=== PATIENT | female | born 1940 | race Caucasian/White ===

== ENCOUNTER → 2017-06-03 | Day surgery (SDC) | payer MEDICARE, SELFPAY | END | disposition home or self-care (01) | PROVIDERS: Family Provider Family Medicine; PCP Family Medicine; Visit Provider Ophthalmology | DX: H25.11 Age-related nuclear cataract, right eye (principal); I10 Essential (primary) hypertension; E11.9 Type 2 diabetes mellitus without complications; I48.91 Unspecified atrial fibrillation; Z86.73 Personal history of transient ischemic attack (TIA), and cerebral infarction without residual deficits; Z79.84 Long term (current) use of oral hypoglycemic drugs | CPT/HCPCS: J2704; V2787 ==

== ENCOUNTER → 2017-06-10 08:10 | Outpatient (CLI) | payer MEDICARE, SELFPAY ==
--- NOTE | 2017-06-10 | DI.CT.S_ITS ---
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 TECHNIQUE: 4 phase scanning was performed. Non-contrast 5 mm axial sections acquired from the diaphragm to the iliac crests. Following the administration of intravenous contrast, 5 mm thick arterial-phase, portal venous-phase, and 5-minute delayed phase images were acquired through the liver. 5 mm thick coronal and sagittal reformats were performed. For radiation dose reduction, the following was used: automated exposure control, adjustment of mA and/or kV according to patient size. COMPARISON: [facility], US, PELVIC COMPLETE, 05/27/2017, 15:35. [facility], , US BREAST LT, 06/28/2001, 11:18. FINDINGS: Image quality: Excellent. Lung bases: Lung bases are clear. Heart size is normal. Liver: The liver is large measuring up to 23.2 cm craniocaudad. The spleen also is enlarged with a maximal craniocaudad dimension of 18.0 cm. There is a 3.5 x 3.3 cm hypodense mass within the central portion of the spleen, rounded, which has a internal radiodensity before contrast of 37 Hounsfield units and elevation of contrast on the arterial phase of enhancement is not present with the internal radiodensity measuring 39 Hounsfield units. Similarly there is slight if any increased enhancement on the venous phase of imaging with the Hounsfield units measuring 41. Delayed imaging and 5 minutes after injection yields a internal radiodensity of 45-46 Hounsfield units. Other solid organs: Gallbladder has been previously resected. Biliary system is non dilated. Pancreas is normal in morphology. Spleen is normal in size and enhancement. No adrenal nodules. Both kidneys demonstrate normal size and enhancement, without hydronephrosis or nephrolithiasis. Nodes and vessels: No retroperitoneal or mesenteric adenopathy by size criteria. Aorta and inferior vena cava are normal in size. Bowel and peritoneum: Unenhanced bowel loops are normal in caliber. No free fluid or air. Bones: No suspicious bony lesions. No vertebral body compression fractures. Miscellaneous: No ventral hernias. IMPRESSION: Hepatosplenomegaly with a single identified splenic lesion which is rounded, measures up to 3.5 cm in diameter, and shows no CT contrast characteristics of splenic hemangioma as the underlying cause. The finding is nonspecific, likely benign, and followup by ultrasound is recommended to establish stability of appearance over time. Followup is recommended in 2 months, 6 months thereafter, and assuming stability in size at that time 12 months thereafter. Dictated by: Erik Jimenez M.D. on 06/10/2017 at 14:04 Approved by: Erik Jimenez M.D. on 06/10/2017 at 14:14
== END ==
PROVIDERS: Family Provider Family Medicine; PCP Family Medicine; Visit Provider Nurse Practitioner Gerontology
DX: R16.2 Hepatomegaly with splenomegaly, not elsewhere classified (principal)
CPT/HCPCS: 74160; 74170; Q9967

== ENCOUNTER → 2017-06-22 13:37 | Outpatient (CLI) | payer MEDICARE, SELFPAY ==
[2017-06-22 14:12] LABS: Add Manual Diff / Slide Review NO; Basophils Percent Auto 1.3 % (0-2); Eosinophils Percent Auto 1.6 % (2-4); Hematocrit 29.7 % (36-46); Hemoglobin 10.1 g/dL (12.0-16.0); Mean Corpuscular Hemoglobin 35.2 PG (26-34); Mean Corpuscular Volume 103.7 fL (80-100); Neutrophils Absolute Auto 2200 /uL (3000-5900); Neutrophils Percent Auto 61.1 % (50-75); Platelet Count 75 X10^3/uL (150-400); Red Blood Cell Count 2.87 X10^6/uL (4.0-5.2); Red Cell Distribution Width 18.6 % (11.6-14.8); White Blood Cell Count 3.6 X10^3/uL (4.5-11.0)
[2017-06-22 14:19] VITALS: BP 104/50; PULSE 62; RESP 18; TEMP 36.7; O2SAT 97
[2017-06-22] MEDS: EPOETIN ALFA 20,000 UNIT/ML VIAL 60000 UNIT SUBCUT (14:57)
== END ==
PROVIDERS: Family Provider Family Medicine; PCP Family Medicine; Visit Provider Nurse Practitioner Gerontology
DX: D46.Z Other myelodysplastic syndromes (principal); D63.8 Anemia in other chronic diseases classified elsewhere
CPT/HCPCS: 36592; 85025; 96372; J0885

== ENCOUNTER → 2017-07-03 13:28 | Outpatient (CLI) | payer MEDICARE, SELFPAY ==
[2017-07-03 13:59] LABS: Add Manual Diff / Slide Review NO; Basophils Percent Auto 1.1 % (0-2); Eosinophils Percent Auto 1.9 % (2-4); Hematocrit 30.6 % (36-46); Hemoglobin 10.1 g/dL (12.0-16.0); Lymphocytes Percent Auto 18.4 % (25-40); Mean Corpuscular HGB Conc 33.1 % (30-36); Mean Corpuscular Hemoglobin 34.2 PG (26-34); Mean Corpuscular Volume 103.4 fL (80-100); Monocytes Percent Auto 12.8 % (3-14); Neutrophils Absolute Auto 1900 /uL (3000-5900); Neutrophils Percent Auto 65.8 % (50-75); Platelet Count 75 X10^3/uL (150-400); Red Blood Cell Count 2.96 X10^6/uL (4.0-5.2); Red Cell Distribution Width 18.4 % (11.6-14.8)
[2017-07-03 14:29] VITALS: BP 120/60; RESP 18; TEMP 36.7; O2SAT 99
[2017-07-03] MEDS: EPOETIN ALFA 20,000 UNIT/ML VIAL 60000 UNIT SUBCUT (14:48)
== END ==
PROVIDERS: Family Provider Family Medicine; PCP Family Medicine; Visit Provider Nurse Practitioner Gerontology
DX: D46.Z Other myelodysplastic syndromes (principal); D63.8 Anemia in other chronic diseases classified elsewhere
CPT/HCPCS: 36592; 85025; 96372; J0885

== ENCOUNTER → 2017-08-10 13:12 | Outpatient (CLI) | payer MEDICARE, SELFPAY ==
--- NOTE | 2017-08-10 | DI.US.S_ITS ---
PROCEDURE: US ABDOMEN COMPLETE INDICATIONS: Hepatosplenomegaly TECHNIQUE: Real-time scanning was performed of the abdominal and retroperitoneal organs, with image documentation. COMPARISON: [facility], CT, CT ABDOMEN WO/W CON, 06/10/2017, 9:01. FINDINGS: Liver: Liver is moderately enlarged in size at 18.3 cm craniocaudad and homogeneous in echotexture. Except for a hepatic cyst adjacent to the fissure for the falciform ligament, measuring up to 3.2 x 1.2 cm, also seen during prior CT scanning Gallbladder: Surgically absent. Biliary ducts: Intrahepatic bile ducts are non-dilated. Extrahepatic bile duct caliber measures 1.4 cm. Normal is 6-7 mm or less in diameter, or 10 mm or less post-cholecystectomy. Pancreas: Visualized portions of the pancreas are sonographically normal. Spleen: Spleen is moderately enlarged in size measuring up to 19.9 cm craniocaudad and homogeneous in echotexture. Centrally positioned within the spleen is a 2.9 x 2.9 x 3.0 cm mass seen also previously by CT scanning 06/10/17. Kidneys: Kidneys are normal in size and echotexture. Right kidney measures 11.6 cm long; left kidney measures 12.2 cm long. No hydronephrosis or nephrolithiasis. No solid masses. Aorta: Visualized aorta is normal in caliber at less than 3 cm. Iliacs: Proximal common iliac arteries are normal in caliber at less than 2.5 cm. IVC: Intrahepatic inferior vena cava is patent. Miscellaneous: No free abdominal fluid. IMPRESSION: Hepatosplenomegaly with a stable appearing rounded soft tissue mass within the central portion of the spleen, measuring up to 2.9 x 2.9 x 3.0 cm. 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 Again noted is a small ovoid hepatic cyst at the capsular margin of the fissure for the falciform ligament just anterior to the bifurcation of the left portal vein. Dictated by: Erik Jimenez M.D. on 08/10/2017 at 15:14 Approved by: Erik Jimenez M.D. on 08/10/2017 at 15:23
== END ==
PROVIDERS: Family Provider Family Medicine; PCP Family Medicine; Visit Provider Nurse Practitioner Gerontology
DX: R16.2 Hepatomegaly with splenomegaly, not elsewhere classified (principal); K76.89 Other specified diseases of liver
CPT/HCPCS: 76700

== ENCOUNTER → 2017-08-11 16:03 | Outpatient (CLI) | payer MEDICARE, SELFPAY ==
[2017-08-11 15:20] VITALS: BP 116/55; PULSE 61; RESP 16; TEMP 36; O2SAT 99
--- NOTE | 2017-08-11 15:40 | ONC.GEN.PN ---
Diagnosis (1) Myelodysplasia (myelodysplastic syndrome) Diagnosis: 08/11/17 15:40 History of low-grade myelodysplastic syndrome, initially diagnosed in April,. Initial presentation with anemia only. More recent transformation into pancytopenia. Known hepatosplenomegaly. Previously treated with weekly Procrit, switched over to treatment every 2 weeks, the 2nd week of May,. Last abdominal ultrasound on 08/10/2017 (persistent hepatosplenomegaly). History of Present Illness History Of Present Illness: 08/11/17 15:42 Mrs. Flores returns today for routine surveillance. She is again accompanied by her very supportive . Since being switched over to twice monthly Procrit, the week of May, she has really struggled with progressive asthenia. She unequivocally feels worse the 2nd week of her Procrit regimen. She notes early satiety. She also notes intermittent/very tolerable left flank discomfort. She denies any right-sided flank or abdominal discomfort. She denies any recent febrile episodes. She denies any bleeding difficulties. Her last Procrit injection was on July 23. Home Medications and Allergies Home Medications Medication Instructions Recorded Confirmed Type CALCIUM CARBONATE (#CALCIUM) 1,200 mg PO Q DAY #0 07/19/11 06/16/17 History Multivitamin, Minerals, and 1 tab PO QDAY #0 07/19/11 History (#CENTRUM SILVER) VITAMIN E (#E-400) 400 iu PO QDAY #0 07/19/11 History ascorbic acid (vitamin C) 500 mg PO BID #0 07/19/11 06/16/17 History clopidogrel [Plavix] 75 mg PO QDAY #0 07/19/11 06/16/17 History fluticasone [Flovent HFA] 1 puff INH BID #0 07/19/11 06/16/17 History folic acid 0.8 mg PO QDAY #0 07/19/11 06/16/17 History gemfibrozil 300 mg PO BEDTIME #0 07/19/11 07/23/17 History losartan 100 mg PO QDAY #0 07/19/11 History metoprolol tartrate 50 mg PO QDAY #0 07/19/11 History prednisone 5 mg PO 0800 #0 07/19/11 History trazodone 100 mg PO HS #0 07/19/11 History cholecalciferol (vitamin D3) 2,000 iu PO QDAY #0 05/14/12 06/16/17 History [Vitamin D3] topiramate [Topamax] 100 mg PO HS #0 05/14/12 History Ketotifen Fumarate (ZADITOR 0.025%) 1 drp OPHTH #5 ml 06/29/12 History LEVOCETIRIZINE DIHYDROCHLORIDE 5 mg PO HS #0 06/29/12 History (XYZAL) [OMEGA FISH OIL] 500 mg PO #0 06/29/12 History gabapentin [Neurontin] 800 mg PO BID #0 06/29/12 06/16/17 History sertraline [Zoloft] 150 mg PO HS #0 06/29/12 History hydrocodone-acetaminophen [[place]] 1 tab PO PRN #0 04/11/16 History estradiol [Vagifem] 10 mcg VG SEE INSTRUCTIONS #0 12/22/16 06/16/17 History Allergies Allergy/AdvReac Type Severity Reaction Status Date / Time morphine Allergy Severe ANAPHYLAXIS Unverified 05/20/17 11:50 coconut [COCONUT] Allergy Intermediate HIVES Unverified 05/20/17 11:50 adhesive Allergy Mild SKIN Unverified 05/20/17 11:50 BREAKDOWN, RASH (TAPE) PAPER TAPE OK meperidine Allergy Mild red rash Unverified 05/20/17 11:50 lactose [LACTOSE] Allergy Unknown INTOLERANT Unverified 05/20/17 11:50 latex [LATEX] Allergy Unknown REACTION Unverified 05/20/17 11:50 NOT LISTED BY PT metronidazole AdvReac Severe GI UPSET Unverified 05/20/17 11:50 vancomycin [VANCOMYCIN] AdvReac Severe DIARRHEA Unverified 05/20/17 11:50 aspirin AdvReac Mild GI UPSET Unverified 05/20/17 11:50 Cephalosporins AdvReac Mild GI UPSET Unverified 05/20/17 11:50 ibuprofen AdvReac Mild GI UPSET Unverified 05/20/17 11:50 CANTALOUPE Allergy Severe HIVES Uncoded 05/20/17 11:50 honeydew melon Allergy Severe hives Uncoded 05/20/17 11:50 ANTIHISTAMINES Allergy Mild red rash Uncoded 05/20/17 11:50 Exam Vital Signs: Vital Signs - 24 hr 08/11/17 15:20 Temperature 96.8 F L Pulse Rate 61 Respiratory Rate 16 Blood Pressure 116/55 L Pulse Oximetry 99 Exam: Blood pressure 116/55. Temperature 96.8?. Pulse rate 61. O2 saturation on room air was 99%. Weight 190 lb. The patient was somewhat pale in appearance. The oropharynx was clear. She displayed percussible tenderness in her lumbar spine area. There was no palpable rib cage tenderness. Both lungs were clear to auscultation and percussion. No pathologic lymphadenopathy was noted in the neck, chin, supraclavicular or axillary areas. I could just barely palpate her liver at the right costal margin, during inspiration. She was palpably tender when I touched her inferior spleen tip. There was no lower extremity edema. Skin examination was unremarkable. I did not note any bruising or petechiae. Impression Mrs. Flores's hemoglobin level has dropped about 1.5 points, since her Procrit support was cut in half the 2nd week of May. I would therefore recommend that she go back on weekly Procrit support. Yesterday's abdominal ultrasound confirmed slight progression in her splenomegaly and slight regression in her hepatomegaly. I have not really noted any recent downward trend in either her white count or platelet count. I would be comfortable holding off on a follow-up bone marrow at this point in time. Due to my upcoming [facility], I will ask her to see our nurse practitioner in 4 weeks. I wished her well.
--- NOTE | 2017-08-11 15:46 | P.PNONC_ITS ---
Diagnosis (1) Myelodysplasia (myelodysplastic syndrome) Diagnosis: 08/11/17 15:40 History of low-grade myelodysplastic syndrome, initially diagnosed in April,. Initial presentation with anemia only. More recent transformation into pancytopenia. Known hepatosplenomegaly. Previously treated with weekly Procrit , switched over to treatment every 2 weeks, the 2nd week of May,. Last abdominal ultrasound on 08/10/2017 (persistent hepatosplenomegaly). History of Present Illness History Of Present Illness: 08/11/17 15:42 Mrs. Flores returns today for routine surveillance. She is again accompanied by her very supportive . Since being switched over to twice monthly Procrit , the week of May, she has really struggled with progressive asthenia. She unequivocally feels worse the 2nd week of her Procrit regimen. She notes early satiety. She also notes intermittent/very tolerable left flank discomfort. She denies any right-sided flank or abdominal discomfort. She denies any recent febrile episodes. She denies any bleeding difficulties. Her last Procrit injection was on July 23. Home Medications and Allergies Home Medications Medication Instructions Recorded Confirmed Type CALCIUM CARBONATE (#CALCIUM) 1,200 mg PO Q DAY #0 07/19/11 06/16/17 History Multivitamin, Minerals, and 1 tab PO QDAY #0 07/19/11 History (#CENTRUM SILVER) VITAMIN E (#E-400) 400 iu PO QDAY #0 07/19/11 History ascorbic acid (vitamin C) 500 mg PO BID #0 07/19/11 06/16/17 History clopidogrel [Plavix] 75 mg PO QDAY #0 07/19/11 06/16/17 History fluticasone [Flovent HFA] 1 puff INH BID #0 07/19/11 06/16/17 History folic acid 0.8 mg PO QDAY #0 07/19/11 06/16/17 History gemfibrozil 300 mg PO BEDTIME #0 07/19/11 07/23/17 History losartan 100 mg PO QDAY #0 07/19/11 History metoprolol tartrate 50 mg PO QDAY #0 07/19/11 History prednisone 5 mg PO 0800 #0 07/19/11 History trazodone 100 mg PO HS #0 07/19/11 History cholecalciferol (vitamin D3) 2,000 iu PO QDAY #0 05/14/12 06/16/17 History [Vitamin D3] topiramate [Topamax] 100 mg PO HS #0 05/14/12 History Ketotifen Fumarate (ZADITOR 0.025%) 1 drp OPHTH #5 ml 06/29/12 History LEVOCETIRIZINE DIHYDROCHLORIDE 5 mg PO HS #0 06/29/12 History (XYZAL) [OMEGA FISH OIL] 500 mg PO #0 06/29/12 History gabapentin [Neurontin] 800 mg PO BID #0 06/29/12 06/16/17 History sertraline [Zoloft] 150 mg PO HS #0 06/29/12 History hydrocodone-acetaminophen [[place]] 1 tab PO PRN #0 04/11/16 History estradiol [Vagifem] 10 mcg VG SEE INSTRUCTIONS #0 12/22/16 06/16/17 History Allergies Allergy/AdvReac Type Severity Reaction Status Date / Time morphine Allergy Severe ANAPHYLAXIS Unverified 05/20/17 11:50 coconut [COCONUT] Allergy Intermediate HIVES Unverified 05/20/17 11:50 adhesive Allergy Mild SKIN Unverified 05/20/17 11:50 BREAKDOWN, RASH (TAPE) PAPER TAPE OK meperidine Allergy Mild red rash Unverified 05/20/17 11:50 lactose [LACTOSE] Allergy Unknown INTOLERANT Unverified 05/20/17 11:50 latex [LATEX] Allergy Unknown REACTION Unverified 05/20/17 11:50 NOT LISTED BY PT metronidazole AdvReac Severe GI UPSET Unverified 05/20/17 11:50 vancomycin [VANCOMYCIN] AdvReac Severe DIARRHEA Unverified 05/20/17 11:50 aspirin AdvReac Mild GI UPSET Unverified 05/20/17 11:50 Cephalosporins AdvReac Mild GI UPSET Unverified 05/20/17 11:50 ibuprofen AdvReac Mild GI UPSET Unverified 05/20/17 11:50 CANTALOUPE Allergy Severe HIVES Uncoded 05/20/17 11:50 honeydew melon Allergy Severe hives Uncoded 05/20/17 11:50 ANTIHISTAMINES Allergy Mild red rash Uncoded 05/20/17 11:50 Exam Vital Signs: Vital Signs - 24 hr 08/11/17 15:20 Temperature 96.8 F L Pulse Rate 61 Respiratory Rate 16 Blood Pressure 116/55 L Pulse Oximetry 99 Exam: Blood pressure 116/55. Temperature 96.8?. Pulse rate 61. O2 saturation on room air was 99%. Weight 190 lb. The patient was somewhat pale in appearance. The oropharynx was clear. She displayed percussible tenderness in her lumbar spine area. There was no palpable rib cage tenderness. Both lungs were clear to auscultation and percussion. No pathologic lymphadenopathy was noted in the neck, chin, supraclavicular or axillary areas. I could just barely palpate her liver at the right costal margin, during inspiration. She was palpably tender when I touched her inferior spleen tip. There was no lower extremity edema. Skin examination was unremarkable. I did not note any bruising or petechiae. Impression Mrs. Flores's hemoglobin level has dropped about 1.5 points, since her Procrit support was cut in half the 2nd week of May. I would therefore recommend that she go back on weekly Procrit support. Yesterday's abdominal ultrasound confirmed slight progression in her splenomegaly and slight regression in her hepatomegaly. I have not really noted any recent downward trend in either her white count or platelet count. I would be comfortable holding off on a follow- up bone marrow at this point in time. Due to my upcoming halfway, I will ask her to see our nurse practitioner in 4 weeks. I wished her well.
[2017-08-11] MEDS: EPOETIN ALFA 20,000 UNIT/ML VIAL 60000 UNIT SUBCUT (16:04)
== END ==
PROVIDERS: Family Provider Family Medicine; PCP Family Medicine; Visit Provider Internal Medicine Hematology & Oncology
DX: D46.Z Other myelodysplastic syndromes (principal); D63.8 Anemia in other chronic diseases classified elsewhere
CPT/HCPCS: 96372; 99215; J0885

== ENCOUNTER 2017-08-14 10:44 | Emergency (ER) | payer MEDICARE, SELFPAY ==
[2017-08-14 10:57] VITALS: BP 119/70; PULSE 85; RESP 17; TEMP 37; O2SAT 99; BMI 27.8
[2017-08-14 11:56] LABS: Add Manual Diff / Slide Review NO; Basophils Percent Auto 0.6 % (0-2); Eosinophils Percent Auto 0.1 % (2-4); Hematocrit 29.8 % (36-46); Hemoglobin 9.9 g/dL (12.0-16.0); Lymphocytes Percent Auto 8.1 % (25-40); Mean Corpuscular HGB Conc 33.3 % (30-36); Mean Corpuscular Hemoglobin 34.7 PG (26-34); Mean Corpuscular Volume 104.4 fL (80-100); Monocytes Percent Auto 9.6 % (3-14); Neutrophils Absolute Auto 2700 /uL (3000-5900); Neutrophils Percent Auto 81.6 % (50-75); Platelet Count 83 X10^3/uL (150-400); Red Blood Cell Count 2.86 X10^6/uL (4.0-5.2); Red Cell Distribution Width 19.3 % (11.6-14.8); White Blood Cell Count 3.3 X10^3/uL (4.5-11.0)
[2017-08-14] MEDS: SODIUM CHLORIDE 0.9% 1,000 ML 1000 ML IV (12:00)
[2017-08-14] MEDS: ONDANSETRON 4 MG/2 ML INJ IV ×2 (12:00→15:05)
[2017-08-14 12:07] LABS: Alanine Aminotransferase 26 IU/L (9-52); Albumin 3.7 g/dL (3.5-5.0); Albumin Globulin Ratio 1.5 (1.0-2.8); Alkaline Phosphatase 68 U/L (38-126); Aspartate Aminotransferase 16 IU/L (14-36); BUN Creatinine Ratio 21.4 (6-22); Bilirubin Total 0.9 mg/dL (0.2-1.3); Blood Urea Nitrogen 15 mg/dL (7-17); Carbon Dioxide 19 mmol/L (22-32); Chloride 111 mmol/L (98-107); Estimated Glomerular Filt Rate > 60.0 mL/min (>60); Globulin 2.4 g/dL (1.7-4.1); Glucose 166 mg/dL (80-110); HEMOLYSIS < 15 (0-50); Potassium 3.5 mmol/L (3.4-5.1); Sodium 141 mmol/L (137-145); Total Protein 6.1 g/dL (6.3-8.2)
--- NOTE | 2017-08-14 12:11 | ED.NAVMDI ---
HPI - Nausea/Vomiting/Diarrhea <Maci Zabala PA-C - Last Filed: 08/14/17 21:44> General Chief complaint: Nausea/Vomiting/Diarrhea Stated complaint: DAIRRHEA,VOMITING Time Seen by Provider: 08/14/17 11:52 Source: patient and family Mode of arrival: ambulatory Limitations: no limitations History of Present Illness HPI Narrative: This 76-year-old female comes in due to 4 day history of diarrhea with watery to very loose stools, no blood or mucus. Her states that she is having diarrhea up to a dozen times daily. More than 3 times today so far. She had vomiting x2 yesterday, none today. She has had persistent nausea. She denies any abdominal pain aside from cramps with the diarrheal episodes. She denies any new urinary symptoms, chest pain, or dyspnea. She does feel generalized weakness. She has been keeping down some fluids at home but her states she basically has not eaten in 4 days. She was visited by her 7-year-old grandson who had a gastroenteritis type illness 2 days prior to her symptoms starting. Her is not ill. History reviewed in previous oncology and visit reports. Related Data Home Medications Medication Instructions Recorded Confirmed CALCIUM CARBONATE (#CALCIUM) 1,200 mg PO Q DAY #0 07/19/11 08/14/17 clopidogrel [Plavix] 75 mg PO QDAY #0 07/19/11 08/14/17 gemfibrozil 300 mg PO BEDTIME #0 07/19/11 08/14/17 ajnqnmif-irb-EG-lycopen-lutein 1 tab PO QDAY #0 07/19/11 08/14/17 [Centrum Silver] prednisone 5 mg PO 0800 #0 07/19/11 08/14/17 vitamin E 400 unit PO DAILY #0 07/19/11 08/14/17 cholecalciferol (vitamin D3) 2,000 iu PO QDAY #0 05/14/12 08/14/17 [Vitamin D3] topiramate [Topamax] 100 mg PO QAM #0 05/14/12 08/14/17 gabapentin [Neurontin] 800 mg PO BID #0 06/29/12 08/14/17 ketotifen fumarate [Zaditor] 1 drp OPHTH DAILY #5 ml 06/29/12 08/14/17 krill oil 1,000 mg PO DAILY #0 06/29/12 08/14/17 sertraline [Zoloft] 150 mg PO HS #0 06/29/12 08/14/17 estradiol [Vagifem] 10 mcg VG 3XW #0 12/22/16 08/14/17 ascorbic acid (vitamin C) 1 tab PO DAILY 08/14/17 08/14/17 diclofenac sodium [Voltaren] 1 applic TOPICAL PRN PRN 08/14/17 08/14/17 fluticasone 1 spray INTRANASAL DAILY 08/14/17 08/14/17 folic acid 0.4 mg PO DAILY 08/14/17 08/14/17 hydrocodone-acetaminophen 1 tab PO Q6H PRN 08/14/17 08/14/17 levocetirizine 1 tab PO QPM 08/14/17 08/14/17 losartan 50 mg PO DAILY 08/14/17 08/14/17 metformin 500 mg PO QPM 08/14/17 08/14/17 metoprolol succinate 1 tab PO QPM 08/14/17 08/14/17 topiramate 1 tab PO BEDTIME 08/14/17 08/14/17 trazodone 1 - 2 tab PO BEDTIME PRN 08/14/17 08/14/17 vit C,L-Nv-gizjz-lutein-zeaxan 2 cap PO DAILY 08/14/17 08/14/17 [PreserVision AREDS 2] Previous Rx's Medication Instructions Recorded diphenoxylate-atropine [Lomotil] 1 tab PO Q6H PRN #16 tab 08/14/17 ondansetron [Zofran ODT] 4 mg PO Q6-8H PRN #10 tab 08/14/17 Allergies Allergy/AdvReac Type Severity Reaction Status Date / Time morphine Allergy Severe ANAPHYLAXIS Verified 08/14/17 18:21 coconut [COCONUT] Allergy Intermediate HIVES Verified 08/14/17 18:21 adhesive Allergy Mild SKIN Verified 08/14/17 18:21 BREAKDOWN, RASH (TAPE) PAPER TAPE OK meperidine Allergy Mild red rash Verified 08/14/17 18:21 lactose [LACTOSE] Allergy Unknown INTOLERANT Verified 08/14/17 18:21 latex [LATEX] Allergy Unknown REACTION Verified 08/14/17 18:21 NOT LISTED BY PT metronidazole AdvReac Severe GI UPSET Verified 08/14/17 18:21 vancomycin [VANCOMYCIN] AdvReac Severe DIARRHEA Verified 08/14/17 18:21 aspirin AdvReac Mild GI UPSET Verified 08/14/17 18:21 Cephalosporins AdvReac Mild GI UPSET Verified 08/14/17 18:21 ibuprofen AdvReac Mild GI UPSET Verified 08/14/17 18:21 CANTALOUPE Allergy Severe HIVES Uncoded 08/14/17 18:21 honeydew melon Allergy Severe hives Uncoded 08/14/17 18:21 ANTIHISTAMINES Allergy Mild red rash Uncoded 08/14/17 18:21 Review of Systems <ELENA Tovar Last Filed: 08/14/17 21:44> Review of Systems All systems reviewed & are unremarkable except as noted in HPI and below Exam <ELENA Tovar Last Filed: 08/14/17 21:44> Narrative Exam Narrative: GENERAL APPEARANCE: Patient sitting comfortably, in no distress. HEENT: PERRL, EOMI, conjunctiva pale pink, no scleral icterus NECK: Supple LUNGS: Clear to auscultation bilaterally. HEART: Rate and rhythm regular, with frequent skips, no murmur ABDOMEN: Soft, nontender, nondistended, bowel sounds present x 4 quadrants, no masses palpable, no hepatosplenomegaly. EXTREMITIES: No edema, no cyanosis DERMATOLOGIC: No jaundice or exanthem NEUROLOGIC: Alert and oriented with normal speech and coordination Initial Vital Signs Initial Vital Signs: Vital Signs Temperature 98.6 F 08/14/17 10:57 Pulse Rate 85 08/14/17 10:57 Respiratory Rate 17 08/14/17 10:57 Blood Pressure 119/70 08/14/17 10:57 Pulse Oximetry 99 08/14/17 10:57 <DO Rosina Watson Last Filed: 08/15/17 07:37> Initial Vital Signs Initial Vital Signs: Vital Signs Temperature 98.6 F 08/14/17 10:57 Pulse Rate 85 08/14/17 10:57 Respiratory Rate 17 08/14/17 10:57 Blood Pressure 119/70 08/14/17 10:57 Pulse Oximetry 99 08/14/17 10:57 Course <Maci Zabala PA-C - Last Filed: 08/14/17 21:44> Additional Information: Patient had improvement in her nausea while here. She was able to tolerate oral fluids, some crackers and apple sauce prior to discharge and was feeling better after IV hydration. It took her several hours to produce a stool sample so it appeared that her diarrhea was improving significantly. We discussed that this appears to be a viral source, likely contracted by her grandson who was ill with similar symptoms. Discussed typically this is self-limited however she needs to return if she has acutely worsening symptoms again. She is agreeable with this plan and has follow-up scheduled with her PCP next week. Orders Ordered: Discontinued Medications Hydrocodone Bitart/Acetaminophen ([place] 5/325) 1 tab PO NOW ONE Stop: 08/14/17 17:47 Last Admin: 08/14/17 17:55 Dose: 1 tab Cholestyramine Resin (Prevalite Packet) 4 gm PO NOW ONE Stop: 08/14/17 17:47 Sodium Chloride (Normal Saline 0.9%) 1,000 mls @ 1,000 mls/hr IV BOLUS ONE Stop: 08/14/17 12:48 Last Infusion: 08/14/17 13:20 Dose: 0 mls/hr Admin: 08/14/17 12:00 Dose: 1,000 mls/hr Loperamide HCl (Immodium Liquid) 4 mg PO NOW ONE Stop: 08/14/17 17:58 Last Admin: 08/14/17 18:01 Dose: Not Given Loperamide HCl (Imodium) 4 mg PO NOW ONE Stop: 08/14/17 18:00 Last Admin: 08/14/17 18:01 Dose: 4 mg Metoclopramide HCl (Reglan) 5 mg IV NOW ONE Stop: 08/14/17 14:53 Last Admin: 08/14/17 18:15 Dose: Not Given Metoclopramide HCl (Reglan) 5 mg IV NOW ONE Stop: 08/14/17 17:47 Last Admin: 08/14/17 17:55 Dose: 5 mg Ondansetron HCl (Zofran) 4 mg IV NOW ONE Stop: 08/14/17 11:50 Last Admin: 08/14/17 12:00 Dose: 4 mg Ondansetron HCl (Zofran) 4 mg IV NOW ONE Stop: 08/14/17 14:59 Last Admin: 08/14/17 15:05 Dose: 4 mg Vital Signs - 8 hr 08/14/17 14:08 08/14/17 16:57 08/14/17 19:02 Pulse Rate 58 L 91 H 80 Respiratory Rate 15 16 15 Blood Pressure 118/62 Blood Pressure [Left Arm] 110/41 L 133/63 H Pulse Oximetry 100 100 100 <Myriam Dobbs, - Last Filed: 08/15/17 07:37> Orders Ordered: Discontinued Medications Hydrocodone Bitart/Acetaminophen ([place] 5/325) 1 tab PO NOW ONE Stop: 08/14/17 17:47 Last Admin: 08/14/17 17:55 Dose: 1 tab Cholestyramine Resin (Prevalite Packet) 4 gm PO NOW ONE Stop: 08/14/17 17:47 Sodium Chloride (Normal Saline 0.9%) 1,000 mls @ 1,000 mls/hr IV BOLUS ONE Stop: 08/14/17 12:48 Last Infusion: 08/14/17 13:20 Dose: 0 mls/hr Admin: 08/14/17 12:00 Dose: 1,000 mls/hr Loperamide HCl (Immodium Liquid) 4 mg PO NOW ONE Stop: 08/14/17 17:58 Last Admin: 08/14/17 18:01 Dose: Not Given Loperamide HCl (Imodium) 4 mg PO NOW ONE Stop: 08/14/17 18:00 Last Admin: 08/14/17 18:01 Dose: 4 mg Metoclopramide HCl (Reglan) 5 mg IV NOW ONE Stop: 08/14/17 14:53 Last Admin: 08/14/17 18:15 Dose: Not Given Metoclopramide HCl (Reglan) 5 mg IV NOW ONE Stop: 08/14/17 17:47 Last Admin: 08/14/17 17:55 Dose: 5 mg Ondansetron HCl (Zofran) 4 mg IV NOW ONE Stop: 08/14/17 11:50 Last Admin: 08/14/17 12:00 Dose: 4 mg Ondansetron HCl (Zofran) 4 mg IV NOW ONE Stop: 08/14/17 14:59 Last Admin: 08/14/17 15:05 Dose: 4 mg Vital Signs - 8 hr 08/14/17 14:08 08/14/17 16:57 08/14/17 19:02 Pulse Rate 58 L 91 H 80 Respiratory Rate 15 16 15 Blood Pressure 118/62 Blood Pressure [Left Arm] 110/41 L 133/63 H Pulse Oximetry 100 100 100 MDM - Nausea/Vomiting/Diarrhea <Maci Zabala PA-C - Last Filed: 08/14/17 21:44> Lab Data Result diagrams: 08/14/17 11:43 08/14/17 11:43 Lab Results 08/14/17 08/14/17 08/14/17 Range/Units 11:43 11:43 11:43 WBC 3.3 L (4.5-11.0) X10^3/uL RBC 2.86 L (4.0-5.2) X10^6/uL Hgb 9.9 L (12.0-16.0) g/dL Hct 29.8 L (36-46) % MCV 104.4 H (80-100) fL MCH 34.7 H (26-34) PG MCHC 33.3 (30-36) % RDW 19.3 H (11.6-14.8) % Plt Count 83 L (150-400) X10^3/uL Neut % (Auto) 81.6 H (50-75) % Lymph % (Auto) 8.1 L (25-40) % [place] % (Auto) 9.6 (3-14) % Eos % (Auto) 0.1 L (2-4) % Baso % (Auto) 0.6 (0-2) % Neut # (Auto) 2700 L (1234-6919) /uL Sodium 141 (137-145) mmol/L Potassium 3.5 (3.4-5.1) mmol/L Chloride 111 H (98-107) mmol/L Carbon Dioxide 19 L (22-32) mmol/L BUN 15 (7-17) mg/dL Creatinine 0.70 (0.52-1.04) mg/dL Estimated GFR > 60.0 (>60) mL/min BUN/Creatinine Ratio 21.4 (6-22) Glucose 166 H (80-110) mg/dL Calcium 9.0 (8.4-10.2) mg/dL Total Bilirubin 0.9 (0.2-1.3) mg/dL AST 16 (14-36) IU/L ALT 26 (9-52) IU/L Alkaline Phosphatase 68 (38-126) U/L Total Protein 6.1 L (6.3-8.2) g/dL Albumin 3.7 (3.5-5.0) g/dL Globulin 2.4 (1.7-4.1) g/dL Albumin/Globulin Ratio 1.5 (1.0-2.8) Lipase 35 (23-300) U/L Stool Aeromonas Cult (Not Detect) Stl C. cayetanensis PCR (Not Detect) Stool Rotavirus (PCR) (Not Detect) Stool Adenovirus (PCR) (Not Detect) Stool Astrovirus (PCR) (Not Detect) Stool Cryptosporidium PCR (Not Detect) Stl E.coli Shiga Tox PCR (Not Detect) St Sh/Enteroin Ecoli PCR (Not Detect) Stool E coli O157 PCR Stl Enterotoxigenic E PCR (Not Detect) Stool EPEC (PCR) (Not Detect) Stl E. histolytica PCR (Not Detect) Stool Giardia Lamblia PCR (Not Detect) Stool Sapovirus (PCR) Stl P. shigelloides PCR (Not Detect) St Y.enterocolitica PCR (Not Detect) Stool Vibrio (PCR) (Not Detect) Stl Vibrio cholerae PCR (Not Detect) Stl Enteroaggr Ecoli PCR (Not Detect) Stl Norovirus GI/GII PCR (Not Detect) Campylobacter (PCR) (Not Detect) C. difficile Tox (PCR) (Not Detect) Salmonella (PCR) (Not Detect) 08/14/17 Range/Units 15:40 WBC (4.5-11.0) X10^3/uL RBC (4.0-5.2) X10^6/uL Hgb (12.0-16.0) g/dL Hct (36-46) % MCV (80-100) fL MCH (26-34) PG MCHC (30-36) % RDW (11.6-14.8) % Plt Count (150-400) X10^3/uL Neut % (Auto) (50-75) % Lymph % (Auto) (25-40) % [place] % (Auto) (3-14) % Eos % (Auto) (2-4) % Baso % (Auto) (0-2) % Neut # (Auto) (0957-0010) /uL Sodium (137-145) mmol/L Potassium (3.4-5.1) mmol/L Chloride (98-107) mmol/L Carbon Dioxide (22-32) mmol/L BUN (7-17) mg/dL Creatinine (0.52-1.04) mg/dL Estimated GFR (>60) mL/min BUN/Creatinine Ratio (6-22) Glucose (80-110) mg/dL Calcium (8.4-10.2) mg/dL Total Bilirubin (0.2-1.3) mg/dL AST (14-36) IU/L ALT (9-52) IU/L Alkaline Phosphatase (38-126) U/L Total Protein (6.3-8.2) g/dL Albumin (3.5-5.0) g/dL Globulin (1.7-4.1) g/dL Albumin/Globulin Ratio (1.0-2.8) Lipase (23-300) U/L Stool Aeromonas Cult Awaiting culture res (Not Detect) Stl C. cayetanensis PCR Not detected (Not Detect) Stool Rotavirus (PCR) Not detected (Not Detect) Stool Adenovirus (PCR) Not detected (Not Detect) Stool Astrovirus (PCR) Detected H (Not Detect) Stool Cryptosporidium PCR Not detected (Not Detect) Stl E.coli Shiga Tox PCR Not detected (Not Detect) St Sh/Enteroin Ecoli PCR Not detected (Not Detect) Stool E coli O157 PCR Not Reportable Stl Enterotoxigenic E PCR Not detected (Not Detect) Stool EPEC (PCR) Not detected (Not Detect) Stl E. histolytica PCR Not detected (Not Detect) Stool Giardia Lamblia PCR Not detected (Not Detect) Stool Sapovirus (PCR) N Stl P. shigelloides PCR Not detected (Not Detect) St Y.enterocolitica PCR Not detected (Not Detect) Stool Vibrio (PCR) Not detected (Not Detect) Stl Vibrio cholerae PCR Not detected (Not Detect) Stl Enteroaggr Ecoli PCR Not detected (Not Detect) Stl Norovirus GI/GII PCR Not detected (Not Detect) Campylobacter (PCR) Not detected (Not Detect) C. difficile Tox (PCR) Not detected (Not Detect) Salmonella (PCR) Not detected (Not Detect) Imaging Data Venous US: Radiologist's impression: <Myriam Rinku, DO - Last Filed: 08/15/17 07:37> Lab Data Lab Results 08/14/17 08/14/17 08/14/17 Range/Units 11:43 11:43 11:43 WBC 3.3 L (4.5-11.0) X10^3/uL RBC 2.86 L (4.0-5.2) X10^6/uL Hgb 9.9 L (12.0-16.0) g/dL Hct 29.8 L (36-46) % MCV 104.4 H (80-100) fL MCH 34.7 H (26-34) PG MCHC 33.3 (30-36) % RDW 19.3 H (11.6-14.8) % Plt Count 83 L (150-400) X10^3/uL Neut % (Auto) 81.6 H (50-75) % Lymph % (Auto) 8.1 L (25-40) % [place] % (Auto) 9.6 (3-14) % Eos % (Auto) 0.1 L (2-4) % Baso % (Auto) 0.6 (0-2) % Neut # (Auto) 2700 L (9310-2824) /uL Sodium 141 (137-145) mmol/L Potassium 3.5 (3.4-5.1) mmol/L Chloride 111 H (98-107) mmol/L Carbon Dioxide 19 L (22-32) mmol/L BUN 15 (7-17) mg/dL Creatinine 0.70 (0.52-1.04) mg/dL Estimated GFR > 60.0 (>60) mL/min BUN/Creatinine Ratio 21.4 (6-22) Glucose 166 H (80-110) mg/dL Calcium 9.0 (8.4-10.2) mg/dL Total Bilirubin 0.9 (0.2-1.3) mg/dL AST 16 (14-36) IU/L ALT 26 (9-52) IU/L Alkaline Phosphatase 68 (38-126) U/L Total Protein 6.1 L (6.3-8.2) g/dL Albumin 3.7 (3.5-5.0) g/dL Globulin 2.4 (1.7-4.1) g/dL Albumin/Globulin Ratio 1.5 (1.0-2.8) Lipase 35 (23-300) U/L Stool Aeromonas Cult (Not Detect) Stl C. cayetanensis PCR (Not Detect) Stool Rotavirus (PCR) (Not Detect) Stool Adenovirus (PCR) (Not Detect) Stool Astrovirus (PCR) (Not Detect) Stool Cryptosporidium PCR (Not Detect) Stl E.coli Shiga Tox PCR (Not Detect) St Sh/Enteroin Ecoli PCR (Not Detect) Stool E coli O157 PCR Stl Enterotoxigenic E PCR (Not Detect) Stool EPEC (PCR) (Not Detect) Stl E. histolytica PCR (Not Detect) Stool Giardia Lamblia PCR (Not Detect) Stool Sapovirus (PCR) Stl P. shigelloides PCR (Not Detect) St Y.enterocolitica PCR (Not Detect) Stool Vibrio (PCR) (Not Detect) Stl Vibrio cholerae PCR (Not Detect) Stl Enteroaggr Ecoli PCR (Not Detect) Stl Norovirus GI/GII PCR (Not Detect) Campylobacter (PCR) (Not Detect) C. difficile Tox (PCR) (Not Detect) Salmonella (PCR) (Not Detect) 08/14/17 Range/Units 15:40 WBC (4.5-11.0) X10^3/uL RBC (4.0-5.2) X10^6/uL Hgb (12.0-16.0) g/dL Hct (36-46) % MCV (80-100) fL MCH (26-34) PG MCHC (30-36) % RDW (11.6-14.8) % Plt Count (150-400) X10^3/uL Neut % (Auto) (50-75) % Lymph % (Auto) (25-40) % [place] % (Auto) (3-14) % Eos % (Auto) (2-4) % Baso % (Auto) (0-2) % Neut # (Auto) (8528-3054) /uL Sodium (137-145) mmol/L Potassium (3.4-5.1) mmol/L Chloride (98-107) mmol/L Carbon Dioxide (22-32) mmol/L BUN (7-17) mg/dL Creatinine (0.52-1.04) mg/dL Estimated GFR (>60) mL/min BUN/Creatinine Ratio (6-22) Glucose (80-110) mg/dL Calcium (8.4-10.2) mg/dL Total Bilirubin (0.2-1.3) mg/dL AST (14-36) IU/L ALT (9-52) IU/L Alkaline Phosphatase (38-126) U/L Total Protein (6.3-8.2) g/dL Albumin (3.5-5.0) g/dL Globulin (1.7-4.1) g/dL Albumin/Globulin Ratio (1.0-2.8) Lipase (23-300) U/L Stool Aeromonas Cult Awaiting culture res (Not Detect) Stl C. cayetanensis PCR Not detected (Not Detect) Stool Rotavirus (PCR) Not detected (Not Detect) Stool Adenovirus (PCR) Not detected (Not Detect) Stool Astrovirus (PCR) Detected H (Not Detect) Stool Cryptosporidium PCR Not detected (Not Detect) Stl E.coli Shiga Tox PCR Not detected (Not Detect) St Sh/Enteroin Ecoli PCR Not detected (Not Detect) Stool E coli O157 PCR Not Reportable Stl Enterotoxigenic E PCR Not detected (Not Detect) Stool EPEC (PCR) Not detected (Not Detect) Stl E. histolytica PCR Not detected (Not Detect) Stool Giardia Lamblia PCR Not detected (Not Detect) Stool Sapovirus (PCR) N Stl P. shigelloides PCR Not detected (Not Detect) St Y.enterocolitica PCR Not detected (Not Detect) Stool Vibrio (PCR) Not detected (Not Detect) Stl Vibrio cholerae PCR Not detected (Not Detect) Stl Enteroaggr Ecoli PCR Not detected (Not Detect) Stl Norovirus GI/GII PCR Not detected (Not Detect) Campylobacter (PCR) Not detected (Not Detect) C. difficile Tox (PCR) Not detected (Not Detect) Salmonella (PCR) Not detected (Not Detect) Discharge Plan Departure Patient Disposition: Home, Self-Care Clinical Impression: Viral gastroenteritis Discharge Date/Time: 08/14/17 19:04 Interventions: ED Discharge Assessment Last Done: 08/14/17 19:02 Instructions: DI for Viral Gastroenteritis -- Adult Activity Restrictions/Additional Instructions: Your stool tests were positive for a virus called Astrovirus. From the history you described to me I suspect this came from your grandson. Typically this virus will resolve on its own, but as we talked about if you are feeling acutely worse again and not able to keep down fluids, you need to return to the emergency room. Otherwise, we have scheduled a follow-up visit for you with Dr. Jeffries's office, please check in Thursday at 10:45 a.m. I have sent nausea medication to the pharmacy for you, and have also given you a prescription for a stronger medicine for diarrhea and cramps then you have been taking at home. Please drink plenty of clear fluids and have a bland diet as you are familiar with. Prescriptions: New ondansetron [Zofran ODT] 4 mg tablet,disintegrating 4 mg PO Q6-8H PRN (Reason: nausea and vomiting) Qty: 10 RF: 0 diphenoxylate-atropine [Lomotil] 2.5-0.025 mg tablet 1 tab PO Q6H PRN (Reason: diarrhea) Qty: 16 RF: 0 No Action gemfibrozil 600 MG tablet 300 mg PO BEDTIME Qty: 0 RF: 0 prednisone 5 MG tablet 5 mg PO 0800 Qty: 0 RF: 0 clopidogrel [Plavix] 75 MG tablet 75 mg PO QDAY Qty: 0 RF: 0 qebwuaap-hnw-SN-lycopen-lutein [Centrum Silver] 0.4-300-250 mg-mcg-mcg Tablet 1 tab PO QDAY Qty: 0 RF: 0 CALCIUM CARBONATE (#CALCIUM) 1,200 mg PO Q DAY Qty: 0 RF: 0 vitamin E 400 unit Capsule 400 unit PO DAILY Qty: 0 RF: 0 cholecalciferol (vitamin D3) [Vitamin D3] 2,000 UNIT capsule 2,000 iu PO QDAY Qty: 0 RF: 0 topiramate [Topamax] 100 MG tablet 100 mg PO QAM Qty: 0 RF: 0 gabapentin [Neurontin] 400 MG capsule 800 mg PO BID Qty: 0 RF: 0 sertraline [Zoloft] 100 MG tablet 150 mg PO HS Qty: 0 RF: 0 ketotifen fumarate [Zaditor] 0.025 % (0.035 %) Drops 1 drp OPHTH DAILY Qty: 5 RF: 0 krill oil 1,000 mg PO DAILY Qty: 0 RF: 0 estradiol [Vagifem] 10 MCG tablet 10 mcg VG 3XW Qty: 0 RF: 0 losartan 50 mg tablet 50 mg PO DAILY RF: 0 metformin 500 mg tablet 500 mg PO QPM RF: 0 metoprolol succinate 50 mg tablet extended release 24 hr 1 tab PO QPM RF: 0 hydrocodone-acetaminophen 10-325 mg tablet 1 tab PO Q6H PRN (Reason: pain) RF: 0 trazodone 100 mg tablet 1 - 2 tab PO BEDTIME PRN (Reason: antidepressant) RF: 0 topiramate 200 mg tablet 1 tab PO BEDTIME RF: 0 fluticasone 50 mcg/actuation spray,suspension 1 spray Intranasal DAILY RF: 0 levocetirizine 5 mg tablet 1 tab PO QPM RF: 0 ascorbic acid (vitamin C) 1,000 mg Tablet 1 tab PO DAILY RF: 0 folic acid 400 mcg Tablet 0.4 mg PO DAILY RF: 0 diclofenac sodium [Voltaren] 1 % gel 1 applic Topical PRN PRN (Reason: arthritis pain) RF: 0 vit C,J-Ak-kxtkd-lutein-zeaxan [PreserVision AREDS 2] [phone] oe-wabt-pu-mg Capsule 2 cap PO DAILY RF: 0 Referrals: Elena Jeffries MD [Primary Care Provider] - <Myriam Dobbs DO - Last Filed: 08/15/17 07:37> [facility] I was immediately available in the department for consultation. Documentation has been reviewed. I agree with assessment and plan.
[2017-08-14 12:53] LABS: Lipase 35 U/L (23-300)
[2017-08-14 14:08] VITALS: BP 110/41; PULSE 58; RESP 15; O2SAT 100
[2017-08-14 16:57] VITALS: BP 133/63; PULSE 91; RESP 16; O2SAT 100
[2017-08-14 17:22] LABS: Campylobacter Not Detected (Not Detect); Clostridium difficile toxin AB Not Detected (Not Detect); Enteroaggregative E.coli Not Detected (Not Detect); Plesiomonsa shigelloides Not Detected (Not Detect); Salmonella Not Detected (Not Detect); Vibrio Not Detected (Not Detect); Vibrio cholerae Not Detected (Not Detect); Yersinia enterocolitica Not Detected (Not Detect)
[2017-08-14 17:23] LABS: Adenovirus F 40/41 Not Detected (Not Detect); Astrovirus Detected (Not Detect); Cryptosporidium Not Detected (Not Detect); Cyclospora cayetanensis Not Detected (Not Detect); Entamoeba histolytica Not Detected (Not Detect); Enteropathogenic E.coli Not Detected (Not Detect); Enterotoxigenic E.coli It/st Not Detected (Not Detect); Giardia lamblia Not Detected (Not Detect); Norovirus GI/GII Not Detected (Not Detect); Rotavirus A Not Detected (Not Detect); Shiga-like toxin-prod E.coli Not Detected (Not Detect); Shigella/Enteroinvasive E.coli Not Detected (Not Detect)
[2017-08-14] MEDS: HYDROCODONE/ACET 5/325 TABLET 1 TAB PO (17:55)
[2017-08-14] MEDS: METOCLOPRAMIDE 10 MG/2 ML INJ 5 MG IV (17:55)
[2017-08-14] MEDS: LOPERAMIDE 2 MG CAPSULE 4 MG PO (18:01)
[2017-08-14 19:02] VITALS: BP 118/62; PULSE 80; RESP 15; O2SAT 100
[2017-08-15 11:46] LABS: Sapovirus Not Detected
== END 2017-08-14 19:04 | disposition home or self-care (01) ==
PROVIDERS: Emergency Medicine; Emergency Provider Internal Medicine; Family Provider Family Medicine; PCP Family Medicine
DX: A08.4 Viral intestinal infection, unspecified (principal)
CPT/HCPCS: 36591; 80053; 83690; 85025; 87507; 96361; 96374; 96375; 96376; 99283; J2405; J2765

== ENCOUNTER → 2017-08-19 12:05 | Outpatient (CLI) | payer MEDICARE, SELFPAY ==
[2017-08-19 12:27] LABS: Add Manual Diff / Slide Review NO; Basophils Percent Auto 1.3 % (0-2); Eosinophils Percent Auto 2.4 % (2-4); Hematocrit 26.5 % (36-46); Hemoglobin 8.9 g/dL (12.0-16.0); Lymphocytes Percent Auto 23.2 % (25-40); Mean Corpuscular HGB Conc 33.4 % (30-36); Mean Corpuscular Hemoglobin 34.7 PG (26-34); Mean Corpuscular Volume 103.8 fL (80-100); Monocytes Percent Auto 10.8 % (3-14); Neutrophils Absolute Auto 1500 /uL (3000-5900); Neutrophils Percent Auto 62.3 % (50-75); Platelet Count 109 X10^3/uL (150-400); Red Blood Cell Count 2.55 X10^6/uL (4.0-5.2); Red Cell Distribution Width 18.9 % (11.6-14.8); White Blood Cell Count 2.3 X10^3/uL (4.5-11.0)
[2017-08-19 12:57] VITALS: BP 119/61; PULSE 63; RESP 18; TEMP 36.7; O2SAT 99
[2017-08-19] MEDS: EPOETIN ALFA 20,000 UNIT/ML VIAL 60000 UNIT SUBCUT (13:19)
== END ==
PROVIDERS: Family Provider Family Medicine; PCP Family Medicine; Visit Provider Internal Medicine Hematology & Oncology
DX: D46.Z Other myelodysplastic syndromes (principal); D61.818 Other pancytopenia; D63.8 Anemia in other chronic diseases classified elsewhere; R16.2 Hepatomegaly with splenomegaly, not elsewhere classified
CPT/HCPCS: 36592; 85025; 96372; J0885

== ENCOUNTER → 2017-08-25 13:59 | Outpatient (CLI) | payer MEDICARE, SELFPAY ==
[2017-08-25 14:44] LABS: Add Manual Diff / Slide Review NO; Basophils Percent Auto 1.3 % (0-2); Eosinophils Percent Auto 0.5 % (2-4); Hematocrit 26.8 % (36-46); Lymphocytes Percent Auto 15.4 % (25-40); Mean Corpuscular HGB Conc 33.7 % (30-36); Mean Corpuscular Hemoglobin 35.3 PG (26-34); Mean Corpuscular Volume 104.6 fL (80-100); Monocytes Percent Auto 7.1 % (3-14); Neutrophils Absolute Auto 3000 /uL (3000-5900); Neutrophils Percent Auto 75.7 % (50-75); Platelet Count 115 X10^3/uL (150-400); Red Blood Cell Count 2.56 X10^6/uL (4.0-5.2); Red Cell Distribution Width 19.3 % (11.6-14.8); White Blood Cell Count 3.9 X10^3/uL (4.5-11.0)
[2017-08-25 15:11] VITALS: BP 103/56; PULSE 67; RESP 17; TEMP 36.9; O2SAT 98
[2017-08-25] MEDS: EPOETIN ALFA 20,000 UNIT/ML VIAL 60000 UNIT SUBCUT (15:23)
== END ==
PROVIDERS: Family Provider Family Medicine; PCP Family Medicine; Visit Provider Internal Medicine Hematology & Oncology
DX: D46.Z Other myelodysplastic syndromes (principal); D63.8 Anemia in other chronic diseases classified elsewhere
CPT/HCPCS: 36592; 85025; 96372; J0885

== ENCOUNTER → 2017-09-01 14:07 | Outpatient (CLI) | payer MEDICARE, SELFPAY ==
[2017-09-01 14:37] LABS: Add Manual Diff / Slide Review NO; Basophils Percent Auto 1.8 % (0-2); Eosinophils Percent Auto 1.3 % (2-4); Hemoglobin 9.5 g/dL (12.0-16.0); Lymphocytes Percent Auto 24.6 % (25-40); Mean Corpuscular Hemoglobin 35.8 PG (26-34); Mean Corpuscular Volume 105.4 fL (80-100); Monocytes Percent Auto 11.2 % (3-14); Neutrophils Absolute Auto 1700 /uL (3000-5900); Neutrophils Percent Auto 61.1 % (50-75); Platelet Count 92 X10^3/uL (150-400); Red Blood Cell Count 2.66 X10^6/uL (4.0-5.2); Red Cell Distribution Width 19.5 % (11.6-14.8); White Blood Cell Count 2.8 X10^3/uL (4.5-11.0)
[2017-09-01 14:46] VITALS: BP 108/50; PULSE 63; RESP 16; TEMP 36.9; O2SAT 100
[2017-09-01] MEDS: EPOETIN ALFA 20,000 UNIT/ML VIAL 60000 UNIT SUBCUT (15:06)
== END ==
PROVIDERS: Family Provider Family Medicine; PCP Family Medicine; Visit Provider Internal Medicine Hematology & Oncology
DX: D46.Z Other myelodysplastic syndromes (principal); D63.8 Anemia in other chronic diseases classified elsewhere
CPT/HCPCS: 36592; 85025; 96372; J0885

== ENCOUNTER → 2017-09-08 13:14 | Outpatient (CLI) | payer MEDICARE, SELFPAY ==
[2017-09-08 13:36] LABS: Basophils Percent Auto 1.4 % (0-2); Eosinophils Percent Auto 1.5 % (2-4); Hematocrit 28.1 % (36-46); Hemoglobin 9.5 g/dL (12.0-16.0); Lymphocytes Percent Auto 23.1 % (25-40); Mean Corpuscular HGB Conc 33.7 % (30-36); Mean Corpuscular Hemoglobin 35.6 PG (26-34); Mean Corpuscular Volume 105.6 fL (80-100); Monocytes Percent Auto 10.6 % (3-14); Neutrophils Absolute Auto 1700 /uL (3000-5900); Neutrophils Percent Auto 63.4 % (50-75); Platelet Count 104 X10^3/uL (150-400); Red Blood Cell Count 2.66 X10^6/uL (4.0-5.2); Red Cell Distribution Width 20.6 % (11.6-14.8); White Blood Cell Count 2.7 X10^3/uL (4.5-11.0)
[2017-09-08 13:37] LABS: Add Manual Diff / Slide Review SLIDE REVIEW
[2017-09-08 13:40] VITALS: BP 121/85; PULSE 71; RESP 18; TEMP 36.8; O2SAT 98
[2017-09-08 14:08] LABS: Anisocytosis 2+; Tear Drop Cells 1+
[2017-09-08 14:09] LABS: Ovalocytes 2+
[2017-09-08] MEDS: EPOETIN ALFA 20,000 UNIT/ML VIAL 60000 UNIT SUBCUT (14:48)
--- NOTE | 2017-09-08 15:43 | ONC.APRN.PN ---
Assessment and Plan (1) Myelodysplasia (myelodysplastic syndrome) Current visit: No Status: Acute 09/08/17 15:49 The patient is a 76 year old Female who is being seen in the clinic 09/08/2017 for low grade myelodysplastic syndrome.with anemia, which has developed into pancytopenia. She is now on EPO 60,000 U weekly, which has imoproved her stamina and outlook tremendously. She required 2 units of packed cells on 12/01/2016 for symptomatic anemia and was receiving EPO 10,000 units weekly. She has been treated with EPO since June 2016 and increased to 60,000 units weekly on 12/01. Since then she has felt more energy and states she lockett been able to return to many of her normal activities. Abdominal ultrasound August 10, 2017 demonstrated stable hepatosplenomegaly also with stable soft tissue mass within the central portion of the spleen. Likely a hemangioma, recommendation is to follow-up in 6 and 12 months. She has recovered from recent gastroenteritis with positive stool culture for astrovirus. We will go ahead and administer Procrit 82917 units subcutaneous. Continue weekly. Continue weekly CBC. I have asked the patient return to the clinic in 4 weeks time to be evaluated by 1 of our new oncologist. In review of her blood work she has steady decline in her white count also platelets. I would like for her to discuss with the oncologist/channeler insole if it makes sense to repeat a bone marrow biopsy or if continued watchful waiting with Procrit support remains the best approach. It is important to know patient is overall feeling quite well. She enjoys excellent quality of life. Very active socially also with her family. She does have an extensive medical history. - Time Spent with Patient 30 mis PN -Subjective Interval history: The patient is a 76 year old Female who is being seen in the clinic 09/08/2017 for low grade myelodysplastic syndrome.with anemia, which has developed into pancytopenia. She is now on EPO 60,000 U weekly, which has imoproved her stamina and outlook tremendously. She required 2 units of packed cells on 12/01/2016 for symptomatic anemia and was receiving EPO 10,000 units weekly. She has been treated with EPO since June 2016 and increased to 60,000 units weekly on 12/01. Since then she has felt more energy and states she lockett been able to return to many of her normal activities. Abdominal ultrasound August 10, 2017 demonstrated stable hepatosplenomegaly also with stable soft tissue mass within the central portion of the spleen. Likely a hemangioma, recommendation is to follow-up in 6 and 12 months. Marli presents today for routine visit, EPO injection. She recently had a rather severe gastroenteritis and was treated in the emergency department. Stool culture was positive for astrovirus. Treatment was only supportive, she received fluids, anti emetics also anti diarrheal 600s. It took almost 14 days however the patient feels she has now fully recovered. Bowel movements are back to normal, appetite is back to normal. No abdominal pain. No nausea. No fever or chills overall feeling quite well. Activity tolerance is excellent. No chest pain, shortness of breath. Past Medical History The patient's past medical history is significant for: Ab0 first delivey 04/07/63, second 10/05/65, third 08/11/71 bilat inguinal hernias 1965, repaired 09/1965 pre ulcer 1966, 1970 left knee surgery 1968 stroke unable to read, could barely navigate at 6 months , 05/11/71; sounds like TIA or severe migraine; however, CT head without contrasst 12/01/2011 showed possible old lacunar infarct back problems with brace 1974 partial hysterectomy esoph spasm, (-) angio 1987 lwft total hip 1989 kidney stones 1992 or 1993 choilecystectomy 1994 irritable bowel syndrome 1997 - 2007 Sarcoidosis - pt states she had a mdiastinoscopy; well by 2003 right vitreous floater 1998 right total hip 1999; dislocation 1999 Diabetes type II August 2000 minor occlusion right eye 2002 bigeminy 2002, started plavix diverticulitis 2002 Htn PAC's 2004 started Norpace Osteoarthritis ongoing Polymyalgia Rheumatica 07/2005, pt states it is ongoing benign essential tremor dx'd 01/14 right knee arthroscopy, totalknee, arthroscopy 2006 and 2007 left knee replacementn08/2008; removal of bone and scar tissue July 2009 macular degeneration 2010 C. Difficil 2009, 2010; both occurred after ; treated with vanco; got better after stopping vanco negative colonoscopy 2012 fx elbow 2014 Past Surgical History The patient's past surgical history includes: bilat inguinal hernias 1965, repaired 09/1965 left knee surgery 1968 partial hysterectomy esoph spasm, (-) angio 1987 left total hip 1989 kidney stones 1992 or 1993 cholecystectomy 1994 Sarcoidosis - pt states she had a mdiastinoscopy; well by 2003 right total hip 1999; dislocation 1999 right knee arthroscopy, totalknee, arthroscopy 2006 and 2007 left knee replacement 08/2008; removal of bone and scar tissue July 2009 negative colonoscopy 2012 fx elbow 2014 Results - Labs 09/08/17 13:20 Laboratory Last Values WBC 2.7 X10^3/uL (4.5-11.0) L 09/08/17 13:20 RBC 2.66 X10^6/uL (4.0-5.2) L 09/08/17 13:20 Hgb 9.5 g/dL (12.0-16.0) L 09/08/17 13:20 Hct 28.1 % (36-46) L 09/08/17 13:20 MCV 105.6 fL (80-100) H 09/08/17 13:20 MCH 35.6 PG (26-34) H 09/08/17 13:20 MCHC 33.7 % (30-36) 09/08/17 13:20 RDW 20.6 % (11.6-14.8) H 09/08/17 13:20 Plt Count 104 X10^3/uL (150-400) L 09/08/17 13:20 Neut % (Auto) 63.4 % (50-75) 09/08/17 13:20 Lymph % (Auto) 23.1 % (25-40) L 09/08/17 13:20 [place]ern % (Auto) 10.6 % (3-14) 09/08/17 13:20 Eos % (Auto) 1.5 % (2-4) L 09/08/17 13:20 Baso % (Auto) 1.4 % (0-2) 09/08/17 13:20 Neut # (Auto) 1700 /uL (3964-2969) L 09/08/17 13:20 RBC Morphology Not Reportable 09/08/17 13:20 Anisocytosis 2+ H 09/08/17 13:20 Tear Drop Cells 1+ H 09/08/17 13:20 Ovalocytes 2+ H 09/08/17 13:20 - Imaging Additional studies: Procedures Colonoscopy (09/10/12) Home Medications and Allergies Home Medications Medication Instructions Recorded Confirmed Type CALCIUM CARBONATE (#CALCIUM) 1,200 mg PO Q DAY #0 07/19/11 08/14/17 History clopidogrel [Plavix] 75 mg PO QDAY #0 07/19/11 08/14/17 History gemfibrozil 300 mg PO BEDTIME #0 07/19/11 08/14/17 History vbhqcmbq-csv-AU-lycopen-lutein 1 tab PO QDAY #0 07/19/11 08/14/17 History [Centrum Silver] prednisone 5 mg PO 0800 #0 07/19/11 08/14/17 History vitamin E 400 unit PO DAILY #0 07/19/11 08/14/17 History cholecalciferol (vitamin D3) 2,000 iu PO QDAY #0 05/14/12 08/14/17 History [Vitamin D3] topiramate [Topamax] 100 mg PO QAM #0 05/14/12 08/14/17 History gabapentin [Neurontin] 800 mg PO BID #0 06/29/12 08/14/17 History ketotifen fumarate [Zaditor] 1 drp OPHTH DAILY #5 ml 06/29/12 08/14/17 History krill oil 1,000 mg PO DAILY #0 06/29/12 08/14/17 History sertraline [Zoloft] 150 mg PO HS #0 06/29/12 08/14/17 History estradiol [Vagifem] 10 mcg VG 3XW #0 12/22/16 08/14/17 History ascorbic acid (vitamin C) 1 tab PO DAILY 08/14/17 08/14/17 History diclofenac sodium [Voltaren] 1 applic TOPICAL PRN PRN 08/14/17 08/14/17 History diphenoxylate-atropine [Lomotil] 1 tab PO Q6H PRN #16 tab 08/14/17 Rx fluticasone 1 spray INTRANASAL DAILY 08/14/17 08/14/17 History folic acid 0.4 mg PO DAILY 08/14/17 08/14/17 History hydrocodone-acetaminophen 1 tab PO Q6H PRN 08/14/17 08/14/17 History levocetirizine 1 tab PO QPM 08/14/17 08/14/17 History losartan 50 mg PO DAILY 08/14/17 08/14/17 History metformin 500 mg PO QPM 08/14/17 08/14/17 History metoprolol succinate 1 tab PO QPM 08/14/17 08/14/17 History ondansetron [Zofran ODT] 4 mg PO Q6-8H PRN #10 tab 08/14/17 Rx topiramate 1 tab PO BEDTIME 08/14/17 08/14/17 History trazodone 1 - 2 tab PO BEDTIME PRN 08/14/17 08/14/17 History vit C,S-Hk-iyatw-lutein-zeaxan 2 cap PO DAILY 08/14/17 08/14/17 History [PreserVision AREDS 2] Allergies Allergy/AdvReac Type Severity Reaction Status Date / Time morphine Allergy Severe ANAPHYLAXIS Verified 08/14/17 18:21 coconut [COCONUT] Allergy Intermediate HIVES Verified 08/14/17 18:21 adhesive Allergy Mild SKIN Verified 08/14/17 18:21 BREAKDOWN, RASH (TAPE) PAPER TAPE OK meperidine Allergy Mild red rash Verified 08/14/17 18:21 lactose [LACTOSE] Allergy Unknown INTOLERANT Verified 08/14/17 18:21 latex [LATEX] Allergy Unknown REACTION Verified 08/14/17 18:21 NOT LISTED BY PT metronidazole AdvReac Severe GI UPSET Verified 08/14/17 18:21 vancomycin [VANCOMYCIN] AdvReac Severe DIARRHEA Verified 08/14/17 18:21 aspirin AdvReac Mild GI UPSET Verified 08/14/17 18:21 Cephalosporins AdvReac Mild GI UPSET Verified 08/14/17 18:21 ibuprofen AdvReac Mild GI UPSET Verified 08/14/17 18:21 CANTALOUPE Allergy Severe HIVES Uncoded 08/14/17 18:21 honeydew melon Allergy Severe hives Uncoded 08/14/17 18:21 ANTIHISTAMINES Allergy Mild red rash Uncoded 08/14/17 18:21 Exam Vital signs: Last Vital Signs Temp 98.2 F 09/08/17 13:40 Pulse 71 09/08/17 13:40 Resp 18 09/08/17 13:40 BP 121/85 H 09/08/17 13:40 Pulse Ox 98 09/08/17 13:40 Narrative: non toxic appearing - Constitutional positive no acute distress - Routine HEENT Exam Head: Present: normocephalic, atraumatic Eye: Absent: conjunctival icterus, scleral injection ENT: Present: mucous membranes moist, oropharynx clear - Routine Neck Exam Present: supple. Absent: lymphadenopathy - Routine Respiratory Exam Present: Clear to auscultation bilaterally. Absent: rales, rhonchi, wheezes - Routine Cardiovascular Exam Present: RRR, S1, S2. Absent: murmur, gallop, rubs, JVD - Routine Abdominal Exam Present: soft, normoactive bowel sounds, tenderness, distended. Absent: mass Palpation/Percussion: Present: splenomegaly. Absent: fluid waves Comments: chronic - Routine Extremities Exam Absent: edema, calf tenderness - Routine Skin Exam Present: intact, normal turgor. Absent: petechiae - Routine Neurological Exam Present: alert, oriented X3 - Routine Psychiatric Exam Present: normal affect
== END ==
PROVIDERS: Internal Medicine Hematology & Oncology; Family Provider Family Medicine; PCP Family Medicine; Visit Provider Internal Medicine Hematology & Oncology
DX: D46.Z Other myelodysplastic syndromes (principal); D61.818 Other pancytopenia; R16.2 Hepatomegaly with splenomegaly, not elsewhere classified
CPT/HCPCS: 36592; 85025; 96372; 99214; J0885

== ENCOUNTER → 2017-09-14 13:24 | Outpatient (CLI) | payer MEDICARE, SELFPAY ==
[2017-09-14 12:09] LABS: Add Manual Diff / Slide Review NO; Basophils Percent Auto 1.3 % (0-2); Eosinophils Percent Auto 2.1 % (2-4); Hematocrit 28.8 % (36-46); Hemoglobin 9.6 g/dL (12.0-16.0); Lymphocytes Percent Auto 24.1 % (25-40); Mean Corpuscular HGB Conc 33.3 % (30-36); Mean Corpuscular Hemoglobin 35.6 PG (26-34); Mean Corpuscular Volume 107.1 fL (80-100); Monocytes Percent Auto 12.9 % (3-14); Neutrophils Absolute Auto 1800 /uL (3000-5900); Neutrophils Percent Auto 59.6 % (50-75); Platelet Count 89 X10^3/uL (150-400); Red Blood Cell Count 2.69 X10^6/uL (4.0-5.2)
[2017-09-14 12:35] VITALS: BP 116/50; PULSE 65; RESP 16; TEMP 36.9; O2SAT 97
[2017-09-14] MEDS: EPOETIN ALFA 20,000 UNIT/ML VIAL 60000 UNIT SUBCUT (13:40)
== END ==
PROVIDERS: Family Provider Family Medicine; PCP Family Medicine; Visit Provider Nurse Practitioner Gerontology
DX: D46.Z Other myelodysplastic syndromes (principal)
CPT/HCPCS: 36592; 85025; 96372; J0885

== ENCOUNTER → 2017-09-21 11:32 | Outpatient (CLI) | payer MEDICARE, SELFPAY ==
[2017-09-21 11:57] VITALS: BP 118/56; PULSE 63; RESP 16; TEMP 36.8; O2SAT 99
[2017-09-21 11:58] LABS: Add Manual Diff / Slide Review NO; Basophils Percent Auto 1.5 % (0-2); Eosinophils Percent Auto 2.2 % (2-4); Hematocrit 29.1 % (36-46); Hemoglobin 9.8 g/dL (12.0-16.0); Mean Corpuscular HGB Conc 33.6 % (30-36); Mean Corpuscular Hemoglobin 35.8 PG (26-34); Mean Corpuscular Volume 106.6 fL (80-100); Monocytes Percent Auto 11.2 % (3-14); Neutrophils Absolute Auto 2000 /uL (3000-5900); Neutrophils Percent Auto 64.1 % (50-75); Platelet Count 102 X10^3/uL (150-400); Red Blood Cell Count 2.73 X10^6/uL (4.0-5.2); Red Cell Distribution Width 20.4 % (11.6-14.8); White Blood Cell Count 3.1 X10^3/uL (4.5-11.0)
[2017-09-21 12:13] LABS: Anisocytosis 1+; Ovalocytes 1+; Poikilocytosis 1+
[2017-09-21] MEDS: EPOETIN ALFA 20,000 UNIT/ML VIAL 60000 UNIT SUBCUT (12:19)
== END ==
PROVIDERS: Family Provider Family Medicine; PCP Family Medicine; Visit Provider Nurse Practitioner Gerontology
DX: D46.Z Other myelodysplastic syndromes (principal); D61.818 Other pancytopenia; D63.8 Anemia in other chronic diseases classified elsewhere; R16.2 Hepatomegaly with splenomegaly, not elsewhere classified
CPT/HCPCS: 36592; 85025; 96372; J0885

== ENCOUNTER → 2017-10-07 11:38 | Outpatient (CLI) | payer MEDICARE, SELFPAY ==
[2017-10-07 12:13] LABS: Add Manual Diff / Slide Review NO; Basophils Percent Auto 1.5 % (0-2); Eosinophils Percent Auto 2.2 % (2-4); Hemoglobin 9.7 g/dL (12.0-16.0); Mean Corpuscular HGB Conc 33.4 % (30-36); Mean Corpuscular Hemoglobin 35.4 PG (26-34); Mean Corpuscular Volume 105.9 fL (80-100); Monocytes Percent Auto 12.3 % (3-14); Neutrophils Absolute Auto 1800 /uL (3000-5900); Platelet Count 104 X10^3/uL (150-400); Red Blood Cell Count 2.74 X10^6/uL (4.0-5.2); Red Cell Distribution Width 19.7 % (11.6-14.8); White Blood Cell Count 2.9 X10^3/uL (4.5-11.0)
[2017-10-07] MEDS: EPOETIN ALFA 20,000 UNIT/ML VIAL 60000 UNIT SUBCUT (12:27)
[2017-10-07 12:38] VITALS: BP 139/58; PULSE 67; RESP 16; TEMP 36.8; O2SAT 95
== END ==
PROVIDERS: Family Provider Family Medicine; PCP Family Medicine; Visit Provider Nurse Practitioner Gerontology
DX: D46.Z Other myelodysplastic syndromes (principal)
CPT/HCPCS: 36592; 85025; 96372; J0885

== ENCOUNTER → 2017-10-13 16:02 | Outpatient (CLI) | payer MEDICARE, SELFPAY ==
[2017-10-13 11:59] VITALS: BP 133/57; PULSE 75; RESP 15; TEMP 37.2; O2SAT 97
--- NOTE | 2017-10-13 12:24 | ONC.PN ---
Assessment and Plan (1) Myelodysplasia (myelodysplastic syndrome) Problem details: 76-year-old woman with a history of low-grade myelodysplasia. Her counts have been stable over the last year so and she has not required transfusions. Her white count has been stable in the 2-3 range and her platelets have actually improved a little bit over the last few months. She will continue with her Procrit weekly. She will return to clinic in about 6-8 weeks for follow-up. I would anticipate a bone marrow biopsy if her other counts significantly change or if she has some increase in her transfusion requirement. Status: Acute (2) Hepatosplenomegaly Problem details: She has had hepatosplenomegaly noted on prior imaging with CT and ultrasound. It sounds like she might be having a little bit of symptoms related to the splenomegaly with early satiety. She will be due for follow-up ultrasound in about 6 months. Status: Acute PN -Subjective Interval history: Diagnosis: Myelodysplasia Previous treatment: Procrit. She is currently getting 32995 units weekly. Interval history: The patient is a 76-year-old woman who returns today for follow-up of her myelodysplastic syndrome. She presented initially with anemia and was found to have low-grade myelodysplasia. She later of all to pancytopenia. She has been receiving treatment with Procrit. Since November of last year, she [place] 34345 units weekly. She has not required any transfusions now for more than 6 months. She reports that she feels much better with the shots. She feels stronger and more energetic. She denies any unusual bleeding but has had some easy bruising. She has not had any fevers chills or night sweats. She denies any infectious complications. She is tolerating the injections without any side effects. She did have a recent fall with fracture of her elbow. She is wearing a brace. She did not have any other injuries. Her Past medical history is otherwise notable for a diet controlled diabetes. She has irregular heartbeat. She has had bilateral knee replacements with several revisions surgeries. She has had bilateral hip replacements. She had surgery on her back last fall which did not help with her stenosis. She did have a distant history of a stroke while . She has some trouble with word finding when she has fatigue but otherwise has no residuals. Social history: She is . She does not smoke or drink alcohol. She and her just returned from a 12 day driving trip through [facility]. - Additional ROS Additional ROS: She does have some she when going from lying to standing. Her gait has been unsteady. Her appetite has been mildly diminished. She has noted some early satiety. She has had hepatosplenomegaly noted on ultrasound. No shortness of breath cough chest pain or palpitations. She has been losing some weight but has been dieting to try control her diabetes. She thinks that she has lost about 75 lb over the last 2 years. She does have some chronic constipation which has been stable. She has not noted any blood in the stool. Results - Imaging Additional studies: Procedures Colonoscopy (09/10/12) Home Medications and Allergies Home Medications Medication Instructions Recorded Confirmed Type CALCIUM CARBONATE (#CALCIUM) 1,200 mg PO Q DAY #0 07/19/11 10/13/17 History clopidogrel [Plavix] 75 mg PO QDAY #0 07/19/11 10/13/17 History gemfibrozil 300 mg PO BEDTIME #0 07/19/11 10/13/17 History rrquboxt-hrz-RA-lycopen-lutein 1 tab PO QDAY #0 07/19/11 10/13/17 History [Centrum Silver] prednisone 5 mg PO 0800 #0 07/19/11 10/13/17 History vitamin E 400 unit PO DAILY #0 07/19/11 08/14/17 History cholecalciferol (vitamin D3) 2,000 iu PO QDAY #0 05/14/12 10/13/17 History [Vitamin D3] topiramate [Topamax] 100 mg PO QAM #0 05/14/12 10/13/17 History gabapentin [Neurontin] 800 mg PO BID #0 06/29/12 10/13/17 History ketotifen fumarate [Zaditor] 1 drp OPHTH DAILY #5 ml 06/29/12 10/13/17 History krill oil 1,000 mg PO DAILY #0 06/29/12 10/13/17 History sertraline [Zoloft] 150 mg PO HS #0 06/29/12 10/13/17 History estradiol [Vagifem] 10 mcg VG 3XW #0 12/22/16 10/13/17 History ascorbic acid (vitamin C) 1 tab PO DAILY 08/14/17 10/13/17 History diclofenac sodium [Voltaren] 1 applic TOPICAL PRN PRN 08/14/17 10/13/17 History diphenoxylate-atropine [Lomotil] 1 tab PO Q6H PRN #16 tab 08/14/17 10/13/17 Rx fluticasone 1 spray INTRANASAL DAILY 08/14/17 10/13/17 History folic acid 0.4 mg PO DAILY 08/14/17 10/13/17 History hydrocodone-acetaminophen 1 tab PO Q6H PRN 08/14/17 10/13/17 History levocetirizine 1 tab PO QPM 08/14/17 10/13/17 History losartan 50 mg PO DAILY 08/14/17 10/13/17 History metformin 500 mg PO QPM 08/14/17 10/13/17 History metoprolol succinate 1 tab PO QPM 08/14/17 10/13/17 History ondansetron [Zofran ODT] 4 mg PO Q6-8H PRN #10 tab 08/14/17 10/13/17 Rx topiramate 1 tab PO BEDTIME 08/14/17 10/13/17 History trazodone 1 - 2 tab PO BEDTIME PRN 08/14/17 10/13/17 History vit C,D-Lb-zprmh-lutein-zeaxan 2 cap PO DAILY 08/14/17 10/13/17 History [PreserVision AREDS 2] Allergies Allergy/AdvReac Type Severity Reaction Status Date / Time morphine Allergy Severe ANAPHYLAXIS Verified 08/14/17 18:21 coconut [COCONUT] Allergy Intermediate HIVES Verified 08/14/17 18:21 adhesive Allergy Mild SKIN Verified 08/14/17 18:21 BREAKDOWN, RASH (TAPE) PAPER TAPE OK meperidine Allergy Mild red rash Verified 08/14/17 18:21 lactose [LACTOSE] Allergy Unknown INTOLERANT Verified 08/14/17 18:21 latex [LATEX] Allergy Unknown REACTION Verified 08/14/17 18:21 NOT LISTED BY PT metronidazole AdvReac Severe GI UPSET Verified 08/14/17 18:21 vancomycin [VANCOMYCIN] AdvReac Severe DIARRHEA Verified 08/14/17 18:21 aspirin AdvReac Mild GI UPSET Verified 08/14/17 18:21 Cephalosporins AdvReac Mild GI UPSET Verified 08/14/17 18:21 ibuprofen AdvReac Mild GI UPSET Verified 08/14/17 18:21 CANTALOUPE Allergy Severe HIVES Uncoded 08/14/17 18:21 honeydew melon Allergy Severe hives Uncoded 08/14/17 18:21 ANTIHISTAMINES Allergy Mild red rash Uncoded 08/14/17 18:21 Exam Vital signs: Last Vital Signs Temp 99.0 F 10/13/17 11:59 Pulse 75 10/13/17 11:59 Resp 15 10/13/17 11:59 BP 133/57 L 10/13/17 11:59 Pulse Ox 97 10/13/17 11:59 - Constitutional positive no acute distress, positive average body habitus - Routine HEENT Exam Head: Present: normocephalic, atraumatic Eye: Present: EOMI, PERRL. Absent: conjunctival icterus, scleral injection ENT: Present: mucous membranes moist, oropharynx clear - Routine Neck Exam Present: supple. Absent: lymphadenopathy, thyromegaly - Routine Respiratory Exam Present: Clear to auscultation bilaterally. Absent: rales, wheezes - Routine Cardiovascular Exam Present: RRR, S1, S2. Absent: murmur - Routine Abdominal Exam Present: soft, normoactive bowel sounds, organomegaly. Absent: tenderness Comments: The spleen tip is palpable in the left upper quadrant with deep inspiration. - Routine Extremities Exam Present: edema. Absent: cyanosis, clubbing Comments: She has a brace on her left elbow. - Routine Skin Exam Present: intact. Absent: petechiae, rash - Routine Neurological Exam Present: alert, oriented X3 - Routine Psychiatric Exam Present: normal affect, normal thought process
[2017-10-13 12:36] LABS: Add Manual Diff / Slide Review NO; Basophils Percent Auto 1.2 % (0-2); Eosinophils Percent Auto 2.3 % (2-4); Hematocrit 28.1 % (36-46); Hemoglobin 9.5 g/dL (12.0-16.0); Lymphocytes Percent Auto 17.1 % (25-40); Mean Corpuscular HGB Conc 33.7 % (30-36); Mean Corpuscular Hemoglobin 35.8 PG (26-34); Mean Corpuscular Volume 106.3 fL (80-100); Monocytes Percent Auto 11.1 % (3-14); Neutrophils Absolute Auto 2200 /uL (3000-5900); Neutrophils Percent Auto 68.3 % (50-75); Platelet Count 107 X10^3/uL (150-400); Red Blood Cell Count 2.64 X10^6/uL (4.0-5.2); Red Cell Distribution Width 19.4 % (11.6-14.8); White Blood Cell Count 3.2 X10^3/uL (4.5-11.0)
[2017-10-13 12:45] LABS: Alanine Aminotransferase 23 IU/L (9-52); Albumin 3.6 g/dL (3.5-5.0); Albumin Globulin Ratio 1.6 (1.0-2.8); Alkaline Phosphatase 63 U/L (38-126); Aspartate Aminotransferase 17 IU/L (14-36); BUN Creatinine Ratio 31.1 (6-22); Bilirubin Total 0.4 mg/dL (0.2-1.3); Blood Urea Nitrogen 28 mg/dL (7-17); Calcium 9.5 mg/dL (8.4-10.2); Carbon Dioxide 26 mmol/L (22-32); Chloride 111 mmol/L (98-107); Estimated Glomerular Filt Rate > 60.0 mL/min (>60); Globulin 2.2 g/dL (1.7-4.1); Glucose 137 mg/dL (80-110); HEMOLYSIS < 15 (0-50); Potassium 4.1 mmol/L (3.4-5.1); Sodium 146 mmol/L (137-145); Total Protein 5.8 g/dL (6.3-8.2)
[2017-10-13] MEDS: EPOETIN ALFA 20,000 UNIT/ML VIAL 60000 UNIT SUBCUT (13:28)
== END ==
PROVIDERS: Nurse Practitioner Gerontology; Family Provider Family Medicine; PCP Family Medicine
DX: D46.Z Other myelodysplastic syndromes (principal); R16.2 Hepatomegaly with splenomegaly, not elsewhere classified
CPT/HCPCS: 36592; 80053; 85025; 96372; 99215; J0885

== ENCOUNTER → 2017-10-20 14:26 | Outpatient (CLI) | payer MEDICARE, SELFPAY ==
[2017-10-20 14:33] LABS: Add Manual Diff / Slide Review NO; Basophils Percent Auto 1.8 % (0-2); Eosinophils Percent Auto 3.5 % (2-4); Hematocrit 28.9 % (36-46); Lymphocytes Percent Auto 23.5 % (25-40); Mean Corpuscular HGB Conc 34.7 % (30-36); Mean Corpuscular Hemoglobin 36.2 PG (26-34); Mean Corpuscular Volume 104.4 fL (80-100); Monocytes Percent Auto 11.6 % (3-14); Neutrophils Absolute Auto 2000 /uL (3000-5900); Neutrophils Percent Auto 59.6 % (50-75); Platelet Count 90 X10^3/uL (150-400); Red Blood Cell Count 2.77 X10^6/uL (4.0-5.2); Red Cell Distribution Width 18.9 % (11.6-14.8); White Blood Cell Count 3.3 X10^3/uL (4.5-11.0)
[2017-10-20] MEDS: EPOETIN ALFA 20,000 UNIT/ML VIAL 60000 UNIT SUBCUT (15:23)
[2017-10-20 15:33] VITALS: BP 110/51; PULSE 67; RESP 18; TEMP 36.7; O2SAT 98
== END ==
PROVIDERS: Family Provider Family Medicine; PCP Family Medicine
DX: D46.Z Other myelodysplastic syndromes (principal)
CPT/HCPCS: 36592; 85025; 96372; J0885

== ENCOUNTER → 2017-10-27 14:04 | Outpatient (CLI) | payer MEDICARE, SELFPAY ==
[2017-10-27 14:43] LABS: Add Manual Diff / Slide Review NO; Basophils Percent Auto 1.1 % (0-2); Eosinophils Percent Auto 0.6 % (2-4); Hematocrit 29.4 % (36-46); Hemoglobin 9.8 g/dL (12.0-16.0); Lymphocytes Percent Auto 15.2 % (25-40); Mean Corpuscular HGB Conc 33.3 % (30-36); Mean Corpuscular Hemoglobin 35.4 PG (26-34); Mean Corpuscular Volume 106.3 fL (80-100); Monocytes Percent Auto 9.3 % (3-14); Neutrophils Absolute Auto 2000 /uL (3000-5900); Neutrophils Percent Auto 73.8 % (50-75); Platelet Count 88 X10^3/uL (150-400); Red Blood Cell Count 2.77 X10^6/uL (4.0-5.2); Red Cell Distribution Width 19.3 % (11.6-14.8); White Blood Cell Count 2.7 X10^3/uL (4.5-11.0)
[2017-10-27 15:01] VITALS: BP 111/51; PULSE 59; RESP 18; TEMP 36.9; O2SAT 97
[2017-10-27] MEDS: EPOETIN ALFA 20,000 UNIT/ML VIAL 60000 UNIT SUBCUT (15:30)
== END ==
PROVIDERS: Family Provider Family Medicine; PCP Family Medicine; Visit Provider Family Medicine
DX: D46.Z Other myelodysplastic syndromes (principal)
CPT/HCPCS: 36592; 85025; 96372; J0885

== ENCOUNTER → 2017-11-03 14:07 | Outpatient (CLI) | payer MEDICARE, SELFPAY ==
[2017-11-03 14:20] LABS: Add Manual Diff / Slide Review NO; Basophils Percent Auto 1.4 % (0-2); Eosinophils Percent Auto 2.5 % (2-4); Hematocrit 30.3 % (36-46); Hemoglobin 10.2 g/dL (12.0-16.0); Lymphocytes Percent Auto 21.3 % (25-40); Mean Corpuscular HGB Conc 33.7 % (30-36); Mean Corpuscular Hemoglobin 35.3 PG (26-34); Monocytes Percent Auto 10.4 % (3-14); Neutrophils Absolute Auto 2200 /uL (3000-5900); Neutrophils Percent Auto 64.4 % (50-75); Platelet Count 102 X10^3/uL (150-400); Red Blood Cell Count 2.88 X10^6/uL (4.0-5.2); Red Cell Distribution Width 18.9 % (11.6-14.8); White Blood Cell Count 3.4 X10^3/uL (4.5-11.0)
[2017-11-03] MEDS: EPOETIN ALFA 20,000 UNIT/ML VIAL 60000 UNIT SUBCUT (14:42)
[2017-11-03 14:43] VITALS: BP 133/58; PULSE 60; RESP 16; TEMP 36.8
== END ==
PROVIDERS: Family Provider Family Medicine; PCP Family Medicine
DX: D46.Z Other myelodysplastic syndromes (principal)
CPT/HCPCS: 36592; 85025; 96372; J0885

== ENCOUNTER → 2017-11-10 14:01 | Outpatient (CLI) | payer MEDICARE, SELFPAY ==
[2017-11-10 14:39] LABS: Add Manual Diff / Slide Review NO; Basophils Percent Auto 1.5 % (0-2); Eosinophils Percent Auto 3.6 % (2-4); Hematocrit 31.2 % (36-46); Hemoglobin 10.5 g/dL (12.0-16.0); Lymphocytes Percent Auto 24.9 % (25-40); Mean Corpuscular HGB Conc 33.6 % (30-36); Mean Corpuscular Hemoglobin 35.1 PG (26-34); Mean Corpuscular Volume 104.4 fL (80-100); Monocytes Percent Auto 11.2 % (3-14); Neutrophils Absolute Auto 2000 /uL (3000-5900); Neutrophils Percent Auto 58.8 % (50-75); Platelet Count 110 X10^3/uL (150-400); Red Blood Cell Count 2.99 X10^6/uL (4.0-5.2); Red Cell Distribution Width 18.7 % (11.6-14.8); White Blood Cell Count 3.5 X10^3/uL (4.5-11.0)
[2017-11-10 15:20] VITALS: BP 122/87; PULSE 70; RESP 18; TEMP 36.3; O2SAT 97
[2017-11-10] MEDS: EPOETIN ALFA 20,000 UNIT/ML VIAL 60000 UNIT SUBCUT (15:30)
[2017-11-10 15:33] VITALS: BP 122/54; PULSE 55; RESP 16; TEMP 36.7
== END ==
PROVIDERS: Family Provider Family Medicine; PCP Family Medicine
DX: D46.Z Other myelodysplastic syndromes (principal)
CPT/HCPCS: 36592; 85025; 96372; J0885

== ENCOUNTER → 2017-11-17 13:27 | Outpatient (CLI) | payer MEDICARE, SELFPAY ==
[2017-11-17 13:58] LABS: Add Manual Diff / Slide Review NO; Basophils Percent Auto 1.3 % (0-2); Eosinophils Percent Auto 1.3 % (2-4); Hematocrit 30.2 % (36-46); Hemoglobin 9.9 g/dL (12.0-16.0); Lymphocytes Percent Auto 11.4 % (25-40); Mean Corpuscular HGB Conc 32.8 % (30-36); Mean Corpuscular Hemoglobin 34.6 PG (26-34); Mean Corpuscular Volume 105.5 fL (80-100); Monocytes Percent Auto 6.3 % (3-14); Neutrophils Absolute Auto 3500 /uL (3000-5900); Neutrophils Percent Auto 79.7 % (50-75); Platelet Count 124 X10^3/uL (150-400); Red Blood Cell Count 2.86 X10^6/uL (4.0-5.2); Red Cell Distribution Width 18.8 % (11.6-14.8); White Blood Cell Count 4.4 X10^3/uL (4.5-11.0)
[2017-11-17] MEDS: EPOETIN ALFA 20,000 UNIT/ML VIAL 60000 UNIT SUBCUT (14:33)
[2017-11-17 14:34] VITALS: BP 122/55; PULSE 65; RESP 16; TEMP 36.9
== END ==
PROVIDERS: Family Provider Family Medicine; PCP Family Medicine
DX: D64.9 Anemia, unspecified (principal)
CPT/HCPCS: 36592; 85025; 96372; J0885

== ENCOUNTER → 2017-11-24 14:20 | Outpatient (CLI) | payer MEDICARE, SELFPAY ==
[2017-11-24 13:45] LABS: Add Manual Diff / Slide Review NO; Basophils Percent Auto 1.1 % (0-2); Eosinophils Percent Auto 1.2 % (2-4); Hematocrit 29.7 % (36-46); Hemoglobin 9.7 g/dL (12.0-16.0); Lymphocytes Percent Auto 13.5 % (25-40); Mean Corpuscular HGB Conc 32.6 % (30-36); Mean Corpuscular Hemoglobin 34.7 PG (26-34); Mean Corpuscular Volume 106.3 fL (80-100); Neutrophils Absolute Auto 2600 /uL (3000-5900); Neutrophils Percent Auto 76.2 % (50-75); Platelet Count 98 X10^3/uL (150-400); Red Blood Cell Count 2.79 X10^6/uL (4.0-5.2); Red Cell Distribution Width 19.3 % (11.6-14.8); White Blood Cell Count 3.4 X10^3/uL (4.5-11.0)
--- NOTE | 2017-11-24 14:08 | ONC.PN ---
PN -Subjective Interval history: Diagnosis: Myelodysplasia Previous treatment: [place]rit. [place] 66653 units weekly. Interval history: The patient is a 76-year-old woman who returns today for follow-up of myelodysplasia. She has been getting Procrit 60,000 units weekly. She has been tolerating the injections without any significant difficulty. She feels that overall her strength and energy level have been improving and she feels better on the shot then off. Last week, she was doing some new exercise of physical therapy and developed worsening back pain. It has been persistent over the last 4 5 days. She does have an appointment with the physician in billing him later this week. She has been using hydrocodone which has been providing some relief. She denies any other new aches or pains. No fevers chills or sweats. No recent infections. She denies any unusual bleeding or bruising. Her appetite has been stable. She denies any other changes in her health. - Additional ROS Additional ROS: Back pain as mentioned above. Home Medications and Allergies Home Medications Medication Instructions Recorded Confirmed Type CALCIUM CARBONATE (#CALCIUM) 1,200 mg PO Q DAY #0 07/19/11 10/13/17 History clopidogrel [Plavix] 75 mg PO QDAY #0 07/19/11 10/13/17 History gemfibrozil 300 mg PO BEDTIME #0 07/19/11 10/13/17 History hhtltuve-dxt-KW-lycopen-lutein 1 tab PO QDAY #0 07/19/11 10/13/17 History [Centrum Silver] prednisone 5 mg PO 0800 #0 07/19/11 10/13/17 History vitamin E 400 unit PO DAILY #0 07/19/11 08/14/17 History cholecalciferol (vitamin D3) 2,000 iu PO QDAY #0 05/14/12 10/13/17 History [Vitamin D3] topiramate [Topamax] 100 mg PO QAM #0 05/14/12 10/13/17 History gabapentin [Neurontin] 800 mg PO BID #0 06/29/12 10/13/17 History ketotifen fumarate [Zaditor] 1 drp OPHTH DAILY #5 ml 06/29/12 10/13/17 History krill oil 1,000 mg PO DAILY #0 06/29/12 10/13/17 History sertraline [Zoloft] 150 mg PO HS #0 06/29/12 10/13/17 History estradiol [Vagifem] 10 mcg VG 3XW #0 12/22/16 10/13/17 History ascorbic acid (vitamin C) 1 tab PO DAILY 08/14/17 10/13/17 History diclofenac sodium [Voltaren] 1 applic TOPICAL PRN PRN 08/14/17 10/13/17 History diphenoxylate-atropine [Lomotil] 1 tab PO Q6H PRN #16 tab 08/14/17 10/13/17 Rx fluticasone 1 spray INTRANASAL DAILY 08/14/17 10/13/17 History folic acid 0.4 mg PO DAILY 08/14/17 10/13/17 History hydrocodone-acetaminophen 1 tab PO Q6H PRN 08/14/17 10/13/17 History levocetirizine 1 tab PO QPM 08/14/17 10/13/17 History losartan 50 mg PO DAILY 08/14/17 10/13/17 History metformin 500 mg PO QPM 08/14/17 10/13/17 History metoprolol succinate 1 tab PO QPM 08/14/17 10/13/17 History ondansetron [Zofran ODT] 4 mg PO Q6-8H PRN #10 tab 08/14/17 10/13/17 Rx topiramate 1 tab PO BEDTIME 08/14/17 10/13/17 History trazodone 1 - 2 tab PO BEDTIME PRN 08/14/17 10/13/17 History vit C,S-Zq-ibmul-lutein-zeaxan 2 cap PO DAILY 08/14/17 10/13/17 History [PreserVision AREDS 2] Allergies Allergy/AdvReac Type Severity Reaction Status Date / Time morphine Allergy Severe ANAPHYLAXIS Verified 08/14/17 18:21 coconut [COCONUT] Allergy Intermediate HIVES Verified 08/14/17 18:21 adhesive Allergy Mild SKIN Verified 08/14/17 18:21 BREAKDOWN, RASH (TAPE) PAPER TAPE OK meperidine Allergy Mild red rash Verified 08/14/17 18:21 lactose [LACTOSE] Allergy Unknown INTOLERANT Verified 08/14/17 18:21 latex [LATEX] Allergy Unknown REACTION Verified 08/14/17 18:21 NOT LISTED BY PT metronidazole AdvReac Severe GI UPSET Verified 08/14/17 18:21 vancomycin [VANCOMYCIN] AdvReac Severe DIARRHEA Verified 08/14/17 18:21 aspirin AdvReac Mild GI UPSET Verified 08/14/17 18:21 Cephalosporins AdvReac Mild GI UPSET Verified 08/14/17 18:21 ibuprofen AdvReac Mild GI UPSET Verified 08/14/17 18:21 CANTALOUPE Allergy Severe HIVES Uncoded 08/14/17 18:21 honeydew melon Allergy Severe hives Uncoded 08/14/17 18:21 ANTIHISTAMINES Allergy Mild red rash Uncoded 08/14/17 18:21 Exam - Constitutional positive no acute distress, positive average body habitus Results - Labs Laboratory Last Values WBC 3.4 X10^3/uL (4.5-11.0) L 11/24/17 13:33 RBC 2.79 X10^6/uL (4.0-5.2) L 11/24/17 13:33 Hgb 9.7 g/dL (12.0-16.0) L 11/24/17 13:33 Hct 29.7 % (36-46) L 11/24/17 13:33 MCV 106.3 fL (80-100) H 11/24/17 13:33 MCH 34.7 PG (26-34) H 11/24/17 13:33 MCHC 32.6 % (30-36) 11/24/17 13:33 RDW 19.3 % (11.6-14.8) H 11/24/17 13:33 Plt Count 98 X10^3/uL (150-400) L 11/24/17 13:33 Neut % (Auto) 76.2 % (50-75) H 11/24/17 13:33 Lymph % (Auto) 13.5 % (25-40) L 11/24/17 13:33 Collier % (Auto) 8.0 % (3-14) 11/24/17 13:33 Eos % (Auto) 1.2 % (2-4) L 11/24/17 13:33 Baso % (Auto) 1.1 % (0-2) 11/24/17 13:33 Neut # (Auto) 2600 /uL (0689-0753) L 11/24/17 13:33 - Imaging Additional studies: Procedures Colonoscopy (09/10/12) Assessment and Plan (1) Myelodysplasia (myelodysplastic syndrome) Problem details: 76-year-old woman with a history of low-grade myelodysplasia. Her counts have been stable over the last year so and she has not required transfusions. Her red cell count has been stable and she has been tolerating Procrit with no difficulty. She will continue with her current regimen and return to clinic in about 6-8 weeks for follow-up but sooner should the need arise. She did have multiple questions today regarding expected prognosis and a course of illness with myelodysplasia. I explained that she has low risk disease with an expected survival of the 6-7 years on average. The expected courses that her counts may gradually worsen over time. Eventually, the Procrit may be come ineffective and she may need to have chemotherapy such as vidaza. We also reviewed the risk for transformation to acute leukemia which is unpredictable in its timing but is usually a lethal event if it does happen. She will continue with her current regimen for now and return to clinic in about 6-8 weeks for follow-up. A 25 min was spent with the patient and her the majority in counseling. Status: Acute
[2017-11-24] MEDS: EPOETIN ALFA 20,000 UNIT/ML VIAL 60000 UNIT SUBCUT (14:19)
[2017-11-24 14:34] VITALS: BP 135/65; PULSE 66; RESP 18; TEMP 37.2; O2SAT 98
== END ==
PROVIDERS: Family Provider Family Medicine; PCP Family Medicine
DX: D46.Z Other myelodysplastic syndromes (principal)
CPT/HCPCS: 36592; 85025; 96372; 99214; J0885

== ENCOUNTER → 2017-12-01 13:57 | Outpatient (CLI) | payer MEDICARE, SELFPAY ==
[2017-12-01 14:49] LABS: Basophils Percent Auto 1.1 % (0-2); Eosinophils Percent Auto 0.8 % (2-4); Hematocrit 30.2 % (36-46); Lymphocytes Percent Auto 18.8 % (25-40); Mean Corpuscular HGB Conc 33.2 % (30-36); Mean Corpuscular Hemoglobin 35.3 PG (26-34); Mean Corpuscular Volume 106.3 fL (80-100); Monocytes Percent Auto 11.3 % (3-14); Neutrophils Absolute Auto 2400 /uL (3000-5900); Platelet Count 121 X10^3/uL (150-400); Red Blood Cell Count 2.84 X10^6/uL (4.0-5.2); Red Cell Distribution Width 19.3 % (11.6-14.8); White Blood Cell Count 3.5 X10^3/uL (4.5-11.0)
[2017-12-01 14:52] LABS: Add Manual Diff / Slide Review SLIDE REVIEW
[2017-12-01] MEDS: EPOETIN ALFA 20,000 UNIT/ML VIAL 60000 UNIT SUBCUT (15:14)
[2017-12-01 15:34] LABS: Poikilocytosis 2+
[2017-12-01 15:35] LABS: Macrocytosis 1+; Ovalocytes 1+; Tear Drop Cells 1+
--- NOTE | 2017-12-01 17:09 | PC.NURSE ---
Marli comes in for Epo injection. H/H =12/08.2. Tolerated injection. D/C with spouse ambulatory.
== END ==
PROVIDERS: Family Provider Family Medicine; PCP Family Medicine; Visit Provider Nurse Practitioner Gerontology
DX: D46.Z Other myelodysplastic syndromes (principal)
CPT/HCPCS: 36592; 85025; 96372; J0885

== ENCOUNTER → 2017-12-08 14:04 | Outpatient (CLI) | payer MEDICARE, SELFPAY ==
[2017-12-08 14:30] LABS: Add Manual Diff / Slide Review NO; Basophils Percent Auto 1.2 % (0-2); Eosinophils Percent Auto 3.3 % (2-4); Hematocrit 30.6 % (36-46); Hemoglobin 10.3 g/dL (12.0-16.0); Lymphocytes Percent Auto 22.5 % (25-40); Mean Corpuscular HGB Conc 33.5 % (30-36); Mean Corpuscular Hemoglobin 35.3 PG (26-34); Mean Corpuscular Volume 105.2 fL (80-100); Monocytes Percent Auto 11.9 % (3-14); Neutrophils Absolute Auto 2300 /uL (3000-5900); Neutrophils Percent Auto 61.1 % (50-75); Platelet Count 115 X10^3/uL (150-400); Red Blood Cell Count 2.91 X10^6/uL (4.0-5.2); White Blood Cell Count 3.7 X10^3/uL (4.5-11.0)
[2017-12-08] MEDS: EPOETIN ALFA 20,000 UNIT/ML VIAL 60000 UNIT SUBCUT (14:46)
== END ==
PROVIDERS: Family Provider Family Medicine; PCP Family Medicine
DX: D46.Z Other myelodysplastic syndromes (principal)
CPT/HCPCS: 36592; 85025; 96372; J0885

== ENCOUNTER → 2017-12-10 16:18 | Outpatient (CLI) | payer MEDICARE, SELFPAY ==
--- NOTE | 2017-12-10 | DI.MRI.S_ITS ---
PROCEDURE: MR LUMBAR SPINE WO CON INDICATIONS: Right lower back and buttock pain. Right leg radicular pain TECHNIQUE: Noncontrast sagittal T1 spin echo and T2 fast echo, sagittal STIR, axial T1 and T2 fast spin echo through the lumbar spine. Additional oblique coronal T1 and STIR images were acquired to the sacrum. COMPARISON: [facility], MR, L-SPINE WITHOUT CONTRAST, 02/21/2015, 18:40. FINDINGS: Image quality: Excellent. Alignment and Curvature: There is trace L2-L3 and L3-L4 retrolisthesis. There is mild L4-L5 anterolisthesis. Bones: Schmorl's nodes noted in the superior and inferior endplates of the L3 vertebral body. Minimal anterior wedging of the L4 vertebral body is stable compared to prior MRI. Minimal reactive endplate change is noted adjacent to the L3-L4 and L5-S1 discs. No acute vertebral body compression fractures. Spinal Cord: Conus medullaris terminates at the L1-2 level. Visualized cord demonstrates normal signal and size. Paraspinous Soft Tissues: No paravertebral masses. L1-L2: Normal appearance. L2-L3: Loss of disc signal. Mild, diffuse disc bulge. Mild bilateral facet hypertrophy. No central stenosis. No neural foraminal narrowing. No neural impingement. L3-L4: Loss of disc signal. Mild, diffuse disc bulge. Mild facet and mild ligamentum flavum hypertrophy. Mild narrowing of the central canal. Mild bilateral neural foraminal narrowing. No neural impingement. L4-L5: Loss of disc signal. Mild, diffuse disc bulge. Moderate right and severe left facet hypertrophy. Mild to moderate narrowing of the central canal. Moderate right and severe left neural foraminal narrowing a flattened deformity exiting left L4 nerve root. L5-S1: Loss of disc signal and height. Minimal, diffuse disc bulge. Mild right and moderate left facet hypertrophy. No central stenosis. Mild bilateral neural foraminal narrowing. No neural impingement. Sacrum is intact. No abnormal signal identified within the sacrum. Postsurgical changes compatible with left sacroiliac joint arthrodesis noted. Visualized lumbosacral plexuses are normal. IMPRESSION: 1. Multilevel degenerative disc disease. 2. Multilevel facet arthropathy. 3. Mild to moderate L4-L5 central canal narrowing. Mild L3-L4 central canal narrowing. 4. Moderate right and severe left L4-L5 neural foraminal narrowing. Mild bilateral L3-L4 neural foraminal narrowing. 5. Flattened deformity of the exiting left L4 nerve root secondary to neural foraminal narrowing. Please correlate with clinical data. Dictated by: Violeta Mancini MD, PhD on 12/10/2017 at 16:18 Approved by: Violeta Mancini MD, PhD on 12/10/2017 at 16:26
== END ==
PROVIDERS: Family Provider Family Medicine; PCP Family Medicine; Visit Provider Dentist Orthodontics and Dentofacial Orthopedics
DX: M51.16 Intervertebral disc disorders with radiculopathy, lumbar region (principal); M51.17 Intervertebral disc disorders with radiculopathy, lumbosacral region; M47.26 Other spondylosis with radiculopathy, lumbar region; M47.27 Other spondylosis with radiculopathy, lumbosacral region; M48.061 Spinal stenosis, lumbar region without neurogenic claudication; M48.07 Spinal stenosis, lumbosacral region; M54.5 Low back pain; M46.1 Sacroiliitis, not elsewhere classified; Z98.1 Arthrodesis status
CPT/HCPCS: 72148

== ENCOUNTER → 2017-12-15 14:02 | Outpatient (CLI) | payer MEDICARE, SELFPAY ==
[2017-12-15 14:29] LABS: Add Manual Diff / Slide Review NO; Basophils Percent Auto 1.8 % (0-2); Eosinophils Percent Auto 2.7 % (2-4); Hemoglobin 9.9 g/dL (12.0-16.0); Lymphocytes Percent Auto 21.6 % (25-40); Mean Corpuscular HGB Conc 32.9 % (30-36); Mean Corpuscular Hemoglobin 35.1 PG (26-34); Mean Corpuscular Volume 106.5 fL (80-100); Monocytes Percent Auto 10.1 % (3-14); Neutrophils Absolute Auto 2500 /uL (3000-5900); Neutrophils Percent Auto 63.8 % (50-75); Platelet Count 117 X10^3/uL (150-400); Red Blood Cell Count 2.82 X10^6/uL (4.0-5.2); Red Cell Distribution Width 19.9 % (11.6-14.8)
[2017-12-15] MEDS: EPOETIN ALFA 20,000 UNIT/ML VIAL 60000 UNIT SUBCUT (15:10)
[2017-12-15 15:22] VITALS: BP 118/60; PULSE 62; RESP 18; TEMP 37.1; O2SAT 97
--- NOTE | 2017-12-15 15:40 | ONC.APRN.PN ---
PN -Subjective Interval history: Marli is a 77-year-old female being seen in the clinic December 15, 2017. She carries a diagnosis of myelodysplasia. Today she presents for 2 separate issues: 1. Night sweats. Per patient report ongoing for the last 6 months they do seem to be getting progressively worse. She states she will awake at least once every night ?soaking wet?. She will often need to change her bed clothes also her sheets. She denies any other associated symptoms such as new headache. No New pain she has chronic joint and back pain. No Change in activity tolerance. No Change in appetite. The patient has lost a couple of lb however per patient report this is ?intentional?. Appetite is quite good specifically no early satiety aside from the last 2 days. No issues with bladder or bowels the pt has chronic urinary incontinence. No skin changes. No recent medication changes. 2. ?Left lower quadrant pain?. First noticed 2 days ago. Does not seem to be getting any worse however the patient reports it is ?aggravating?. No nausea. No change in bowel movements, no dysuria or hematuria. No frequency or urgency. Does not think she has had a pain similar in the past. Appetite not so good the last couple of days. No fever, chills. Most recent imaging was June 10, 2017 CT of abdomen noting hepatomegaly. Liver was enlarged measuring 23.2 cm. Spleen also enlarged at 18.0 cm. Follow-up ultrasound August 10, 2017 demonstrated once again enlarged liver at 18.3 cm. The patient continues with weekly CBC also Procrit injections, 26110 units. She does report chronic fatigue sometimes might be a bit better after getting injections. Past Medical History The patient's past medical history is significant for: Ab0 first delivey 04/07/63, second 10/05/65, third 08/11/71 bilat inguinal hernias 1965, repaired 09/1965 pre ulcer 1966, 1970 left knee surgery 1968 stroke unable to read, could barely navigate at 6 months , 05/11/71; sounds like TIA or severe migraine; however, CT head without contrasst 12/01/2011 showed possible old lacunar infarct back problems with brace 1974 partial hysterectomy esoph spasm, (-) angio 1987 lwft total hip 1989 kidney stones 1992 or 1993 choilecystectomy 1994 irritable bowel syndrome 1997 - 2007 Sarcoidosis - pt states she had a mdiastinoscopy; well by 2003 right vitreous floater 1998 right total hip 2000; dislocation 1999 Diabetes type II August 2000 minor occlusion right eye 2002 bigeminy 2002, started plavix diverticulitis 2002 Htn PAC's 2004 started Norpace Osteoarthritis ongoing Polymyalgia Rheumatica 07/2005, pt states it is ongoing benign essential tremor dx'd 01/14 right knee arthroscopy, totalknee, arthroscopy 2006 and 2007 left knee replacementn08/2008; removal of bone and scar tissue July 2009 macular degeneration 2010 C. Difficil 2009, 2010; both occurred after ; treated with vanco; got better after stopping vanco negative colonoscopy 2012 fx elbow 2014 Past Surgical History The patient's past surgical history includes: bilat inguinal hernias 1965, repaired 09/1965 left knee surgery 1968 partial hysterectomy esoph spasm, (-) angio 1987 left total hip 1989 kidney stones 1992 or 1993 cholecystectomy 1994 Sarcoidosis - pt states she had a mdiastinoscopy; well by 2003 right total hip 2000; dislocation 1999 right knee arthroscopy, totalknee, arthroscopy 2006 and 2007 left knee replacement 08/2008; removal of bone and scar tissue July 2009 negative colonoscopy 2012 fx elbow 2014 Home Medications and Allergies Home Medications Medication Instructions Recorded Confirmed Type CALCIUM CARBONATE (#CALCIUM) 1,200 mg PO Q DAY #0 07/19/11 11/24/17 History gemfibrozil 300 mg PO BEDTIME #0 07/19/11 11/24/17 History lqefknpf-bii-AC-lycopen-lutein 1 tab PO QDAY #0 07/19/11 11/24/17 History [Centrum Silver] prednisone 5 mg PO 0800 #0 07/19/11 11/24/17 History vitamin E 400 unit PO DAILY #0 07/19/11 11/24/17 History cholecalciferol (vitamin D3) 2,000 iu PO QDAY #0 05/14/12 11/24/17 History [Vitamin D3] gabapentin [Neurontin] 400 mg PO BID #0 06/29/12 11/24/17 History ketotifen fumarate [Zaditor] 1 drp OPHTH DAILY #5 ml 06/29/12 11/24/17 History krill oil 1,000 mg PO DAILY #0 06/29/12 11/24/17 History sertraline [Zoloft] 150 mg PO HS #0 06/29/12 11/24/17 History ascorbic acid (vitamin C) 1 tab PO DAILY 08/14/17 11/24/17 History diclofenac sodium [Voltaren] 1 applic TOPICAL PRN PRN 08/14/17 11/24/17 History fluticasone 1 spray INTRANASAL DAILY 08/14/17 11/24/17 History folic acid 0.4 mg PO DAILY 08/14/17 11/24/17 History hydrocodone-acetaminophen 1 tab PO Q6H PRN 08/14/17 11/24/17 History levocetirizine 1 tab PO QPM 08/14/17 11/24/17 History losartan 50 mg PO DAILY 08/14/17 11/24/17 History metformin 500 mg PO BID 08/14/17 11/24/17 History metoprolol succinate 1 tab PO QPM 08/14/17 11/24/17 History topiramate 1 tab PO BEDTIME 08/14/17 11/24/17 History trazodone 1 - 2 tab PO BEDTIME PRN 08/14/17 11/24/17 History vit C,H-Ml-odyxd-lutein-zeaxan 2 cap PO DAILY 08/14/17 11/24/17 History [PreserVision AREDS 2] clopidogrel [Plavix] 1 mg/kg PO DAILY 12/15/17 12/15/17 History levofloxacin [Levaquin] 750 mg PO DAILY #7 tab 12/15/17 Rx metronidazole [Flagyl] 500 mg PO TID #21 tab 12/15/17 Rx Allergies Allergy/AdvReac Type Severity Reaction Status Date / Time morphine Allergy Severe ANAPHYLAXIS Verified 08/14/17 18:21 coconut [COCONUT] Allergy Intermediate HIVES Verified 08/14/17 18:21 adhesive Allergy Mild SKIN Verified 08/14/17 18:21 BREAKDOWN, RASH (TAPE) PAPER TAPE OK meperidine Allergy Mild red rash Verified 08/14/17 18:21 lactose [LACTOSE] Allergy Unknown INTOLERANT Verified 08/14/17 18:21 latex [LATEX] Allergy Unknown REACTION Verified 08/14/17 18:21 NOT LISTED BY PT metronidazole AdvReac Severe GI UPSET Verified 08/14/17 18:21 vancomycin [VANCOMYCIN] AdvReac Severe DIARRHEA Verified 07/06/18 18:21 aspirin AdvReac Mild GI UPSET Verified 08/14/17 18:21 Cephalosporins AdvReac Mild GI UPSET Verified 08/14/17 18:21 ibuprofen AdvReac Mild GI UPSET Verified 08/14/17 18:21 CANTALOUPE Allergy Severe HIVES Uncoded 08/14/17 18:21 honeydew melon Allergy Severe hives Uncoded 08/14/17 18:21 ANTIHISTAMINES Allergy Mild red rash Uncoded 08/14/17 18:21 Exam - Constitutional positive no acute distress - Routine HEENT Exam Eye: Absent: conjunctival icterus, scleral injection ENT: Present: mucous membranes moist, oropharynx clear - Routine Neck Exam Present: supple. Absent: lymphadenopathy - Routine Chest/Breast/Axilla Exam Axillae: Absent: lymphadenopathy, mass, tenderness - Routine Respiratory Exam Present: Clear to auscultation bilaterally. Absent: rales, rhonchi, wheezes - Routine Cardiovascular Exam Present: RRR, S1, S2. Absent: JVD - Routine Abdominal Exam Present: soft, normoactive bowel sounds, tenderness, guarding, organomegaly. Absent: distended, rebound Palpation/Percussion: Present: hepatomegaly, splenomegaly. Absent: fluid waves Comments: LLQ tender to palpation - Routine Extremities Exam Absent: edema, calf tenderness - Routine Skin Exam Present: intact, normal turgor. Absent: petechiae, rash - Routine Neurological Exam Present: alert, oriented X3 - Routine Psychiatric Exam Present: normal affect Results - Labs Laboratory Last Values WBC 4.0 X10^3/uL (4.5-11.0) L 12/15/17 14:12 RBC 2.82 X10^6/uL (4.0-5.2) L 12/15/17 14:12 Hgb 9.9 g/dL (12.0-16.0) L 12/15/17 14:12 Hct 30.0 % (36-46) L 12/15/17 14:12 MCV 106.5 fL (80-100) H 12/15/17 14:12 MCH 35.1 PG (26-34) H 12/15/17 14:12 MCHC 32.9 % (30-36) 12/15/17 14:12 RDW 19.9 % (11.6-14.8) H 12/15/17 14:12 Plt Count 117 X10^3/uL (150-400) L 12/15/17 14:12 Neut % (Auto) 63.8 % (50-75) 12/15/17 14:12 Lymph % (Auto) 21.6 % (25-40) L 12/15/17 14:12 [place] % (Auto) 10.1 % (3-14) 12/15/17 14:12 Eos % (Auto) 2.7 % (2-4) 12/15/17 14:12 Baso % (Auto) 1.8 % (0-2) 12/15/17 14:12 Neut # (Auto) 2500 /uL (9620-9924) L 12/15/17 14:12 - Imaging Additional studies: Procedures Colonoscopy (09/10/12) Assessment and Plan (1) Myelodysplasia (myelodysplastic syndrome) Problem details: 76-year-old woman with a history of low-grade myelodysplasia. Her counts have been stable over the last year so and she has not required transfusions. Her red cell count has been stable and she has been tolerating Procrit with no difficulty. She will continue with her current regimen and return to clinic in about 6-8 weeks for follow-up but sooner should the need arise. She did have multiple questions today regarding expected prognosis and a course of illness with myelodysplasia. I explained that she has low risk disease with an expected survival of the 6-7 years on average. The expected courses that her counts may gradually worsen over time. Eventually, the Procrit may be come ineffective and she may need to have chemotherapy such as vidaza. We also reviewed the risk for transformation to acute leukemia which is unpredictable in its timing but is usually a lethal event if it does happen. She will continue with her current regimen for now and return to clinic in about 6-8 weeks for follow-up. A 25 min was spent with the patient and her the majority in counseling. Current visit: No Status: Acute Continue weekly blood counts. Continue Procrit 60,000 units. CBC stable today with a hemoglobin of 9.9 hematocrit 30.0 platelets also stable at 117,000 hundred seventeen thousand. (2) Night sweats Current visit: Yes Status: Acute Per pt ongoing for the past 6 months however have gotten progressively worse. Certainly this is a concerning symptom. I reviewed the patient's medication list no clear offenders. She does take low-dose prednisone 5 mg once daily she continues to take has not missed any doses. She also takes hydrocodone for chronic pain she continues to take daily has not decreased any dosages. She does take sertraline 150 mg daily she has been on this for ?years?. No recent dose changes she has not missed any dose has not taking more than prescribed. Fasting blood sugars in the morning generally run about low 100s she does not use insulin she is only using metformin. Unremarkable exam aside from chronic hepatosplenomegaly. Noting this patient's long and complicated history no clear offenders at present I am going to order a CT scan of chest abdomen pelvis noting history of hepatosplenomegaly with new onset night sweats. On exam today I did not appreciate any palpable adenopathy. CBC is stable. Prior to next visit we will check CBC, CMP, TSH, LDH. Patient will check her blood sugar these next few night when she wakes with night sweats to be sure she is not hypoglycemic. We will schedule CT a will have the patient follow up with her oncologist Dr. Palomino. I expect he may discuss bone marrow biopsy if bloodwork is unremarkable. Pt is aware. (3) Diverticulitis Current visit: Yes Status: Acute Patient presented today with a chief complaint of ?left lower quadrant pain?. On exam she was quite tender over left lower quadrant. She denies any fever or chills however does report some malaise the last 2 days also loss of appetite. I will go ahead and treat her for a diverticulitis however patient understands if she does develop fever, chills, worsening abdominal pain, nausea, vomiting she is to go directly to the hospital. Patient does have metronidazole listed as 1 of her allergies however I did inquire about this she states ?I think it is okay?. I have provided the patient with prescriptions for levofloxacin 750 mg once daily x7 days. Metronidazole 500 mg t.i.d. also x7 days. She is to follow up with her primary care provider. - Time Spent with Patient 35 mins with pt 5 mins review of records 5 mins dictation 5 mis coordination of care with senior scheduler
--- NOTE | 2017-12-15 16:05 | ONC.NAV ---
Description: Coping Support, resources Activity: [employer] met with pt to discuss her request for counseling. She expressed wanting to schedule with me for a few visits to discuss depression and difficulty coping. Made a plan to meet this coming Thursday, 12/18, at 11:00am.
== END ==
PROVIDERS: Family Provider Family Medicine; PCP Family Medicine; Visit Provider Nurse Practitioner Gerontology
DX: D46.Z Other myelodysplastic syndromes (principal); R61 Generalized hyperhidrosis; K57.92 Diverticulitis of intestine, part unspecified, without perforation or abscess without bleeding; R10.32 Left lower quadrant pain; M54.9 Dorsalgia, unspecified; G89.29 Other chronic pain; R32 Unspecified urinary incontinence; R16.0 Hepatomegaly, not elsewhere classified; R53.82 Chronic fatigue, unspecified
CPT/HCPCS: 36592; 85025; 96372; 99215; J0885

== ENCOUNTER → 2017-12-17 10:01 | Outpatient (CLI) | payer MEDICARE, SELFPAY ==
--- NOTE | 2017-12-17 11:40 | DI.CT.S_ITS ---
PROCEDURE: CT CHEST ABD PEL W CON INDICATIONS: Left lower quadrant pain. History of leukemia. TECHNIQUE: After the administration of oral and intravenous contrast, 5 mm thick sections acquired from the lung apices to the symphysis. 5 mm coronal and sagittal reformats were performed, with additional 7 mm coronal MIP reformats through the lungs. For radiation dose reduction, the following was used: automated exposure control, adjustment of mA and/or kV according to patient size. COMPARISON: [facility], CT, CT ABDOMEN WO/W CON, 06/10/2017, 9:01. FINDINGS: Image quality: Excellent. CHEST: Lungs and pleura: No acute airspace opacities. No pleural effusions or pneumothorax. Central and peripheral airways appear patent and normal in caliber. Mediastinum: Heart size is normal. No pericardial effusion. No mediastinal or hilar adenopathy by size criteria. Thoracic aorta and central pulmonary arteries are normal in size. Esophagus is normal in caliber. No hiatal hernia. Chest wall: No axillary or supraclavicular adenopathy by size criteria. Thyroid gland is within normal limits. Left chest wall rené catheter. ABDOMEN: Solid organs: Liver is normal in size and enhancement. Gallbladder is within normal limits. Biliary system is non dilated. Pancreas enhances normally. Spleen is enlarged, measuring 18 cm craniocaudal. There are several low-density hepatic masses, which are slightly increased in number compared to prior examination, with 2 new small lesions in the superior spleen measuring 4 mm diameter. The dominant lesion within the central spleen has increased slightly in size measuring 36 mm diameter. No adrenal nodules. Kidneys demonstrate normal size and enhancement, without hydronephrosis. Peritoneum and bowel: Bowel loops demonstrate normal wall thickness and caliber. No free fluid or air. Nodes and vessels: No retroperitoneal or mesenteric adenopathy by size criteria. Aorta and inferior vena cava are normal in size. Miscellaneous: No change in right paramedian fat containing anterior abdominal wall hernia measuring 57 mm. No change in 20 mm diameter fat-containing umbilical hernia. PELVIS: Genitourinary: Bladder wall thickness is normal. Bilateral ovarian cysts are present, measuring 26 mm on the left, and 50 mm on the right. Miscellaneous: No inguinal hernias or adenopathy. Bones: No suspicious bony lesions. Left sacroiliac ORIF. Bilateral hip arthroplasty. No vertebral body compression fractures. IMPRESSION: 1. Progressive multifocal splenic low-density foci. Given the history of leukemia, findings could represent leukemic infiltration. If the patient is immunocompromised, fungal or mycobacterial infection could also produce this appearance. Splenomegaly is present. 2. Anterior abdominal wall fat containing hernias. 3. Bilateral ovarian cysts, which are abnormal in a postmenopausal female. Further assessment with pelvic ultrasound is recommended. Gynecological consultation recommended. Dictated by: Poli Leo M.D. on 12/17/2017 at 15:51 Approved by: Poli Leo M.D. on 12/17/2017 at 15:59
== END ==
PROVIDERS: PCP Family Medicine; Visit Provider Nurse Practitioner Gerontology
DX: R10.32 Left lower quadrant pain (principal); D46.Z Other myelodysplastic syndromes; R16.2 Hepatomegaly with splenomegaly, not elsewhere classified; N83.202 Unspecified ovarian cyst, left side; N83.201 Unspecified ovarian cyst, right side; K43.9 Ventral hernia without obstruction or gangrene; Z96.643 Presence of artificial hip joint, bilateral
CPT/HCPCS: 71260; 74177; Q9967

== ENCOUNTER 2017-12-17 10:09 | Oncology outpatient (ONC) | payer MEDICARE, SELFPAY ==
[2017-12-17 11:24] LABS: BUN Creatinine Ratio 22.2 (6-22); Blood Urea Nitrogen 20 mg/dL (7-17); Estimated Glomerular Filt Rate > 60.0 mL/min (>60)
--- NOTE | 2017-12-18 14:46 | PC.NURSE ---
Pt called to report experiencing terrible diarrhea since being prescribed levaquin and flagyl on 12/15 for a divertic flair up. She has stopped this medication. I offered her IVF if she was feeling weak or dehydrated but she feels like she has been drinking enough and has been on a clear liquid diet during all of this. Pt was here yesterday 12/[address] for [address] draw [address] CT and was in good spirits and look well at that time. We discussed the alternative since we will be closed for the week end and she is willing to go to ED if necessary. Ayana has been made aware of this development
== END 2018-03-17 10:19 ==
PROVIDERS: PCP Family Medicine; Visit Provider Nurse Practitioner Gerontology
DX: D46.9 Myelodysplastic syndrome, unspecified (principal); R53.82 Chronic fatigue, unspecified
CPT/HCPCS: 71260; 74177; 82565; 84520; 96523; Q9967

== ENCOUNTER → 2017-12-22 10:02 | Outpatient (CLI) | payer MEDICARE, SELFPAY ==
[2017-12-22 10:16] VITALS: BP 152/55; PULSE 77; RESP 18; TEMP 37.3; O2SAT 97
--- NOTE | 2017-12-22 10:30 | ONC.PN ---
PN -Subjective Interval history: Diagnosis: Myelodysplasia Previous treatment: Procrit, 11925 units weekly. Interval history: The patient is a 77-year-old woman who returns today for follow-up. She has longstanding history of myelodysplasia and has been receiving Procrit injections weekly. She has been tolerating them well. Her red cell count has been stable. She has had a little bit of epistaxis but it has not been severe. She denies any other bleeding. She has not required any recent transfusions. Last week, she was seen with a complaint of increasing frequency and severity of night sweats. She also had some left lower quadrant abdominal pain. She was started on antibiotics. After about 3 or 4 days, she stopped due to worsening diarrhea and nausea. She notes that her night sweats had diminished in severity and frequency however. Her left lower quadrant abdominal pain had improved although not completely resolved. Her diarrhea has returned to baseline at this point. She is eating and drinking reasonably well. She denies any dizziness or lightheadedness. No shortness of breath cough for chest pain. - Patient Self-Reported Symptoms SR Constitution: Night Sweats SR Cardiovascular issues: Dizzy/lightheaded SR Gastrointestinal issues: Diarrhea SR Genitourinary issues: Incontinence SR Musculoskeletal issues: Joint pain or swelling, Muscle pain or cramps SR Neuro issues: Headache, Tremors or shaking SR Endocrine issues: Hot flashes Home Medications and Allergies Home Medications Medication Instructions Recorded Confirmed Type CALCIUM CARBONATE (#CALCIUM) 1,200 mg PO Q DAY #0 07/19/11 12/22/17 History gemfibrozil 300 mg PO BEDTIME #0 07/19/11 12/22/17 History gpgmyrni-lef-MS-lycopen-lutein 1 tab PO QDAY #0 07/19/11 12/22/17 History [Centrum Silver] prednisone 5 mg PO 0800 #0 07/19/11 12/22/17 History vitamin E 400 unit PO DAILY #0 07/19/11 12/22/17 History cholecalciferol (vitamin D3) 2,000 iu PO QDAY #0 05/14/12 12/22/17 History [Vitamin D3] gabapentin [Neurontin] 400 mg PO BID #0 06/29/12 12/22/17 History ketotifen fumarate [Zaditor] 1 drp OPHTH DAILY #5 ml 06/29/12 12/22/17 History krill oil 1,000 mg PO DAILY #0 06/29/12 12/22/17 History sertraline [Zoloft] 150 mg PO HS #0 06/29/12 12/22/17 History ascorbic acid (vitamin C) 1 tab PO DAILY 08/14/17 12/22/17 History diclofenac sodium [Voltaren] 1 applic TOPICAL PRN PRN 08/14/17 12/22/17 History fluticasone 1 spray INTRANASAL DAILY 08/14/17 12/22/17 History folic acid 0.4 mg PO DAILY 08/14/17 12/22/17 History hydrocodone-acetaminophen 1 tab PO Q6H PRN 08/14/17 12/22/17 History levocetirizine 1 tab PO QPM 08/14/17 12/22/17 History losartan 50 mg PO DAILY 08/14/17 12/22/17 History metformin 500 mg PO BID 08/14/17 12/22/17 History metoprolol succinate 1 tab PO QPM 08/14/17 12/22/17 History topiramate 1 tab PO BEDTIME 08/14/17 12/22/17 History trazodone 1 - 2 tab PO BEDTIME PRN 08/14/17 12/22/17 History vit C,E-Vy-vpkym-lutein-zeaxan 2 cap PO DAILY 08/14/17 12/22/17 History [PreserVision AREDS 2] clopidogrel [Plavix] 1 mg/kg PO DAILY 12/15/17 12/22/17 History levofloxacin [Levaquin] 750 mg PO DAILY #7 tab 12/15/17 12/22/17 Rx metronidazole [Flagyl] 500 mg PO TID #21 tab 12/15/17 12/22/17 Rx Allergies Allergy/AdvReac Type Severity Reaction Status Date / Time Cephalosporins Allergy Severe GI UPSET Verified 12/22/17 10:21 morphine Allergy Severe ANAPHYLAXIS Verified 08/14/17 18:21 coconut [COCONUT] Allergy Intermediate HIVES Verified 08/14/17 18:21 adhesive Allergy Mild SKIN Verified 08/14/17 18:21 BREAKDOWN, RASH (TAPE) PAPER TAPE OK meperidine Allergy Mild red rash Verified 08/14/17 18:21 lactose [LACTOSE] Allergy Unknown INTOLERANT Verified 08/14/17 18:21 latex [LATEX] Allergy Unknown REACTION Verified 08/14/17 18:21 NOT LISTED BY PT metronidazole AdvReac Severe GI UPSET Verified 08/14/17 18:21 vancomycin [VANCOMYCIN] AdvReac Severe DIARRHEA Verified 08/14/17 18:21 aspirin AdvReac Mild GI UPSET Verified 08/14/17 18:21 ibuprofen AdvReac Mild GI UPSET Verified 08/14/17 18:21 CANTALOUPE Allergy Severe HIVES Uncoded 08/14/17 18:21 honeydew melon Allergy Severe hives Uncoded 08/14/17 18:21 ANTIHISTAMINES Allergy Mild red rash Uncoded 08/14/17 18:21 Exam - Constitutional positive no acute distress, positive average body habitus - Routine HEENT Exam Head: Present: normocephalic, atraumatic Eye: Present: EOMI, PERRL. Absent: conjunctival icterus, scleral injection ENT: Present: mucous membranes moist, oropharynx clear - Routine Neck Exam Present: supple. Absent: lymphadenopathy, thyromegaly - Routine Respiratory Exam Present: Clear to auscultation bilaterally. Absent: rales, wheezes - Routine Cardiovascular Exam Present: RRR, S1, S2. Absent: murmur - Routine Abdominal Exam Present: soft, normoactive bowel sounds, tenderness, organomegaly Comments: The spleen tip is palpable about 1 fingerbreadth below the costal margin. The liver edge is also just palpable underneath the costal margin. I do not feel any other masses. She does have some mild tenderness in the left mid abdomen. There is no rebound or guarding. - Routine Extremities Exam Absent: cyanosis, clubbing, edema - Routine Back/Spine Exam Back/Spine: Absent: vertebral tenderness - Routine Skin Exam Present: intact. Absent: petechiae, rash - Routine Neurological Exam Present: alert, oriented X3 - Routine Psychiatric Exam Present: normal affect, normal thought process Results - Imaging CT scan - abdomen: image reviewed (She does have stable splenomegaly with a lesion in the central part of the spleen. It measured 36 mm today and 35 mm in June. I do not think that that is a significant change. The radiologist also commented on a couple of new small lesions that were small. I do not think that represents a significant change either.) CT scan - chest: image reviewed CT scan - pelvis: image reviewed Additional studies: Procedures Colonoscopy (09/10/12) Assessment and Plan (1) Myelodysplasia (myelodysplastic syndrome) Problem details: 76-year-old woman with a history of low-grade myelodysplasia. Her counts have been stable over the last year so and she has not required transfusions. Her red cell count has been stable and she has been tolerating Procrit with no difficulty. She will continue with her current regimen and return to clinic in about 4 weeks for follow-up. Her CT scan by my review was stable. Her hot flashes and abdominal pain seem to have improved with antibiotics suggesting that there may have been some infection present. As long as her symptoms are improving, I do not think any further evaluation is necessary at this point. Current visit: No Status: Acute
[2017-12-22 10:33] LABS: Add Manual Diff / Slide Review NO; Basophils Percent Auto 1.5 % (0-2); Eosinophils Percent Auto 3.6 % (2-4); Hematocrit 29.8 % (36-46); Hemoglobin 9.7 g/dL (12.0-16.0); Lymphocytes Percent Auto 23.3 % (25-40); Mean Corpuscular HGB Conc 32.7 % (30-36); Mean Corpuscular Hemoglobin 34.6 PG (26-34); Mean Corpuscular Volume 105.5 fL (80-100); Monocytes Percent Auto 12.5 % (3-14); Neutrophils Absolute Auto 1800 /uL (3000-5900); Neutrophils Percent Auto 59.1 % (50-75); Platelet Count 103 X10^3/uL (150-400); Red Blood Cell Count 2.82 X10^6/uL (4.0-5.2); Red Cell Distribution Width 19.6 % (11.6-14.8)
[2017-12-22 10:40] LABS: Albumin 3.7 g/dL (3.5-5.0); HEMOLYSIS < 15 (0-50)
[2017-12-22 10:42] LABS: Alanine Aminotransferase 30 IU/L (9-52); Albumin Globulin Ratio 1.9 (1.0-2.8); Alkaline Phosphatase 57 U/L (38-126); Aspartate Aminotransferase 18 IU/L (14-36); BUN Creatinine Ratio 24.4 (6-22); Bilirubin Total 0.4 mg/dL (0.2-1.3); Blood Urea Nitrogen 22 mg/dL (7-17); Calcium 8.8 mg/dL (8.4-10.2); Carbon Dioxide 22 mmol/L (22-32); Chloride 109 mmol/L (98-107); Estimated Glomerular Filt Rate > 60.0 mL/min (>60); Glucose 179 mg/dL (80-110); Lactate Dehydrogenase 463 U/L (313-618); Sodium 143 mmol/L (137-145); Total Protein 5.7 g/dL (6.3-8.2)
[2017-12-22 11:13] LABS: Thyroid Stimulating Hormone 3.83 uIU/mL (0.47-4.68)
[2017-12-22] MEDS: EPOETIN ALFA 20,000 UNIT/ML VIAL 60000 UNIT SUBCUT (11:13)
== END ==
PROVIDERS: Nurse Practitioner Gerontology; PCP Family Medicine
DX: D46.Z Other myelodysplastic syndromes (principal)
CPT/HCPCS: 36592; 80053; 83615; 84443; 85025; 96372; 99214; J0885

== ENCOUNTER → 2017-12-29 09:29 | Outpatient (CLI) | payer MEDICARE, SELFPAY ==
[2017-12-29 10:07] LABS: Basophils Percent Auto 1.7 % (0-2); Eosinophils Percent Auto 5.1 % (2-4); Hemoglobin 9.8 g/dL (12.0-16.0); Lymphocytes Percent Auto 24.6 % (25-40); Mean Corpuscular HGB Conc 32.6 % (30-36); Mean Corpuscular Hemoglobin 34.4 PG (26-34); Mean Corpuscular Volume 105.8 fL (80-100); Neutrophils Absolute Auto 1600 /uL (3000-5900); Neutrophils Percent Auto 56.6 % (50-75); Platelet Count 108 X10^3/uL (150-400); Red Blood Cell Count 2.83 X10^6/uL (4.0-5.2); White Blood Cell Count 2.8 X10^3/uL (4.5-11.0)
[2017-12-29 10:09] LABS: Add Manual Diff / Slide Review SLIDE REVIEW
[2017-12-29 10:45] VITALS: BP 122/44; PULSE 67; RESP 16; TEMP 36.9; O2SAT 97
[2017-12-29 10:45] LABS: Anisocytosis 1+
[2017-12-29] MEDS: EPOETIN ALFA 20,000 UNIT/ML VIAL 60000 UNIT SUBCUT (11:26)
== END ==
PROVIDERS: PCP Family Medicine
DX: D46.Z Other myelodysplastic syndromes (principal)
CPT/HCPCS: 36592; 85025; 96372; J0885

== ENCOUNTER → 2018-01-05 14:10 | Outpatient (CLI) | payer MEDICARE, SELFPAY ==
[2018-01-05 14:52] LABS: Add Manual Diff / Slide Review NO; Basophils Percent Auto 1.3 % (0-2); Eosinophils Percent Auto 2.8 % (2-4); Hematocrit 30.8 % (36-46); Hemoglobin 10.1 g/dL (12.0-16.0); Mean Corpuscular HGB Conc 32.9 % (30-36); Mean Corpuscular Hemoglobin 34.8 PG (26-34); Mean Corpuscular Volume 105.9 fL (80-100); Monocytes Percent Auto 10.1 % (3-14); Neutrophils Absolute Auto 2500 /uL (3000-5900); Neutrophils Percent Auto 64.8 % (50-75); Platelet Count 108 X10^3/uL (150-400); Red Blood Cell Count 2.91 X10^6/uL (4.0-5.2); Red Cell Distribution Width 20.3 % (11.6-14.8); White Blood Cell Count 3.9 X10^3/uL (4.5-11.0)
[2018-01-05] MEDS: EPOETIN ALFA 20,000 UNIT/ML VIAL 60000 UNIT SUBCUT (15:08)
[2018-01-05 15:24] VITALS: BP 105/60; PULSE 60; RESP 16; TEMP 36.8
[2018-01-05 15:27] LABS: Anisocytosis 1+
== END ==
PROVIDERS: Family Provider Family Medicine; PCP Family Medicine
DX: D46.Z Other myelodysplastic syndromes (principal)
CPT/HCPCS: 85025; 96372; J0885

== ENCOUNTER → 2018-01-12 14:04 | Outpatient (CLI) | payer MEDICARE, SELFPAY ==
[2018-01-12 14:43] LABS: Add Manual Diff / Slide Review NO; Basophils Percent Auto 1.6 % (0-2); Hematocrit 30.9 % (36-46); Hemoglobin 10.1 g/dL (12.0-16.0); Lymphocytes Percent Auto 20.7 % (25-40); Mean Corpuscular HGB Conc 32.6 % (30-36); Mean Corpuscular Hemoglobin 34.9 PG (26-34); Mean Corpuscular Volume 106.8 fL (80-100); Monocytes Percent Auto 10.9 % (3-14); Neutrophils Absolute Auto 2200 /uL (3000-5900); Neutrophils Percent Auto 63.8 % (50-75); Platelet Count 100 X10^3/uL (150-400); Red Blood Cell Count 2.89 X10^6/uL (4.0-5.2); Red Cell Distribution Width 20.6 % (11.6-14.8); White Blood Cell Count 3.5 X10^3/uL (4.5-11.0)
[2018-01-12 15:09] LABS: Polychromasia 1+
[2018-01-12 15:10] LABS: Anisocytosis 2+; Macrocytosis 1+; Ovalocytes 2+; Poikilocytosis 3+
[2018-01-12 15:11] LABS: Tear Drop Cells 2+
[2018-01-12] MEDS: EPOETIN ALFA 20,000 UNIT/ML VIAL 60000 UNIT SUBCUT (15:14)
[2018-01-12 15:16] VITALS: BP 110/53; PULSE 69; RESP 16; TEMP 36.9
== END ==
PROVIDERS: Family Provider Family Medicine; PCP Family Medicine
DX: D46.Z Other myelodysplastic syndromes (principal)
CPT/HCPCS: 36592; 85025; 96372; J0885

== ENCOUNTER → 2018-01-15 14:42 | Outpatient (CLI) | payer MEDICARE, SELFPAY ==
--- NOTE | 2018-01-15 | DI.MG.S_ITS ---
BILATERAL DIGITAL SCREENING MAMMOGRAM 3D/2D WITH CAD: 01/15/2018 CLINICAL: Routine screening. Family history of breast cancer. Comparison is made to exams dated: 05/22/2017 mammogram, 10/15/2016 mammogram, and 09/18/2015 mammogram - [facility]. The tissue of both breasts is heterogeneously dense. This may lower the sensitivity of mammography. Current study was also evaluated with a Computer Aided Detection (CAD) system. No significant masses, calcifications, or other findings are seen in either breast. There has been no significant interval change. IMPRESSION: NEGATIVE There is no mammographic evidence of malignancy. A 1 year screening mammogram is recommended. This exam was interpreted at Station ID: [id number]. NOTE: For mammograms, a report in lay terms will be sent to the patient. Approximately 15% of breast malignancies will not be visualized mammographically. In the management of a palpable breast mass, a negative mammogram must not discourage biopsy of a clinically suspicious lesion. Electronically Signed By: Chana johnson/rosy:01/15/2018 15:43:12 copy to: RUBIA ROUSE letter sent: Normal Exam ACR BI-RADS Category 1: Negative [id number]
== END ==
PROVIDERS: Family Provider Family Medicine; PCP Family Medicine; Visit Provider Family Medicine
DX: Z12.31 Encounter for screening mammogram for malignant neoplasm of breast (principal); Z80.3 Family history of malignant neoplasm of breast
CPT/HCPCS: 77063; 77067

== ENCOUNTER → 2018-01-19 13:35 | Outpatient (CLI) | payer MEDICARE, SELFPAY ==
[2018-01-19 14:06] VITALS: BP 121/76; PULSE 73; RESP 18; TEMP 36.8; O2SAT 97
[2018-01-19 14:16] LABS: Add Manual Diff / Slide Review NO; Basophils Percent Auto 0.8 % (0-2); Eosinophils Percent Auto 1.5 % (2-4); Hematocrit 27.5 % (36-46); Hemoglobin 9.2 g/dL (12.0-16.0); Lymphocytes Percent Auto 9.2 % (25-40); Mean Corpuscular HGB Conc 33.5 % (30-36); Mean Corpuscular Hemoglobin 35.9 PG (26-34); Mean Corpuscular Volume 107.1 fL (80-100); Monocytes Percent Auto 7.1 % (3-14); Neutrophils Absolute Auto 3700 /uL (3000-5900); Neutrophils Percent Auto 81.4 % (50-75); Platelet Count 89 X10^3/uL (150-400); Red Blood Cell Count 2.57 X10^6/uL (4.0-5.2); White Blood Cell Count 4.5 X10^3/uL (4.5-11.0)
--- NOTE | 2018-01-19 14:32 | ONC.PN ---
PN -Subjective Interval history: Diagnosis: Myelodysplasia Previous treatment: Procrit, 66852 units weekly. Interval history: The patient is a 77-year-old woman who returns today for follow-up myelodysplasia. She has been getting EPO 60,000 units weekly. She has been tolerating the injections without any problems. She notes that her energy level feels better for several days after each injection. She has not been aware of any unusual bleeding or bruising. She has had occasional gingival bleeding but denies any epistaxis. No blood in the urine or stool. She has not required any transfusions. No fevers. She does have occasional chills and hot flashes that have been stable. She has had some ongoing of arthritis pain. She tells me that she needs to have an SI joint fused but does not have any immediate plans for this. She denies any worsening shortness of breath or cough. No chest pain. She has had some insomnia. She denies any other changes in her health. Home Medications and Allergies Home Medications Medication Instructions Recorded Confirmed Type CALCIUM CARBONATE (#CALCIUM) 1,200 mg PO Q DAY #0 07/19/11 12/22/17 History gemfibrozil 300 mg PO BEDTIME #0 07/19/11 12/22/17 History ulndwkxz-any-DH-lycopen-lutein 1 tab PO QDAY #0 07/19/11 12/22/17 History [Centrum Silver] prednisone 5 mg PO 0800 #0 07/19/11 12/22/17 History vitamin E 400 unit PO DAILY #0 07/19/11 12/22/17 History cholecalciferol (vitamin D3) 2,000 iu PO QDAY #0 05/14/12 12/22/17 History [Vitamin D3] gabapentin [Neurontin] 400 mg PO BID #0 06/29/12 12/22/17 History ketotifen fumarate [Zaditor] 1 drp OPHTH DAILY #5 ml 06/29/12 12/22/17 History krill oil 1,000 mg PO DAILY #0 06/29/12 12/22/17 History sertraline [Zoloft] 150 mg PO HS #0 06/29/12 12/22/17 History ascorbic acid (vitamin C) 1 tab PO DAILY 08/14/17 12/22/17 History diclofenac sodium [Voltaren] 1 applic TOPICAL PRN PRN 08/14/17 12/22/17 History fluticasone 1 spray INTRANASAL DAILY 08/14/17 12/22/17 History folic acid 0.4 mg PO DAILY 08/14/17 12/22/17 History hydrocodone-acetaminophen 1 tab PO Q6H PRN 08/14/17 12/22/17 History levocetirizine 1 tab PO QPM 08/14/17 12/22/17 History losartan 50 mg PO DAILY 08/14/17 12/22/17 History metformin 500 mg PO BID 08/14/17 12/22/17 History metoprolol succinate 1 tab PO QPM 08/14/17 12/22/17 History topiramate 1 tab PO BEDTIME 08/14/17 12/22/17 History trazodone 1 - 2 tab PO BEDTIME PRN 08/14/17 12/22/17 History vit C,O-Hp-qmckd-lutein-zeaxan 2 cap PO DAILY 08/14/17 12/22/17 History [PreserVision AREDS 2] clopidogrel [Plavix] 1 mg/kg PO DAILY 12/15/17 12/22/17 History Allergies Allergy/AdvReac Type Severity Reaction Status Date / Time Cephalosporins Allergy Severe GI UPSET Verified 12/22/17 10:21 morphine Allergy Severe ANAPHYLAXIS Verified 08/14/17 18:21 coconut [COCONUT] Allergy Intermediate HIVES Verified 08/14/17 18:21 adhesive Allergy Mild SKIN Verified 08/14/17 18:21 BREAKDOWN, RASH (TAPE) PAPER TAPE OK meperidine Allergy Mild red rash Verified 08/14/17 18:21 lactose [LACTOSE] Allergy Unknown INTOLERANT Verified 08/14/17 18:21 latex [LATEX] Allergy Unknown REACTION Verified 08/14/17 18:21 NOT LISTED BY PT metronidazole AdvReac Severe GI UPSET Verified 08/14/17 18:21 vancomycin [VANCOMYCIN] AdvReac Severe DIARRHEA Verified 08/14/17 18:21 aspirin AdvReac Mild GI UPSET Verified 08/14/17 18:21 ibuprofen AdvReac Mild GI UPSET Verified 08/14/17 18:21 CANTALOUPE Allergy Severe HIVES Uncoded 08/14/17 18:21 honeydew melon Allergy Severe hives Uncoded 08/14/17 18:21 ANTIHISTAMINES Allergy Mild red rash Uncoded 08/14/17 18:21 Exam - Constitutional positive no acute distress, positive average body habitus - Routine HEENT Exam Head: Present: normocephalic, atraumatic Eye: Present: EOMI, PERRL. Absent: conjunctival icterus, scleral injection ENT: Present: mucous membranes moist, oropharynx clear - Routine Neck Exam Present: supple. Absent: lymphadenopathy, thyromegaly - Routine Respiratory Exam Present: Clear to auscultation bilaterally. Absent: rales, wheezes - Routine Cardiovascular Exam Present: RRR, S1, S2. Absent: murmur - Routine Abdominal Exam Present: soft, normoactive bowel sounds. Absent: tenderness, organomegaly, mass - Routine Extremities Exam Absent: cyanosis, clubbing, edema - Routine Skin Exam Present: intact. Absent: petechiae, rash - Routine Neurological Exam Present: alert, oriented X3 - Routine Psychiatric Exam Present: normal affect, normal thought process Results - Labs Laboratory Last Values WBC 4.5 X10^3/uL (4.5-11.0) 01/19/18 13:52 RBC 2.57 X10^6/uL (4.0-5.2) L 01/19/18 13:52 Hgb 9.2 g/dL (12.0-16.0) L 01/19/18 13:52 Hct 27.5 % (36-46) L 01/19/18 13:52 MCV 107.1 fL (80-100) H 01/19/18 13:52 MCH 35.9 PG (26-34) H 01/19/18 13:52 MCHC 33.5 % (30-36) 01/19/18 13:52 RDW 20.0 % (11.6-14.8) H 01/19/18 13:52 Plt Count 89 X10^3/uL (150-400) L 01/19/18 13:52 Neut % (Auto) 81.4 % (50-75) H 01/19/18 13:52 Lymph % (Auto) 9.2 % (25-40) L 01/19/18 13:52 [place] % (Auto) 7.1 % (3-14) 01/19/18 13:52 Eos % (Auto) 1.5 % (2-4) L 01/19/18 13:52 Baso % (Auto) 0.8 % (0-2) 01/19/18 13:52 Neut # (Auto) 3700 /uL (3008-2274) 01/19/18 13:52 - Imaging Additional studies: Procedures Colonoscopy (09/10/12) Assessment and Plan (1) Myelodysplasia (myelodysplastic syndrome) Problem details: 76-year-old woman with a history of low-grade myelodysplasia. Her counts have been stable over the last year so and she has not required transfusions. Her red cell count has been stable and she has been tolerating Procrit with no difficulty. She will continue with her current regimen and return to clinic in about 2 months for follow-up. Current visit: No Status: Acute
[2018-01-19] MEDS: EPOETIN ALFA 20,000 UNIT/ML VIAL 60000 UNIT SUBCUT (15:09)
== END ==
PROVIDERS: Family Provider Family Medicine; PCP Family Medicine
DX: D46.Z Other myelodysplastic syndromes (principal)
CPT/HCPCS: 36592; 85025; 96372; 99214; J0885

== ENCOUNTER → 2018-01-26 13:37 | Outpatient (CLI) | payer MEDICARE, SELFPAY ==
[2018-01-26 14:05] LABS: Add Manual Diff / Slide Review NO; Basophils Percent Auto 1.2 % (0-2); Eosinophils Percent Auto 1.7 % (2-4); Hematocrit 27.9 % (36-46); Lymphocytes Percent Auto 12.3 % (25-40); Mean Corpuscular HGB Conc 32.4 % (30-36); Mean Corpuscular Hemoglobin 34.5 PG (26-34); Mean Corpuscular Volume 106.6 fL (80-100); Monocytes Percent Auto 7.9 % (3-14); Neutrophils Absolute Auto 2300 /uL (1500-7000); Neutrophils Percent Auto 76.9 % (50-75); Platelet Count 96 X10^3/uL (150-400); Red Blood Cell Count 2.62 X10^6/uL (4.0-5.2)
[2018-01-26 14:18] VITALS: BP 107/53; PULSE 68; RESP 16; TEMP 37.1
[2018-01-26] MEDS: EPOETIN ALFA 20,000 UNIT/ML VIAL 60000 UNIT SUBCUT (14:21)
== END ==
PROVIDERS: Family Provider Family Medicine; PCP Family Medicine
DX: D46.Z Other myelodysplastic syndromes (principal)
CPT/HCPCS: 36592; 85025; 96372; J0885

== ENCOUNTER → 2018-02-03 14:27 | Outpatient (CLI) | payer MEDICARE, SELFPAY ==
[2018-02-03 15:16] LABS: Add Manual Diff / Slide Review NO; Basophils Percent Auto 1.4 % (0-2); Eosinophils Percent Auto 1.8 % (2-4); Hematocrit 27.1 % (36-46); Hemoglobin 9.2 g/dL (12.0-16.0); Lymphocytes Percent Auto 12.4 % (25-40); Mean Corpuscular HGB Conc 33.9 % (30-36); Mean Corpuscular Hemoglobin 35.8 PG (26-34); Mean Corpuscular Volume 105.6 fL (80-100); Monocytes Percent Auto 8.7 % (3-14); Neutrophils Absolute Auto 2500 /uL (1500-7000); Neutrophils Percent Auto 75.7 % (50-75); Platelet Count 117 X10^3/uL (150-400); Red Blood Cell Count 2.56 X10^6/uL (4.0-5.2); Red Cell Distribution Width 20.2 % (11.6-14.8); White Blood Cell Count 3.3 X10^3/uL (4.5-11.0)
[2018-02-03 15:30] VITALS: BP 117/45; PULSE 68; RESP 16; TEMP 36.9; O2SAT 97
[2018-02-03 15:36] LABS: Anisocytosis 2+; Poikilocytosis 3+
[2018-02-03 15:37] LABS: Macrocytosis 1+; Ovalocytes 2+; Schistocytes 1+; Tear Drop Cells 1+
[2018-02-03] MEDS: EPOETIN ALFA 20,000 UNIT/ML VIAL 60000 UNIT SUBCUT (15:45)
--- NOTE | 2018-02-03 15:57 | PC.NURSE ---
1530- pt denied need for any items. Pt given shots subcut, tolerated well. pt reports that she feels so much better the day after the shots. Pt very appreciative. pt left with .
== END ==
PROVIDERS: Family Provider Family Medicine; PCP Family Medicine; Visit Provider Family Medicine
DX: D46.Z Other myelodysplastic syndromes (principal)
CPT/HCPCS: 36592; 85025; 96372; J0885

== ENCOUNTER → 2018-02-10 14:31 | Outpatient (CLI) | payer MEDICARE, SELFPAY ==
[2018-02-10 14:57] LABS: Add Manual Diff / Slide Review NO; Basophils Percent Auto 1.4 % (0-2); Eosinophils Percent Auto 1.6 % (2-4); Hematocrit 27.2 % (36-46); Lymphocytes Percent Auto 13.7 % (25-40); Mean Corpuscular Hemoglobin 35.4 PG (26-34); Monocytes Percent Auto 8.4 % (3-14); Neutrophils Absolute Auto 2600 /uL (1500-7000); Neutrophils Percent Auto 74.9 % (50-75); Platelet Count 101 X10^3/uL (150-400); Red Blood Cell Count 2.54 X10^6/uL (4.0-5.2); White Blood Cell Count 3.5 X10^3/uL (4.5-11.0)
[2018-02-10] MEDS: EPOETIN ALFA 20,000 UNIT/ML VIAL 60000 UNIT SUBCUT (15:42)
[2018-02-10 15:43] VITALS: BP 129/65; PULSE 74; RESP 18; TEMP 36.8; O2SAT 96
== END ==
PROVIDERS: Family Provider Family Medicine; PCP Family Medicine
DX: D46.Z Other myelodysplastic syndromes (principal)
CPT/HCPCS: 36592; 85025; 96372; J0885

== ENCOUNTER → 2018-02-16 14:24 | Outpatient (CLI) | payer MEDICARE, SELFPAY ==
[2018-02-16 14:46] LABS: Add Manual Diff / Slide Review NO; Basophils Percent Auto 1.5 % (0-2); Eosinophils Percent Auto 2.4 % (2-4); Hemoglobin 9.4 g/dL (12.0-16.0); Lymphocytes Percent Auto 18.2 % (25-40); Mean Corpuscular HGB Conc 32.3 % (30-36); Mean Corpuscular Hemoglobin 34.8 PG (26-34); Mean Corpuscular Volume 107.6 fL (80-100); Monocytes Percent Auto 10.7 % (3-14); Neutrophils Absolute Auto 2100 /uL (1500-7000); Neutrophils Percent Auto 67.2 % (50-75); Platelet Count 97 X10^3/uL (150-400); Red Blood Cell Count 2.69 X10^6/uL (4.0-5.2); Red Cell Distribution Width 20.5 % (11.6-14.8); White Blood Cell Count 3.1 X10^3/uL (4.5-11.0)
[2018-02-16 15:06] LABS: Anisocytosis 2+; Ovalocytes 2+
[2018-02-16] MEDS: EPOETIN ALFA 20,000 UNIT/ML VIAL 60000 UNIT SUBCUT (15:17)
[2018-02-16 16:55] VITALS: BP 128/65; PULSE 67; RESP 16; TEMP 36.9; O2SAT 98
== END ==
PROVIDERS: Family Provider Family Medicine; PCP Family Medicine
DX: D46.Z Other myelodysplastic syndromes (principal)
CPT/HCPCS: 36592; 85025; 96372; J0885

== ENCOUNTER 2018-03-02 14:13 | Oncology outpatient (ONC) | payer MEDICARE, SELFPAY ==
[2018-03-02 14:36] LABS: Add Manual Diff / Slide Review NO; Basophils Absolute Auto 0 /uL (0-100); Basophils Percent Auto 0.6 % (0-2); Eosinophils Absolute Auto 100 /uL (0-450); Eosinophils Percent Auto 1.4 % (2-4); Hematocrit 25.8 % (36-46); Hemoglobin 8.6 g/dL (12.0-16.0); Lymphocytes Absolute Auto 700 /uL (1100-4500); Lymphocytes Percent Auto 15.3 % (25-40); Mean Corpuscular HGB Conc 33.3 % (30-36); Mean Corpuscular Hemoglobin 34.6 PG (26-34); Mean Corpuscular Volume 103.8 fL (80-100); Monocytes Absolute Auto 300 /uL (0-900); Neutrophils Absolute Auto 3300 /uL (1500-7000); Neutrophils Percent Auto 75.7 % (50-75); Platelet Count 90 X10^3/uL (150-400); Red Blood Cell Count 2.48 X10^6/uL (4.0-5.2); Red Cell Distribution Width 19.4 % (11.6-14.8); White Blood Cell Count 4.3 X10^3/uL (4.5-11.0)
[2018-03-02 14:39] VITALS: BP 144/86; PULSE 81; RESP 18; TEMP 36.7; O2SAT 95
== END 2018-03-17 11:00 ==
LOC: ONC 14:14
PROVIDERS: Family Provider Family Medicine; PCP Family Medicine
DX: D46.Z Other myelodysplastic syndromes (principal)
CPT/HCPCS: 85025

== ENCOUNTER → 2018-03-02 15:17 | Outpatient (CLI) | payer MEDICARE, SELFPAY ==
[2018-03-02] MEDS: EPOETIN ALFA-EPBX 40,000 UNIT/ML VIAL 40000 UNIT SUBCUT (15:21)
[2018-03-02] MEDS: EPOETIN ALFA-EPBX 10,000 UNIT/ML VIAL 20000 UNIT SUBCUT (15:21)
== END ==
PROVIDERS: Family Provider Family Medicine; PCP Family Medicine
DX: D46.Z Other myelodysplastic syndromes (principal)
CPT/HCPCS: 36592; 85025; 96372; Q5106

== ENCOUNTER → 2018-03-08 12:47 | Outpatient (CLI) | payer MEDICARE, SELFPAY ==
--- NOTE | 2018-03-08 | DI.RAD.S_ITS ---
PROCEDURE: XR CHEST 2V INDICATIONS: COUGH TECHNIQUE: 2 views of the chest were acquired. COMPARISON: [facility], CHEST 1 VIEW, 11/03/2016, 16:36. [facility], CHEST 2 VIEW, 07/13/2012, 10:57. FINDINGS: Surgical changes and devices: Port-A-Cath in normal position from left sided approach. Lungs and pleura: Lungs are clear. No pleural effusions or pneumothorax. Mediastinum: Mediastinal contours are normal. Heart size is normal. Bones and chest wall: No suspicious bony abnormalities. Soft tissues appear unremarkable. IMPRESSION: Normal for age, source of current cough symptoms is not seen. Dictated by: Erik Jimenez M.D. on 03/08/2018 at 13:42 Approved by: Erik Jimenez M.D. on 03/08/2018 at 13:42
== END ==
PROVIDERS: Family Provider Family Medicine; PCP Family Medicine; Visit Provider Family Medicine
DX: R05 Cough (principal)
CPT/HCPCS: 71046

== ENCOUNTER → 2018-03-10 14:01 | Outpatient (CLI) | payer MEDICARE, SELFPAY ==
[2018-03-10 14:20] LABS: Add Manual Diff / Slide Review NO; Basophils Absolute Auto 0 /uL (0-100); Basophils Percent Auto 1.3 % (0-2); Eosinophils Absolute Auto 100 /uL (0-450); Eosinophils Percent Auto 2.2 % (2-4); Hematocrit 25.3 % (36-46); Hemoglobin 8.2 g/dL (12.0-16.0); Lymphocytes Absolute Auto 700 /uL (1100-4500); Lymphocytes Percent Auto 24.2 % (25-40); Mean Corpuscular HGB Conc 32.5 % (30-36); Mean Corpuscular Hemoglobin 34.6 PG (26-34); Mean Corpuscular Volume 106.3 fL (80-100); Monocytes Absolute Auto 300 /uL (0-900); Monocytes Percent Auto 8.7 % (3-14); Neutrophils Absolute Auto 1900 /uL (1500-7000); Neutrophils Percent Auto 63.6 % (50-75); Platelet Count 158 X10^3/uL (150-400); Red Blood Cell Count 2.38 X10^6/uL (4.0-5.2); Red Cell Distribution Width 18.6 % (11.6-14.8); White Blood Cell Count 2.9 X10^3/uL (4.5-11.0)
[2018-03-10 14:28] VITALS: BP 112/62; PULSE 75; RESP 16; TEMP 36.8; O2SAT 98
[2018-03-10] MEDS: EPOETIN ALFA-EPBX 10,000 UNIT/ML VIAL 20000 UNIT SUBCUT (15:03)
[2018-03-10] MEDS: EPOETIN ALFA-EPBX 40,000 UNIT/ML VIAL 40000 UNIT SUBCUT (15:04)
== END ==
PROVIDERS: Family Provider Family Medicine; PCP Family Medicine
DX: D46.Z Other myelodysplastic syndromes (principal)
CPT/HCPCS: 36592; 85025; 96372; Q5106

== ENCOUNTER → 2018-03-16 14:08 | Outpatient (CLI) | payer MEDICARE, SELFPAY ==
[2018-03-16 14:27] LABS: Add Manual Diff / Slide Review NO; Basophils Absolute Auto 0 /uL (0-100); Basophils Percent Auto 1.2 % (0-2); Eosinophils Absolute Auto 0 /uL (0-450); Eosinophils Percent Auto 0.8 % (2-4); Hematocrit 24.5 % (36-46); Lymphocytes Absolute Auto 400 /uL (1100-4500); Mean Corpuscular HGB Conc 32.8 % (30-36); Mean Corpuscular Hemoglobin 34.7 PG (26-34); Mean Corpuscular Volume 105.8 fL (80-100); Monocytes Absolute Auto 300 /uL (0-900); Monocytes Percent Auto 6.5 % (3-14); Neutrophils Absolute Auto 3200 /uL (1500-7000); Neutrophils Percent Auto 81.5 % (50-75); Platelet Count 111 X10^3/uL (150-400); Red Blood Cell Count 2.32 X10^6/uL (4.0-5.2); Red Cell Distribution Width 20.2 % (11.6-14.8); White Blood Cell Count 3.9 X10^3/uL (4.5-11.0)
[2018-03-16 14:33] VITALS: BP 112/64; PULSE 80; RESP 18; TEMP 36.5; O2SAT 99
--- NOTE | 2018-03-16 14:58 | ONC.PN ---
PN -Subjective Interval history: Diagnosis: Myelodysplasia Previous treatment: Erythropoietin 78064 units weekly. Interval history: The patient is a 77-year-old woman who returns today for follow-up. She has a history of myelodysplasia. She has been receiving erythropoietin for little bit more than a year. Since her last visit here, she has been bothered by an upper respiratory infection and has been on a course of antibiotics. She has about 3 more days of Levaquin remaining. She was having some fevers as well as a productive cough and pain in the chest. She still has a little bit of a cough with yellowish sputum but the pain in her chest as the resolved as have the fevers. Her appetite has been somewhat low and she has lost a few lb. She has had a little bit of diarrhea. She has had some blood from her nasal mucus but no sourav bleeding. She has not had any gingival bleeding or blood in the stool. She denies any new aches or pains. She has not noted any adenopathy. She denies any other changes in her health. She and her her traveling to [place] next week. Home Medications and Allergies Home Medications Medication Instructions Recorded Confirmed Type CALCIUM CARBONATE (#CALCIUM) 1,200 mg PO Q DAY #0 07/19/11 12/22/17 History gemfibrozil 300 mg PO BEDTIME #0 07/19/11 12/22/17 History oipsjxzp-eht-YH-lycopen-lutein 1 tab PO QDAY #0 07/19/11 12/22/17 History [Centrum Silver] prednisone 5 mg PO 0800 #0 07/19/11 12/22/17 History vitamin E 400 unit PO DAILY #0 07/19/11 12/22/17 History cholecalciferol (vitamin D3) 2,000 iu PO QDAY #0 05/14/12 12/22/17 History [Vitamin D3] gabapentin [Neurontin] 400 mg PO BID #0 06/29/12 12/22/17 History ketotifen fumarate [Zaditor] 1 drp OPHTH DAILY #5 ml 06/29/12 12/22/17 History krill oil 1,000 mg PO DAILY #0 06/29/12 12/22/17 History sertraline [Zoloft] 150 mg PO HS #0 06/29/12 12/22/17 History ascorbic acid (vitamin C) 1 tab PO DAILY 08/14/17 12/22/17 History diclofenac sodium [Voltaren] 1 applic TOPICAL PRN PRN 08/14/17 12/22/17 History fluticasone 1 spray INTRANASAL DAILY 08/14/17 12/22/17 History folic acid 0.4 mg PO DAILY 08/14/17 12/22/17 History hydrocodone-acetaminophen 1 tab PO Q6H PRN 08/14/17 12/22/17 History levocetirizine 1 tab PO QPM 08/14/17 12/22/17 History losartan 50 mg PO DAILY 08/14/17 12/22/17 History metformin 500 mg PO BID 08/14/17 12/22/17 History metoprolol succinate 1 tab PO QPM 08/14/17 12/22/17 History topiramate 1 tab PO BEDTIME 08/14/17 12/22/17 History trazodone 1 - 2 tab PO BEDTIME PRN 08/14/17 12/22/17 History vit C,T-Jx-dwszc-lutein-zeaxan 2 cap PO DAILY 08/14/17 12/22/17 History [PreserVision AREDS 2] clopidogrel [Plavix] 1 mg/kg PO DAILY 12/15/17 12/22/17 History sulfamethoxazole-trimethoprim 03/16/18 History [Bactrim DS] Allergies Allergy/AdvReac Type Severity Reaction Status Date / Time Cephalosporins Allergy Severe GI UPSET Verified 12/22/17 10:21 morphine Allergy Severe ANAPHYLAXIS Verified 08/14/17 18:21 coconut [COCONUT] Allergy Intermediate HIVES Verified 08/14/17 18:21 adhesive Allergy Mild SKIN Verified 08/14/17 18:21 BREAKDOWN, RASH (TAPE) PAPER TAPE OK meperidine Allergy Mild red rash Verified 08/14/17 18:21 lactose [LACTOSE] Allergy Unknown INTOLERANT Verified 08/14/17 18:21 latex [LATEX] Allergy Unknown REACTION Verified 08/14/17 18:21 NOT LISTED BY PT metronidazole AdvReac Severe GI UPSET Verified 08/14/17 18:21 vancomycin [VANCOMYCIN] AdvReac Severe DIARRHEA Verified 08/14/17 18:21 aspirin AdvReac Mild GI UPSET Verified 08/14/17 18:21 ibuprofen AdvReac Mild GI UPSET Verified 08/14/17 18:21 CANTALOUPE Allergy Severe HIVES Uncoded 08/14/17 18:21 honeydew melon Allergy Severe hives Uncoded 08/14/17 18:21 ANTIHISTAMINES Allergy Mild red rash Uncoded 08/14/17 18:21 Exam - Constitutional positive no acute distress, positive average body habitus - Routine HEENT Exam Head: Present: normocephalic, atraumatic Eye: Present: EOMI, PERRL. Absent: conjunctival icterus, scleral injection ENT: Present: mucous membranes moist, oropharynx clear - Routine Neck Exam Present: supple. Absent: lymphadenopathy, thyromegaly - Routine Respiratory Exam Present: Clear to auscultation bilaterally. Absent: wheezes Comments: She is a few crackles and occasional wheeze at the right base. - Routine Cardiovascular Exam Present: RRR, S1, S2. Absent: murmur - Routine Abdominal Exam Present: soft, normoactive bowel sounds. Absent: tenderness, mass - Routine Extremities Exam Present: cyanosis, clubbing Comments: She has trace bilateral lower extremity edema. - Routine Skin Exam Present: intact. Absent: petechiae, rash - Routine Neurological Exam Present: alert, oriented X3 - Routine Psychiatric Exam Present: normal affect, normal thought process Results - Labs Laboratory Last Values WBC 3.9 X10^3/uL (4.5-11.0) L 03/16/18 14:10 RBC 2.32 X10^6/uL (4.0-5.2) L 03/16/18 14:10 Hgb 8.0 g/dL (12.0-16.0) L 03/16/18 14:10 Hct 24.5 % (36-46) L 03/16/18 14:10 MCV 105.8 fL (80-100) H 03/16/18 14:10 MCH 34.7 PG (26-34) H 03/16/18 14:10 MCHC 32.8 % (30-36) 03/16/18 14:10 RDW 20.2 % (11.6-14.8) H 03/16/18 14:10 Plt Count 111 X10^3/uL (150-400) L 03/16/18 14:10 Neut % (Auto) 81.5 % (50-75) H 03/16/18 14:10 Lymph % (Auto) 10.0 % (25-40) L 03/16/18 14:10 [place] % (Auto) 6.5 % (3-14) 03/16/18 14:10 Eos % (Auto) 0.8 % (2-4) L 03/16/18 14:10 Baso % (Auto) 1.2 % (0-2) 03/16/18 14:10 Neut # (Auto) 3200 /uL (5805-6526) 03/16/18 14:10 Lymph # (Auto) 400 /uL (3316-3588) L 03/16/18 14:10 [place] # (Auto) 300 /uL (0-900) 03/16/18 14:10 Eos # (Auto) 0 /uL (0-450) 03/16/18 14:10 Baso # (Auto) 0 /uL (0-100) 03/16/18 14:10 - Imaging Additional studies: Procedures Colonoscopy (09/10/12) Assessment and Plan (1) Myelodysplasia (myelodysplastic syndrome) Problem details: 76-year-old woman with a history of low-grade myelodysplasia. Over the last few weeks, her red cell count has diminished somewhat. This is probably related to her recent upper respiratory infection. She is feeling somewhat fatigued and does have some dyspnea. We will plan on red cell transfusion prior to her trip to [place]. She will continue with the erythropoietin 45293 units weekly. She return to clinic here in about 2 months for follow-up but sooner should the need arise. Current visit: No Status: Acute
[2018-03-16 15:01] LABS: Anisocytosis 2+; Ovalocytes 1+; Platelet Estimate Decreased on smear; Poikilocytosis 2+; Tear Drop Cells 1+
--- NOTE | 2018-03-16 15:02 | P.PNONC_ITS ---
PN -Subjective Interval history: Diagnosis: Myelodysplasia Previous treatment: Erythropoietin 26810 units weekly. Interval history: The patient is a 77-year-old woman who returns today for follow-up. She has a history of myelodysplasia. She has been receiving erythropoietin for little bit more than a year. Since her last visit here, she has been bothered by an upper respiratory infection and has been on a course of antibiotics. She has about 3 more days of Levaquin remaining. She was having some fevers as well as a productive cough and pain in the chest. She still has a little bit of a cough with yellowish sputum but the pain in her chest as the resolved as have the fevers. Her appetite has been somewhat low and she has lost a few lb. She has had a little bit of diarrhea. She has had some blood from her nasal mucus but no sourav bleeding. She has not had any gingival bleeding or blood in the stool. She denies any new aches or pains. She has not noted any adenopathy. She denies any other changes in her health. She and her her traveling to [place] next week. Home Medications and Allergies Home Medications Medication Instructions Recorded Confirmed Type CALCIUM CARBONATE (#CALCIUM) 1,200 mg PO Q DAY #0 07/19/11 12/22/17 History gemfibrozil 300 mg PO BEDTIME #0 07/19/11 12/22/17 History cccppigj-bqs-ZH-lycopen-lutein 1 tab PO QDAY #0 07/19/11 12/22/17 History [Centrum Silver] prednisone 5 mg PO 0800 #0 07/19/11 12/22/17 History vitamin E 400 unit PO DAILY #0 07/19/11 12/22/17 History cholecalciferol (vitamin D3) 2,000 iu PO QDAY #0 05/14/12 12/22/17 History [Vitamin D3] gabapentin [Neurontin] 400 mg PO BID #0 06/29/12 12/22/17 History ketotifen fumarate [Zaditor] 1 drp OPHTH DAILY #5 ml 06/29/12 12/22/17 History krill oil 1,000 mg PO DAILY #0 06/29/12 12/22/17 History sertraline [Zoloft] 150 mg PO HS #0 06/29/12 12/22/17 History ascorbic acid (vitamin C) 1 tab PO DAILY 08/14/17 12/22/17 History diclofenac sodium [Voltaren] 1 applic TOPICAL PRN PRN 08/14/17 12/22/17 History fluticasone 1 spray INTRANASAL DAILY 08/14/17 12/22/17 History folic acid 0.4 mg PO DAILY 08/14/17 12/22/17 History hydrocodone-acetaminophen 1 tab PO Q6H PRN 08/14/17 12/22/17 History levocetirizine 1 tab PO QPM 08/14/17 12/22/17 History losartan 50 mg PO DAILY 08/14/17 12/22/17 History metformin 500 mg PO BID 08/14/17 12/22/17 History metoprolol succinate 1 tab PO QPM 08/14/17 12/22/17 History topiramate 1 tab PO BEDTIME 08/14/17 12/22/17 History trazodone 1 - 2 tab PO BEDTIME PRN 08/14/17 12/22/17 History vit C,I-Ua-mhmze-lutein-zeaxan 2 cap PO DAILY 08/14/17 12/22/17 History [PreserVision AREDS 2] clopidogrel [Plavix] 1 mg/kg PO DAILY 12/15/17 12/22/17 History sulfamethoxazole-trimethoprim 03/16/18 History [Bactrim DS] Allergies Allergy/AdvReac Type Severity Reaction Status Date / Time Cephalosporins Allergy Severe GI UPSET Verified 12/22/17 10:21 morphine Allergy Severe ANAPHYLAXIS Verified 08/14/17 18:21 coconut [COCONUT] Allergy Intermediate HIVES Verified 08/14/17 18:21 adhesive Allergy Mild SKIN Verified 08/14/17 18:21 BREAKDOWN, RASH (TAPE) PAPER TAPE OK meperidine Allergy Mild red rash Verified 08/14/17 18:21 lactose [LACTOSE] Allergy Unknown INTOLERANT Verified 08/14/17 18:21 latex [LATEX] Allergy Unknown REACTION Verified 08/14/17 18:21 NOT LISTED BY PT metronidazole AdvReac Severe GI UPSET Verified 08/14/17 18:21 vancomycin [VANCOMYCIN] AdvReac Severe DIARRHEA Verified 08/14/17 18:21 aspirin AdvReac Mild GI UPSET Verified 08/14/17 18:21 ibuprofen AdvReac Mild GI UPSET Verified 08/14/17 18:21 CANTALOUPE Allergy Severe HIVES Uncoded 08/14/17 18:21 honeydew melon Allergy Severe hives Uncoded 08/14/17 18:21 ANTIHISTAMINES Allergy Mild red rash Uncoded 08/14/17 18:21 Exam - Constitutional positive no acute distress, positive average body habitus - Routine HEENT Exam Head: Present: normocephalic, atraumatic Eye: Present: EOMI, PERRL. Absent: conjunctival icterus, scleral injection ENT: Present: mucous membranes moist, oropharynx clear - Routine Neck Exam Present: supple. Absent: lymphadenopathy, thyromegaly - Routine Respiratory Exam Present: Clear to auscultation bilaterally. Absent: wheezes Comments: She is a few crackles and occasional wheeze at the right base. - Routine Cardiovascular Exam Present: RRR, S1, S2. Absent: murmur - Routine Abdominal Exam Present: soft, normoactive bowel sounds. Absent: tenderness, mass - Routine Extremities Exam Present: cyanosis, clubbing Comments: She has trace bilateral lower extremity edema. - Routine Skin Exam Present: intact. Absent: petechiae, rash - Routine Neurological Exam Present: alert, oriented X3 - Routine Psychiatric Exam Present: normal affect, normal thought process Results - Labs Laboratory Last Values WBC 3.9 X10^3/uL (4.5-11.0) L 03/16/18 14:10 RBC 2.32 X10^6/uL (4.0-5.2) L 03/16/18 14:10 Hgb 8.0 g/dL (12.0-16.0) L 03/16/18 14:10 Hct 24.5 % (36-46) L 03/16/18 14:10 MCV 105.8 fL (80-100) H 03/16/18 14:10 MCH 34.7 PG (26-34) H 03/16/18 14:10 MCHC 32.8 % (30-36) 03/16/18 14:10 RDW 20.2 % (11.6-14.8) H 03/16/18 14:10 Plt Count 111 X10^3/uL (150-400) L 03/16/18 14:10 Neut % (Auto) 81.5 % (50-75) H 03/16/18 14:10 Lymph % (Auto) 10.0 % (25-40) L 03/16/18 14:10 [place] % (Auto) 6.5 % (3-14) 03/16/18 14:10 Eos % (Auto) 0.8 % (2-4) L 03/16/18 14:10 Baso % (Auto) 1.2 % (0-2) 03/16/18 14:10 Neut # (Auto) 3200 /uL (9140-4168) 03/16/18 14:10 Lymph # (Auto) 400 /uL (1235-8946) L 03/16/18 14:10 [place] # (Auto) 300 /uL (0-900) 03/16/18 14:10 Eos # (Auto) 0 /uL (0-450) 03/16/18 14:10 Baso # (Auto) 0 /uL (0-100) 03/16/18 14:10 - Imaging Additional studies: Procedures Colonoscopy (09/10/12) Assessment and Plan (1) Myelodysplasia (myelodysplastic syndrome) Problem details: 76-year-old woman with a history of low-grade myelodysplasia. Over the last few weeks, her red cell count has diminished somewhat. This is probably related to her recent upper respiratory infection. She is feeling somewhat fatigued and does have some dyspnea. We will plan on red cell transfusion prior to her trip to [place]. She will continue with the erythropoietin 00951 units weekly. She return to clinic here in about 2 months for follow-up but sooner should the need arise. Current visit: No Status: Acute
[2018-03-16] MEDS: EPOETIN ALFA-EPBX 40,000 UNIT/ML VIAL 40000 UNIT SUBCUT (15:19)
[2018-03-16] MEDS: EPOETIN ALFA-EPBX 10,000 UNIT/ML VIAL 20000 UNIT SUBCUT (15:20)
== END ==
PROVIDERS: Family Provider Family Medicine; PCP Family Medicine
DX: D46.Z Other myelodysplastic syndromes (principal)
CPT/HCPCS: 36592; 85025; 96372; 99214; Q5106

== ENCOUNTER → 2018-04-07 10:56 | Outpatient (CLI) | payer MEDICARE, SELFPAY ==
[2018-04-07 11:40] LABS: Add Manual Diff / Slide Review NO; Basophils Absolute Auto 0 /uL (0-100); Basophils Percent Auto 1.5 % (0-2); Eosinophils Absolute Auto 0 /uL (0-450); Eosinophils Percent Auto 1.5 % (2-4); Hematocrit 26.4 % (36-46); Hemoglobin 8.4 g/dL (12.0-16.0); Lymphocytes Absolute Auto 400 /uL (1100-4500); Lymphocytes Percent Auto 15.1 % (25-40); Mean Corpuscular HGB Conc 31.8 % (30-36); Mean Corpuscular Volume 110.1 fL (80-100); Monocytes Absolute Auto 300 /uL (0-900); Monocytes Percent Auto 10.4 % (3-14); Neutrophils Absolute Auto 1800 /uL (1500-7000); Neutrophils Percent Auto 71.5 % (50-75); Platelet Count 91 X10^3/uL (150-400); Red Cell Distribution Width 24.6 % (11.6-14.8); White Blood Cell Count 2.5 X10^3/uL (4.5-11.0)
[2018-04-07] MEDS: EPOETIN ALFA-EPBX 20,000 UNIT, EPOETIN ALFA-EPBX 40,000 UNIT 60000 UNIT SUBCUT (11:52)
[2018-04-07 12:04] VITALS: BP 113/57; PULSE 63; RESP 18; TEMP 36.9; O2SAT 99
[2018-04-07 12:17] LABS: Macrocytosis 2+; Ovalocytes 2+; Poikilocytosis 1+
[2018-04-13 15:27] LABS: Add Manual Diff / Slide Review NO; Basophils Absolute Auto 0 /uL (0-100); Basophils Percent Auto 1.2 % (0-2); Eosinophils Absolute Auto 0 /uL (0-450); Eosinophils Percent Auto 1.7 % (2-4); Hematocrit 25.1 % (36-46); Hemoglobin 8.1 g/dL (12.0-16.0); Lymphocytes Absolute Auto 400 /uL (1100-4500); Lymphocytes Percent Auto 17.1 % (25-40); Mean Corpuscular HGB Conc 32.2 % (30-36); Mean Corpuscular Hemoglobin 35.1 PG (26-34); Mean Corpuscular Volume 109.2 fL (80-100); Monocytes Absolute Auto 300 /uL (0-900); Monocytes Percent Auto 10.3 % (3-14); Neutrophils Absolute Auto 1800 /uL (1500-7000); Neutrophils Percent Auto 69.7 % (50-75); Platelet Count 112 X10^3/uL (150-400); Red Cell Distribution Width 24.7 % (11.6-14.8); White Blood Cell Count 2.5 X10^3/uL (4.5-11.0)
[2018-04-13 16:21] LABS: Anisocytosis 3+; Macrocytosis 1+; Microcytosis 2+
[2018-04-13 16:22] LABS: Platelet Estimate Decreased on smear
[2018-04-13 16:25] LABS: Hypochromasia 1+; Ovalocytes 3+; Poikilocytosis 2+; Schistocytes 1+; Tear Drop Cells 1+
[2018-04-13 16:27] LABS: Spherocytes 1+
== END ==
PROVIDERS: Family Provider Family Medicine; PCP Family Medicine
DX: D46.Z Other myelodysplastic syndromes (principal)
CPT/HCPCS: 36415; 36592; 85025; 96372; Q5106

== ENCOUNTER → 2018-04-13 14:34 | Outpatient (CLI) | payer MEDICARE, SELFPAY ==
[2018-04-13] MEDS: EPOETIN ALFA-EPBX 10,000 UNIT/ML VIAL 60000 UNIT SUBCUT (15:42)
[2018-04-13 15:43] VITALS: BP 102/52; PULSE 69; RESP 18; TEMP 37; O2SAT 98
[2018-04-13 16:36] LABS: Add Manual Diff / Slide Review NO; Basophils Absolute Auto 0 /uL (0-100); Basophils Percent Auto 1.2 % (0-2); Eosinophils Absolute Auto 0 /uL (0-450); Eosinophils Percent Auto 1.7 % (2-4); Hematocrit 25.1 % (36-46); Hemoglobin 8.1 g/dL (12.0-16.0); Lymphocytes Absolute Auto 400 /uL (1100-4500); Lymphocytes Percent Auto 17.1 % (25-40); Mean Corpuscular HGB Conc 32.2 % (30-36); Mean Corpuscular Hemoglobin 35.1 PG (26-34); Mean Corpuscular Volume 109.2 fL (80-100); Monocytes Absolute Auto 300 /uL (0-900); Monocytes Percent Auto 10.3 % (3-14); Neutrophils Absolute Auto 1800 /uL (1500-7000); Neutrophils Percent Auto 69.7 % (50-75); Platelet Count 112 X10^3/uL (150-400); Red Cell Distribution Width 24.7 % (11.6-14.8); White Blood Cell Count 2.5 X10^3/uL (4.5-11.0)
[2018-04-13 16:37] LABS: Anisocytosis 3+; Macrocytosis 1+; Microcytosis 2+; Ovalocytes 3+; Platelet Estimate Decreased on smear; Poikilocytosis 2+; Spherocytes 1+; Tear Drop Cells 1+
[2018-04-13 16:38] LABS: Hypochromasia 1+; Schistocytes 1+
== END ==
PROVIDERS: Family Provider Family Medicine; PCP Family Medicine
DX: D46.Z Other myelodysplastic syndromes (principal)
CPT/HCPCS: 36592; 85025; 96372; Q5106

== ENCOUNTER → 2018-04-20 14:28 | Outpatient (CLI) | payer MEDICARE, SELFPAY ==
[2018-04-20 15:09] LABS: Add Manual Diff / Slide Review NO; Basophils Absolute Auto 0 /uL (0-100); Basophils Percent Auto 1.2 % (0-2); Eosinophils Absolute Auto 0 /uL (0-450); Eosinophils Percent Auto 1.6 % (2-4); Hemoglobin 7.8 g/dL (12.0-16.0); Lymphocytes Absolute Auto 400 /uL (1100-4500); Lymphocytes Percent Auto 16.2 % (25-40); Mean Corpuscular HGB Conc 32.5 % (30-36); Mean Corpuscular Hemoglobin 35.3 PG (26-34); Mean Corpuscular Volume 108.7 fL (80-100); Monocytes Absolute Auto 200 /uL (0-900); Monocytes Percent Auto 10.8 % (3-14); Neutrophils Absolute Auto 1600 /uL (1500-7000); Neutrophils Percent Auto 70.2 % (50-75); Platelet Count 108 X10^3/uL (150-400); Red Cell Distribution Width 24.6 % (11.6-14.8); White Blood Cell Count 2.3 X10^3/uL (4.5-11.0)
[2018-04-20 15:10] LABS: Hematocrit 23.9 % (36-46)
[2018-04-20 15:23] LABS: Anisocytosis 2+; Macrocytosis 2+; Ovalocytes 2+; Poikilocytosis 2+
[2018-04-20 15:24] LABS: Schistocytes 1+; Tear Drop Cells 1+
[2018-04-20] MEDS: EPOETIN ALFA EPBX 60000 UNIT SUBCUT (15:34)
[2018-04-20 16:01] VITALS: BP 123/64; PULSE 75; RESP 18; TEMP 36.7
== END ==
PROVIDERS: Family Provider Family Medicine; PCP Family Medicine
DX: D46.Z Other myelodysplastic syndromes (principal)
CPT/HCPCS: 36592; 85025; 96372; Q5106

== ENCOUNTER → 2018-04-28 08:50 | Outpatient (CLI) | payer MEDICARE, SELFPAY ==
--- NOTE | 2018-04-28 10:06 | ONC.PROCEDUR ---
Date of procedure: 04/28/18 Onc Bone Marrow: bone marrow biopsy and aspiration Procedure: The patient has a history of myelodysplasia that previously been responding to Procrit. More recently, her energy level has been decreasing and she has had an increase in her transfusion requirement. She has agreed to go ahead with a bone marrow biopsy to re-evaluate her myelodysplasia. She gave informed consent. She was placed in prone position. Her right posterior iliac crest was prepped with Betadine and anesthetized with approximately 8 cc of 2% lidocaine. A small skin incision was made with a scalpel blade. A Jamshidi needle was used to obtain a bone marrow aspirate and core biopsy. The patient tolerated the procedure well without any complications. Samples were sent for routine histology as well as flow cytometry and cytogenetics. She will return to clinic in 2 weeks to review results.
[2018-04-28] MEDS: EPOETIN ALFA-EPBX 20,000 UNIT, EPOETIN ALFA-EPBX 40,000 UNIT 60000 UNIT SUBCUT (10:17)
== END ==
PROVIDERS: Family Provider Family Medicine; PCP Family Medicine
DX: D46.Z Other myelodysplastic syndromes (principal)
CPT/HCPCS: 36592; 38222; 96372; 99000; Q5106

== ENCOUNTER → 2018-05-04 14:30 | Outpatient (CLI) | payer MEDICARE, SELFPAY ==
[2018-05-04 15:45] VITALS: BP 127/59; PULSE 65; RESP 18; TEMP 36.7; O2SAT 99
[2018-05-04] MEDS: EPOETIN ALFA-EPBX 20,000 UNIT, EPOETIN ALFA-EPBX 40,000 UNIT 60000 UNIT SUBCUT (15:51)
== END ==
PROVIDERS: Family Provider Family Medicine; PCP Family Medicine
DX: D46.Z Other myelodysplastic syndromes (principal)
CPT/HCPCS: 36592; 96372; Q5106

== ENCOUNTER → 2018-05-12 13:12 | Outpatient (CLI) | payer MEDICARE, SELFPAY ==
[2018-05-12 13:31] VITALS: BP 142/57; PULSE 64; RESP 18; TEMP 37.1; O2SAT 98
[2018-05-12 13:33] LABS: Add Manual Diff / Slide Review NO; Basophils Absolute Auto 0 /uL (0-100); Basophils Percent Auto 1.3 % (0-2); Eosinophils Absolute Auto 0 /uL (0-450); Eosinophils Percent Auto 1.8 % (2-4); Hematocrit 25.7 % (36-46); Hemoglobin 8.4 g/dL (12.0-16.0); Lymphocytes Absolute Auto 500 /uL (1100-4500); Lymphocytes Percent Auto 22.7 % (25-40); Mean Corpuscular HGB Conc 32.9 % (30-36); Mean Corpuscular Hemoglobin 34.2 PG (26-34); Mean Corpuscular Volume 103.9 fL (80-100); Monocytes Absolute Auto 300 /uL (0-900); Monocytes Percent Auto 14.1 % (3-14); Neutrophils Absolute Auto 1400 /uL (1500-7000); Neutrophils Percent Auto 60.1 % (50-75); Platelet Count 108 X10^3/uL (150-400); Red Blood Cell Count 2.47 X10^6/uL (4.0-5.2); Red Cell Distribution Width 24.1 % (11.6-14.8); White Blood Cell Count 2.3 X10^3/uL (4.5-11.0)
--- NOTE | 2018-05-12 14:16 | P.PNONC_ITS ---
PN -Subjective Interval history: Diagnosis: Myelodysplasia Previous treatment: [place]rit. [place] 44801 units weekly. Interval history: Patient is a 77-year-old woman who returns today for follow-up. She has a history of a low-grade myelodysplasia. She has been on Procrit with initially good response but recently, her transfusion requirement has been increasing again. Since her last visit here, she has not noticed any unusual bleeding or bruising. No fevers chills or sweats. Her strength and energy level have been low but stable. She does note some dyspnea on exertion. Appetite has been fair. No nausea or vomiting. She did get a transfusion about 2 weeks ago but did not have any dramatic symptomatic improvement with that. She did have a bone marrow biopsy performed which he tolerated well. She is due for her SI joint fusion at the end of next week. She denies any other changes in her health. - Patient Self-Reported Symptoms SR Musculoskeletal issues: Joint pain or swelling, Back or neck pain, Difficulty walking SR Neuro issues: Headache, Lightheaded/dizzy, Tremors or shaking, Difficulty balancing SR Hematologic issues: Bleeding/bruising SR Endocrine issues: Excessive urination, Hot flashes Home Medications and Allergies Home Medications Medication Instructions Recorded Confirmed Type CALCIUM CARBONATE (#CALCIUM) 1,200 mg PO Q DAY #0 07/19/11 12/22/17 History gemfibrozil 300 mg PO BEDTIME #0 07/19/11 12/22/17 History ximgmcmw-byj-NF-lycopen-lutein 1 tab PO QDAY #0 07/19/11 12/22/17 History [Centrum Silver] prednisone 5 mg PO 0800 #0 07/19/11 12/22/17 History vitamin E 400 unit PO DAILY #0 07/19/11 12/22/17 History cholecalciferol (vitamin D3) 2,000 iu PO QDAY #0 05/14/12 12/22/17 History [Vitamin D3] gabapentin [Neurontin] 400 mg PO BID #0 06/29/12 12/22/17 History ketotifen fumarate [Zaditor] 1 drp OPHTH DAILY #5 ml 06/29/12 12/22/17 History krill oil 1,000 mg PO DAILY #0 06/29/12 12/22/17 History sertraline [Zoloft] 150 mg PO HS #0 06/29/12 12/22/17 History ascorbic acid (vitamin C) 1 tab PO DAILY 08/14/17 04/21/18 History diclofenac sodium [Voltaren] 1 applic TOPICAL PRN PRN 08/14/17 12/22/17 History fluticasone propionate 1 spray INTRANASAL DAILY 08/14/17 12/22/17 History folic acid 0.4 mg PO DAILY 08/14/17 12/22/17 History hydrocodone-acetaminophen 1 tab PO Q6H PRN 08/14/17 12/22/17 History levocetirizine 1 tab PO QPM 08/14/17 12/22/17 History losartan 50 mg PO DAILY 08/14/17 12/22/17 History metformin 500 mg PO BID 08/14/17 12/22/17 History metoprolol succinate 1 tab PO QPM 08/14/17 12/22/17 History topiramate 1 tab PO BEDTIME 08/14/17 12/22/17 History trazodone 1 - 2 tab PO BEDTIME PRN 08/14/17 12/22/17 History vit C,B-Kw-earej-lutein-zeaxan 2 cap PO DAILY 08/14/17 12/22/17 History [PreserVision AREDS 2] clopidogrel [Plavix] 1 mg/kg PO DAILY 12/15/17 12/22/17 History sulfamethoxazole-trimethoprim 03/16/18 History [Bactrim DS] Allergies Allergy/AdvReac Type Severity Reaction Status Date / Time Cephalosporins Allergy Severe GI UPSET Verified 12/22/17 10:21 morphine Allergy Severe ANAPHYLAXIS Verified 08/14/17 18:21 coconut [COCONUT] Allergy Intermediate HIVES Verified 08/14/17 18:21 adhesive Allergy Mild SKIN Verified 08/14/17 18:21 BREAKDOWN, RASH (TAPE) PAPER TAPE OK meperidine Allergy Mild red rash Verified 08/14/17 18:21 lactose [LACTOSE] Allergy Unknown INTOLERANT Verified 08/14/17 18:21 latex [LATEX] Allergy Unknown REACTION Verified 08/14/17 18:21 NOT LISTED BY PT metronidazole AdvReac Severe GI UPSET Verified 08/14/17 18:21 vancomycin [VANCOMYCIN] AdvReac Severe DIARRHEA Verified 08/14/17 18:21 aspirin AdvReac Mild GI UPSET Verified 08/14/17 18:21 ibuprofen AdvReac Mild GI UPSET Verified 08/14/17 18:21 CANTALOUPE Allergy Severe HIVES Uncoded 08/14/17 18:21 honeydew melon Allergy Severe hives Uncoded 08/14/17 18:21 ANTIHISTAMINES Allergy Mild red rash Uncoded 08/14/17 18:21 Exam Vital signs: Vital Signs Temp Pulse Resp BP Pulse Ox 05/12/18 13:31 98.8 F 64 18 142/57 H 98 Intake and Output 05/11/18 05/12/18 05/12/18 23:59 07:59 15:59 Other: Weight 79 kg Patient Weight 05/12/18 23:59 Weight 79 kg - Constitutional positive no acute distress, positive average body habitus Comments: She is not further examined. Results - Labs Laboratory Last Values WBC 2.3 X10^3/uL (4.5-11.0) L 05/12/18 13:25 RBC 2.47 X10^6/uL (4.0-5.2) L 05/12/18 13:25 Hgb 8.4 g/dL (12.0-16.0) L 05/12/18 13:25 Hct 25.7 % (36-46) L 05/12/18 13:25 MCV 103.9 fL (80-100) H 05/12/18 13:25 MCH 34.2 PG (26-34) H 05/12/18 13:25 MCHC 32.9 % (30-36) 05/12/18 13:25 RDW 24.1 % (11.6-14.8) H 05/12/18 13:25 Plt Count 108 X10^3/uL (150-400) L 05/12/18 13:25 Neut % (Auto) 60.1 % (50-75) 05/12/18 13:25 Lymph % (Auto) 22.7 % (25-40) L 05/12/18 13:25 [place] % (Auto) 14.1 % (3-14) H 05/12/18 13:25 Eos % (Auto) 1.8 % (2-4) L 05/12/18 13:25 Baso % (Auto) 1.3 % (0-2) 05/12/18 13:25 Neut # (Auto) 1400 /uL (9416-1324) L 05/12/18 13:25 Lymph # (Auto) 500 /uL (6864-3223) L 05/12/18 13:25 [place] # (Auto) 300 /uL (0-900) 05/12/18 13:25 Eos # (Auto) 0 /uL (0-450) 05/12/18 13:25 Baso # (Auto) 0 /uL (0-100) 05/12/18 13:25 - Imaging Additional studies: Procedures Colonoscopy (09/10/12) Assessment and Plan (1) Myelodysplasia (myelodysplastic syndrome) Problem details: 76-year-old woman with a history of low-grade myelodysplasia. Her recent bone marrow biopsy did not demonstrate any evidence of progression. Her cytogenetics and FISH were normal. Morphologically, she had trilineage hematopoiesis. There were some very mild dysplastic changes in the megakaryocytes. There is no increased in the blast count. However, because of her increasing transfusion requirement I think that this probably does represent some progression of her dysplasia. I do not think that she is benefitting any longer from the Procrit and recommended that we stop this. Her surgeon would like her white count a little bit higher for her surgery next week. We will plan on giving her Neupogen on Thursday and Thursday of next week. With regards to her myelodysplasia, we discussed the possibility of supportive care with transfusions as needed. The benefit of this would be symptomatic treatment without the potential risk of side effects. The downside would be the potential for iron overload as well as transfusion reactions. We also talked about the possibility of starting 5 days. Response rate is about 35%. If she does respond, we would expect transfusion independence and improvement in her other counts. This has shown improvement in survival and decrease in the risk of transformation to acute leukemia in higher risk patients. In her case, the goal would be primarily improvement in symptoms. She does wish to go ahead with the by days and will plan on starting at the end of the month. She return to clinic in about 4 weeks or so for follow-up. 25 min was spent with the patient the majority in counseling. Current visit: No Status: Acute
[2018-05-12 14:18] LABS: Anisocytosis 2+; Poikilocytosis 1+
[2018-05-12 14:19] LABS: Macrocytosis 1+; Ovalocytes 2+
== END ==
PROVIDERS: Family Provider Family Medicine; PCP Family Medicine
DX: D46.Z Other myelodysplastic syndromes (principal)
CPT/HCPCS: 36592; 85025; 99214

== ENCOUNTER 2019-01-13 16:32 | Emergency (ER) | payer MEDICARE, SELFPAY ==
[2019-01-13] VITALS (7 sets, daily range): BP systolic 113–132; BP diastolic 45–73; PULSE 48–89; RESP 12–18; TEMP 37.1; O2SAT 94–98; BMI 26.4
--- NOTE | 2019-01-13 18:22 | ED.FEVER ---
HPI - Fever General Chief Complaint: Fever Stated Complaint: possible infection , fever, chemo Time Seen by Provider: 01/13/19 18:01 Source: patient Mode of arrival: Ambulatory Limitations: no limitations History of Present Illness HPI Narrative: 78-year-old female with history of myelodysplastic syndrome. Is currently undergoing chemotherapy. She states that she is currently on her 2 week break from chemotherapy. She is close to the end of this 2 week break in is scheduled to resume it again at the beginning of next week. She comes in today for approximately 2-3 days of fevers. She states that it got as high as 101 last evening. She states in general she just does not feel very well however does not have any specific symptoms. Approximately 10 days ago she did have a epidural injection for lumbar stenosis. She reports no change in her back pain and no new radiculopathy symptoms. No chest pain or shortness of breath no urinary symptoms. No rashes. She did arrive from the oncology clinic with her port accessed. Related Data Home Medications Medication Instructions Recorded Confirmed CALCIUM CARBONATE (#CALCIUM) 1,200 mg PO Q DAY #0 07/19/11 07/06/18 gemfibrozil 300 mg PO BEDTIME #0 07/19/11 07/06/18 omlgahzz-wio-ZS-lycopen-lutein 1 tab PO QDAY #0 07/19/11 07/06/18 [Centrum Silver] prednisone 5 mg PO 0800 #0 07/19/11 07/06/18 vitamin E 400 unit PO DAILY #0 07/19/11 07/06/18 cholecalciferol (vitamin D3) 2,000 iu PO QDAY #0 05/14/12 07/06/18 [Vitamin D3] gabapentin [Neurontin] 400 mg PO DAILY #0 06/29/12 07/06/18 ketotifen fumarate [Zaditor] 1 drp OPHTH DAILY #5 ml 06/29/12 07/06/18 krill oil 1,000 mg PO DAILY #0 06/29/12 07/06/18 sertraline [Zoloft] 150 mg PO HS #0 06/29/12 07/06/18 ascorbic acid (vitamin C) 1 tab PO DAILY 08/14/17 07/06/18 diclofenac sodium [Voltaren] 1 applic TOPICAL PRN PRN 08/14/17 07/06/18 fluticasone propionate 1 spray INTRANASAL DAILY 08/14/17 07/06/18 folic acid 0.4 mg PO DAILY 08/14/17 07/06/18 hydrocodone-acetaminophen 1 tab PO Q6H PRN 08/14/17 07/06/18 levocetirizine 1 tab PO QPM 08/14/17 07/06/18 losartan 50 mg PO DAILY 08/14/17 07/06/18 metformin 500 mg PO BID 08/14/17 07/06/18 metoprolol succinate 12.5 tab PO QPM 08/14/17 11/02/18 trazodone 1 - 2 tab PO BEDTIME PRN 08/14/17 07/06/18 vit C,M-Kg-cbfjd-lutein-zeaxan 2 cap PO DAILY 08/14/17 07/06/18 [PreserVision AREDS 2] clopidogrel [Plavix] 1 mg/kg PO DAILY 12/15/17 07/06/18 sulfamethoxazole-trimethoprim 03/16/18 [Bactrim DS] Previous Rx's Medication Instructions Recorded prochlorperazine maleate 10 mg PO Q8H PRN #20 tab 09/28/18 [Compazine] lorazepam [Ativan] 0.5 mg PO QD-BID PRN #20 tab 10/04/18 lorazepam 1 mg PO TID PRN #60 tab 12/21/18 levofloxacin [Levaquin] 500 mg PO DAILY 4 Days #4 tab 01/13/19 Allergies Allergy/AdvReac Type Severity Reaction Status Date / Time Cephalosporins Allergy Severe GI UPSET Verified 12/22/17 10:21 morphine Allergy Severe ANAPHYLAXIS Verified 08/14/17 18:21 coconut [COCONUT] Allergy Intermediate HIVES Verified 08/14/17 18:21 adhesive Allergy Mild SKIN Verified 08/14/17 18:21 BREAKDOWN, RASH (TAPE) PAPER TAPE OK meperidine Allergy Mild red rash Verified 08/14/17 18:21 lactose [LACTOSE] Allergy Unknown INTOLERANT Verified 08/14/17 18:21 latex [LATEX] Allergy Unknown REACTION Verified 08/14/17 18:21 NOT LISTED BY PT metronidazole AdvReac Severe GI UPSET Verified 08/14/17 18:21 vancomycin [VANCOMYCIN] AdvReac Severe DIARRHEA Verified 08/14/17 18:21 aspirin AdvReac Mild GI UPSET Verified 08/14/17 18:21 ibuprofen AdvReac Mild GI UPSET Verified 08/14/17 18:21 CANTALOUPE Allergy Severe HIVES Uncoded 08/14/17 18:21 honeydew melon Allergy Severe hives Uncoded 08/14/17 18:21 ANTIHISTAMINES Allergy Mild red rash Uncoded 08/14/17 18:21 Review of Systems Constitutional Constitutional: Reports fever(s) and Reports malaise Cardiovascular Cardiovascular: Denies chest pain, Denies palpitations and Denies dyspnea Respiratory Respiratory: Denies cough and Denies dyspnea Gastrointestinal Gastrointestinal: Denies abdominal pain, Denies nausea and Denies vomiting Genitourinary Genitourinary: Denies dysuria Musculoskeletal Musculoskeletal: Denies myalgias and Denies arthralgias Integumentary/Breasts Skin/Breast: Denies lesions and Denies rash Neurologic Neurologic: Denies behavioral changes Psychiatric Psychiatric: Denies behavioral changes Endocrine Endocrine: Denies palpitations Hematologic/Lymphatic Hematologic/Lymphatic: Denies easy bleeding and Denies easy bruising Patient History Medical History Diverticulitis (Inactive) Myelodysplasia (myelodysplastic syndrome) (Inactive) Osteoarthritis of lumbar spine (Inactive) Stress incontinence in female (12/15/13) Surgical History History of hip replacement (04/20/89) History of hip replacement (09/24/99) History of knee replacement (01/07/07) History of knee replacement (09/05/08) Status post arthroscopy (10/06/06) Status post arthroscopy (08/18/07) Status post biopsy Status post cholecystectomy Status post colonoscopy Status post hernia repair Status post hysterectomy (12/02/82) Status post knee surgery Status post knee surgery (07/27/09) Social History Smoking Status: Never smoker Smoking Status: Never smoker Substance Use Type: marijuana Exam Initial Vital Signs Initial Vital Signs: Vital Signs Temperature 98.7 F 01/13/19 16:39 Pulse Rate 83 01/13/19 16:39 Respiratory Rate 16 01/13/19 16:39 Blood Pressure 125/62 01/13/19 16:39 Pulse Oximetry 95 01/13/19 16:39 Const General: cooperative and comfortable Orientation: alert, awake and oriented x3 HENMT Head: normal to inspection and normocephalic Resp Effort & Inspection: normal respiratory effort Auscultation: clear to auscultation bilaterally Cardio Rate: regular rate Rhythm: regular rhythm Back/Spine/Pelvis Back: No CVA tenderness Skin Lesions: no lesions Rashes: no rashes Neuro General: alert, awake and oriented x3 Cognition: normal cognition Speech: speech normal Extrem General: normal to inspection and capillary refill normal Psych Appearance: grossly normal and well kempt Course Orders Ordered: ED Orders 01/13/19 17:29 Urine Culture Stat 01/13/19 18:21 XR chest 1V Stat 01/13/19 18:53 Complete Blood Count AUTO DIFF Stat Comprehensive Metabolic Panel Stat Lactate (Lactic Acid) Stat Lipase Stat Procalcitonin Stat 01/13/19 19:05 Blood Culture Stat 01/13/19 20:25 Respiratory Panel (Film Array) Stat Discontinued Medications Heparin Sodium (Porcine) (Heparin Flush (Port)) 500 unit IV PRN PRN PRN Reason: Flush Last Admin: 01/13/19 22:04 Dose: 500 unit Documented by: LOTTIE Levofloxacin (Levaquin) 500 mg PO NOW ONE Stop: 01/13/19 20:56 Last Admin: 01/13/19 21:01 Dose: 500 mg Documented by: LOTTIE Vital Signs Vital signs: Vital Signs - 8 hr 01/13/19 16:39 01/13/19 17:36 01/13/19 19:00 Temperature 98.7 F Pulse Rate 83 80 48 L Respiratory Rate 16 18 16 Blood Pressure 125/62 Blood Pressure [Right Arm] 128/59 L 113/49 L Pulse Oximetry 95 96 98 01/13/19 20:09 01/13/19 21:00 01/13/19 21:18 Temperature Pulse Rate 89 84 84 Respiratory Rate 16 13 17 Blood Pressure Blood Pressure [Right Arm] 129/45 L 126/61 126/61 Pulse Oximetry 96 94 95 01/13/19 21:46 Temperature Pulse Rate 83 Respiratory Rate 12 Blood Pressure Blood Pressure [Right Arm] 132/73 Pulse Oximetry 95 MDM - Fever Lab Data Attestation: I reviewed the patient's lab results. Result diagrams: 01/13/19 18:53 01/13/19 18:53 Labs: Lab Results 01/13/19 01/13/19 01/13/19 Range/Units 18:53 18:53 18:53 WBC 2.0 L (4.5-11.0) X10^3/uL RBC 2.39 L (4.0-5.2) X10^6/uL Hgb 7.7 L (12.0-16.0) g/dL Hct 22.9 L (36-46) % MCV 95.8 (80-100) fL MCH 32.0 (26-34) PG MCHC 33.4 (30-36) % RDW 26.0 H (11.6-14.8) % Plt Count 202 (150-400) X10^3/uL Neut % (Auto) 84.3 H (50-75) % Lymph % (Auto) 6.6 L (25-40) % [place] % (Auto) 7.0 (3-14) % Eos % (Auto) 1.2 L (2-4) % Baso % (Auto) 0.9 (0-2) % Neut # (Auto) 1700 (0464-1936) /uL Lymph # (Auto) 100 L (7981-5813) /uL [place] # (Auto) 100 (0-900) /uL Eos # (Auto) 0 (0-450) /uL Baso # (Auto) 0 (0-100) /uL Platelet Estimate Adequate on smear RBC Morphology See below Poikilocytosis 1+ H Anisocytosis 3+ H Macrocytosis 1+ H Spherocytes 1+ H Ovalocytes 1+ H Sodium 139 (137-145) mmol/L Potassium 4.6 (3.4-5.1) mmol/L Chloride 104 (98-107) mmol/L Carbon Dioxide 27 (22-32) mmol/L BUN 17 (7-17) mg/dL Creatinine 1.10 H (0.52-1.04) mg/dL Estimated GFR 48.3 L (>60) mL/min BUN/Creatinine Ratio 15.5 (6-22) Glucose 131 H (80-110) mg/dL Lactate (0.7-2.1) mmol/L Calcium 9.6 (8.4-10.2) mg/dL Total Bilirubin 0.8 (0.2-1.3) mg/dL AST 15 (14-36) IU/L ALT 13 (<35) IU/L Alkaline Phosphatase 89 (38-126) U/L Total Protein 5.6 L (6.3-8.2) g/dL Albumin 3.5 (3.5-5.0) g/dL Globulin 2.1 (1.7-4.1) g/dL Albumin/Globulin Ratio 1.7 (1.0-2.8) Lipase (23-300) U/L Procalcitonin < 0.05 (<0.5) ng/mL Chlamy pneumoniae PCR (Not Detect) Adenovirus (PCR) (Not Detect) B.parapertussis DNA PCR (Not Detect) Coronavirus OC43 (PCR) (Not Detect) Coronavirus HKU1 (PCR) (Not Detect) Coronavirus 229E (PCR) (Not Detect) Coronavirus NL63 (PCR) (Not Detect) Human Metapneumovir PCR (Not Detect) Influenza Type A (PCR) (Not Detect) Influenza Type B (PCR) (Not Detect) M. pneumoniae (PCR) (Not Detect) Parainfluenza 1 (PCR) (Not Detect) Parainfluenza 2 (PCR) (Not Detect) Parainfluenza 3 (PCR) (Not Detect) Parainfluenza 4 (PCR) (Not Detect) RSV (PCR) (Not Detect) Entero/Rhino (PCR) (Not Detect) 01/13/19 01/13/19 01/13/19 Range/Units 18:53 18:53 20:25 WBC (4.5-11.0) X10^3/uL RBC (4.0-5.2) X10^6/uL Hgb (12.0-16.0) g/dL Hct (36-46) % MCV (80-100) fL MCH (26-34) PG MCHC (30-36) % RDW (11.6-14.8) % Plt Count (150-400) X10^3/uL Neut % (Auto) (50-75) % Lymph % (Auto) (25-40) % [place] % (Auto) (3-14) % Eos % (Auto) (2-4) % Baso % (Auto) (0-2) % Neut # (Auto) (2976-9881) /uL Lymph # (Auto) (7773-4832) /uL [place] # (Auto) (0-900) /uL Eos # (Auto) (0-450) /uL Baso # (Auto) (0-100) /uL Platelet Estimate RBC Morphology Poikilocytosis Anisocytosis Macrocytosis Spherocytes Ovalocytes Sodium (137-145) mmol/L Potassium (3.4-5.1) mmol/L Chloride (98-107) mmol/L Carbon Dioxide (22-32) mmol/L BUN (7-17) mg/dL Creatinine (0.52-1.04) mg/dL Estimated GFR (>60) mL/min BUN/Creatinine Ratio (6-22) Glucose (80-110) mg/dL Lactate 0.7 (0.7-2.1) mmol/L Calcium (8.4-10.2) mg/dL Total Bilirubin (0.2-1.3) mg/dL AST (14-36) IU/L ALT (<35) IU/L Alkaline Phosphatase (38-126) U/L Total Protein (6.3-8.2) g/dL Albumin (3.5-5.0) g/dL Globulin (1.7-4.1) g/dL Albumin/Globulin Ratio (1.0-2.8) Lipase 41 (23-300) U/L Procalcitonin (<0.5) ng/mL Chlamy pneumoniae PCR Not detected (Not Detect) Adenovirus (PCR) Not detected (Not Detect) B.parapertussis DNA PCR Not detected (Not Detect) Coronavirus OC43 (PCR) Not detected (Not Detect) Coronavirus HKU1 (PCR) Not detected (Not Detect) Coronavirus 229E (PCR) Not detected (Not Detect) Coronavirus NL63 (PCR) Not detected (Not Detect) Human Metapneumovir PCR Not detected (Not Detect) Influenza Type A (PCR) Not detected (Not Detect) Influenza Type B (PCR) Not detected (Not Detect) M. pneumoniae (PCR) Not detected (Not Detect) Parainfluenza 1 (PCR) Not detected (Not Detect) Parainfluenza 2 (PCR) Not detected (Not Detect) Parainfluenza 3 (PCR) Not detected (Not Detect) Parainfluenza 4 (PCR) Not detected (Not Detect) RSV (PCR) Not detected (Not Detect) Entero/Rhino (PCR) Not detected (Not Detect) Urine Dip Bedside Urine Glucose Negative Bedside Urine Bilirubin - Negative Bedside Urine Ketone - Negative Urine Specific [place] 1.010 Bedside Urine Occult Blood - Negative Bedside Urine pH 6.0 Bedside Urine Protein - Negative Bedside Urine Urobilinogen - Negative Bedside Urine Nitrite - Negative Bedside Urine Leukocytes - Negative Esterase Imaging Data Chest x-ray: Radiologist's impression: [address] [address] XRay Report Signed Patient: Marli Flores BMR#: [id number] : [id number] Age/Sex: 78 / FDate of Service: 01/13/19 Loc: ED Accession Number: [id number] Procedure: XR chest 1V Ordering Provider: Pawel Muñoz D.O. PROCEDURE: XR CHEST 1V INDICATIONS: Fever chemo patient eval for pneumonia TECHNIQUE: One view of the chest was acquired. COMPARISON: [facility], , XR CHEST 2V, 03/08/2018, 12:49. FINDINGS: Surgical changes and devices: Left tunneled port device with distal tip projecting over the upper SVC. Lungs and pleura: Lungs are clear. No pleural effusions or pneumothorax. Mediastinum: Mediastinal contours appear normal. Heart size is normal. Bones and chest wall: No suspicious bony lesions. Overlying soft tissues appear unremarkable. IMPRESSION: Chest without acute cardiopulmonary abnormalities. No focal airspace disease. Dictated by: Max Cardozo M.D. on 01/13/2019 at 19:29 Approved by: Max Cardozo M.D. on 01/13/2019 at 19:30 [facility] Narrative Medical decision making narrative: Patient is nontoxic appearing. She is afebrile here in the emergency department. Her ANC is greater than 1600. Chest x-ray is negative. Urinalysis negative. Lactate procalcitonin all unremarkable. No specific source of infection found. I do acknowledge that she did have the recent lumbar spinal epidural injection and there is always a concern for an abscess in this area however she has relatively unremarkable labs. She is nontoxic appearing. Does not have any new or worsening back pain. Does not have any new or worsening radiculopathy. Will hold on any radiologic studies for now. I did discuss the case with on-call Oncology who recommended starting the patient on antibiotics. She was given Levaquin here in the ER. Was given a prescription for the next couple days of this. She does have a follow-up on Thursday with her oncologist. Blood cultures were pending at the time of discharge. Will have her contact her oncologist office tomorrow for any new changes. She was told we would contact her if her blood cultures were positive. She was given return precautions. She would like to go home. She expressed understanding and agreement with plan. Discharge Plan Departure Patient Disposition: Home Clinical Impression: Fever of unknown origin Discharge Date/Time: 01/13/19 22:17 Instructions: DI for Fever (Symptom) -- Adult Activity Restrictions/Additional Instructions: Continue all of your medications as directed. You can take Tylenol for any fevers or body aches. Tomorrow contact your oncologist office for a follow-up. Return to the emergency department for any new or worsening symptoms. Blood cultures were obtained today. Those take several days to finalize. We will call you for any positive results. Prescriptions: New levofloxacin [Levaquin] 500 mg tablet 500 mg PO DAILY 4 Days Qty: 4 RF: 0 No Action gemfibrozil 600 MG tablet 300 mg PO BEDTIME Qty: 0 RF: 0 prednisone 5 MG tablet 5 mg PO 0800 Qty: 0 RF: 0 Centrum Silver 0.4-300-250 mg-mcg-mcg Tablet 1 tab PO QDAY Qty: 0 RF: 0 CALCIUM CARBONATE (#CALCIUM) 1,200 mg PO Q DAY Qty: 0 RF: 0 vitamin E 400 unit Capsule 400 unit PO DAILY Qty: 0 RF: 0 cholecalciferol (vitamin D3) [Vitamin D3] 2,000 UNIT capsule 2,000 iu PO QDAY Qty: 0 RF: 0 gabapentin [Neurontin] 400 MG capsule 400 mg PO DAILY Qty: 0 RF: 0 sertraline [Zoloft] 100 MG tablet 150 mg PO HS Qty: 0 RF: 0 ketotifen fumarate [Zaditor] 0.025 % (0.035 %) Drops 1 drp OPHTH DAILY Qty: 5 RF: 0 krill oil 1,000 mg PO DAILY Qty: 0 RF: 0 clopidogrel [Plavix] 75 mg Tablet 1 mg/kg PO DAILY RF: 0 sulfamethoxazole-trimethoprim [Bactrim DS] 800-160 mg Tablet RF: 0 losartan 50 mg tablet 50 mg PO DAILY RF: 0 metformin 500 mg tablet 500 mg PO BID RF: 0 metoprolol succinate 50 mg tablet extended release 24 hr 12.5 tab PO QPM RF: 0 hydrocodone-acetaminophen 10-325 mg tablet 1 tab PO Q6H PRN (Reason: pain) RF: 0 trazodone 100 mg tablet 1 - 2 tab PO BEDTIME PRN (Reason: antidepressant) RF: 0 fluticasone propionate 50 mcg/actuation spray,suspension 1 spray Intranasal DAILY RF: 0 levocetirizine 5 mg tablet 1 tab PO QPM RF: 0 ascorbic acid (vitamin C) 1,000 mg Tablet 1 tab PO DAILY RF: 0 folic acid 400 mcg Tablet 0.4 mg PO DAILY RF: 0 diclofenac sodium [Voltaren] 1 % gel 1 applic Topical PRN PRN (Reason: arthritis pain) RF: 0 PreserVision AREDS-2 [id number] cx-[id number]-fm-mg Capsule 2 cap PO DAILY RF: 0 prochlorperazine maleate [Compazine] 10 mg Tablet 10 mg PO Q8H PRN (Reason: Nausea) Qty: 20 RF: 3 lorazepam [Ativan] 0.5 mg Tablet 0.5 mg PO QD-BID PRN (Reason: Nausea) Qty: 20 RF: 0 lorazepam 1 mg Tablet 1 mg PO TID PRN (Reason: Nausea) Qty: 60 RF: 0 Referrals: Elena Jeffries MD [Primary Care Provider] -
[2019-01-13 19:03] LABS: Add Manual Diff / Slide Review NO; Basophils Absolute Auto 0 /uL (0-100); Basophils Percent Auto 0.9 % (0-2); Eosinophils Absolute Auto 0 /uL (0-450); Eosinophils Percent Auto 1.2 % (2-4); Hematocrit 22.9 % (36-46); Hemoglobin 7.7 g/dL (12.0-16.0); Lymphocytes Absolute Auto 100 /uL (1100-4500); Lymphocytes Percent Auto 6.6 % (25-40); Mean Corpuscular HGB Conc 33.4 % (30-36); Mean Corpuscular Volume 95.8 fL (80-100); Monocytes Absolute Auto 100 /uL (0-900); Neutrophils Absolute Auto 1700 /uL (1500-7000); Neutrophils Percent Auto 84.3 % (50-75); Platelet Count 202 X10^3/uL (150-400); Red Blood Cell Count 2.39 X10^6/uL (4.0-5.2)
[2019-01-13 19:19] LABS: Lactate (Lactic Acid) 0.7 mmol/L (0.7-2.1)
[2019-01-13 19:20] LABS: Alanine Aminotransferase 13 IU/L (<35); Albumin 3.5 g/dL (3.5-5.0); Albumin Globulin Ratio 1.7 (1.0-2.8); Alkaline Phosphatase 89 U/L (38-126); Aspartate Aminotransferase 15 IU/L (14-36); BUN Creatinine Ratio 15.5 (6-22); Bilirubin Total 0.8 mg/dL (0.2-1.3); Blood Urea Nitrogen 17 mg/dL (7-17); Calcium 9.6 mg/dL (8.4-10.2); Carbon Dioxide 27 mmol/L (22-32); Chloride 104 mmol/L (98-107); Estimated Glomerular Filt Rate 48.3 mL/min (>60); Globulin 2.1 g/dL (1.7-4.1); Glucose 131 mg/dL (80-110); HEMOLYSIS < 15 (0-50); Lipase 41 U/L (23-300); Potassium 4.6 mmol/L (3.4-5.1); Sodium 139 mmol/L (137-145); Total Protein 5.6 g/dL (6.3-8.2)
--- NOTE | 2019-01-13 19:23 | PC.NURSE ---
pt arrived with port already accessed
[2019-01-13 19:24] LABS: Platelet Estimate Adequate on smear
[2019-01-13 19:25] LABS: Anisocytosis 3+; Macrocytosis 1+; Ovalocytes 1+; Poikilocytosis 1+; Spherocytes 1+
--- NOTE | 2019-01-13 19:27 | PC.NURSE ---
took in snack for spouse
[2019-01-13 19:58] LABS: Procalcitonin < 0.05 ng/mL (<0.5)
--- NOTE | 2019-01-13 20:33 | PC.NURSE ---
pt ambulated to bathroom and back
[2019-01-13] MEDS: levoFLOXacin 250 MG TABLET 500 MG PO (21:01)
[2019-01-13 21:41] LABS: Adenovirus Not Detected (Not Detect); Bordetella pertussis Not Detected (Not Detect); Chlamydophila pneumoniae Not Detected (Not Detect); Coronavirus 229E Not Detected (Not Detect); Coronavirus HKU1 Not Detected (Not Detect); Coronavirus NL 63 Not Detected (Not Detect); Coronavirus OC43 Not Detected (Not Detect); Human Metapneumovirus Not Detected (Not Detect); Human Rhinovirus/Enterovirus Not Detected (Not Detect); Influenza A Not Detected (Not Detect); Influenza B Not Detected (Not Detect); Mycoplasma pneumoniae Not Detected (Not Detect); Parainfluenza Virus 1 Not Detected (Not Detect); Parainfluenza Virus 2 Not Detected (Not Detect); Parainfluenza Virus 3 Not Detected (Not Detect); Parainfluenza Virus 4 Not Detected (Not Detect); Respiratory Syncytial Virus Not Detected (Not Detect)
== END 2019-01-13 22:17 | disposition home or self-care (01) ==
PROVIDERS: Emergency Provider Emergency Medicine; Family Provider Family Medicine; PCP Family Medicine
DX: R50.9 Fever, unspecified (principal); D46.Z Other myelodysplastic syndromes; Z92.21 Personal history of antineoplastic chemotherapy
CPT/HCPCS: 36591; 71045; 80053; 81003; 83605; 83690; 83735; 84145; 85025; 87040; 87077; 87086; 87186; 87633; 99283; 99284; J1642

== ENCOUNTER 2019-01-14 20:44 | Inpatient (IN) | payer MEDICARE, SELFPAY ==
[2019-01-14 20:54] VITALS: BP 137/76; PULSE 113; RESP 24; TEMP 37.2; O2SAT 93; BMI 27.6
[2019-01-14 21:19] LABS: Hematocrit 22.2 % (36-46); Hemoglobin 7.6 g/dL (12.0-16.0); Mean Corpuscular HGB Conc 34.1 % (30-36); Mean Corpuscular Hemoglobin 32.7 PG (26-34); Mean Corpuscular Volume 95.7 fL (80-100); Platelet Count 243 X10^3/uL (150-400); Red Blood Cell Count 2.32 X10^6/uL (4.0-5.2); Red Cell Distribution Width 26.2 % (11.6-14.8)
[2019-01-14 21:20] LABS: Add Manual Diff / Slide Review YES; White Blood Cell Count 1.8 X10^3/uL (4.5-11.0)
[2019-01-14 21:25] VITALS: BP 137/74; PULSE 106; RESP 17; O2SAT 91
[2019-01-14 21:26] LABS: INR 1.3 (0.9-1.3); Prothrombin Time 15.1 SECONDS (10.1-12.7)
[2019-01-14 21:28] LABS: PTT Partial Thromboplastin Tim 38 SECONDS (26.4-36.2)
[2019-01-14 21:29] LABS: Alanine Aminotransferase 12 IU/L (<35); Albumin 3.4 g/dL (3.5-5.0); Albumin Globulin Ratio 1.5 (1.0-2.8); Alkaline Phosphatase 82 U/L (38-126); Aspartate Aminotransferase 14 IU/L (14-36); Bilirubin Total 0.6 mg/dL (0.2-1.3); Blood Urea Nitrogen 15 mg/dL (7-17); Calcium 8.8 mg/dL (8.4-10.2); Carbon Dioxide 26 mmol/L (22-32); Chloride 103 mmol/L (98-107); Estimated Glomerular Filt Rate 53.9 mL/min (>60); Globulin 2.2 g/dL (1.7-4.1); Glucose 126 mg/dL (80-110); HEMOLYSIS < 15 (0-50); Lactate (Lactic Acid) 0.7 mmol/L (0.7-2.1); Sodium 136 mmol/L (137-145); Total Protein 5.6 g/dL (6.3-8.2)
[2019-01-14] MEDS: SODIUM CHLORIDE 0.9% 1,000 ML 1000 ML IV (21:29)
[2019-01-14 21:44] LABS: Procalcitonin < 0.05 ng/mL (<0.5)
[2019-01-14 21:52] VITALS: BP 140/63; PULSE 106; RESP 16; O2SAT 95
--- NOTE | 2019-01-14 22:02 | ED_ITS ---
HPI - Fever General Chief Complaint: Fever Stated Complaint: MDS states uti Time Seen by Provider: 01/14/19 22:02 Source: patient Mode of arrival: Wheelchair Limitations: no limitations History of Present Illness HPI Narrative: 78-year-old female comes in with complaint of fever. Patient has known myelodysplastic syndrome. She started having fevers over the last several days. She was seen here last night had evaluation with labs, chest x-ray, blood cultures and was started on Levaquin. Patient states she took 1 dose, her primary care and her discussed and they switched her to Bactrim which she has had at least 1 dose since. She had a temperature around 1 or 2 or 103 F at home. She is afebrile in the department. Patient states she has had some headache, she is able to move her neck freely with no pain she denies any chest pain or shortness of breath, she denies any cough. She has had some mild nausea but no vomiting. No diarrhea. No black or bloody stools. She denies abdominal pain. She has had frequency which is increased from normal. She is not appreciate any dysuria or hematuria. Denies any vaginal bleeding or discharge. No rashes or skin change. Patient did have junction that steroids in her back about 2-3 weeks ago. She states she has not had increasing back pain. No redness or skin changes. Related Data Home Medications Medication Instructions Recorded Confirmed CALCIUM CARBONATE (#CALCIUM) 1,200 mg PO Q DAY #0 07/19/11 01/15/19 gemfibrozil 300 mg PO BEDTIME #0 07/19/11 01/15/19 fofgxmnd-xly-ZU-lycopen-lutein 1 tab PO QDAY #0 07/19/11 01/15/19 [Centrum Silver] prednisone 5 mg PO 0800 #0 07/19/11 01/15/19 vitamin E 400 unit PO DAILY #0 07/19/11 01/15/19 cholecalciferol (vitamin D3) 2,000 iu PO QDAY #0 05/14/12 01/15/19 [Vitamin D3] gabapentin [Neurontin] 400 mg PO DAILY #0 06/29/12 01/15/19 ketotifen fumarate [Zaditor] 1 drp OPHTH DAILY #5 ml 06/29/12 01/15/19 krill oil 1,000 mg PO DAILY #0 06/29/12 01/15/19 sertraline [Zoloft] 150 mg PO HS #0 06/29/12 01/15/19 ascorbic acid (vitamin C) 1 tab PO DAILY 08/14/17 01/15/19 diclofenac sodium [Voltaren] 1 applic TOPICAL PRN PRN 08/14/17 01/15/19 fluticasone propionate 1 spray INTRANASAL DAILY 08/14/17 01/15/19 folic acid 0.4 mg PO DAILY 08/14/17 01/15/19 hydrocodone-acetaminophen [[place]] 1 tab PO Q6H PRN 08/14/17 01/15/19 levocetirizine 1 tab PO QPM 08/14/17 01/15/19 losartan 50 mg PO DAILY 08/14/17 01/15/19 metformin 500 mg PO BID 08/14/17 01/15/19 metoprolol succinate 12.5 tab PO QPM 08/14/17 01/15/19 trazodone 1 - 2 tab PO BEDTIME PRN 08/14/17 01/15/19 vit C,C-Gt-atssg-lutein-zeaxan 2 cap PO DAILY 08/14/17 01/15/19 [PreserVision AREDS 2] clopidogrel [Plavix] 1 mg/kg PO DAILY 12/15/17 01/15/19 sulfamethoxazole-trimethoprim 03/16/18 [Bactrim DS] ondansetron 4 mg PO Q4HR PRN 01/15/19 01/15/19 Previous Rx's Medication Instructions Recorded prochlorperazine maleate 10 mg PO Q8H PRN #20 tab 09/28/18 [Compazine] lorazepam [Ativan] 0.5 mg PO QD-BID PRN #20 tab 10/04/18 lorazepam 1 mg PO TID PRN #60 tab 12/21/18 levofloxacin [Levaquin] 500 mg PO DAILY 4 Days #4 tab 01/13/19 Allergies Allergy/AdvReac Type Severity Reaction Status Date / Time Cephalosporins Allergy Severe GI UPSET Verified 01/14/19 20:58 morphine Allergy Severe ANAPHYLAXIS Verified 01/14/19 20:58 coconut [COCONUT] Allergy Intermediate HIVES Verified 01/14/19 20:58 adhesive Allergy Mild SKIN Verified 01/14/19 20:58 BREAKDOWN, RASH (TAPE) PAPER TAPE OK meperidine Allergy Mild red rash Verified 01/14/19 20:58 lactose [LACTOSE] Allergy Unknown INTOLERANT Verified 01/14/19 20:58 latex [LATEX] Allergy Unknown REACTION Verified 01/14/19 20:58 NOT LISTED BY PT metronidazole AdvReac Severe GI UPSET Verified 01/14/19 20:58 vancomycin [VANCOMYCIN] AdvReac Severe DIARRHEA Verified 01/14/19 20:58 aspirin AdvReac Mild GI UPSET Verified 01/14/19 20:58 ibuprofen AdvReac Mild GI UPSET Verified 01/14/19 20:58 CANTALOUPE Allergy Severe HIVES Uncoded 01/14/19 20:58 honeydew melon Allergy Severe hives Uncoded 01/14/19 20:58 ANTIHISTAMINES Allergy Mild red rash Uncoded 01/14/19 20:58 Review of Systems Review of Systems 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) Diabetes (Acute) Diverticulitis (Inactive) HTN (hypertension) (Acute) Myelodysplasia (myelodysplastic syndrome) (Inactive) Osteoarthritis of lumbar spine (Inactive) Stress incontinence in female (12/15/13) Surgical History History of hip replacement (04/20/89) History of hip replacement (09/24/99) History of knee replacement (01/07/07) History of knee replacement (09/05/08) Status post arthroscopy (10/06/06) Status post arthroscopy (08/18/07) Status post biopsy Status post cholecystectomy Status post colonoscopy Status post hernia repair Status post hysterectomy (12/02/82) Status post knee surgery Status post knee surgery (07/27/09) Social History household members: spouse Smoking Status: Never smoker Smoking Status: Never smoker alcohol intake frequency: 0-2 drinks per day Substance Use Type: marijuana Exam Narrative Exam Narrative: GEN: well nourished, well appearing female, alert and oriented x 3, patient appears to be in mild distress. Patient is mildly diaphoretic. HEENT: Atraumatic, pupils are equal round reactive to light, no photophobia, extraocular movements are intact, nares are clear, TMs are clear with no fluid, there is no conjunctival pallor. Throat is clear without any exudates, erythema, tonsillar enlargement or uvular deviation, full range of motion of neck. No meningeal signs. HEART: Regular rate and rhythm without murmur, clicks, rubs. Pulses are equal in upper and lower extremities LUNGS:Lungs clear to auscultation, no wheezes, rales, crackles, chest moves symmetrically, no tachypnea or accessory muscle use. ABD:bowel sounds normal, soft, non-tender, no guarding, rebound, rigidity, no masses noted, no hepatosplenomegaly :No CVA tenderness BACK: No vertebral tenderness. MSCL: Non-tender, no muscle atrophy, muscles strength 5/5 upper and lower extremities, full range of motion. NEURO:CN 2-12 intact, sensation normal SKIN: Rash, petechiae or skin changes. Initial Vital Signs Initial Vital Signs: Vital Signs Temperature 98.9 F 01/14/19 20:54 Pulse Rate 113 H 01/14/19 20:54 Respiratory Rate 24 01/14/19 20:54 Blood Pressure 137/76 01/14/19 20:54 Pulse Oximetry 93 01/14/19 20:54 Course Orders Ordered: ED Orders 01/14/19 21:10 Complete Blood Count AUTO DIFF Stat Comprehensive Metabolic Panel Stat Lactate (Lactic Acid) Stat Partial Thromboplastin Time Stat Procalcitonin Stat Prothrombin Time INR Stat Acetaminophen (Tylenol) 650 mg PO Q6HR PRN PRN Reason: Fever/Mild Pain (1-3) Last Admin: 01/14/19 23:09 Dose: 650 mg Documented by: EDDIE Sodium Chloride (Normal Saline 0.9%) 1,000 mls @ 125 mls/hr IV CONT TRACEY Last Infusion: 01/15/19 00:11 Dose: 0 mls/hr Documented by: Admin: 01/14/19 23:09 Dose: 125 mls/hr Documented by: EDDIE Discontinued Medications Sodium Chloride (Normal Saline 0.9%) 1,000 mls @ 1,000 mls/hr IV BOLUS ONE Stop: 12/06/19 21:59 Last Infusion: 01/14/19 23:10 Dose: 0 mls/hr Documented by: Admin: 01/14/19 21:29 Dose: 1,000 mls/hr Documented by: EDDIE Cefepime HCl 2 gm/ Sodium (Chloride) 100 mls @ 200 mls/hr IV NOW ONE Stop: 01/14/19 22:59 Last Admin: 01/15/19 01:11 Dose: 200 mls/hr Documented by: RAJIV Levofloxacin (Levaquin) 750 mg in 150 mls @ 100 mls/hr IV NOW ONE Stop: 01/15/19 00:27 Last Infusion: 01/15/19 00:10 Dose: 0 mls/hr Documented by: Admin: 01/14/19 23:09 Dose: 100 mls/hr Documented by: EDDIE Vital Signs Vital signs: Vital Signs - 8 hr 01/14/19 21:25 01/14/19 21:52 01/14/19 22:15 Pulse Rate 106 H 106 H 105 H Respiratory Rate 17 16 19 Blood Pressure [Right Arm] 137/74 140/63 153/76 H Pulse Oximetry 91 95 96 MDM - Fever Lab Data Attestation: I reviewed the patient's lab results. Result diagrams: 01/14/19 21:10 01/14/19 21:10 Labs: Lab Results 01/14/19 01/14/19 01/14/19 Range/Units 21:10 21:10 21:10 WBC 1.8 L* (4.5-11.0) X10^3/uL RBC 2.32 L (4.0-5.2) X10^6/uL Hgb 7.6 L (12.0-16.0) g/dL Hct 22.2 L (36-46) % MCV 95.7 (80-100) fL MCH 32.7 (26-34) PG MCHC 34.1 (30-36) % RDW 26.2 H (11.6-14.8) % Plt Count 243 (150-400) X10^3/uL Neut % (Auto) Not Reportable Lymph % (Auto) Not Reportable Mobile % (Auto) Not Reportable Eos % (Auto) Not Reportable Baso % (Auto) Not Reportable Lymph # (Auto) Not Reportable Mobile # (Auto) Not Reportable Baso # (Auto) Not Reportable Total Counted 50 Seg Neutrophils % 78.0 H (38-70) % Band Neutrophils % 8.0 H (3-7) % Lymphocytes % (Manual) 4.0 L (25-45) % Monocytes % (Manual) 8.0 (2-11) % Basophils % (Manual) 2.0 H (0-1) % Neutrophils # (Manual) 1548 L (6684-2020) /uL RBC Morphology See below Poikilocytosis 1+ H Anisocytosis 3+ H Ovalocytes 1+ H PT 15.1 H (10.1-12.7) SECONDS INR 1.3 (0.9-1.3) APTT 38 H (26.4-36.2) SECONDS Sodium (137-145) mmol/L Potassium (3.4-5.1) mmol/L Chloride (98-107) mmol/L Carbon Dioxide (22-32) mmol/L BUN (7-17) mg/dL Creatinine (0.52-1.04) mg/dL Estimated GFR (>60) mL/min BUN/Creatinine Ratio (6-22) Glucose (80-110) mg/dL Lactate (0.7-2.1) mmol/L Calcium (8.4-10.2) mg/dL Total Bilirubin (0.2-1.3) mg/dL AST (14-36) IU/L ALT (<35) IU/L Alkaline Phosphatase (38-126) U/L Total Protein (6.3-8.2) g/dL Albumin (3.5-5.0) g/dL Globulin (1.7-4.1) g/dL Albumin/Globulin Ratio (1.0-2.8) Procalcitonin < 0.05 (<0.5) ng/mL 01/14/19 01/14/19 Range/Units 21:10 21:10 WBC (4.5-11.0) X10^3/uL RBC (4.0-5.2) X10^6/uL Hgb (12.0-16.0) g/dL Hct (36-46) % MCV (80-100) fL MCH (26-34) PG MCHC (30-36) % RDW (11.6-14.8) % Plt Count (150-400) X10^3/uL Neut % (Auto) Lymph % (Auto) Mobile % (Auto) Eos % (Auto) Baso % (Auto) Lymph # (Auto) Mobile # (Auto) Baso # (Auto) Total Counted Seg Neutrophils % (38-70) % Band Neutrophils % (3-7) % Lymphocytes % (Manual) (25-45) % Monocytes % (Manual) (2-11) % Basophils % (Manual) (0-1) % Neutrophils # (Manual) (9946-1059) /uL RBC Morphology Poikilocytosis Anisocytosis Ovalocytes PT (10.1-12.7) SECONDS INR (0.9-1.3) APTT (26.4-36.2) SECONDS Sodium 136 L (137-145) mmol/L Potassium 4.0 (3.4-5.1) mmol/L Chloride 103 (98-107) mmol/L Carbon Dioxide 26 (22-32) mmol/L BUN 15 (7-17) mg/dL Creatinine 1.00 (0.52-1.04) mg/dL Estimated GFR 53.9 L (>60) mL/min BUN/Creatinine Ratio 15.0 (6-22) Glucose 126 H (80-110) mg/dL Lactate 0.7 (0.7-2.1) mmol/L Calcium 8.8 (8.4-10.2) mg/dL Total Bilirubin 0.6 (0.2-1.3) mg/dL AST 14 (14-36) IU/L ALT 12 (<35) IU/L Alkaline Phosphatase 82 (38-126) U/L Total Protein 5.6 L (6.3-8.2) g/dL Albumin 3.4 L (3.5-5.0) g/dL Globulin 2.2 (1.7-4.1) g/dL Albumin/Globulin Ratio 1.5 (1.0-2.8) Procalcitonin (<0.5) ng/mL MDM Narrative Medical decision making narrative: Patient's imaging was not repeated today. Her urinalysis does show positive urine culture greater than 100,000 gram negative bacilli. Patient is right on the edge of neutropenic fever with ANC of 1548, I spoke with Dr. Peñaloza who is covering for the patient and accepts for observation for neutropenic fever and UTI. Patient's blood cultures from 01/13 are both negative. On exam there is no other physical exam new findings suggesting meningitis, pneumonia or intra-abdominal process otherwise. Patient has had prior urine cultures that were positive in September and May of 2018 Patient was treated with cefepime for neutropenic fever. Bridging orders were done for Dr. Peñaloza. Patient does not meet the criteria here in the department. Discharge Plan Departure Patient Disposition: Admitted as Observation Clinical Impression: UTI (urinary tract infection), Neutropenic fever Discharge Date/Time: 01/15/19 00:17 Admit Date/Time: 01/14/19 23:08 Admit Provider: Jackie Peñaloza
[2019-01-14 22:15] VITALS: BP 153/76; PULSE 105; RESP 19; O2SAT 96
[2019-01-14 22:17] LABS: Neutrophils Absolute Manual 1548 /uL (3000-5900); Total Cells Counted 50
[2019-01-14 22:19] LABS: Anisocytosis 3+
[2019-01-14 22:20] LABS: Ovalocytes 1+; Poikilocytosis 1+
[2019-01-14] MEDS: levoFLOXacin 750 MG/150 ML PIGGYBACK 100 MG IV (23:09)
[2019-01-14] MEDS: ACETAMINOPHEN 325 MG TABLET 650 MG PO (23:09)
[2019-01-14] MEDS: SODIUM CHLORIDE 0.9% 1,000 ML 125 ML IV (23:09)
[2019-01-14 23:15] VITALS: BP 135/75; PULSE 102; RESP 16; O2SAT 95
[2019-01-15] VITALS (8 sets, daily range): BP systolic 110–139; BP diastolic 53–75; PULSE 84–100; RESP 16–19; TEMP 36.1–37.5; O2SAT 95–98; BMI 27.6
[2019-01-15] MEDS: CEFEPIME 2 GM in SODIUM CHLORIDE 0.9% 100 ML 200 ML IV ×3 (01:11→19:05)
--- NOTE | 2019-01-15 01:17 | PC.NURSE ---
0030 admitted from ER, Oriented to her room, had a history of fall last 2 months. Fall precaution implemented & instructed not to get OOB without any assistance. C/O sl. nausea cold compress to her forehead. Noted stage 2 pressure ulcer in her Rt. inner buttock, barrier cream applied. Will cont. POc & monitor.
--- NOTE | 2019-01-15 03:42 | PC.NURSE ---
ICU called reported that patient had a 8 beat run of v-tac, Anahy SANCHEZ notified.
--- NOTE | 2019-01-15 03:50 | PC.NURSE ---
ICU reported tele rhythm 8 beats run of V-tach. Re-assessed pt. denies any CP & other discomfort. VS B/P 110/50, HR 82, SPO2 in RA 94%, will cont. POC & monitor.
--- NOTE | 2019-01-15 09:41 | P.HP_ITS ---
History of Present Illness History of Present Illness Date Patient Seen: 01/15/19 Time Patient Seen: 09:41 Chief complaint: MDS states uti Narrative: 78-year-old female is admitted for observation secondary to borderline neutropenic fever and new UTI. Has known myelodysplastic syndrome. She has been undergoing chemotherapy. White count has been in the 1.6 to 2.5 range in the last month, yesterday she was 1.8, absolute neutrophil count was 1548. Yesterday was her second presentation to the ED in 2 days. Initial workup including labs, chest xray, blood and urine cultures significant for chronic anemia and leukopenia as well as a new onset UTI, cultures showed klebsiella pneumonia resistant to ampicilin, but otherwise jameson-sensitive. She was started on levaquin in the ED, then switched to bactrim by her PCP. concerned prior to her presentation yesterday due to her worsening fever, Tmax 105 F at home, and change in baseline with increasing weakness and fatigue. Vital signs in the ED included a temperature of 98.9?, pulse 113, pressure 37/7 6, respirations 24, O2 saturation 93% on room air. Patient was given fluids, Tylenol, and started on IV cefepime and levofloxacin before being transferred to the floor. Patient reports this morning that she is feeling well, has been afebrile throughout her stay. Pulse has normalized. Appetite is good, denies nausea or vomiting. Has been ambulating. No abdominal pain, diarrhea, black or bloody stools. Urinary frequency is increased, no dysuria or hematuria. No vaginal bleeding or discharge. No skin lesions. No cough. Chest x-ray on 01/13/2019 was negative. Denies headache, nuchal rigidity, or altered mental status. Denies history of previous neutropenic fever infection during her treatment for MDS. She does have several chronic medical conditions at predispose her to poor including diabetes, IBS, and polymyalgia rheumatica. Past medical history: Myelodysplastic syndrome Diabetes mellitus type 2 Hypertension Hyperlipidemia Renal insufficiency Peripheral edema History of CVA Lumbago with lumbar radiculopathy Essential tremor Osteopenia Vitamin-D deficiency Insomnia Diverticulitis, history of Ovarian cysts, history of Degenerative disc disease Polymyalgia rheumatica Seasonal affective disorder Irritable bowel syndrome Osteoarthritis Depression Past surgical history: HERBERTH without BSO secondary to dysfunctional uterine bleeding Cholecystectomy Ventral abdominal hernia repair Right hip replacement Left hip replacement Left total knee replacement Left SI joint fusion Lumbar decompression and synovial cyst removal Cataract surgery x2 Fusion of right SI joint Negative bone biopsy, 05/28 Family history: Father: Heart disease, deafness Mother: Heart disease, depression, hypertension Siblings: Breast cancer Social history: to Devan, 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, [employer]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, 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, [employer] Patient History Medical History Clot (Acute) 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) Diabetes (Acute) Diverticulitis (Inactive) HTN (hypertension) (Acute) Myelodysplasia (myelodysplastic syndrome) (Inactive) Osteoarthritis of lumbar spine (Inactive) Stress incontinence in female (12/15/13) Surgical History History of hip replacement (04/20/89) History of hip replacement (09/24/99) History of knee replacement (01/07/07) History of knee replacement (09/05/08) Status post arthroscopy (10/06/06) Status post arthroscopy (08/18/07) Status post biopsy Status post cholecystectomy Status post colonoscopy Status post hernia repair Status post hysterectomy (12/02/82) Status post knee surgery Status post knee surgery (07/27/09) Family & Social History Social History: household members spouse Prior Living Arrangements House Safety & Behavioral: Feels Safe in Current Yes Environment Been Physically Hurt or No Threatened By a Person Suicidal Ideation Description None Suicide Plan Description No Plan Tobacco & Substance use: Smoking Status Never smoker alcohol intake frequency 0-2 drinks per day Substance Use Type marijuana Meds Home Medications and Allergies Home Medications Medication Instructions Recorded Confirmed Type CALCIUM CARBONATE (#CALCIUM) 1,200 mg PO Q DAY #0 07/19/11 01/15/19 History gemfibrozil 300 mg PO BEDTIME #0 07/19/11 01/15/19 History syjvqcbn-war-FZ-lycopen-lutein 1 tab PO QDAY #0 07/19/11 01/15/19 History [Centrum Silver] prednisone 5 mg PO 0800 #0 07/19/11 01/15/19 History vitamin E 400 unit PO DAILY #0 07/19/11 01/15/19 History cholecalciferol (vitamin D3) 2,000 iu PO QDAY #0 05/14/12 01/15/19 History [Vitamin D3] gabapentin [Neurontin] 400 mg PO DAILY #0 06/29/12 01/15/19 History ketotifen fumarate [Zaditor] 1 drp OPHTH DAILY #5 ml 06/29/12 01/15/19 History krill oil 1,000 mg PO DAILY #0 06/29/12 01/15/19 History sertraline [Zoloft] 150 mg PO HS #0 06/29/12 01/15/19 History ascorbic acid (vitamin C) 1 tab PO DAILY 08/14/17 01/15/19 History diclofenac sodium [Voltaren] 1 applic TOPICAL PRN PRN 08/14/17 01/15/19 History fluticasone propionate 1 spray INTRANASAL DAILY 08/14/17 01/15/19 History folic acid 0.4 mg PO DAILY 08/14/17 01/15/19 History hydrocodone-acetaminophen [Sherrard] 1 tab PO Q6H PRN 08/14/17 01/15/19 History levocetirizine 1 tab PO QPM 08/14/17 01/15/19 History losartan 50 mg PO DAILY 08/14/17 01/15/19 History metformin 500 mg PO BID 08/14/17 01/15/19 History metoprolol succinate 12.5 tab PO QPM 08/14/17 01/15/19 History trazodone 1 - 2 tab PO BEDTIME PRN 08/14/17 01/15/19 History vit C,T-Gk-aiisa-lutein-zeaxan 2 cap PO DAILY 08/14/17 01/15/19 History [PreserVision AREDS 2] clopidogrel [Plavix] 1 mg/kg PO DAILY 12/15/17 01/15/19 History sulfamethoxazole-trimethoprim 03/16/18 History [Bactrim DS] prochlorperazine maleate 10 mg PO Q8H PRN #20 tab 09/28/18 01/15/19 Rx [Compazine] lorazepam [Ativan] 0.5 mg PO QD-BID PRN #20 tab 10/04/18 01/15/19 Rx lorazepam 1 mg PO TID PRN #60 tab 12/21/18 01/15/19 Rx levofloxacin [Levaquin] 500 mg PO DAILY 4 Days #4 tab 01/13/19 01/15/19 Rx ondansetron 4 mg PO Q4HR PRN 01/15/19 01/15/19 History Allergies Allergy/AdvReac Type Severity Reaction Status Date / Time Cephalosporins Allergy Severe GI UPSET Verified 01/14/19 20:58 morphine Allergy Severe ANAPHYLAXIS Verified 01/14/19 20:58 coconut [COCONUT] Allergy Intermediate HIVES Verified 01/14/19 20:58 adhesive Allergy Mild SKIN Verified 01/14/19 20:58 BREAKDOWN, RASH (TAPE) PAPER TAPE OK meperidine Allergy Mild red rash Verified 01/14/19 20:58 lactose [LACTOSE] Allergy Unknown INTOLERANT Verified 01/14/19 20:58 latex [LATEX] Allergy Unknown REACTION Verified 01/14/19 20:58 NOT LISTED BY PT metronidazole AdvReac Severe GI UPSET Verified 01/14/19 20:58 vancomycin [VANCOMYCIN] AdvReac Severe DIARRHEA Verified 01/14/19 20:58 aspirin AdvReac Mild GI UPSET Verified 01/14/19 20:58 ibuprofen AdvReac Mild GI UPSET Verified 01/14/19 20:58 CANTALOUPE Allergy Severe HIVES Uncoded 01/14/19 20:58 honeydew melon Allergy Severe hives Uncoded 01/14/19 20:58 ANTIHISTAMINES Allergy Mild red rash Uncoded 01/14/19 20:58 Review of Systems Review of Systems ROS Unobtainable: All systems reviewed & are unremarkable except as noted in HPI and below Exam Vital Signs (past 8 hours): - 01/15/19 03:49 Temperature 96.9 F L Pulse Rate 84 Respiratory Rate 16 Blood Pressure 118/58 L Pulse Oximetry 95 Oxygen Delivery Method Room Air Oxygen Flow Rate 0 Narrative Exam Narrative: GENERAL: Alert and oriented, appearing stated age and in no acute distress. HEENT: Head normocephalic/atraumatic. LUNGS: Clear to ausculation bilaterally, no wheezes, rhonchi or rales. CV: Normal S1 and S2 with regular rate and rhythm, no audible murmurs, rubs or gallops. ABDOMEN: Soft, non-tender, non-distended, no organomegaly. Positive bowel sounds. EXTREMITIES: No clubbing, cyanosis, or edema. NEURO: Cranial nerves II through XII grossly intact, no focal deficits. PSYCH: Alert and oriented x 3. SKIN: No concerning lesions. Port-a-cath in place with no signs of infection, left upper chest. Objective Labs Result Diagrams: 01/15/19 10:35 01/15/19 10:35 Labs: Laboratory Results - last 24 hr 01/14/19 01/14/19 01/14/19 21:10 21:10 21:10 WBC 1.8 L* RBC 2.32 L Hgb 7.6 L Hct 22.2 L MCV 95.7 MCH 32.7 MCHC 34.1 RDW 26.2 H Plt Count 243 Neut % (Auto) Not Reportable Lymph % (Auto) Not Reportable Latimer % (Auto) Not Reportable Eos % (Auto) Not Reportable Baso % (Auto) Not Reportable Lymph # (Auto) Not Reportable Latimer # (Auto) Not Reportable Baso # (Auto) Not Reportable Total Counted 50 Seg Neutrophils % 78.0 H Band Neutrophils % 8.0 H Lymphocytes % (Manual) 4.0 L Monocytes % (Manual) 8.0 Basophils % (Manual) 2.0 H Neutrophils # (Manual) 1548 L RBC Morphology See below Poikilocytosis 1+ H Anisocytosis 3+ H Ovalocytes 1+ H PT 15.1 H INR 1.3 APTT 38 H Sodium Potassium Chloride Carbon Dioxide BUN Creatinine Estimated GFR BUN/Creatinine Ratio Glucose Lactate Calcium Total Bilirubin AST ALT Alkaline Phosphatase Total Protein Albumin Globulin Albumin/Globulin Ratio Procalcitonin < 0.05 01/14/19 01/14/19 21:10 21:10 WBC RBC Hgb Hct MCV MCH MCHC RDW Plt Count Neut % (Auto) Lymph % (Auto) Latimer % (Auto) Eos % (Auto) Baso % (Auto) Lymph # (Auto) Latimer # (Auto) Baso # (Auto) Total Counted Seg Neutrophils % Band Neutrophils % Lymphocytes % (Manual) Monocytes % (Manual) Basophils % (Manual) Neutrophils # (Manual) RBC Morphology Poikilocytosis Anisocytosis Ovalocytes PT INR APTT Sodium 136 L Potassium 4.0 Chloride 103 Carbon Dioxide 26 BUN 15 Creatinine 1.00 Estimated GFR 53.9 L BUN/Creatinine Ratio 15.0 Glucose 126 H Lactate 0.7 Calcium 8.8 Total Bilirubin 0.6 AST 14 ALT 12 Alkaline Phosphatase 82 Total Protein 5.6 L Albumin 3.4 L Globulin 2.2 Albumin/Globulin Ratio 1.5 Procalcitonin Assessment & Plan Assessment & Plan narrative: Hospital Day #1 Assessment 1: Borderline neutropenic fever, new. Plan: Will get updated labs today and continue prophylactic broad-spectrum antibiotic coverage with levofloxacin and cefepime in light of patient's Klebsiella UTI and worsening clinical status as well as her comorbodities that increase her risk factors for poor healing including MDS, DM II, IBS, and PMR. Blood cultures show no growth today, will continue to watch closely. Assessment 2: UTI, Klebsiella, new. Resistant to ampicillin only. Plan: Please see 1. Assessment 3: Myelodysplastic syndrome with anemia, normocytic/normochromic, chronic. Baseline H/H 7.8, trending down. Plan: Currently undergoing chemotherapy, hematology/oncology consulting. Continue home medications for side effects including Zofran, Compazine, hydrocodone, and lorazepam as needed. Assessment 4: Diabetes mellitus type 2, chronic, A1c 6.5 on 12/27/2018. Plan: Diabetic diet, continue metformin 500 mg p.o. b.i.d. and routine glucose checks. Will discontinue glucose checks tomorrow if stable today. Assessment 5: Hypertension, chronic, controlled, stable. Plan: Continue home losartan 50 mg p.o. q.day and metoprolol 12.5 mg p.o. q.h.s. Assessment 6: Hyperlipidemia, chronic, controlled with gemfibrizol. Plan: Will not focus on this in the hospital. Assessment 7: Renal insufficiency, chronic, baseline GFR 45. Plan: GFR on admission > 60, will continue fluid hydration and watch closely. Will be sensitive to nephrotoxicity of antibiotics. Assessment 8: Peripheral edema, chronic, stable. Plan: Will watch closely and treat with diuretics if needed. Currently no involvment. Assessment 9: History of CVA Plan: On lifelong Plavix, continue home dose of 75 mg p.o. q.day. Assessment 10: Lumbago with lumbar radiculopathy, degenerative disc disease, and osteoarthritis, [id number]. Plan: Continue home hydrocodone/acetaminophen 10/325 p.o. q.6 hours as needed for pain and gabapentin 400 mg p.o. q.day. Assessment 11: Polymyalgia rheumatica, chronic, stable. Plan: Continue home prednisone 5 mg p.o. q.a.m.. Assessment 12: Insomnia, chronic, stable. Plan: Continue trazodone 100 mg p.o. q.day. Assessment 13: Osteopenia with vitamin-D deficiency, chronic, stable. Plan: Continue home calcium and Vitamin D supplement. Assessment 14: Irritable bowel syndrome, chronic, stable. Plan: Will treat symptomatically if needed. Assessment 15: Depression, chronic, stable. Plan: Continue home sertraline 150 mg p.o. q.h.s.. DVT prophylaxis: Plavix and SCDs. GI prophylaxis: Patient is receiving antibiotics in IV form, will start probiotic. Code: Full Disposition: Anticipate at least 48 hours of inpatient IV antibiotics for treatment of Klebsiella UTI in setting of borderline neutropenic fever in this myelodysplastic syndrome patient undergoing chemotherapy with risk factors for poor healing including diabetes mellitus type 2, IBS, and polymyalgia rheumatica. Plan to transition to oral antibiotics if afebrile after 48 hours with completion of full course as an outpatient. Quality VTE Deep Vein Thrombosis/Pulmonary Embolism Present on Admission: No
[2019-01-15 10:48] LABS: Mean Corpuscular HGB Conc 33.6 % (30-36); Mean Corpuscular Hemoglobin 32.3 PG (26-34); Mean Corpuscular Volume 96.3 fL (80-100); Platelet Count 217 X10^3/uL (150-400); Red Blood Cell Count 2.14 X10^6/uL (4.0-5.2); Red Cell Distribution Width 26.3 % (11.6-14.8)
[2019-01-15 10:51] LABS: White Blood Cell Count 1.7 X10^3/uL (4.5-11.0)
[2019-01-15 10:52] LABS: Hematocrit 20.6 % (36-46); Hemoglobin 6.9 g/dL (12.0-16.0)
[2019-01-15 11:00] LABS: BUN Creatinine Ratio 14.4 (6-22); Blood Urea Nitrogen 13 mg/dL (7-17); Calcium 8.4 mg/dL (8.4-10.2); Carbon Dioxide 24 mmol/L (22-32); Chloride 110 mmol/L (98-107); Estimated Glomerular Filt Rate > 60.0 mL/min (>60); Glucose 141 mg/dL (80-110); HEMOLYSIS < 15 (0-50); Potassium 3.8 mmol/L (3.4-5.1); Sodium 140 mmol/L (137-145)
[2019-01-15 11:35] LABS: Neutrophils Absolute Manual 1462 /uL (3000-5900); Total Cells Counted 100
[2019-01-15 11:38] LABS: Anisocytosis 3+; Poikilocytosis 2+
[2019-01-15] MEDS: METFORMIN HCL 500 MG TABLET PO ×2 (11:49→19:15)
[2019-01-15] MEDS: CHOLECALCIFEROL (VITAMIN D3) 1,000 UNIT TABLET 2000 UNIT PO (11:49)
[2019-01-15] MEDS: LOSARTAN 50 MG TABLET PO (11:49)
[2019-01-15] MEDS: LACTOBACILLUS ACIDOPHILUS TABLET 1 EACH PO (11:49)
--- NOTE | 2019-01-15 11:51 | CM.IDA ---
Initial DCP Assessment Note: Pt is a 78 yo female, resident of [place]. Admitted w/leukocytosis/UTI in the setting of MDS, currently on chemo. PCP: Dr Jeffries P[facility] Reviewed chart, met w/pt and spouse Devan at bedside, pt eager to return home today if her fever and infection have subsided. Pt/spouse are indp at baseline, pt states she has had numerous hospital stays and spouse assists pt at home as needed upon DC. 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 Eagerly awaiting a visit from Dr Peñaloza. MARIA LUZ Rios Discharge Planning/Care Management CM Discharge Assessment Start: 01/15/19 11:48 Freq: Status: Active Protocol: Document 01/15/19 11:48 CHITRA (Rec: 01/15/19 11:51 CHITRA [id number]) Discharge Planning Assessment Assigned [employer]els Production Associate MARIA LUZ Maldonado DPOA/Assigned Designee Name Devan Flores, spouse Contact Information [phone], Advance Directives? No History Provided By Patient,Significant Other Prior Living Arrangements House Household Members spouse Type of transporation used prior to Drives own vehicle admit Willing to Return to Facility? No Independent with ADL's Yes Is patient alert and oriented? Yes Barriers to Discharge No Discharge Plan Home Transportation Arrangement Spouse Referrals Initiated None needed Review Status In Process
[2019-01-15] MEDS: levoFLOXacin 750 MG/150 ML PIGGYBACK 100 MG IV (12:42)
[2019-01-15] MEDS: ONDANSETRON 4 MG/2 ML INJ IV (15:35)
[2019-01-15] MEDS: METOPROLOL ER 50 MG TABLET 12.5 MG PO (19:05)
[2019-01-15] MEDS: SERTRALINE 50 MG TABLET 150 MG PO (19:15)
[2019-01-15] MEDS: CALCIUM CARBONATE 500 MG TAB 1000 MG PO (20:53)
[2019-01-16] VITALS (10 sets, daily range): BP systolic 107–140; BP diastolic 55–72; PULSE 84–97; RESP 16–18; TEMP 36.6–37.6; O2SAT 94–98
[2019-01-16] MEDS: CALCIUM CARBONATE 500 MG TAB 1000 MG PO (00:15)
[2019-01-16] MEDS: CEFEPIME 2 GM in SODIUM CHLORIDE 0.9% 100 ML 200 ML IV ×3 (02:52→18:19)
[2019-01-16] MEDS: HYDROCODONE/ACET 10/325 TABLET 1 TAB PO ×3 (04:13→17:14)
[2019-01-16] MEDS: SODIUM CHLORIDE 0.9% 1,000 ML 125 ML IV ×2 (04:52→12:29)
[2019-01-16 06:01] LABS: BUN Creatinine Ratio 12.2 (6-22); Blood Urea Nitrogen 11 mg/dL (7-17); Calcium 8.8 mg/dL (8.4-10.2); Carbon Dioxide 24 mmol/L (22-32); Chloride 109 mmol/L (98-107); Estimated Glomerular Filt Rate > 60.0 mL/min (>60); Glucose 124 mg/dL (80-110); HEMOLYSIS < 15 (0-50); Sodium 139 mmol/L (137-145)
--- NOTE | 2019-01-16 06:04 | PC.NURSE ---
Reported up to the bathroom x4 this shift states I'm having diarrhea all night. Did not sleep well last night & C/O back pain medicated with 10 mg. Vicodin @ 0413. Resting in bed now, will cont. POC & monitor.
[2019-01-16 06:11] LABS: Basophils Absolute Auto 0 /uL (0-100); Basophils Percent Auto 1.1 % (0-2); Eosinophils Absolute Auto 0 /uL (0-450); Eosinophils Percent Auto 1.1 % (2-4); Lymphocytes Absolute Auto 100 /uL (1100-4500); Lymphocytes Percent Auto 5.9 % (25-40); Mean Corpuscular HGB Conc 33.4 % (30-36); Mean Corpuscular Hemoglobin 32.1 PG (26-34); Mean Corpuscular Volume 96.3 fL (80-100); Monocytes Absolute Auto 200 /uL (0-900); Monocytes Percent Auto 7.2 % (3-14); Neutrophils Absolute Auto 1800 /uL (1500-7000); Neutrophils Percent Auto 84.7 % (50-75); Platelet Count 236 X10^3/uL (150-400); Red Blood Cell Count 2.15 X10^6/uL (4.0-5.2); Red Cell Distribution Width 26.5 % (11.6-14.8); White Blood Cell Count 2.1 X10^3/uL (4.5-11.0)
[2019-01-16 06:27] LABS: Hemoglobin 6.9 g/dL (12.0-16.0)
[2019-01-16 06:28] LABS: Hematocrit 20.7 % (36-46)
[2019-01-16 06:29] LABS: Add Manual Diff / Slide Review SLIDE REVIEW
--- NOTE | 2019-01-16 06:47 | PC.NURSE ---
0628- Lab. critical H&H reported from Lab 6.9 & 20.7, was 6.9 & 20.6 01/15/19. Coordinator Whit SANCHEZ. notified states just let her MD know this morning. Will report to day RN. Pt. is sleeping now, will monitor.
[2019-01-16 07:37] LABS: Anisocytosis 3+; Spherocytes 1+
[2019-01-16 07:38] LABS: Tear Drop Cells 1+
[2019-01-16] MEDS: ONDANSETRON 4 MG/2 ML INJ IV (07:43)
--- NOTE | 2019-01-16 08:13 | PC.NURSE ---
Addendum entered by Jeane Zaragoza R.N. 01/16/19 13:26: Critical labs: (late entry)- This mortgage underwriter made sure that Dr Andersen is aware of patient's critical lab values for H/H and WBC's, which of course she is. No new orders other than to re-check labs tomorrow morning. Addendum entered by Jeane Zaragoza R.N. 01/16/19 13:18: Noted new order for NOW dose of Protonix. Will allow patient to sleep and administer next time she is awake. Addendum entered by Jeane Zaragoza R.N. 01/16/19 13:10: Patient is trying to nap. Resting quietly in bed w/eyes closed, regular unlabored respirations. Sign placed on door, and let the PERSONNEL REPRESENTATIVE's know that she wants to try to rest. Call light in reach, bed alarm on. Addendum entered by Jeane Zaragoza R.N. 01/16/19 12:33: Reports Vicodin effective for pain management. She is eating her lunch and states nausea not an issue at this time. Both patient (and ) encouraged, stating this is the first meal I've felt like eating in a while. Denies other needs at this time. Addendum entered by Jeane Zaragoza R.N. 01/16/19 11:40: C/O 5/10 generalized, but especially in her lower back. Medicated with 1 tab 10/325 Vicodin for the same. States no other needs now. Light in reach, bed alarm on. Addendum entered by Jeane Zaragoza R.N. 01/16/19 11:23: Patient reports she hardly slept at all last night, and has difficulty sleeping well even when at home. She asked about order for Ambien which she takes at home sometimes. Instructed her to mention to MD when she rounds, and I will try to remember to ask as well. Addendum entered by Jeane Zaragoza R.N. 01/16/19 11:01: Reports improvement in nausea after Ativan. Addendum entered by Jeane Zaragoza R.N. 01/16/19 10:09: Still C/O nausea, not all that much relieved with Zofran given earlier. Medicated with 1 mg PO Ativan for nausea now. Given gingerale to try. Patient very appreciative, denies other needs at this time. Call light in reach, bed alarm on. in visiting. Original Note: Shift summary: Awake and alert, oriented X3. Denies feeling feverish or having chills. Noted to be a bit shaky which patient states is baseline for her. SBA to BR, steady on feet. Did report, and was observed having, shortness of breath with exertion which she states is no worse than usual. Denied dizziness or lightheadedness with activity. C/O slight nausea after activity, medicated with IV Zofran for the same. BT+, flatus+. Lungs CTA. HRR to auscultation, tele monitoring ongoing. Able to make needs known and agrees to call for SBA OOB. Call light and belongings within reach, bed alarm on.
[2019-01-16] MEDS: LORazepam 1 MG TABLET PO ×2 (10:01→17:06)
--- NOTE | 2019-01-16 11:17 | PM.PN.1 ---
Subjective Subjective Date Patient Seen: 01/16/19 Time Patient Seen: 11:17 Interval history: Patient is feeling tired this morning. Slept poorly overnight, did not receive her usual dose of trazodone. Otherwise, no significant 24 hour issues. Feels that she still has low energy, eating poorly due to nausea, no vomiting. Having heartburn. Continues to have dysuria, no hematuria, or polyuria. Afebrile. Exam Vital Signs (past 8 hours): - 01/16/19 04:20 01/16/19 08:00 01/16/19 09:57 Temperature 97.8 F 99.0 F Pulse Rate 89 86 Respiratory Rate 18 Blood Pressure 127/55 L 108/72 Pulse Oximetry 97 96 96 Oxygen Delivery Method Room Air Oxygen Flow Rate 0 Narrative Exam Narrative: GENERAL: Alert and oriented, appearing stated age and in no acute distress. HEENT: Head normocephalic/atraumatic. LUNGS: Clear to ausculation bilaterally, no wheezes, rhonchi or rales. CV: Normal S1 and S2 with regular rate and rhythm, no audible murmurs, rubs or gallops. ABDOMEN: Soft, non-tender, non-distended, no organomegaly. Positive bowel sounds. EXTREMITIES: No clubbing, cyanosis, or edema. NEURO: Cranial nerves II through XII grossly intact, no focal deficits. PSYCH: Alert and oriented x 3. SKIN: No concerning lesions. Port-a-cath in place with no signs of infection, left upper chest. Objective Labs Result Diagrams: 01/16/19 05:30 01/16/19 05:30 Labs: Laboratory Results - last 24 hr 01/15/19 01/16/19 01/16/19 10:35 05:30 05:30 WBC 2.1 L RBC 2.15 L Hgb 6.9 L* Hct 20.7 L* MCV 96.3 MCH 32.1 MCHC 33.4 RDW 26.5 H Plt Count 236 Neut % (Auto) 84.7 H Lymph % (Auto) 5.9 L Gonzales % (Auto) 7.2 Eos % (Auto) 1.1 L Baso % (Auto) 1.1 Neut # (Auto) 1800 Lymph # (Auto) 100 L Gonzales # (Auto) 200 Eos # (Auto) 0 Baso # (Auto) 0 Total Counted 100 Seg Neutrophils % 82.0 H Band Neutrophils % 4.0 Lymphocytes % (Manual) 5.0 L Monocytes % (Manual) 7.0 Eosinophils % (Manual) 2.0 Neutrophils # (Manual) 1462 L RBC Morphology See below See below Poikilocytosis 2+ H Anisocytosis 3+ H 3+ H Spherocytes 1+ H Tear Drop Cells 1+ H Sodium 139 Potassium 4.0 Chloride 109 H Carbon Dioxide 24 BUN 11 Creatinine 0.90 Estimated GFR > 60.0 BUN/Creatinine Ratio 12.2 Glucose 124 H Calcium 8.8 Assessment & Plan Assessment & Plan narrative: Hospital Day #2 Assessment 1: Borderline neutropenic fever, absolute neutrophil count improving, afebrile x 24+ hours. Plan: Will continue prophylactic broad-spectrum antibiotic coverage with levofloxacin and cefepime in light of patient's Klebsiella UTI and poor baseline clinical status at presentation as well as her comorbidities that increase her risk factors for poor healing including MDS, DM II, IBS, and PMR. Blood cultures show no growth. Will trend labs. Assessment 2: UTI, Klebsiella, new. Resistant to ampicillin only. Plan: Please see 1. Assessment 3: Myelodysplastic syndrome with anemia, normocytic/normochromic, chronic. Baseline H/H 7.8/22, essentially no change in H/H in 24 hours. Plan: Currently undergoing chemotherapy, hematology/oncology consulting. Continue home medications for side effects including Zofran, Compazine, hydrocodone, and lorazepam as needed. Assessment 4: Diabetes mellitus type 2, chronic, A1c 6.5 on 12/27/2018. Plan: Diabetic diet, continue metformin 500 mg p.o. b.i.d.. Will stop glucose checks today, sugars stable. Assessment 5: Hypertension, chronic, controlled, stable. Plan: Continue home losartan 50 mg p.o. q.day and metoprolol 12.5 mg p.o. q.h.s. Assessment 6: Hyperlipidemia, chronic, controlled with gemfibrizol. Plan: Will not focus on this in the hospital. Assessment 7: Renal insufficiency, chronic, baseline GFR 45. Plan: GFR on admission > 60, continued today. Will continue fluid hydration and watch closely. Will be sensitive to nephrotoxicity of antibiotics. Assessment 8: Peripheral edema, chronic, stable. Plan: Will watch closely and treat with diuretics if needed. Currently no involvement. Assessment 9: History of CVA Plan: On lifelong Plavix, continue home dose of 75 mg p.o. q.day. Assessment 10: Lumbago with lumbar radiculopathy, degenerative disc disease, and osteoarthritis, [id number]. Plan: Continue home hydrocodone/acetaminophen 10/325 p.o. q.6 hours as needed for pain and gabapentin 400 mg p.o. q.day. Assessment 11: Polymyalgia rheumatica, chronic, stable. Plan: Continue home prednisone 5 mg p.o. q.a.m.. Assessment 12: Insomnia, chronic, stable. Plan: Continue home trazodone 100 mg p.o. nightly, communicated with nurse to ensure that patient gets dose tonight. Assessment 13: Osteopenia with vitamin-D deficiency, chronic, stable. Plan: Continue home calcium and Vitamin D supplement. Assessment 14: Irritable bowel syndrome, chronic, stable. Plan: Will treat symptomatically if needed. Assessment 15: Depression, chronic, stable. Plan: Continue home sertraline 150 mg p.o. q.h.s.. DVT prophylaxis: Plavix and SCDs. GI prophylaxis: Will add protonix 40 mg PO daily, and ranitidine 150 mg PO bid, prn. Continue probiotics. Code: Full Disposition: Anticipate another 24 hours of inpatient IV antibiotics for treatment of Klebsiella UTI in setting of borderline neutropenic fever in this myelodysplastic syndrome patient undergoing chemotherapy with risk factors for poor healing including diabetes mellitus type 2, IBS, and polymyalgia rheumatica. Plan to discharge and transition to oral antibiotics if afebrile after 48 hours (tomorrow) with completion of full course as an outpatient. Quality VTE Deep Vein Thrombosis/Pulmonary Embolism Present on Admission: No
[2019-01-16] MEDS: levoFLOXacin 750 MG/150 ML PIGGYBACK 100 MG IV (12:28)
[2019-01-16] MEDS: PANTOPRAZOLE 40 MG TABLET PO (13:46)
[2019-01-16] MEDS: ACETAMINOPHEN 325 MG TABLET 650 MG PO (15:01)
[2019-01-16] MEDS: METOPROLOL ER 50 MG TABLET 12.5 MG PO (17:03)
--- NOTE | 2019-01-16 17:48 | PC.NURSE ---
Addendum entered by Sobeida Lala R.N. 01/16/19 20:25: Mag slightly low at 1.5, EKG complete, results sinus tach w/PVC's, heart rate [address] Dr Peñaloza of test results, new order given to infuse Mag drip 2 grams & to recheck Mag level in the morning. Orders entered. Voiding qhour tonight, denies feeling puffy, legs with no edema. IVF continue at 125 ml/hour. Port draws back bright red blood, lab drawn easily, port flushing with no difficulties, cap changed per protocol. Patient reports fatigue & weakness tonight, denies chest pain, does report SOB after ambulating to BR and back to bed, which she said is normal for her. Medicated with 2100 meds early per her request, Trazadone given as scheduled. Encouraged expression, patient talkative about her situation, expressed discouragement about side effects of chemotherapy. Words of encouragement/support offered. Original Note: Evening notes: ICU reporting patient's Tele is sinus with multifocal PVC's, HR 95 bpm. 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 I notified Dr Peñaloza, she ordered a 12-lead EKG & magnesium lab draw. RT in room to do EKG at this time, I will draw mag from her port-a-cath when EKG complete. Patient reports my heart always does that-it likes to dance. Reporting chronic back pain, denies further headache pain tonight.
[2019-01-16 18:55] LABS: Magnesium 1.5 mg/dL (1.6-2.3)
[2019-01-16] MEDS: MAGNESIUM SULFATE 2 GM/50 ML PIGGYBACK IV (19:51)
[2019-01-16] MEDS: SERTRALINE 50 MG TABLET 150 MG PO (19:53)
[2019-01-16] MEDS: METFORMIN HCL 500 MG TABLET PO (19:54)
[2019-01-16] MEDS: TRAZODONE 100 MG TABLET PO (19:54)
[2019-01-17 00:35] VITALS: BP 174/77; PULSE 118; RESP 21; TEMP 37.4; O2SAT 96
[2019-01-17] MEDS: SODIUM CHLORIDE 0.9% 1,000 ML 125 ML IV (00:43)
--- NOTE | 2019-01-17 01:16 | PC.NURSE ---
Patient is alert and oriented. Breath sounds CTA with RA sat of 96%. Did become SOB when up to bathroom but patient states that is baseline. HRR but tachy and elevated BP after being up. Telemetry reading was SR w/1st degree AVB and frequent PVC's. Denies nausea. BT present and abdomen is soft. Denies dysuria but does state she has baseline frequency; currently being treated for UTI. Able to turn self in bed. Assisted (standby) when out of bed. Has scattered bruising on bilateral UE. Stage 1 area to coccyx and left buttock. Refusing SCD's despite education re: DVT prevention. Reports recent fall so fall risk score is high and bed alarm is activated. Currently with low grade temp of 99.4
[2019-01-17] MEDS: CEFEPIME 2 GM in SODIUM CHLORIDE 0.9% 100 ML 200 ML IV ×2 (03:13→10:43)
[2019-01-17 04:55] LABS: Basophils Absolute Auto 0 /uL (0-100); Basophils Percent Auto 1.3 % (0-2); Eosinophils Absolute Auto 0 /uL (0-450); Lymphocytes Absolute Auto 100 /uL (1100-4500); Lymphocytes Percent Auto 5.7 % (25-40); Monocytes Absolute Auto 200 /uL (0-900); Neutrophils Absolute Auto 1800 /uL (1500-7000); Platelet Count 263 X10^3/uL (150-400); White Blood Cell Count 2.1 X10^3/uL (4.5-11.0)
[2019-01-17 05:02] VITALS: BP 124/56; PULSE 98; RESP 19; TEMP 37.3; O2SAT 94
[2019-01-17 05:03] LABS: Blood Urea Nitrogen 9 mg/dL (7-17); Calcium 8.4 mg/dL (8.4-10.2); Carbon Dioxide 23 mmol/L (22-32); Chloride 108 mmol/L (98-107); Estimated Glomerular Filt Rate > 60.0 mL/min (>60); Glucose 100 mg/dL (80-110); HEMOLYSIS < 15 (0-50); Potassium 3.8 mmol/L (3.4-5.1); Sodium 137 mmol/L (137-145)
[2019-01-17 05:13] LABS: Magnesium 2.1 mg/dL (1.6-2.3)
[2019-01-17 05:20] LABS: Hemoglobin 6.9 g/dL (12.0-16.0)
[2019-01-17 05:22] LABS: Add Manual Diff / Slide Review SLIDE REVIEW; Hematocrit 20.4 % (36-46)
[2019-01-17] MEDS: HYDROCODONE/ACET 10/325 TABLET 1 TAB PO ×2 (06:03→11:55)
[2019-01-17 06:45] LABS: Anisocytosis 3+; Ovalocytes 1+; Schistocytes 1+
[2019-01-17 06:46] LABS: Platelet Estimate Adequate on smear
[2019-01-17 07:46] VITALS: BP 131/48; PULSE 91; RESP 16; TEMP 37.2; O2SAT 97
--- NOTE | 2019-01-17 08:46 | P.DS_ITS ---
History of Present Illness History of Present Illness Chief complaint: MDS states uti Discharge Providers Provider Date of admission: 01/15/19 10:46 Discharge Date: 01/17/19 Primary care physician: Elena Jeffries MD Consults: 01/15/19 10:44 Consult to Discharge Planning Routine Comment: Discharge provider: Elena Jeffries MD Summary Hospital Course Discharge Diagnosis: Neutropenic fever UTI Myelodysplastic syndrome Anemia Type 2 diabetes Ear double bowel syndrome Hospital Course: Patient was admitted to the hospital with UTI and neutropenic fever that failed outpatient oral antibiotics. Patient was admitted and placed on IV Levaquin and cefepime and has been afebrile for the last 48 hours. She continues to be significantly anemic but this has been her baseline. She is scheduled tomorrow at the [facility] for chemotherapy which they are going to hold and for blood. She has an appointment with Dr. yenny amravilla tomorrow. She has multiple chronic medical problems and did not have any exacerbations of these issues. She has tolerated the IV antibiotics and is improved and afebrile and will be discharged home today in stable condition on her outpatient medications to include Levaquin 500 mg daily for 5 more days. She will follow up with me in the clinic at the end of the week or the beginning of next week. 35 minutes was spent with the patient in counseling and coordination of care regarding discharge Status at Discharge Cognitive/behavioral status at discharge: oriented Functional status at discharge: independent ambulation Overall status at discharge: patient is progressing back to baseline Time Spent with Patient Time spent: Greater than 30 minutes Exam Vital Signs (past 8 hours): - 01/17/19 05:02 Temperature 99.1 F Pulse Rate 98 H Respiratory Rate 19 Blood Pressure 124/56 L Pulse Oximetry 94 Oxygen Delivery Method Room Air Oxygen Flow Rate 0 Narrative Exam Narrative: Patient appears pale and tired but no apparent distress. Alert and oriented x3 Vital signs stable HEENT unremarkable Neck: Supple without adenopathy Chest: Clear to auscultation without wheezes rhonchi or crackles Cor: Regular rate and rhythm without murmur Abdomen: Positive bowel sounds, soft, nontender, nondistended Extremities: No edema, pulses intact Objective Labs Result Diagrams: 01/17/19 04:32 01/17/19 04:32 Labs: Laboratory Results - last 24 hr 01/16/19 01/17/19 01/17/19 18:30 04:32 04:32 WBC 2.1 L RBC 2.10 L Hgb 6.9 L* Hct 20.4 L* MCV 97.0 MCH 33.0 MCHC 34.0 RDW 27.0 H Plt Count 263 Neut % (Auto) 83.0 H Lymph % (Auto) 5.7 L Atkinson % (Auto) 9.0 Eos % (Auto) 1.0 L Baso % (Auto) 1.3 Neut # (Auto) 1800 Lymph # (Auto) 100 L Atkinson # (Auto) 200 Eos # (Auto) 0 Baso # (Auto) 0 Platelet Estimate Adequate on smear RBC Morphology See below Anisocytosis 3+ H Ovalocytes 1+ H Schistocytes 1+ H Sodium 137 Potassium 3.8 Chloride 108 H Carbon Dioxide 23 BUN 9 Creatinine 0.90 Estimated GFR > 60.0 BUN/Creatinine Ratio 10.0 Glucose 100 Calcium 8.4 Magnesium 1.5 L 01/17/19 04:32 WBC RBC Hgb Hct MCV MCH MCHC RDW Plt Count Neut % (Auto) Lymph % (Auto) Atkinson % (Auto) Eos % (Auto) Baso % (Auto) Neut # (Auto) Lymph # (Auto) Atkinson # (Auto) Eos # (Auto) Baso # (Auto) Platelet Estimate RBC Morphology Anisocytosis Ovalocytes Schistocytes Sodium Potassium Chloride Carbon Dioxide BUN Creatinine Estimated GFR BUN/Creatinine Ratio Glucose Calcium Magnesium 2.1 Discharge Plan Discharge Plan Patient Disposition: Home Discharge orders & Medications Prescriptions: Continued gemfibrozil 600 MG tablet 300 mg PO BEDTIME Qty: 0 RF: 0 prednisone 5 MG tablet 5 mg PO 0800 Qty: 0 RF: 0 Centrum Silver 0.4-300-250 mg-mcg-mcg Tablet 1 tab PO QDAY Qty: 0 RF: 0 CALCIUM CARBONATE (#CALCIUM) 1,200 mg PO Q DAY Qty: 0 RF: 0 vitamin E 400 unit Capsule 400 unit PO DAILY Qty: 0 RF: 0 cholecalciferol (vitamin D3) [Vitamin D3] 2,000 UNIT capsule 2,000 iu PO QDAY Qty: 0 RF: 0 gabapentin [Neurontin] 400 MG capsule 400 mg PO DAILY Qty: 0 RF: 0 sertraline [Zoloft] 100 MG tablet 150 mg PO HS Qty: 0 RF: 0 ketotifen fumarate [Zaditor] 0.025 % (0.035 %) Drops 1 drp OPHTH DAILY Qty: 5 RF: 0 krill oil 1,000 mg PO DAILY Qty: 0 RF: 0 clopidogrel [Plavix] 75 mg Tablet 1 mg/kg PO DAILY RF: 0 ondansetron 4 mg Film 4 mg PO Q4HR PRN (Reason: Nausea) RF: 0 losartan 50 mg tablet 50 mg PO DAILY RF: 0 metformin 500 mg tablet 500 mg PO BID RF: 0 metoprolol succinate 50 mg tablet extended release 24 hr 12.5 tab PO QPM RF: 0 hydrocodone-acetaminophen [Marland] 10-325 mg tablet 1 tab PO Q6H PRN (Reason: pain) RF: 0 trazodone 100 mg tablet 1 - 2 tab PO BEDTIME PRN (Reason: antidepressant) RF: 0 fluticasone propionate 50 mcg/actuation spray,suspension 1 spray Intranasal DAILY RF: 0 levocetirizine 5 mg tablet 1 tab PO QPM RF: 0 ascorbic acid (vitamin C) 1,000 mg Tablet 1 tab PO DAILY RF: 0 folic acid 400 mcg Tablet 0.4 mg PO DAILY RF: 0 diclofenac sodium 1 % gel 1 applic Topical PRN PRN (Reason: arthritis pain) RF: 0 PreserVision AREDS-2 [id number] [id number]-kowl-[id number]-mg Capsule 2 cap PO DAILY RF: 0 prochlorperazine maleate [Compazine] 10 mg Tablet 10 mg PO Q8H PRN (Reason: Nausea) Qty: 20 RF: 3 lorazepam [Ativan] 0.5 mg Tablet 0.5 mg PO QD-BID PRN (Reason: Nausea) Qty: 20 RF: 0 lorazepam 1 mg Tablet 1 mg PO TID PRN (Reason: Nausea) Qty: 60 RF: 0 levofloxacin [Levaquin] 500 mg tablet 500 mg PO DAILY 4 Days Qty: 4 RF: 0 Discontinued sulfamethoxazole-trimethoprim [Bactrim DS] 800-160 mg Tablet RF: 0 Follow up/Referrals: Elena Jeffries MD [Primary Care Provider] - Discharge Health Status Multidrug resistant organism: No MDRO Diet/Activity/Treatments Diet: Carb-consistent/Diabetic Discharge Data Primary Care Provider: Elena Jeffries Quality VTE Deep Vein Thrombosis/Pulmonary Embolism Present on Admission: No
[2019-01-17] MEDS: LOSARTAN 50 MG TABLET PO (09:30)
[2019-01-17] MEDS: LACTOBACILLUS ACIDOPHILUS TABLET 1 EACH PO (09:30)
[2019-01-17] MEDS: predniSONE 5 MG TABLET PO (09:30)
[2019-01-17] MEDS: METFORMIN HCL 500 MG TABLET PO (09:31)
[2019-01-17] MEDS: CLOPIDOGREL 75 MG TABLET PO (09:31)
[2019-01-17] MEDS: CHOLECALCIFEROL (VITAMIN D3) 1,000 UNIT TABLET 2000 UNIT PO (09:31)
[2019-01-17] MEDS: ACETAMINOPHEN 325 MG TABLET 650 MG PO (10:44)
[2019-01-17] MEDS: levoFLOXacin 750 MG/150 ML PIGGYBACK 100 MG IV (11:49)
[2019-01-17 11:52] VITALS: BP 119/57; PULSE 92; RESP 16; TEMP 36.8; O2SAT 99
[2019-01-17] MEDS: ONDANSETRON 4 MG/2 ML INJ IV (11:55)
--- NOTE | 2019-01-17 14:24 | PC.NURSE ---
1345 {Patient tolerated her IV antibiotics as ordered prior to dc home. Patient discharged to home with her . Port site left accessed per patient request as she [facility] to have her labs drawn and they will deaccess it tomorrow afterwards. Site was flushed per protocol by director school of nursing and left with dressing intact. Discharge instructions and home care handouts reviewed with patient and her , they state understanding and have no further questions or concerns. Escorted out via wheelchair with all belongings by GIS GEOGRAPHER.
== END 2019-01-17 13:45 | disposition home or self-care (01) | DRG 809 ==
LOC: ED 22:58 → AC 01-15 10:56
PROVIDERS: Admitting Provider Student in an Organized Health Care Education/Training Program; Emergency Provider Emergency Medicine; Family Provider Family Medicine; PCP Family Medicine; Visit Provider Student in an Organized Health Care Education/Training Program
DX: D70.3 Neutropenia due to infection (principal); N39.0 Urinary tract infection, site not specified; Z16.11 Resistance to penicillins; E11.22 Type 2 diabetes mellitus with diabetic chronic kidney disease; B96.1 Klebsiella pneumoniae [K. pneumoniae] as the cause of diseases classified elsewhere; D46.9 Myelodysplastic syndrome, unspecified; I12.9 Hypertensive chronic kidney disease with stage 1 through stage 4 chronic kidney disease, or unspecified chronic kidney disease; N18.9 Chronic kidney disease, unspecified; D46.4 Refractory anemia, unspecified; E78.5 Hyperlipidemia, unspecified; G47.00 Insomnia, unspecified; M35.3 Polymyalgia rheumatica; F32.9 Major depressive disorder, single episode, unspecified; Z79.84 Long term (current) use of oral hypoglycemic drugs; Z86.73 Personal history of transient ischemic attack (TIA), and cerebral infarction without residual deficits; M54.5 Low back pain; M85.80 Other specified disorders of bone density and structure, unspecified site; E55.9 Vitamin D deficiency, unspecified; D46.Z Other myelodysplastic syndromes; R50.9 Fever, unspecified; Z92.21 Personal history of antineoplastic chemotherapy
CPT/HCPCS: 36415; 36591; 71045; 80048; 80053; 81003; 82962; 83605; 83690; 83735; 84145; 85025; 85610; 85730; 87040; 87077; 87086; 87186; 87633; 93005; 93010; 94762; 96361; 96365; 99284; G0378; J0692; J1642; J1956; J2405

== ENCOUNTER → 2019-06-16 11:36 | Outpatient (CLI) | payer MEDICARE, SELFPAY ==
[2019-01-15 00:34] VITALS: BMI 27.6
== END ==
PROVIDERS: Family Provider Family Medicine; PCP Family Medicine; Referring Provider Family Medicine; Visit Provider Internal Medicine Hematology & Oncology
DX: D46.Z Other myelodysplastic syndromes (principal)
CPT/HCPCS: 36591

== ENCOUNTER → 2019-07-11 11:33 | Outpatient (CLI) | payer MEDICARE, SELFPAY ==
[2019-01-15 00:34] VITALS: BMI 27.6
[2019-07-11 12:17] VITALS: BP 121/56; PULSE 73; RESP 15; O2SAT 96
[2019-07-11] MEDS: EPOETIN ALFA-EPBX 10,000 UNIT/ML VIAL 20000 UNIT SUBCUT (12:45)
[2019-07-11] MEDS: FILGRASTIM-AAFI 300 MCG/0.5 ML SYRINGE SUBCUT (12:45)
[2019-07-11 13:04] VITALS: TEMP 36.9
[2019-07-11 13:34] VITALS: BP 124/60; PULSE 71; RESP 18; TEMP 36.7
--- NOTE | 2019-07-11 13:35 | TAR.TRANSNT ---
SBP 172 after walking back from bathroom. waited 5 min to recheck BP
[2019-07-11 13:50] VITALS: BP 117/62; PULSE 70; RESP 16; TEMP 37.1
[2019-07-11 16:21] VITALS: BP 126/62; PULSE 73; RESP 16; TEMP 36.7
== END ==
PROVIDERS: Family Provider Family Medicine; PCP Family Medicine; Referring Provider Family Medicine; Visit Provider Internal Medicine Hematology & Oncology
DX: D46.Z Other myelodysplastic syndromes (principal)
CPT/HCPCS: 36430; 36591; 86850; 86900; 86901; 96372; P9016; Q5106; Q5110

== ENCOUNTER 2019-07-16 08:23 | Inpatient (IN) | payer MEDICARE, SELFPAY ==
[2019-01-15 00:34] VITALS: BMI 27.6
[2019-07-16] VITALS (14 sets, daily range): BP systolic 114–148; BP diastolic 55–73; PULSE 71–98; RESP 14–20; TEMP 36.7–38.6; O2SAT 93–98; BMI 25.8; BMI 26.6
--- NOTE | 2019-07-16 08:51 | DI.CT.S_ITS ---
PROCEDURE: CT CHEST WO CON INDICATIONS: dyspnea/fever TECHNIQUE: Noncontrast 5 mm thick sections acquired from the pulmonary apices to the posterior costophrenic angles. 1 mm lung window, 5 mm thick coronal and sagittal and 7 mm axial MIP reformats were then acquired. For radiation dose reduction, the following was used: automated exposure control, adjustment of mA and/or kV according to patient size. COMPARISON: [facility], CT, CT CHEST ABD PEL W CON, 12/17/2017, 11:33. FINDINGS: Image quality: Diagnostic. Lungs and pleura: The lungs are well aerated without focal consolidation, effusion, or pneumothorax. Mediastinum: Heart size is normal. No pericardial effusion. No mediastinal adenopathy by size criteria. Thoracic aorta and central pulmonary arteries are normal in size. There is aortic atherosclerosis. Esophagus is normal in caliber. There is a small hiatal hernia. There is a left-sided Port-A-Cath central line identified with the tip positioned within in the mid superior vena cava. Bones and chest wall: No suspicious bony lesions. No vertebral body compression fractures. No axillary or supraclavicular adenopathy by size criteria. Thyroid gland is not enlarged or adequately evaluated. Abdomen: Included portions of the upper abdomen demonstrate enlargement of the liver and spleen. A nodular appearance to the surface of the liver is suspicious for hepatic cirrhosis. There may be minimal upper abdominal ascites. There is a ventral hernia within the midline upper abdomen, which is not adequately characterized. IMPRESSION: 1. No acute cardiopulmonary process is appreciated. 2. Hepatosplenomegaly with findings suggesting hepatic cirrhosis and mild upper abdominal ascites. 3. Small hiatal hernia. Dictated by: Espinoza Gupta M.D. on 07/16/2019 at 9:11 Approved by: Espinoza Gupta M.D. on 07/16/2019 at 9:14
--- NOTE | 2019-07-16 08:58 | ED.FEVER ---
HPI - Fever General Chief Complaint: Fever Stated Complaint: Fever Time Seen by Provider: 07/16/19 08:33 Source: patient and family Mode of arrival: EMS History of Present Illness HPI Narrative: Patient has history of UTI. Feels like another UTI according the patient and . the patient Bactrim pill last night. No medication for fever. Patient usually gets Bactrim for UTI. Patient feels sleepy and tired. Fever noted. Has multiple allergies to antibiotics. Denies any cough cold congestion. Complaints of urinary frequency and dysuria. And urgency. Dyspnea is not new due to comorbidities according to patient and . Gets short of air with walking around at home is baseline MD complaint: fever, malaise and weakness Related Data Home Medications Medication Instructions Recorded Confirmed CALCIUM CARBONATE (#CALCIUM) 1,200 mg PO Q DAY #0 07/19/11 07/16/19 Centrum Silver 1 tab PO QDAY #0 07/19/11 07/16/19 prednisone 5 mg PO 0800 #0 07/19/11 07/16/19 vitamin E 400 unit PO DAILY #0 07/19/11 06/28/19 cholecalciferol (vitamin D3) 2,000 iu PO QDAY #0 05/14/12 07/16/19 [Vitamin D3] ketotifen fumarate [Zaditor] 1 drp OPHTH DAILY #5 ml 06/29/12 07/16/19 krill oil 1,000 mg PO DAILY #0 06/29/12 06/28/19 sertraline [Zoloft] 150 mg PO HS #0 06/29/12 07/16/19 PreserVision AREDS-2 2 cap PO DAILY 08/14/17 06/28/19 ascorbic acid (vitamin C) 1 tab PO DAILY 08/14/17 07/16/19 diclofenac sodium 1 applic TOPICAL PRN PRN 08/14/17 06/28/19 fluticasone propionate 1 spray INTRANASAL DAILY 08/14/17 07/16/19 folic acid 0.4 mg PO DAILY 08/14/17 07/16/19 hydrocodone-acetaminophen [[place]] 1 tab PO Q6H PRN 08/14/17 07/16/19 levocetirizine 1 tab PO QPM 08/14/17 06/28/19 losartan 25 mg PO DAILY 08/14/17 07/16/19 metformin 500 mg PO BID 08/14/17 07/16/19 metoprolol succinate 25 tab PO QPM 08/14/17 07/16/19 trazodone 1 - 2 tab PO BEDTIME PRN 08/14/17 07/16/19 ondansetron 4 mg PO Q4HR PRN 01/15/19 06/28/19 Previous Rx's Medication Instructions Recorded lorazepam [Ativan] 0.5 mg PO QD-BID PRN #20 tab 10/04/18 deferasirox 1,000 mg PO DAILY #30 ea 05/16/19 lorazepam 1 mg PO TID PRN #60 tab 05/31/19 prochlorperazine maleate 10 mg PO Q8H PRN #20 tab 06/28/19 [Compazine] Allergies Allergy/AdvReac Type Severity Reaction Status Date / Time Cephalosporins Allergy Severe GI UPSET Verified 07/16/19 11:09 morphine Allergy Severe ANAPHYLAXIS Verified 07/16/19 11:09 coconut [COCONUT] Allergy Intermediate HIVES Verified 07/16/19 11:09 adhesive Allergy Mild SKIN Verified 07/16/19 11:09 BREAKDOWN, RASH (TAPE) PAPER TAPE OK meperidine Allergy Mild red rash Verified 07/16/19 11:09 lactose [LACTOSE] Allergy Unknown INTOLERANT Verified 07/16/19 11:09 latex [LATEX] Allergy Unknown REACTION Verified 07/16/19 11:09 NOT LISTED BY PT metronidazole AdvReac Severe GI UPSET Verified 07/16/19 11:09 vancomycin [VANCOMYCIN] AdvReac Severe DIARRHEA Verified 07/16/19 11:09 aspirin AdvReac Mild GI UPSET Verified 07/16/19 11:09 ibuprofen AdvReac Mild GI UPSET Verified 07/16/19 11:09 CANTALOUPE Allergy Severe HIVES Uncoded 01/14/19 20:58 honeydew melon Allergy Severe hives Uncoded 01/14/19 20:58 ANTIHISTAMINES Allergy Mild red rash Uncoded 01/14/19 20:58 Review of Systems Review of Systems Narrative: GENERAL: Complains of fever malaise fatigue chills HEENT: Denies sinus pain, ear pain, sore throat, difficulty swallowing, dizziness. RESPIRATORY: Denies dyspnea, cough, wheezing, hemoptysis, sputum. CARDIOVASCULAR: Denies chest pain, palpitations, orthopnea, edema, GASTROINTESTINAL: Denies nausea, vomiting, abdominal pain, diarrhea, constipation, melena. : Complaints of urinary frequency dysuria and urgency MUSCULOSKELETAL: denies weakness, joint pain, or bony pain SKIN: Denies rash, skin lesions, or other NEUROLOGIC: Denies weakness, headache, numbness, change in speech, confusion, seizures, incoordination. PSYCHIATRIC: No concerning psychosocial issues. 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) Diabetes (Acute) Diverticulitis (Inactive) HTN (hypertension) (Acute) Myelodysplasia (myelodysplastic syndrome) (Inactive) Osteoarthritis of lumbar spine (Inactive) Stress incontinence in female (12/15/13) Surgical History History of hip replacement (04/20/89) History of hip replacement (09/24/99) History of knee replacement (01/07/07) History of knee replacement (09/05/08) Status post arthroscopy (10/06/06) Status post arthroscopy (08/18/07) Status post biopsy Status post cholecystectomy Status post colonoscopy Status post hernia repair Status post hysterectomy (12/02/82) Status post knee surgery Status post knee surgery (07/27/09) Social History household members: spouse Smoking Status: Never smoker Smoking Status: Never smoker alcohol intake frequency: 0-2 drinks per day Substance Use Type: marijuana Exam Narrative Exam Narrative: GENERAL: patient appears stated age. Well-nourished, well-developed patient, in no distress, not toxic HEAD: Atraumatic. Normocephalic. EYES: Pupils equal round and reactive. Extraocular motions intact. No scleral icterus. No injection or drainage. ENT: Nose without bleeding, purulent drainage. Throat without erythema, tonsillar hypertrophy or exudate. Airway patent. NECK: Trachea midline. Non tender CARDIOVASCULAR: Regular rate and rhythm without murmurs, gallops, or rubs. RESPIRATORY: Clear to auscultation. Breath sounds equal bilaterally. No wheezes, rales, or rhonchi. GASTROINTESTINAL: Abdomen soft, non-tender, nondistended. EXTREMITIES: No edema or joint tenderness. BACK: Nontender without deformity or crepitance. No flank tenderness. NEURO: AOx3. SKIN: No rash or erythema of visible areas Initial Vital Signs Initial Vital Signs: Vital Signs Temperature 101.4 F H 07/16/19 08:29 Pulse Rate 92 H 07/16/19 08:29 Respiratory Rate 20 07/16/19 08:29 Blood Pressure 147/63 H 07/16/19 08:29 Pulse Oximetry 97 07/16/19 08:29 Course Course Decision to Admit Date: 07/16/19 Decision to Admit time: 11:46 Orders Ordered: Acetaminophen (Tylenol) 650 mg PO Q6HR PRN PRN Reason: Fever/Mild Pain (1-3) Last Admin: 07/16/19 23:30 Dose: 650 mg Documented by: NATHAN Hydrocodone Bitart/Acetaminophen ([place] 10/325) 1 tab PO Q6H PRN PRN Reason: pain Last Admin: 07/16/19 18:02 Dose: 1 tab Documented by: MARCOS Calcium Carbonate (Tums) 1,000 mg PO Q4HR PRN PRN Reason: Dyspepsia Clopidogrel Bisulfate (Plavix) 75 mg PO DAILY [facility] Diclofenac Sodium (Voltaren 1% Gel) 1 applic TOP PRN PRN PRN Reason: arthritis pain Docusate Sodium (Colace) 100 mg PO BID PRN PRN Reason: constipation Fluticasone Propionate (Flonase) 1 spray NASAL DAILY [facility] Folic Acid (Folic Acid) 0.4 mg PO DAILY [facility] Heparin Sodium (Porcine) (Heparin Flush (Port)) 500 unit IV BID [facility] Last Admin: 07/16/19 20:26 Dose: Not Given Documented by: MARCOS Heparin Sodium (Porcine) (Heparin Flush (Port)) 500 unit IV PRN PRN PRN Reason: Flush Dextrose/Sodium Chloride (Dextrose 5%-0.45% Ns) 1,000 mls @ 100 mls/hr IV CONT [facility] Last Admin: 07/16/19 15:18 Dose: 100 mls/hr Documented by: SRINIVAS Cefepime HCl 2 gm/ Sodium (Chloride) 100 mls @ 200 mls/hr IV Q12H [facility] Last Admin: 07/17/19 03:35 Dose: 200 mls/hr Documented by: NATHAN Loratadine (Claritin) 10 mg PO BEDTIME [facility] Last Admin: 07/16/19 20:47 Dose: 10 mg Documented by: MARCOS Lorazepam (Ativan) 1 mg PO TID PRN PRN Reason: Nausea Lorazepam (Ativan) 0.5 mg PO BID PRN PRN Reason: nausea Losartan Potassium (Cozaar) 25 mg PO DAILY [facility] Lutein (Ocuvite/Lutein) 1 cap PO DAILY [facility] Magnesium Hydroxide (Milk Of Magnesia) 30 ml PO DAILY PRN PRN Reason: Constipation Metformin HCl (Glucophage) 500 mg PO BID [facility] Last Admin: 07/16/19 20:46 Dose: 500 mg Documented by: MARCOS Metoprolol Succinate (Toprol Xl) 25 mg PO QPM [facility] Last Admin: 07/16/19 17:16 Dose: 25 mg Documented by: MARCOS Naloxone HCl (Narcan) 0.2 mg IV Q2MIN PRN PRN Reason: Opiate Reversal Deferasirox 1,000 Mg 1,000 mg PO DAILY [facility] Ketotifen Fumarate ( (Zaditor)) 1 drop EYE-BOTH DAILY [facility] Ondansetron HCl (Zofran) 4 mg IV Q8HR PRN PRN Reason: Nausea And Vomiting Last Admin: 07/17/19 00:57 Dose: 4 mg Documented by: Admin: 07/16/19 17:19 Dose: 4 mg Documented by: MARCOS Ondansetron HCl (Zofran Odt) 4 mg PO Q4HR PRN PRN Reason: Nausea Last Admin: 07/17/19 06:36 Dose: 4 mg Documented by: NATHAN Prednisone (Deltasone) 5 mg PO DAILY [facility] Prochlorperazine (Compazine) 10 mg PO Q8H PRN PRN Reason: Nausea Sertraline HCl (Zoloft) 150 mg PO BEDTIME [facility] Last Admin: 07/16/19 20:46 Dose: 150 mg Documented by: MARCOS Sodium Chloride (Normal Saline 0.9% Flush) 10 ml IV PRN PRN PRN Reason: Flush Sodium Chloride (Normal Saline 0.9% Flush) 10 ml IV BID [facility] Trazodone HCl (Desyrel) 100 mg PO BEDTIME PRN PRN Reason: antidepressant Discontinued Medications Acetaminophen (Tylenol) 650 mg PO NOW ONE Stop: 07/16/19 10:41 Last Admin: 07/16/19 11:03 Dose: 650 mg Documented by: SARAH Sodium Chloride (Normal Saline 0.9%) 1,000 mls @ 1,000 mls/hr IV BOLUS ONE Stop: 07/16/19 12:43 Last Infusion: 07/16/19 12:50 Dose: 0 mls/hr Documented by: Infusion: 07/16/19 12:18 Dose: 250 mls/hr Documented by: Admin: 07/16/19 12:12 Dose: 1,000 mls/hr Documented by: HYACINTH Levofloxacin (Levaquin) 500 mg in 100 mls @ 100 mls/hr IV NOW ONE Stop: 07/16/19 12:43 Last Infusion: 07/16/19 12:50 Dose: 0 mls/hr Documented by: Admin: 07/16/19 12:12 Dose: 100 mls/hr Documented by: HYACINTH Cefepime HCl 2 gm/ Sodium (Chloride) 100 mls @ 200 mls/hr IV Q12H [facility] Last Admin: 07/16/19 15:19 Dose: 200 mls/hr Documented by: KENNALANTO Consultations Consultation #1: Spoke with Dr. Peñaloza, will admit. Time: 11:46 Vital Signs Vital signs: Vital Signs - 8 hr 07/16/19 08:29 07/16/19 10:27 07/16/19 10:45 Temperature 101.4 F H Pulse Rate 92 H 86 87 Respiratory Rate 20 18 Blood Pressure 147/63 H Blood Pressure [Left Arm] 134/61 Pulse Oximetry 97 94 93 07/16/19 11:03 07/16/19 11:15 Temperature 100.1 F H 100.1 F H Pulse Rate 82 Respiratory Rate 14 Blood Pressure Blood Pressure [Left Arm] 126/59 L Pulse Oximetry 97 MDM - Fever Differential Diagnosis Differential diagnosis: Likely community acquired pneumonia, sepsis and other (UTI/pneumonia/upper respiratory infection) Lab Data Result diagrams: 07/17/19 06:28 07/17/19 06:28 Labs: Lab Results 07/16/19 07/16/19 07/16/19 Range/Units 09:00 09:21 09:21 WBC 3.0 L (4.5-11.0) X10^3/uL RBC 2.48 L (4.0-5.2) X10^6/uL Hgb 8.4 L (12.0-16.0) g/dL Hct 24.5 L (36-46) % MCV 98.7 (80-100) fL MCH 33.9 (26-34) PG MCHC 34.3 (30-36) % RDW 29.0 H (11.6-14.8) % Plt Count 95 L (150-400) X10^3/uL Neut % (Auto) 88.9 H (50-75) % Lymph % (Auto) 2.4 L (25-40) % Frontier % (Auto) 8.3 (3-14) % Eos % (Auto) 0.1 L (2-4) % Baso % (Auto) 0.3 (0-2) % Neut # (Auto) 2700 (4844-5099) /uL Lymph # (Auto) 100 L (2986-8249) /uL Frontier # (Auto) 300 (0-900) /uL Eos # (Auto) 0 (0-450) /uL Baso # (Auto) 0 (0-100) /uL RBC Morphology See below Poikilocytosis 2+ H Anisocytosis 3+ H Sodium (137-145) mmol/L Potassium (3.4-5.1) mmol/L Chloride (98-107) mmol/L Carbon Dioxide (22-32) mmol/L BUN (7-17) mg/dL Creatinine (0.52-1.04) mg/dL Estimated GFR (>60) mL/min BUN/Creatinine Ratio (6-22) Glucose (80-110) mg/dL Lactate (0.7-2.1) mmol/L Calcium (8.4-10.2) mg/dL Total Bilirubin (0.2-1.3) mg/dL AST (14-36) IU/L ALT (<35) IU/L Alkaline Phosphatase (38-126) U/L Total Protein (6.3-8.2) g/dL Albumin (3.5-5.0) g/dL Globulin (1.7-4.1) g/dL Albumin/Globulin Ratio (1.0-2.8) Procalcitonin 0.07 (<0.5) ng/mL Urine Color Urine Appearance Urine pH (4.5-8.0) Ur Specific [place] (1.000-1.035) Urine Protein (Negative) Urine Glucose (UA) (Negative) g/dL Urine Ketones (NEGATIVE) Urine Occult Blood (Negative) Urine Nitrate (Negative) Urine Bilirubin (NEGATIVE) Urine Urobilinogen (0.2) E.U./dL Ur Leukocyte Esterase (NEGATIVE) Urine RBC (0-5/HPF) Urine WBC (0-5/HPF) Ur Squamous Epith Cells (0-5/HPF) Urine Bacteria (None) Ur Culture Indicated? COVID-19 PCR Negative (Negative) 07/16/19 07/16/19 07/16/19 Range/Units 09:21 09:21 09:45 WBC (4.5-11.0) X10^3/uL RBC (4.0-5.2) X10^6/uL Hgb (12.0-16.0) g/dL Hct (36-46) % MCV (80-100) fL MCH (26-34) PG MCHC (30-36) % RDW (11.6-14.8) % Plt Count (150-400) X10^3/uL Neut % (Auto) (50-75) % Lymph % (Auto) (25-40) % Frontier % (Auto) (3-14) % Eos % (Auto) (2-4) % Baso % (Auto) (0-2) % Neut # (Auto) (0243-5550) /uL Lymph # (Auto) (6731-9978) /uL Frontier # (Auto) (0-900) /uL Eos # (Auto) (0-450) /uL Baso # (Auto) (0-100) /uL RBC Morphology Poikilocytosis Anisocytosis Sodium 136 L (137-145) mmol/L Potassium 4.1 (3.4-5.1) mmol/L Chloride 107 (98-107) mmol/L Carbon Dioxide 25 (22-32) mmol/L BUN 21 H (7-17) mg/dL Creatinine 0.89 (0.52-1.04) mg/dL Estimated GFR > 60.0 (>60) mL/min BUN/Creatinine Ratio 23.6 H (6-22) Glucose 126 H (80-110) mg/dL Lactate 0.9 (0.7-2.1) mmol/L Calcium 8.4 (8.4-10.2) mg/dL Total Bilirubin 0.9 (0.2-1.3) mg/dL AST 22 (14-36) IU/L ALT 18 (<35) IU/L Alkaline Phosphatase 100 (38-126) U/L Total Protein 5.3 L (6.3-8.2) g/dL Albumin 3.2 L (3.5-5.0) g/dL Globulin 2.1 (1.7-4.1) g/dL Albumin/Globulin Ratio 1.5 (1.0-2.8) Procalcitonin (<0.5) ng/mL Urine Color Yellow Urine Appearance Sl cloudy Urine pH 8.5 H (4.5-8.0) Ur Specific [place] 1.015 (1.000-1.035) Urine Protein Negative (Negative) Urine Glucose (UA) Negative (Negative) g/dL Urine Ketones Negative (NEGATIVE) Urine Occult Blood Trace-lysed (Negative) Urine Nitrate Positive H (Negative) Urine Bilirubin Negative (NEGATIVE) Urine Urobilinogen 1.0 (0.2) E.U./dL Ur Leukocyte Esterase Negative (NEGATIVE) Urine RBC None seen (0-5/HPF) Urine WBC 1-5/hpf (0-5/HPF) Ur Squamous Epith Cells 0-1 /hpf (0-5/HPF) Urine Bacteria Moderate (10-30) H (None) Ur Culture Indicated? Specimen cultured COVID-19 PCR (Negative) Imaging Data CT scan - chest: Radiologist's Impression: [place] [address] CT Scan Report Signed Patient: Marli Flores BMR#: [id number] : 3Acct:[id number] Age/Sex: 78 / FDate of Service: 07/16/19 Loc: ED Accession Number: [id number] Procedure: CT chest wo con Ordering Provider: Nitin Torres MD PROCEDURE: CT CHEST WO CON INDICATIONS: dyspnea/fever TECHNIQUE: Noncontrast 5 mm thick sections acquired from the pulmonary apices to the posterior costophrenic angles. 1 mm lung window, 5 mm thick coronal and sagittal and 7 mm axial MIP reformats were then acquired. For radiation dose reduction, the following was used: automated exposure control, adjustment of mA and/or kV according to patient size. COMPARISON: [facility], CT, CT CHEST ABD PEL W CON, 12/17/2017, 11:33. FINDINGS: Image quality: Diagnostic. Lungs and pleura: The lungs are well aerated without focal consolidation, effusion, or pneumothorax. Mediastinum: Heart size is normal. No pericardial effusion. No mediastinal adenopathy by size criteria. Thoracic aorta and central pulmonary arteries are normal in size. There is aortic atherosclerosis. Esophagus is normal in caliber. There is a small hiatal hernia. There is a left-sided Port-A-Cath central line identified with the tip positioned within in the mid superior vena cava. Bones and chest wall: No suspicious bony lesions. No vertebral body compression fractures. No axillary or supraclavicular adenopathy by size criteria. Thyroid gland is not enlarged or adequately evaluated. Abdomen: Included portions of the upper abdomen demonstrate enlargement of the liver and spleen. A nodular appearance to the surface of the liver is suspicious for hepatic cirrhosis. There may be minimal upper abdominal ascites. There is a ventral hernia within the midline upper abdomen, which is not adequately characterized. IMPRESSION: 1. No acute cardiopulmonary process is appreciated. 2. Hepatosplenomegaly with findings suggesting hepatic cirrhosis and mild upper abdominal ascites. 3. Small hiatal hernia. Dictated by: Espinoza Gupta M.D. on 07/16/2019 at 9:11 Approved by: Espinoza Gupta M.D. on 07/16/2019 at 9:14 Discharge Plan Departure Patient Disposition: Admitted As Inpatient Clinical Impression: UTI (urinary tract infection) Qualifiers: Urinary tract infection type: acute cystitis Hematuria presence: without hematuria Qualified Code(s): N30.00 - Acute cystitis without hematuria Discharge Date/Time: 07/16/19 12:47 Referrals: Elena Jeffries MD [Primary Care Provider] - Admit Date/Time: 07/16/19 11:45 Admit Provider: Jackie Peñaloza
[2019-07-16 09:49] LABS: Add Manual Diff / Slide Review NO; Basophils Absolute Auto 0 /uL (0-100); Basophils Percent Auto 0.3 % (0-2); Eosinophils Absolute Auto 0 /uL (0-450); Eosinophils Percent Auto 0.1 % (2-4); Hematocrit 24.5 % (36-46); Hemoglobin 8.4 g/dL (12.0-16.0); Lymphocytes Absolute Auto 100 /uL (1100-4500); Lymphocytes Percent Auto 2.4 % (25-40); Mean Corpuscular HGB Conc 34.3 % (30-36); Mean Corpuscular Hemoglobin 33.9 PG (26-34); Mean Corpuscular Volume 98.7 fL (80-100); Monocytes Absolute Auto 300 /uL (0-900); Monocytes Percent Auto 8.3 % (3-14); Neutrophils Absolute Auto 2700 /uL (1500-7000); Neutrophils Percent Auto 88.9 % (50-75); Platelet Count 95 X10^3/uL (150-400); Red Blood Cell Count 2.48 X10^6/uL (4.0-5.2)
[2019-07-16 09:55] LABS: Lactate (Lactic Acid) 0.9 mmol/L (0.7-2.1)
[2019-07-16 09:56] LABS: Alanine Aminotransferase 18 IU/L (<35); Albumin 3.2 g/dL (3.5-5.0); Albumin Globulin Ratio 1.5 (1.0-2.8); Alkaline Phosphatase 100 U/L (38-126); Aspartate Aminotransferase 22 IU/L (14-36); BUN Creatinine Ratio 23.6 (6-22); Bilirubin Total 0.9 mg/dL (0.2-1.3); Blood Urea Nitrogen 21 mg/dL (7-17); Calcium 8.4 mg/dL (8.4-10.2); Carbon Dioxide 25 mmol/L (22-32); Chloride 107 mmol/L (98-107); Estimated Glomerular Filt Rate > 60.0 mL/min (>60); Globulin 2.1 g/dL (1.7-4.1); Glucose 126 mg/dL (80-110); HEMOLYSIS < 15 (0-50); Potassium 4.1 mmol/L (3.4-5.1); Sodium 136 mmol/L (137-145); Total Protein 5.3 g/dL (6.3-8.2)
[2019-07-16 10:17] LABS: Procalcitonin 0.07 ng/mL (<0.5)
[2019-07-16 10:19] LABS: COVID19 -Nasal RAPID Negative (Negative)
[2019-07-16 10:24] LABS: Anisocytosis 3+; Poikilocytosis 2+
[2019-07-16 10:57] LABS: RBC Urine None Seen (0-5/HPF)
[2019-07-16 11:01] LABS: Appearance Urine UA SL CLOUDY; Bilirubin Urine UA NEGATIVE (NEGATIVE); Color Urine UA YELLOW; Glucose Urine UA NEGATIVE (Negative); Ketones Urine UA NEGATIVE (NEGATIVE); Leukocyte Esterase Urine UA NEGATIVE (NEGATIVE); Nitrite Urine UA POSITIVE (Negative); Occult Blood Urine UA TRACE-LYSED (Negative); Protein Urine UA NEGATIVE (Negative); Specific Gravity Urine UA 1.015 (1.000-1.035)
[2019-07-16] MEDS: ACETAMINOPHEN 325 MG TABLET 650 MG PO ×2 (11:03→23:30)
[2019-07-16 11:12] LABS: pH Urine UA 8.5 (4.5-8.0)
[2019-07-16 11:13] LABS: Bacteria Urine Moderate (10-30); Culture Indicated Urine Specimen Cultured; Squamous Epithelial Cell Urine 0-1 /HPF (0-5/HPF); WBC Urine 1-5/HPF (0-5/HPF)
[2019-07-16] MEDS: levoFLOXacin 500 MG/100 ML PIGGYBACK 100 MG IV (12:12)
[2019-07-16] MEDS: SODIUM CHLORIDE 0.9% 1,000 ML 1000 ML IV (12:12)
--- NOTE | 2019-07-16 12:18 | PC.NURSE ---
fluid rate change per Dr. Torres
--- NOTE | 2019-07-16 12:35 | PC.NURSE ---
report was attempted at 1230. Jesus was busy. She'll call back.
--- NOTE | 2019-07-16 14:07 | PM.HP.1 ---
History of Present Illness History of Present Illness Date Patient Seen: 07/16/19 Time Patient Seen: 14:07 Chief complaint: Fever Narrative: 78-year-old female is admitted secondary to neutropenic fever and new UTI, chronic problem. Was having fever, malaise, weakness, dysuria, polyuria, and altered mental status prior to admission. Has known myelodysplastic syndrome. She has recently underwent chemotherapy. White count has been in the 1.7 to 7.0 range in the last month, 4 days ago, she was 1.7. Vital signs in the ED included a temperature of 101.4?, pulse 92, pressure 147/63, respirations 20, O2 saturation 97% on room air. Lab workup significant for a UTI, pancytopenia with a WBC of 3.0, hemoglobin 8 4, hematocrit 24.5, and platelets 95. Sodium was slightly low at 136, BUN elevated at 21, glucose 126. Notable negatives included COVID-19, procalcitonin, and lactate. CT chest showed hepatosplenomegaly likely cirrhosis. Patient was given fluids, Tylenol, and started on IV levofloxacin before being transferred to the floor. She has multiple allergies including ciprofloxacin but levofloxacin has previously been effective so that was was administered. Urine cultures pending. Previous history of neutropenic fever with UTI 6 months prior to presentation. She does have several chronic medical conditions that predispose her to poor healing including diabetes, IBS, and polymyalgia rheumatica. Past medical history: Myelodysplastic syndrome Diabetes mellitus type 2 Hypertension Hyperlipidemia Renal insufficiency Peripheral edema History of CVA Lumbago with lumbar radiculopathy Essential tremor Osteopenia Vitamin-D deficiency Insomnia Diverticulitis, history of Ovarian cysts, history of Degenerative disc disease Polymyalgia rheumatica Seasonal affective disorder Irritable bowel syndrome Osteoarthritis Depression Past surgical history: HERBERTH without BSO secondary to dysfunctional uterine bleeding Cholecystectomy Ventral abdominal hernia repair Right hip replacement Left hip replacement Left total knee replacement Left SI joint fusion Lumbar decompression and synovial cyst removal Cataract surgery x2 Fusion of right SI joint Negative bone biopsy, 05/28 Family history: Father: Heart disease, deafness Mother: Heart disease, depression, hypertension Siblings: Breast cancer Social history: to Devan, 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, [employer]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, 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, [employer] Patient History Medical History Clot (Acute) 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) Diabetes (Acute) Diverticulitis (Inactive) HTN (hypertension) (Acute) Myelodysplasia (myelodysplastic syndrome) (Inactive) Osteoarthritis of lumbar spine (Inactive) Stress incontinence in female (12/15/13) Surgical History History of hip replacement (04/20/89) History of hip replacement (09/24/99) History of knee replacement (01/07/07) History of knee replacement (09/05/08) Status post arthroscopy (10/06/06) Status post arthroscopy (08/18/07) Status post biopsy Status post cholecystectomy Status post colonoscopy Status post hernia repair Status post hysterectomy (12/02/82) Status post knee surgery Status post knee surgery (07/27/09) Family & Social History Social History: household members spouse Safety & Behavioral: Feels Safe in Current Yes Environment Been Physically Hurt or No Threatened By a Person Tobacco & Substance use: Smoking Status Never smoker alcohol intake frequency 0-2 drinks per day Substance Use Type marijuana Meds Home Medications and Allergies Home Medications Medication Instructions Recorded Confirmed Type CALCIUM CARBONATE (#CALCIUM) 1,200 mg PO Q DAY #0 07/19/11 06/28/19 History Centrum Silver 1 tab PO QDAY #0 07/19/11 06/28/19 History prednisone 5 mg PO 0800 #0 07/19/11 06/28/19 History vitamin E 400 unit PO DAILY #0 07/19/11 06/28/19 History cholecalciferol (vitamin D3) 2,000 iu PO QDAY #0 05/14/12 06/28/19 History [Vitamin D3] ketotifen fumarate [Zaditor] 1 drp OPHTH DAILY #5 ml 06/29/12 06/28/19 History krill oil 1,000 mg PO DAILY #0 06/29/12 06/28/19 History sertraline [Zoloft] 150 mg PO HS #0 06/29/12 06/28/19 History PreserVision AREDS-2 2 cap PO DAILY 08/14/17 06/28/19 History ascorbic acid (vitamin C) 1 tab PO DAILY 08/14/17 05/16/19 History diclofenac sodium 1 applic TOPICAL PRN PRN 08/14/17 06/28/19 History fluticasone propionate 1 spray INTRANASAL DAILY 08/14/17 06/28/19 History folic acid 0.4 mg PO DAILY 08/14/17 06/28/19 History hydrocodone-acetaminophen [[place]] 1 tab PO Q6H PRN 08/14/17 06/28/19 History levocetirizine 1 tab PO QPM 08/14/17 06/28/19 History losartan 25 mg PO DAILY 08/14/17 06/28/19 History metformin 500 mg PO BID 08/14/17 06/28/19 History metoprolol succinate 25 tab PO QPM 08/14/17 06/28/19 History trazodone 1 - 2 tab PO BEDTIME PRN 08/14/17 06/28/19 History lorazepam [Ativan] 0.5 mg PO QD-BID PRN #20 tab 10/04/18 06/28/19 Rx ondansetron 4 mg PO Q4HR PRN 01/15/19 06/28/19 History deferasirox 1,000 mg PO DAILY #30 ea 05/16/19 Rx lorazepam 1 mg PO TID PRN #60 tab 05/31/19 06/28/19 Rx prochlorperazine maleate 10 mg PO Q8H PRN #20 tab 06/28/19 Rx [Compazine] Allergies Allergy/AdvReac Type Severity Reaction Status Date / Time Cephalosporins Allergy Severe GI UPSET Verified 07/16/19 11:09 morphine Allergy Severe ANAPHYLAXIS Verified 07/16/19 11:09 coconut [COCONUT] Allergy Intermediate HIVES Verified 07/16/19 11:09 adhesive Allergy Mild SKIN Verified 07/16/19 11:09 BREAKDOWN, RASH (TAPE) PAPER TAPE OK meperidine Allergy Mild red rash Verified 07/16/19 11:09 lactose [LACTOSE] Allergy Unknown INTOLERANT Verified 07/16/19 11:09 latex [LATEX] Allergy Unknown REACTION Verified 07/16/19 11:09 NOT LISTED BY PT metronidazole AdvReac Severe GI UPSET Verified 07/16/19 11:09 vancomycin [VANCOMYCIN] AdvReac Severe DIARRHEA Verified 07/16/19 11:09 aspirin AdvReac Mild GI UPSET Verified 07/16/19 11:09 ibuprofen AdvReac Mild GI UPSET Verified 07/16/19 11:09 C[place]PE Allergy Severe HIVES Uncoded 01/14/19 20:58 honeydew melon Allergy Severe hives Uncoded 01/14/19 20:58 ANTIHISTAMINES Allergy Mild red rash Uncoded 01/14/19 20:58 Exam Vital Signs (past 8 hours): - 07/16/19 08:29 07/16/19 10:27 07/16/19 10:45 Temperature 101.4 F H Pulse Rate 92 H 86 87 Respiratory Rate 20 18 Blood Pressure 147/63 H Blood Pressure [Left Arm] 134/61 Pulse Oximetry 97 94 93 07/16/19 11:03 07/16/19 11:15 07/16/19 12:00 Temperature 100.1 F H 100.1 F H Pulse Rate 82 71 Respiratory Rate 14 16 Blood Pressure Blood Pressure [Left Arm] 126/59 L 114/55 L Pulse Oximetry 97 94 07/16/19 12:44 Temperature Pulse Rate 82 Respiratory Rate 14 Blood Pressure 130/63 Blood Pressure [Left Arm] Pulse Oximetry 97 Oxygen Delivery Method Room Air Narrative Exam Narrative: GENERAL: Alert and oriented, appearing stated age and in no acute distress. HEENT: Head normocephalic/atraumatic. LUNGS: Clear to ausculation bilaterally, no wheezes, rhonchi or rales. CV: Normal S1 and S2 with regular rate and rhythm, no audible murmurs, rubs or gallops. ABDOMEN: Soft, non-tender, non-distended, no organomegaly. Positive bowel sounds. EXTREMITIES: No clubbing, cyanosis, or edema. NEURO: Cranial nerves II through XII grossly intact, no focal deficits. PSYCH: Alert and oriented x 3. SKIN: No concerning lesions. Port-a-cath in place with no signs of infection, left upper chest. Objective Labs Result Diagrams: 07/16/19 09:21 07/16/19 09:21 Labs: Laboratory Results - last 24 hr 07/16/19 07/16/19 07/16/19 09:00 09:21 09:21 WBC 3.0 L RBC 2.48 L Hgb 8.4 L Hct 24.5 L MCV 98.7 MCH 33.9 MCHC 34.3 RDW 29.0 H Plt Count 95 L Neut % (Auto) 88.9 H Lymph % (Auto) 2.4 L [place] % (Auto) 8.3 Eos % (Auto) 0.1 L Baso % (Auto) 0.3 Neut # (Auto) 2700 Lymph # (Auto) 100 L [place] # (Auto) 300 Eos # (Auto) 0 Baso # (Auto) 0 RBC Morphology See below Poikilocytosis 2+ H Anisocytosis 3+ H Sodium Potassium Chloride Carbon Dioxide BUN Creatinine Estimated GFR BUN/Creatinine Ratio Glucose Lactate Calcium Total Bilirubin AST ALT Alkaline Phosphatase Total Protein Albumin Globulin Albumin/Globulin Ratio Procalcitonin 0.07 Urine Color Urine Appearance Urine pH Ur Specific [place] Urine Protein Urine Glucose (UA) Urine Ketones Urine Occult Blood Urine Nitrate Urine Bilirubin Urine Urobilinogen Ur Leukocyte Esterase Urine RBC Urine WBC Ur Squamous Epith Cells Urine Bacteria Ur Culture Indicated? COVID-19 PCR Negative 07/16/19 07/16/19 07/16/19 09:21 09:21 09:45 WBC RBC Hgb Hct MCV MCH MCHC RDW Plt Count Neut % (Auto) Lymph % (Auto) [place] % (Auto) Eos % (Auto) Baso % (Auto) Neut # (Auto) Lymph # (Auto) [place] # (Auto) Eos # (Auto) Baso # (Auto) RBC Morphology Poikilocytosis Anisocytosis Sodium 136 L Potassium 4.1 Chloride 107 Carbon Dioxide 25 BUN 21 H Creatinine 0.89 Estimated GFR > 60.0 BUN/Creatinine Ratio 23.6 H Glucose 126 H Lactate 0.9 Calcium 8.4 Total Bilirubin 0.9 AST 22 ALT 18 Alkaline Phosphatase 100 Total Protein 5.3 L Albumin 3.2 L Globulin 2.1 Albumin/Globulin Ratio 1.5 Procalcitonin Urine Color Yellow Urine Appearance Sl cloudy Urine pH 8.5 H Ur Specific [place] 1.015 Urine Protein Negative Urine Glucose (UA) Negative Urine Ketones Negative Urine Occult Blood Trace-lysed Urine Nitrate Positive H Urine Bilirubin Negative Urine Urobilinogen 1.0 Ur Leukocyte Esterase Negative Urine RBC None seen Urine WBC 1-5/hpf Ur Squamous Epith Cells 0-1 /hpf Urine Bacteria Moderate (10-30) H Ur Culture Indicated? Specimen cultured COVID-19 PCR Assessment & Plan Assessment & Plan narrative: Hospital Day #0 Assessment 1: Neutropenic fever, new, with associated risk factors for poor healing. Plan: Will trend labs and continue prophylactic levofloxacin coverage and add cefipime. Awaiting blood and urine cultures. Assessment 2: UTI, acute on chronic. Plan: Please see #1. Assessment 3: Myelodysplastic syndrome with pancytopenia, Baseline H/H 7.8/, stable. Plan: Hematology/oncology consulting. Continue home medications including those for side effects including Zofran, Compazine, hydrocodone, and lorazepam as needed. Assessment 4: Diabetes mellitus type 2, chronic, A1c 6.4 on 07/05/19. Plan: Diabetic diet, continue metformin 500 mg p.o. b.i.d. and routine glucose checks. Assessment 5: Hypertension, chronic, controlled, stable. Plan: Continue home losartan 50 mg p.o. q.day and metoprolol 12.5 mg p.o. q.h.s. Assessment 6: Hyperlipidemia, chronic. Plan: Holding gemfibrozil. Assessment 7: Renal insufficiency, chronic, baseline GFR 45. Plan: GFR on admission > 60, will continue fluid hydration and watch closely. Will be sensitive to nephrotoxicity of antibiotics. Assessment 8: Peripheral edema, chronic, stable. Plan: Will watch closely and treat with diuretics if needed. Currently no involvment. Assessment 9: History of CVA Plan: On lifelong Plavix, continue home dose of 75 mg p.o. q.day. Assessment 10: Lumbago with lumbar radiculopathy, degenerative disc disease, and osteoarthritis, [id number]. Plan: Continue home hydrocodone/acetaminophen 10/325 p.o. q.6 hours as needed for pain and gabapentin 400 mg p.o. q.day. Assessment 11: Polymyalgia rheumatica, chronic, stable. Plan: Continue home prednisone 5 mg p.o. q.a.m.. Assessment 12: Insomnia, chronic, stable. Plan: Continue trazodone 100 mg p.o. q.day. Assessment 13: Osteopenia with vitamin-D deficiency, chronic, stable. Plan: Continue home calcium and Vitamin D supplement. Assessment 14: Irritable bowel syndrome, chronic, stable. Plan: Will treat symptomatically if needed. Assessment 15: Depression, chronic, stable. Plan: Continue home sertraline 150 mg p.o. q.h.s. DVT prophylaxis: Plavix and SCDs. GI prophylaxis: Patient is receiving antibiotics in IV form, will start probiotic. Code: Full Disposition: Anticipate at least 48 hours of inpatient IV antibiotics for treatment of UTI in setting of neutropenic fever in this myelodysplastic syndrome patient with recent history of chemotherapy and risk factors for poor healing including diabetes mellitus type 2, IBS, and polymyalgia rheumatica. Plan to transition to oral antibiotics if afebrile after 48 hours with completion of full course as an outpatient.
[2019-07-16] MEDS: DEXTROSE 5%-0.45% NS 1,000 ML 100 ML IV (15:18)
[2019-07-16] MEDS: CEFEPIME 2 GM in SODIUM CHLORIDE 0.9% 100 ML 200 ML IV (15:19)
[2019-07-16] MEDS: METOPROLOL ER 25 MG TABLET PO (17:16)
[2019-07-16] MEDS: ONDANSETRON 4 MG/2 ML INJ IV (17:19)
[2019-07-16] MEDS: HYDROCODONE/ACET 10/325 TABLET 1 TAB PO (18:02)
--- NOTE | 2019-07-16 19:59 | PC.NURSE ---
/PIV leaked then accidentally came off. notified physician, VTO for port access. pt tolerated well. pt c/o nausea, administered zofran. Back pain managed with norco. Pt is continent/incontinent of bladder. she has urinary urgency and frequency, but denies dysuria. She is also having loose stools. call light in reach. bed alarm active.
[2019-07-16] MEDS: METFORMIN HCL 500 MG TABLET PO (20:46)
[2019-07-16] MEDS: SERTRALINE 50 MG TABLET 150 MG PO (20:46)
[2019-07-16] MEDS: LORATADINE 10 MG TABLET PO (20:47)
[2019-07-17] VITALS (7 sets, daily range): BP systolic 123–149; BP diastolic 56–79; PULSE 60–82; RESP 15–18; TEMP 36.3–37; O2SAT 98–99
[2019-07-17] MEDS: ONDANSETRON 4 MG/2 ML INJ IV ×2 (00:57→12:14)
[2019-07-17] MEDS: CEFEPIME 2 GM in SODIUM CHLORIDE 0.9% 100 ML 200 ML IV ×2 (03:35→14:50)
[2019-07-17] MEDS: ONDANSETRON 4 MG ODT PO (06:36)
[2019-07-17 06:41] LABS: Basophils Absolute Auto 0 /uL (0-100); Basophils Percent Auto 0.6 % (0-2); Eosinophils Absolute Auto 0 /uL (0-450); Eosinophils Percent Auto 0.3 % (2-4); Hematocrit 21.3 % (36-46); Hemoglobin 7.3 g/dL (12.0-16.0); Lymphocytes Absolute Auto 0 /uL (1100-4500); Lymphocytes Percent Auto 1.9 % (25-40); Mean Corpuscular Hemoglobin 33.2 PG (26-34); Mean Corpuscular Volume 97.4 fL (80-100); Monocytes Absolute Auto 200 /uL (0-900); Monocytes Percent Auto 10.2 % (3-14); Neutrophils Absolute Auto 1700 /uL (1500-7000); Platelet Count 81 X10^3/uL (150-400); Red Blood Cell Count 2.19 X10^6/uL (4.0-5.2); Red Cell Distribution Width 29.3 % (11.6-14.8)
[2019-07-17 06:43] LABS: Add Manual Diff / Slide Review SLIDE REVIEW
[2019-07-17 06:50] LABS: BUN Creatinine Ratio 19.2 (6-22); Blood Urea Nitrogen 15 mg/dL (7-17); Calcium 8.6 mg/dL (8.4-10.2); Carbon Dioxide 25 mmol/L (22-32); Chloride 109 mmol/L (98-107); Estimated Glomerular Filt Rate > 60.0 mL/min (>60); Glucose 147 mg/dL (80-110); HEMOLYSIS < 15 (0-50); Potassium 3.9 mmol/L (3.4-5.1); Sodium 135 mmol/L (137-145)
[2019-07-17 07:58] LABS: Anisocytosis 3+; Poikilocytosis 1+
[2019-07-17] MEDS: LORazepam 1 MG TABLET PO ×2 (09:28→18:14)
--- NOTE | 2019-07-17 09:38 | PC.NURSE ---
Addendum entered by Marce Alvarado R.N. 07/17/19 13:23: late entry from 1030; notified dr. craven of h/h 7.3/21.3. no new orders. Addendum entered by Marce Alvarado R.N. 07/17/19 10:36: patient able to sleep after po ativan. awakens easily. took po meds. prefers to go back to sleep. dr. craven called, obtained order for lomotil for diarrhea. Original Note: PATIENT C/O PERSISTENT NAUSEA, STATES NOT MUCH IN THE WAY OF VOMITING. REPORTS ATE A FEW OF THE POTATOES AND SOME OF THE MANDARIN ORANGES. NOT TIME FOR ZOFRAN YET. APPRECIATES OFFER OF ATIVAN. PROVIDED 1MG PO AND WILL CHECK BACK FOR RESPONSE AT 1000. HAS SPOUSE WITH HER AT BEDSIDE, SUPPORTIVE OF CARE.
[2019-07-17] MEDS: METFORMIN HCL 500 MG TABLET PO ×2 (10:12→21:47)
[2019-07-17] MEDS: LOSARTAN 50 MG TABLET 25 MG PO (10:12)
[2019-07-17] MEDS: FLUTICASONE 120 SPRAY/16 GM SPRAY.SUSP NASAL (10:12)
[2019-07-17] MEDS: CLOPIDOGREL 75 MG TABLET PO (10:12)
[2019-07-17] MEDS: VIT C/E/ZN/COPPR/LUTEIN/ZEAXAN CAPSULE 1 CAP PO (10:13)
[2019-07-17] MEDS: predniSONE 5 MG TABLET PO (10:13)
[2019-07-17] MEDS: FOLIC ACID 0.4 MG TABLET PO (10:13)
--- NOTE | 2019-07-17 11:58 | PM.PN.1 ---
Subjective Subjective Date Patient Seen: 07/17/19 Time Patient Seen: 11:58 Interval history: Patient was nauseated overnight, administered Zofran and Ativan with good effect. Had some diarrhea earlier this morning, Lomotil ordered but home Imodium given by prior to administration. Now is resting. Overall, feeling much better from a mental status perspective. says that she is approaching her baseline. Denies abdominal pain. No dysuria or hematuria. Polyuria improved. Was febrile overnight. Exam Vital Signs (past 8 hours): - 07/17/19 04:20 07/17/19 08:00 Temperature 97.3 F L 98.2 F Pulse Rate 82 81 Respiratory Rate 18 15 Blood Pressure 149/64 H 140/72 Pulse Oximetry 98 99 Oxygen Delivery Method Room Air Oxygen Flow Rate 0 Narrative Exam Narrative: GENERAL: Alert and oriented, appearing stated age and in no acute distress. HEENT: Head normocephalic/atraumatic. LUNGS: Clear to ausculation bilaterally, no wheezes, rhonchi or rales. CV: Normal S1 and S2 with regular rate and rhythm, no audible murmurs, rubs or gallops. ABDOMEN: Soft, non-tender, non-distended, no organomegaly. Positive bowel sounds. EXTREMITIES: No clubbing, cyanosis, or edema. NEURO: Cranial nerves II through XII grossly intact, no focal deficits. PSYCH: Alert and oriented x 3. SKIN: No concerning lesions. Port-a-cath in place with no signs of infection, left upper chest. Objective Labs Result Diagrams: 07/17/19 06:28 07/17/19 06:28 Labs: Laboratory Results - last 24 hr 07/17/19 07/17/19 06:28 06:28 WBC 2.0 L RBC 2.19 L Hgb 7.3 L Hct 21.3 L MCV 97.4 MCH 33.2 MCHC 34.0 RDW 29.3 H Plt Count 81 L Neut % (Auto) 87.0 H Lymph % (Auto) 1.9 L [place] % (Auto) 10.2 Eos % (Auto) 0.3 L Baso % (Auto) 0.6 Neut # (Auto) 1700 Lymph # (Auto) 0 L [place] # (Auto) 200 Eos # (Auto) 0 Baso # (Auto) 0 RBC Morphology See below Poikilocytosis 1+ H Anisocytosis 3+ H Sodium 135 L Potassium 3.9 Chloride 109 H Carbon Dioxide 25 BUN 15 Creatinine 0.78 Estimated GFR > 60.0 BUN/Creatinine Ratio 19.2 Glucose 147 H Calcium 8.6 Assessment & Plan Assessment & Plan narrative: Hospital Day #1 Assessment 1: Neutropenic fever, new, with associated risk factors for poor healing. Plan: Will trend labs and continue prophylactic levofloxacin and cefipime. Patient did have 2 fevers overnight that responded to Tylenol. Preliminary blood cultures negative. Urine culture shows Gram-negative bacilli, identification and sensitivities pending, will likely be able to narrow coverage tomorrow and transition to oral antibiotics in preparation for discharge. Assessment 2: UTI, acute on chronic. Plan: Please see #1. Assessment 3: Myelodysplastic syndrome with pancytopenia, Baseline H/H 7.8, stable. Plan: Hematology/oncology consulting. Continue home medications including those for side effects including Zofran, Compazine, hydrocodone, and lorazepam as needed. Assessment 4: Diabetes mellitus type 2, chronic, A1c 6.4 on 07/05/19. Plan: Diabetic diet, continue metformin 500 mg p.o. b.i.d. and routine glucose checks. Assessment 5: Hypertension, chronic, controlled, stable. Plan: Continue home losartan 50 mg p.o. q.day and metoprolol 12.5 mg p.o. q.h.s. Assessment 6: Hyperlipidemia, chronic. Plan: Holding gemfibrozil. Assessment 7: Renal insufficiency, chronic, baseline GFR 45. Plan: GFR on admission > 60, will continue fluid hydration and watch closely. Will be sensitive to nephrotoxicity of antibiotics. Assessment 8: Peripheral edema, chronic, stable. Plan: Will watch closely and treat with diuretics if needed. Currently no involvement. Assessment 9: History of CVA Plan: On lifelong Plavix, continue home dose of 75 mg p.o. q.day. Assessment 10: Lumbago with lumbar radiculopathy, degenerative disc disease, and osteoarthritis, [id number]. Plan: Continue home hydrocodone/acetaminophen 10/325 p.o. q.6 hours as needed for pain and gabapentin 400 mg p.o. q.day. Assessment 11: Polymyalgia rheumatica, chronic, stable. Plan: Continue home prednisone 5 mg p.o. q.a.m.. Assessment 12: Insomnia, chronic, stable. Plan: Continue trazodone 100 mg p.o. q.day. Assessment 13: Osteopenia with vitamin-D deficiency, chronic, stable. Plan: Continue home calcium and Vitamin D supplement. Assessment 14: Irritable bowel syndrome, chronic, stable. Plan: Will treat symptomatically if needed. Assessment 15: Depression, chronic, stable. Plan: Continue home sertraline 150 mg p.o. q.h.s. DVT prophylaxis: Plavix and SCDs. GI prophylaxis: Patient is receiving antibiotics in IV form, have started probiotic. Code: Full
[2019-07-17] MEDS: HYDROCODONE/ACET 10/325 TABLET 1 TAB PO ×2 (12:14→18:13)
--- NOTE | 2019-07-17 12:28 | CM.DANOTE ---
DCP: Case received, EMR reviewed and met with patient. , Devan, also at bedside. Introduced self and role. Was able to obtain information from patient/, regarding baseline activity and mobility level, as well as some health information. DCP assessment completed with information currently available. Patient is a 78 year old female who admitted yesterday morning to the care of the hospitalist team. PCP: Dr. Jeffries. Payer: confirmed: Medicare/[employer]. Patient came to the hospital via family vehicle secondary to having increased weakness, and feelings of having a UTI. She also was noted to have neutropenic fever. Patient goes to oncology every Thursday here at hospital, for her diagnosis is Myelodysplastic Syndrome. Patient holds current diagnosis of acute UTI. Met with patient in her room. , Devan, was at bedside. She was in bed, alert and oriented, but fatigued. confirmed that patient does use a walker at baseline. She has not been driving as well. She goes to oncology every Thursday for chemo. transports patient to appointments. P: DCP to continue to follow. Did mention to , briefly, that home health may be an option, if needed. She does not have current P.T. orders. Magalis Romeo RN/[employer] [employer]
[2019-07-17] MEDS: DEXTROSE 5%-0.45% NS 1,000 ML 100 ML IV (14:50)
[2019-07-17] MEDS: LACTOBACILLUS ACIDOPHILUS TABLET 1 EACH PO (18:14)
[2019-07-17] MEDS: METOPROLOL ER 25 MG TABLET PO (18:16)
[2019-07-17] MEDS: LORATADINE 10 MG TABLET PO (21:47)
[2019-07-17] MEDS: SERTRALINE 50 MG TABLET 150 MG PO (21:47)
[2019-07-18] MEDS: DEXTROSE 5%-0.45% NS 1,000 ML 100 ML IV (00:57)
[2019-07-18] MEDS: HYDROCODONE/ACET 10/325 TABLET 1 TAB PO (03:41)
[2019-07-18] MEDS: CEFEPIME 2 GM in SODIUM CHLORIDE 0.9% 100 ML 200 ML IV (03:42)
[2019-07-18 04:05] VITALS: BP 144/67; PULSE 75; RESP 16; TEMP 36.4; O2SAT 99
[2019-07-18] MEDS: DIPHENOXYLATE/ATROP 2.5/0.025 TABLET 1 EACH PO (06:17)
[2019-07-18 07:14] LABS: Hematocrit 21.5 % (36-46); Hemoglobin 7.4 g/dL (12.0-16.0); Mean Corpuscular HGB Conc 34.5 % (30-36); Mean Corpuscular Hemoglobin 33.7 PG (26-34); Mean Corpuscular Volume 97.6 fL (80-100); Platelet Count 77 X10^3/uL (150-400); Red Cell Distribution Width 29.4 % (11.6-14.8)
[2019-07-18 07:30] VITALS: BP 154/70; PULSE 76; RESP 18; TEMP 36.8; O2SAT 99
[2019-07-18 07:36] LABS: Add Manual Diff / Slide Review YES; White Blood Cell Count 1.2 X10^3/uL (4.5-11.0)
[2019-07-18 07:43] LABS: Anisocytosis 2+; Neutrophils Absolute Manual 888 /uL (3000-5900); Total Cells Counted 100
[2019-07-18 07:44] LABS: Poikilocytosis 2+
[2019-07-18 07:46] LABS: BUN Creatinine Ratio 14.3 (6-22); Blood Urea Nitrogen 11 mg/dL (7-17); Calcium 8.7 mg/dL (8.4-10.2); Carbon Dioxide 24 mmol/L (22-32); Chloride 111 mmol/L (98-107); Estimated Glomerular Filt Rate > 60.0 mL/min (>60); Glucose 142 mg/dL (80-110); HEMOLYSIS < 15 (0-50); Potassium 3.7 mmol/L (3.4-5.1); Sodium 137 mmol/L (137-145)
--- NOTE | 2019-07-18 08:10 | PC.NURSE ---
Addendum entered by Corin Bruner R.N. 07/18/19 11:47: Left chest port S/L'd and kept accessed as pt was likely going to receive a blood transfusion at [facility]. Addendum entered by Corin Bruner R.N. 07/18/19 11:44: Discharge summary packet reviewed with pt by LAURA Leon Coordinator around 0915. Pt given back her own medication bottle of Deferasirox. And 1 tab that was not given with this AM medication administration. Pt requested to take only 1 tab and not 2 tabs of this med in the morning. Pt left unit with all belongings at 0929 via wheelchair with LAURA Leon Coordinator and pt's Devan. Devan and pt were heading straight to the [facility] next door to hospital. Addendum entered by Corin Bruner R.N. 07/18/19 08:12: RN Coordinator Carolyn rec'd critical value from Danial in lab at 0730 for critical WBC 1.2. Original Note: Day Shift- Called Dr. Jeffries at 0807, made aware of critical WBC of 1.2, decreased from 2.0 on 07/16. Pt has been afebrile and final urine culture report states Klebsiella Pneu. Pt and her had reported that they have a 1130 appointment at [facility] today. Hope to be discharge home today and to make appointment.
[2019-07-18] MEDS: VIT C/E/ZN/COPPR/LUTEIN/ZEAXAN CAPSULE 1 CAP PO (08:36)
[2019-07-18] MEDS: predniSONE 5 MG TABLET PO (08:36)
[2019-07-18] MEDS: METFORMIN HCL 500 MG TABLET PO (08:37)
[2019-07-18] MEDS: DEFERASIROX 1000 EACH PO (08:37)
[2019-07-18] MEDS: LOSARTAN 50 MG TABLET 25 MG PO (08:37)
[2019-07-18] MEDS: CLOPIDOGREL 75 MG TABLET PO (08:37)
[2019-07-18] MEDS: FOLIC ACID 0.4 MG TABLET PO (08:37)
--- NOTE | 2019-07-18 08:58 | P.DS_ITS ---
History of Present Illness History of Present Illness Date Patient Seen: 07/18/19 Time Patient Seen: 08:58 Date of Onset of Symptoms: 07/16/19 Chief complaint: Fever Narrative: Patient had sudden onset of UTI symptoms with cognitive changes and paramedics were called and patient brought the [facility] for evaluation. She was found to have suspicion of UTI with mental status changes and was admitted for the same. She was treated with IV Levaquin as well as 3rd generation cephalosporin and she had quick improvement in her cognition and her overall symptoms and on hospital day 3. She is in improved condition at her baseline cognitively with evidence have factor urea 2 different types of bacteria that are both sensitive to her current treatment of Levaquin. Patient is having diarrhea with Levaquin but she can otherwise tolerated. Cipro makes her vomit. She has a history of neutropenia due to her myelodysplasia and she is schedule for an appointment at the [facility] today and Anucort we she will receive blood. She is feeling much better but really would like to be at home so she can sleep. Discharge Providers Provider Date of admission: 07/16/19 11:45 Discharge Date: 07/18/19 Primary care physician: Elena Jeffries MD Consults: 07/16/19 14:36 Consult to Discharge Planning Routine Comment: Discharge provider: Elena Jeffries MD Summary Hospital Course Discharge Diagnosis: Neutropenic fever UTI Mild dysplasia Type 2 diabetes Depression Hospital Course: Patient was admitted to the hospital with diagnosis of cognitive changes secondary to urinary tract infection. She was treated with IV Levaquin and 3rd generation cephalosporin and her symptoms rapidly improved. On hospital day 3. She was back to her baseline cognitively and afebrile for greater than 24 hours and she was therefore discharged to home in improved and stable condition. She has an appointment with the [facility] today in a [place] and will receive blood today. We will see her in the clinic for follow- up on . She will continue on her outpatient medications including Levaquin 500 daily for 5 days. 35 minutes was spent with patient in counseling and coordination care with bryan caro. Status at Discharge Cognitive/behavioral status at discharge: oriented Functional status at discharge: uses cane/walker Overall status at discharge: patient is back to baseline Exam Vital Signs (past 8 hours): - 07/18/19 04:05 07/18/19 07:30 Temperature 97.5 F L 98.2 F Pulse Rate 75 76 Respiratory Rate 16 18 Blood Pressure 144/67 H 154/70 H Pulse Oximetry 99 99 Oxygen Delivery Method Room Air Oxygen Flow Rate 0 Narrative Exam Narrative: Afebrile vital signs are stable Patient is alert and oriented x3 sitting comfortably in hospital bed. She appears tired HEENT is unremarkable mucous membranes moist and pink Neck: Supple without adenopathy or thyromegaly Chest: Clear to auscultation without wheezes rhonchi or crackles Cor: Regular rate and rhythm with distant S1-S2 Abdomen: Positive bowel sounds, soft, slightly distended Extremities trace pedal and pretibial edema Objective Labs Result Diagrams: 07/18/19 05:00 07/18/19 07:00 Labs: Laboratory Results - last 24 hr 07/18/19 07/18/19 05:00 07:00 WBC 1.2 L* RBC 2.20 L Hgb 7.4 L Hct 21.5 L MCV 97.6 MCH 33.7 MCHC 34.5 RDW 29.4 H Plt Count 77 L Neut % (Auto) Not Reportable Lymph % (Auto) Not Reportable [place] % (Auto) Not Reportable Eos % (Auto) Not Reportable Baso % (Auto) Not Reportable Lymph # (Auto) Not Reportable [place] # (Auto) Not Reportable Baso # (Auto) Not Reportable Total Counted 100 Seg Neutrophils % 70.0 Band Neutrophils % 4.0 Lymphocytes % (Manual) 7.0 L Atypical Lymphs % 2.0 H Monocytes % (Manual) 15.0 H Eosinophils % (Manual) 1.0 L Basophils % (Manual) 1.0 Neutrophils # (Manual) 888 L RBC Morphology Not Reportable Poikilocytosis 2+ H Anisocytosis 2+ H Sodium 137 Potassium 3.7 Chloride 111 H Carbon Dioxide 24 BUN 11 Creatinine 0.77 Estimated GFR > 60.0 BUN/Creatinine Ratio 14.3 Glucose 142 H Calcium 8.7 Discharge Plan Discharge Plan Patient Disposition: Home Discharge orders & Medications Prescriptions: Continued prednisone 5 MG tablet 5 mg PO 0800 Qty: 0 RF: 0 Centrum Silver 0.4-300-250 mg-mcg-mcg Tablet 1 tab PO QDAY Qty: 0 RF: 0 CALCIUM CARBONATE (#CALCIUM) 1,200 mg PO Q DAY Qty: 0 RF: 0 vitamin E 400 unit Capsule 400 unit PO DAILY Qty: 0 RF: 0 cholecalciferol (vitamin D3) [Vitamin D3] 2,000 UNIT capsule 2,000 iu PO QDAY Qty: 0 RF: 0 sertraline [Zoloft] 100 MG tablet 150 mg PO HS Qty: 0 RF: 0 ketotifen fumarate [Zaditor] 0.025 % (0.035 %) Drops 1 drp OPHTH DAILY Qty: 5 RF: 0 krill oil 1,000 mg PO DAILY Qty: 0 RF: 0 ondansetron 4 mg Film 4 mg PO Q4HR PRN (Reason: Nausea) RF: 0 losartan 50 mg tablet 25 mg PO DAILY RF: 0 metformin 500 mg tablet 500 mg PO BID RF: 0 metoprolol succinate 50 mg tablet extended release 24 hr 25 tab PO QPM RF: 0 hydrocodone-acetaminophen [[place]] 10-325 mg tablet 1 tab PO Q6H PRN (Reason: pain) RF: 0 trazodone 100 mg tablet 1 - 2 tab PO BEDTIME PRN (Reason: antidepressant) RF: 0 fluticasone propionate 50 mcg/actuation spray,suspension 1 spray Intranasal DAILY RF: 0 levocetirizine 5 mg tablet 1 tab PO QPM RF: 0 ascorbic acid (vitamin C) 1,000 mg Tablet 1 tab PO DAILY RF: 0 folic acid 400 mcg Tablet 0.4 mg PO DAILY RF: 0 diclofenac sodium 1 % gel 1 applic Topical PRN PRN (Reason: arthritis pain) RF: 0 PreserVision AREDS-2 [id number] Capsule 2 cap PO DAILY RF: 0 lorazepam [Ativan] 0.5 mg Tablet 0.5 mg PO QD-BID PRN (Reason: Nausea) Qty: 20 RF: 0 deferasirox 500 mg Tablet, Dispersible 1,000 mg PO DAILY Qty: 30 RF: 0 lorazepam 1 mg Tablet 1 mg PO TID PRN (Reason: Nausea) Qty: 60 RF: 0 prochlorperazine maleate [Compazine] 10 mg Tablet 10 mg PO Q8H PRN (Reason: Nausea) Qty: 20 RF: 3 Follow up/Referrals: Elena Jfefries MD [Primary Care Provider] - Discharge Data Primary Care Provider: Elena Jeffries
[2019-07-18] MEDS: LACTOBACILLUS ACIDOPHILUS TABLET 1 EACH PO (09:21)
[2019-07-18] MEDS: SODIUM CHLORIDE 0.9% FLUSH 10 ML IV (09:25)
== END 2019-07-18 09:29 | disposition home or self-care (01) | DRG 690 ==
LOC: ED 11:47 → AC 07-17 08:02
PROVIDERS: Admitting Provider Student in an Organized Health Care Education/Training Program; Emergency Provider Emergency Medicine; Family Provider Family Medicine; PCP Family Medicine; Referring Provider Emergency Medicine; Visit Provider Student in an Organized Health Care Education/Training Program
DX: N39.0 Urinary tract infection, site not specified (principal); D70.3 Neutropenia due to infection; D46.9 Myelodysplastic syndrome, unspecified; E11.9 Type 2 diabetes mellitus without complications; I10 Essential (primary) hypertension; E78.5 Hyperlipidemia, unspecified; M35.3 Polymyalgia rheumatica; G47.00 Insomnia, unspecified; M85.80 Other specified disorders of bone density and structure, unspecified site; E55.9 Vitamin D deficiency, unspecified; R60.0 Localized edema; F32.9 Major depressive disorder, single episode, unspecified; N28.9 Disorder of kidney and ureter, unspecified; Z79.84 Long term (current) use of oral hypoglycemic drugs; Z86.73 Personal history of transient ischemic attack (TIA), and cerebral infarction without residual deficits; Z03.818 Encounter for observation for suspected exposure to other biological agents ruled out
CPT/HCPCS: 36415; 36591; 71250; 80048; 80053; 81001; 82962; 83605; 84145; 85025; 87040; 87077; 87086; 87186; 87635; 94762; 96365; 99284; J0692; J1956; J2405

== ENCOUNTER → 2019-07-25 10:07 | Outpatient (CLI) | payer MEDICARE, SELFPAY ==
[2019-01-15 00:34] VITALS: BMI 27.6
[2019-07-16 14:36] VITALS: BMI 26.6
--- NOTE | 2019-07-25 10:30 | PC.NURSE ---
Critical lab result WBC 1.4 reported from Courtney in lab, human resource advisor Cindy martins.
[2019-07-25] MEDS: EPOETIN ALFA-EPBX 10,000 UNIT/ML VIAL 20000 UNIT SUBCUT (10:59)
[2019-07-25] MEDS: FILGRASTIM-AAFI 300 MCG/0.5 ML SYRINGE SUBCUT ×2 (10:59→11:18)
[2019-07-25] MEDS: CYANOCOBALAMIN 1,000 MCG/ML VIAL 1000 MCG SUBCUT (11:03)
--- NOTE | 2019-07-25 11:18 | P.PNONC_ITS ---
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 Initial presentation was with anemia only. With time, patient developed pancytopenia and with hepatosplenomegaly. Previously she was treated with weekly Procrit which was switched over to treatment with every 2 weeks. Then she was started on azacitidine from May 2018 through December 2018 for a total of 8 cycles, discontinued due to lack of effect. Patient underwent bone marrow aspiration and biopsy on 03/15/2019 that showed mildly hypercellular marrow for age (55% cellular) with mild megakaryocytic hyperplasia, without significant morphologic dysplasia or expanded blasts, mild marrow reticulin fibrosis (MF 1+ out of 3), no definitive morphologic evidence of involvement by T-cell lymphoproliferative disorder. MDS FISH negative. Routine cytogenetic karyotyping normal 46,XX[20]. On 03/29/2019, methylmalonic acid was 717 nmol/L, higher than the upper limit of 318. Therefore patient was started on vitamin B12 injection 1000 mg monthly since 04/05/2019. Interval history: Patient currently is receiving Neupogen injection 300 mcg weekly together with Procrit injection 91658 units weekly. Patient tolerated the injections well. During past 1 week, patient had a urinary tract infection with high fever. She was hospitalized briefly. She was treated with antibiotics Levaquin. In addition during the same period of time, patient started taking Jadenu. She had significant nausea and vomiting and diarrhea and was not able to tolerate Jadenu. Previous Summary: 1. Procrit stopping in April 2018 2. Azacitidine, started in 06/08/2018 - 12/30/2018 3. B12 injection, 1000 mcg subQ monthly, 04/05/2019 - - Additional ROS All systems PM: reviewed and no additional remarkable complaints except as stated Home Medications and Allergies Home Medications Medication Instructions Recorded Confirmed Type CALCIUM CARBONATE (#CALCIUM) 1,200 mg PO Q DAY #0 07/19/11 07/16/19 History Centrum Silver 1 tab PO QDAY #0 07/19/11 07/16/19 History prednisone 5 mg PO 0800 #0 07/19/11 07/16/19 History vitamin E 400 unit PO DAILY #0 07/19/11 06/28/19 History cholecalciferol (vitamin D3) 2,000 iu PO QDAY #0 05/14/12 07/16/19 History [Vitamin D3] ketotifen fumarate [Zaditor] 1 drp OPHTH DAILY #5 ml 06/29/12 07/16/19 History krill oil 1,000 mg PO DAILY #0 06/29/12 06/28/19 History sertraline [Zoloft] 150 mg PO HS #0 06/29/12 07/16/19 History PreserVision AREDS-2 2 cap PO DAILY 08/14/17 06/28/19 History ascorbic acid (vitamin C) 1 tab PO DAILY 08/14/17 07/16/19 History diclofenac sodium 1 applic TOPICAL PRN PRN 08/14/17 06/28/19 History fluticasone propionate 1 spray INTRANASAL DAILY 08/14/17 07/16/19 History folic acid 0.4 mg PO DAILY 08/14/17 07/16/19 History hydrocodone-acetaminophen [[place]] 1 tab PO Q6H PRN 08/14/17 07/16/19 History levocetirizine 1 tab PO QPM 08/14/17 06/28/19 History losartan 25 mg PO DAILY 08/14/17 07/16/19 History metformin 500 mg PO BID 08/14/17 07/16/19 History metoprolol succinate 25 tab PO QPM 08/14/17 07/16/19 History trazodone 1 - 2 tab PO BEDTIME PRN 08/14/17 07/16/19 History lorazepam [Ativan] 0.5 mg PO QD-BID PRN #20 tab 10/04/18 06/28/19 Rx ondansetron 4 mg PO Q4HR PRN 01/15/19 06/28/19 History deferasirox 1,000 mg PO DAILY #30 ea 05/16/19 07/16/19 Rx lorazepam 1 mg PO TID PRN #60 tab 05/31/19 07/16/19 Rx prochlorperazine maleate 10 mg PO Q8H PRN #20 tab 06/28/19 Rx [Compazine] Allergies Allergy/AdvReac Type Severity Reaction Status Date / Time Cephalosporins Allergy Severe GI UPSET Verified 07/16/19 11:09 morphine Allergy Severe ANAPHYLAXIS Verified 07/16/19 11:09 coconut [COCONUT] Allergy Intermediate HIVES Verified 07/16/19 11:09 adhesive Allergy Mild SKIN Verified 07/16/19 11:09 BREAKDOWN, RASH (TAPE) PAPER TAPE OK meperidine Allergy Mild red rash Verified 07/16/19 11:09 lactose [LACTOSE] Allergy Unknown INTOLERANT Verified 07/16/19 11:09 latex [LATEX] Allergy Unknown REACTION Verified 07/16/19 11:09 NOT LISTED BY PT metronidazole AdvReac Severe GI UPSET Verified 07/16/19 11:09 vancomycin [VANCOMYCIN] AdvReac Severe DIARRHEA Verified 07/16/19 11:09 aspirin AdvReac Mild GI UPSET Verified 07/16/19 11:09 ibuprofen AdvReac Mild GI UPSET Verified 07/16/19 11:09 CANTALOUPE Allergy Severe HIVES Uncoded 01/14/19 20:58 honeydew melon Allergy Severe hives Uncoded 01/14/19 20:58 ANTIHISTAMINES Allergy Mild red rash Uncoded 01/14/19 20:58 Exam Vital signs: 07/25/19 23:49 Last Vital Signs Temp 98.5 F 07/25/19 11:19 Pulse 65 07/25/19 11:19 Resp 18 07/25/19 11:19 BP 118/66 07/25/19 11:19 Pulse Ox 97 07/25/19 11:19 Narrative: ECOG 1 Gen: WDWN, NAD, pleasant and cooperative. HEENT: NCAT, EOMI, PERRLA, anicteric sclera. Neck: Supple, No palpable thyromegaly or lymphadenopathy. Respiratory: CTAB, no wheezes audible. No JVD Cardiovascular: RRR, S1 and S2 normal, no M/G/R. Abdomen: Soft, NTND, BS normal, no palpable organomegaly Extremities: No LE pitting edema. Lymphatic: no palpable lymph nodes in the neck, axillae, or groins. Neurological: AOx3, CN II-XII grossly intact. No focal motor or sensory deficit. Psychiatric: Normal affect; no depression, but with anxiety. Results - Labs Na 138, K 4.7, Bun 24, Cr 0.82, Glu 149, Ca 8.8, Iron 149, TIBC 226, %saturation 66%, Ferritin 1580. AST 23, ALT 18, AL 93, WBC 1.4, HGB 8.8, HCT 25.9, PLT 97, ANC 1078. - Imaging Additional studies: Procedures Colonoscopy (09/10/12) Assessment and Plan (1) Myelodysplastic syndrome Overview: 78-year-old female with low-grade MDS diagnosed in 04/2016. She received procrit and then azacitidine completed 12/2018 discontinued due to lack of effect. Repeat BMA/Bx on 03/15/2019 showed mildly hypercellular marrow for age (55% cellular) with mild megakaryocytic hyperplasia, without significant morphologic dysplasia or expanded blasts, mild marrow reticulin fibrosis (MF 1+ out of 3), no definitive morphologic evidence of involvement by T-cell lymphoproliferative disorder. MDS FISH negative. Routine cytogenetic karyotyping normal 46,XX[20] Assessment: Patient's total white blood cell count has remained low. Patient's hemoglobin level has slightly improved. Patient talked with Dr. Arzate who recommended that we increase the dosage of Neupogen to 480 mcg which I agreed. As far as the Procrit is concerned, I think we can continue the current dosage and follow the trend of the H and H for now. Patient voiced understanding. Plan: Blood transfusion threshold: H/H 10/02. No transfusion needed. Ok to proceed to Vitamin B12 injection 1000 mcg im today Ok to proceed to neupogen 300 mcg today, will increase to 480 mcg from next dose [place] [address] units subQ Instructed her to call anytime for any concerns or questions. RTC in 4 weeks, CBC, CMP, MMA, and B12 injection. (2) Iron overload due to repeated red blood cell transfusions Overview: Patient has had frequent blood transfusion and most recent iron panel on 03/29/2019 showed significant iron overload with ferritin level 1270 and saturation 94%. Assessment: Last week, patient tried Jadenu and was not able to tolerate. I will stop. Plan: Stop deferasirox 20 mg/kg daily.
[2019-07-25 11:19] VITALS: BP 118/66; PULSE 65; RESP 18; TEMP 36.9; O2SAT 97
== END ==
PROVIDERS: Family Provider Family Medicine; PCP Family Medicine; Referring Provider Family Medicine; Visit Provider Internal Medicine Hematology & Oncology
DX: D46.Z Other myelodysplastic syndromes (principal); E83.111 Hemochromatosis due to repeated red blood cell transfusions
CPT/HCPCS: 36591; 80053; 82728; 83540; 83550; 83921; 85025; 96372; 99214; J3420; Q5106; Q5110

== ENCOUNTER → 2019-08-01 09:45 | Outpatient (CLI) | payer MEDICARE, SELFPAY ==
[2019-07-16 14:36] VITALS: BMI 26.6
[2019-08-01 11:24] VITALS: BP 101/52; PULSE 73; RESP 16; TEMP 36.9; O2SAT 94
[2019-08-01 12:14] VITALS: BP 123/68; PULSE 77; RESP 16; TEMP 36.6
[2019-08-01] MEDS: FILGRASTIM-AAFI 480 MCG/0.8 ML SYRINGE SUBCUT (13:03)
[2019-08-01] MEDS: EPOETIN ALFA-EPBX 10,000 UNIT/ML VIAL 20000 UNIT SUBCUT (13:03)
[2019-08-01 15:09] VITALS: BP 113/58; PULSE 69; RESP 16; TEMP 36.9
== END ==
PROVIDERS: Family Provider Family Medicine; PCP Family Medicine; Referring Provider Family Medicine; Visit Provider Internal Medicine Hematology & Oncology
DX: N18.9 Chronic kidney disease, unspecified (principal); D63.1 Anemia in chronic kidney disease; D46.Z Other myelodysplastic syndromes
CPT/HCPCS: 36430; 36591; 86850; 86900; 86901; 96372; P9016; Q5106; Q5110

== ENCOUNTER → 2019-08-08 11:29 | Outpatient (CLI) | payer MEDICARE, SELFPAY ==
[2019-07-16 14:36] VITALS: BMI 26.6
[2019-08-08] MEDS: FILGRASTIM-AAFI 480 MCG/0.8 ML SYRINGE SUBCUT (12:34)
[2019-08-08] MEDS: EPOETIN ALFA-EPBX 10,000 UNIT/ML VIAL 20000 UNIT SUBCUT (12:35)
== END ==
PROVIDERS: Family Provider Family Medicine; PCP Family Medicine; Referring Provider Family Medicine; Visit Provider Internal Medicine Hematology & Oncology
DX: N18.9 Chronic kidney disease, unspecified (principal); D63.1 Anemia in chronic kidney disease; D46.Z Other myelodysplastic syndromes
CPT/HCPCS: 36591; 85025; 96372; Q5106; Q5110

== ENCOUNTER → 2019-08-09 13:43 | Outpatient (CLI) | payer MEDICARE, SELFPAY ==
[2019-07-16 14:36] VITALS: BMI 26.6
== END ==
PROVIDERS: Family Provider Family Medicine; PCP Family Medicine; Referring Provider Family Medicine; Visit Provider Family Medicine
DX: M85.832 Other specified disorders of bone density and structure, left forearm (principal); Z78.0 Asymptomatic menopausal state; Z82.62 Family history of osteoporosis
CPT/HCPCS: 77080; 77081

== ENCOUNTER → 2019-08-15 11:32 | Outpatient (CLI) | payer MEDICARE, SELFPAY ==
[2019-07-16 14:36] VITALS: BMI 26.6
[2019-08-15 12:39] VITALS: BP 116/61; PULSE 65; RESP 15; TEMP 36.8; O2SAT 95
[2019-08-15] MEDS: FILGRASTIM-AAFI 480 MCG/0.8 ML SYRINGE SUBCUT (13:01)
[2019-08-15] MEDS: EPOETIN ALFA-EPBX 10,000 UNIT/ML VIAL 20000 UNIT SUBCUT (13:01)
[2019-08-18 09:28] VITALS: BP 126/56; PULSE 85; RESP 18; TEMP 36.8
[2019-08-18 12:43] VITALS: BP 156/70; PULSE 90; RESP 20; TEMP 36.8
== END ==
PROVIDERS: Family Provider Family Medicine; PCP Family Medicine; Referring Provider Family Medicine; Visit Provider Internal Medicine Hematology & Oncology
DX: D46.Z Other myelodysplastic syndromes (principal)
CPT/HCPCS: 36430; 36591; 86850; 86900; 86901; 96372; P9016; Q5106; Q5110

== ENCOUNTER → 2019-08-22 11:34 | Outpatient (CLI) | payer MEDICARE, SELFPAY ==
[2019-07-16 14:36] VITALS: BMI 26.6
[2019-08-22 12:59] VITALS: BP 116/63; PULSE 71; RESP 16; TEMP 36.9; O2SAT 94
[2019-08-22] MEDS: FILGRASTIM-AAFI 480 MCG/0.8 ML SYRINGE SUBCUT (13:34)
[2019-08-22] MEDS: EPOETIN ALFA-EPBX 10,000 UNIT/ML VIAL 20000 UNIT SUBCUT (13:34)
== END ==
PROVIDERS: Family Provider Family Medicine; PCP Family Medicine; Referring Provider Family Medicine; Visit Provider Internal Medicine Hematology & Oncology
DX: D46.Z Other myelodysplastic syndromes (principal)
CPT/HCPCS: 36591; 96372; Q5106; Q5110

== ENCOUNTER → 2019-08-29 09:37 | Outpatient (CLI) | payer MEDICARE, SELFPAY ==
[2019-07-16 14:36] VITALS: BMI 26.6
[2019-08-29 10:53] VITALS: BP 101/50; PULSE 71; RESP 18; O2SAT 96
--- NOTE | 2019-08-29 10:57 | PC.NURSE ---
BLOOD PRESSURE LOW TODAY. PIPER STATES SHE IS OCCASIONALLY DIZZY AND THAT BLOOD PRESSURE HAS BEEN LOW LATELY AFTER TYPEWRITER RIBBON WINDER RAISED THE BETA GRICEL AMOUNT. SHE WAS ADVISED TO CALL HER TYPEWRITER [employer]IBBON WINDER AND VOICED UNDERSTANDING AND AGREEMENT.
[2019-08-29] MEDS: EPOETIN ALFA-EPBX 10,000 UNIT/ML VIAL 20000 UNIT SUBCUT (11:03)
[2019-08-29] MEDS: FILGRASTIM-AAFI 480 MCG/0.8 ML SYRINGE SUBCUT (11:03)
== END ==
PROVIDERS: Family Provider Family Medicine; PCP Family Medicine; Referring Provider Family Medicine; Visit Provider Internal Medicine
DX: D46.Z Other myelodysplastic syndromes (principal)
CPT/HCPCS: 36591; 96372; Q5106; Q5110

== ENCOUNTER → 2019-09-05 10:00 | Outpatient (CLI) | payer MEDICARE, SELFPAY ==
[2019-07-16 14:36] VITALS: BMI 26.6
[2019-09-05] MEDS: EPOETIN ALFA-EPBX 10,000 UNIT/ML VIAL 20000 UNIT SUBCUT (11:35)
[2019-09-05] MEDS: FILGRASTIM-AAFI 480 MCG/0.8 ML SYRINGE SUBCUT (11:35)
== END ==
PROVIDERS: Family Provider Family Medicine; PCP Family Medicine; Referring Provider Family Medicine; Visit Provider Internal Medicine
DX: D46.Z Other myelodysplastic syndromes (principal)
CPT/HCPCS: 96372; Q5106; Q5110

== ENCOUNTER → 2019-09-20 09:16 | Outpatient (CLI) | payer MEDICARE, SELFPAY ==
[2019-07-16 14:36] VITALS: BMI 26.6
[2019-09-20 09:59] VITALS: BP 110/64; PULSE 72; RESP 16; TEMP 36.3; O2SAT 96
[2019-09-20 10:10] LABS: Hematocrit 23.3 % (36-46); Hemoglobin 7.8 g/dL (12.0-16.0); Mean Corpuscular HGB Conc 33.4 % (30-36); Mean Corpuscular Hemoglobin 36.1 PG (26-34); Mean Corpuscular Volume 108.2 fL (80-100); Platelet Count 79 X10^3/uL (150-400); Red Blood Cell Count 2.15 X10^6/uL (4.0-5.2); Red Cell Distribution Width 25.5 % (11.6-14.8)
--- NOTE | 2019-09-20 10:10 | PC.NURSE ---
[facility] called for pathology records. Records request in to medical records.
[2019-09-20 10:11] LABS: Add Manual Diff / Slide Review YES
[2019-09-20 10:26] LABS: Anisocytosis 2+; Neutrophils Absolute Manual 710 /uL (3000-5900); Poikilocytosis 1+; Total Cells Counted 100
[2019-09-20] MEDS: FILGRASTIM-AAFI 480 MCG/0.8 ML SYRINGE SUBCUT (11:00)
[2019-09-20] MEDS: EPOETIN ALFA-EPBX 10,000 UNIT/ML VIAL 20000 UNIT SUBCUT (11:00)
--- NOTE | 2019-09-20 17:25 | ONC.PN ---
PN -Subjective Interval history: Ms. Flores presents today for follow-up of her myelodysplastic syndrome after consultation at the [facility]. She region presented in April of 2016 with anemia was diagnosed with a myelodysplastic syndrome. She subsequently progressed to pancytopenia with hepatosplenomegaly. She was treated with weekly erythropoietin but progressed. She was then treated with 5 azacitidine from May 2018 through December of 2018 for a total of 8 cycles which was discontinued due to progression. Bone marrow examination in March of 2019 showed a hypercellular marrow with mild dysplastic changes and negative MDS fish. She had a normal karyotype. Methylmalonic acid was elevated and she was treated with vitamin B12 injections monthly which she has continued to take. In July she started on weekly Neupogen and erythropoietin. She was seen for follow-up in August and noted to have a continued transfusion dependent anemia and ongoing nausea. She was referred to the [facility] where she was seen on September 15. She was seen by Dr. Haroon Lebron. She now presents today for follow-up. She has been getting twice weekly CBCs with aggressive transfusion support. She continues to have chronic low back pain which has been a big issue for her. She notes some easy bruising on the dorsum of her hands. She has had some tremors and hot flashes. She is short of breath with activity but is unchanged from previously. She has no bleeding, new pain, fever, chills, vomiting, mouth sores or trouble swallowing. All other systems are negative. For past medical history including family and social history are reviewed from previous notes. - Patient Self-Reported Symptoms SR ears, nose, mouth, throat issues: Congestion SR respiratory issues: Shortness of breath SR Cardiovascular issues: Palpitations, Shortness of breath with activity or lying flat, Extreme swelling SR Skin issues: Skin color changes, Skin lesions or moles SR Gastrointestinal issues: Heartburn SR Genitourinary issues: Frequent urination, Incontinence SR Neuro issues: Headache, Lightheaded/dizzy, Tremors or shaking SR Hematologic issues: Bleeding/bruising SR Endocrine issues: Hot flashes Home Medications and Allergies Home Medications Medication Instructions Recorded Confirmed Type CALCIUM CARBONATE (#CALCIUM) 1,200 mg PO Q DAY #0 07/19/11 09/20/19 History Centrum Silver 1 tab PO QDAY #0 07/19/11 09/20/19 History prednisone 5 mg PO 0800 #0 07/19/11 09/20/19 History vitamin E 400 unit PO DAILY #0 07/19/11 09/20/19 History cholecalciferol (vitamin D3) 2,000 iu PO QDAY #0 05/14/12 09/20/19 History [Vitamin D3] ketotifen fumarate [Zaditor] 1 drp OPHTH DAILY #5 ml 06/29/12 09/20/19 History krill oil 1,000 mg PO DAILY #0 06/29/12 09/20/19 History sertraline [Zoloft] 150 mg PO HS #0 06/29/12 09/20/19 History PreserVision AREDS-2 2 cap PO DAILY 08/14/17 09/20/19 History ascorbic acid (vitamin C) 1 tab PO DAILY 08/14/17 09/20/19 History diclofenac sodium 1 applic TOPICAL PRN PRN 08/14/17 09/20/19 History fluticasone propionate 1 spray INTRANASAL DAILY 08/14/17 09/20/19 History folic acid 0.4 mg PO DAILY 08/14/17 09/20/19 History hydrocodone-acetaminophen [[place]] 1 tab PO Q6H PRN 08/14/17 09/20/19 History levocetirizine 1 tab PO QPM 08/14/17 09/20/19 History losartan 25 mg PO DAILY 08/14/17 09/20/19 History metformin 500 mg PO BID 08/14/17 09/20/19 History metoprolol succinate 25 tab PO QPM 08/14/17 09/20/19 History trazodone 1 - 2 tab PO BEDTIME PRN 08/14/17 09/20/19 History lorazepam [Ativan] 0.5 mg PO QD-BID PRN #20 tab 10/04/18 09/20/19 Rx ondansetron 4 mg PO Q4HR PRN 01/15/19 09/20/19 History deferasirox 1,000 mg PO DAILY #30 ea 05/16/19 09/20/19 Rx lorazepam 1 mg PO TID PRN #60 tab 05/31/19 09/20/19 Rx prochlorperazine maleate 10 mg PO Q8H PRN #20 tab 06/28/19 09/20/19 Rx [Compazine] gabapentin 300 mg PO BEDTIME 08/23/19 09/20/19 History lenalidomide [Revlimid] 10 mg PO DAILY #30 cap 09/20/19 Rx Allergies Allergy/AdvReac Type Severity Reaction Status Date / Time Cephalosporins Allergy Severe GI UPSET Verified 07/16/19 11:09 morphine Allergy Severe ANAPHYLAXIS Verified 07/16/19 11:09 coconut [COCONUT] Allergy Intermediate HIVES Verified 07/16/19 11:09 adhesive Allergy Mild SKIN Verified 07/16/19 11:09 BREAKDOWN, RASH (TAPE) PAPER TAPE OK meperidine Allergy Mild red rash Verified 07/16/19 11:09 lactose [LACTOSE] Allergy Unknown INTOLERANT Verified 07/16/19 11:09 latex [LATEX] Allergy Unknown REACTION Verified 07/16/19 11:09 NOT LISTED BY PT metronidazole AdvReac Severe GI UPSET Verified 07/16/19 11:09 vancomycin [VANCOMYCIN] AdvReac Severe DIARRHEA Verified 07/16/19 11:09 aspirin AdvReac Mild GI UPSET Verified 07/16/19 11:09 ibuprofen AdvReac Mild GI UPSET Verified 07/16/19 11:09 CANTALOUPE Allergy Severe HIVES Uncoded 01/14/19 20:58 honeydew melon Allergy Severe hives Uncoded 01/14/19 20:58 ANTIHISTAMINES Allergy Mild red rash Uncoded 01/14/19 20:58 Exam Vital signs: Vital Signs Temp Pulse Resp BP Pulse Ox 09/20/19 09:59 97.3 F L 72 16 110/64 96 Intake and Output 09/20/19 09/20/19 09/20/19 07:59 15:59 23:59 Other: Weight 81 kg Patient Weight 09/20/19 23:59 Weight 81 kg Narrative: She was awake, alert and oriented x3. She was fully ambulatory and in no acute distress. Results - Labs Laboratory Last Values WBC 1.0 X10^3/uL (4.5-11.0) L* 09/20/19 09:55 RBC 2.15 X10^6/uL (4.0-5.2) L 09/20/19 09:55 Hgb 7.8 g/dL (12.0-16.0) L 09/20/19 09:55 Hct 23.3 % (36-46) L 09/20/19 09:55 MCV 108.2 fL (80-100) H D 09/20/19 09:55 MCH 36.1 PG (26-34) H 09/20/19 09:55 MCHC 33.4 % (30-36) 09/20/19 09:55 RDW 25.5 % (11.6-14.8) H 09/20/19 09:55 Plt Count 79 X10^3/uL (150-400) L 09/20/19 09:55 Neut % (Auto) Not Reportable 09/20/19 09:55 Lymph % (Auto) Not Reportable 09/20/19 09:55 [place] % (Auto) Not Reportable 09/20/19 09:55 Eos % (Auto) Not Reportable 09/20/19 09:55 Baso % (Auto) Not Reportable 09/20/19 09:55 Lymph # (Auto) Not Reportable 09/20/19 09:55 [place] # (Auto) Not Reportable 09/20/19 09:55 Baso # (Auto) Not Reportable 09/20/19 09:55 Total Counted 100 09/20/19 09:55 Seg Neutrophils % 71.0 % (38-70) H 09/20/19 09:55 Lymphocytes % (Manual) 8.0 % (25-45) L 09/20/19 09:55 Atypical Lymphs % 5.0 % (-0) H 09/20/19 09:55 Monocytes % (Manual) 16.0 % (2-11) H 09/20/19 09:55 Neutrophils # (Manual) 710 /uL (4247-7308) L 09/20/19 09:55 RBC Morphology Not Reportable 09/20/19 09:55 Poikilocytosis 1+ H 09/20/19 09:55 Anisocytosis 2+ H 09/20/19 09:55 - Imaging Additional studies: Procedures Colonoscopy (09/10/12) Assessment and Plan (1) Myelodysplastic syndrome Status: Acute I discussed Ms. galicia case with Dr. Patiño 100 the [facility]. He reviewed her pathology and did not feel that an alternate diagnosis was present. We reviewed her previous treatments of erythropoietin, 5 azacitidine, and most recently erythropoietin and Neupogen. He suggested discontinuing her current growth factor support due to a lack of efficacy. We discussed her treatment options. They he does not have a clinical trial for her at this time. In addition, her enthusiasm for going to [facility] frequently is quite limited. She is not a candidate for a bone marrow transplant due to age and comorbidities. We discussed the option of treatment with Revlimid. A typical starting dose would be 10 mg daily with dose adjustments if myelosuppression were to develop. I went over potential toxicities with Ms. Flores including fatigue, rash, neuropathy, myelosuppression with the consequent risk of infection or bleeding, indigestion, and potential for teratogenicity. I explained that would be a survey before starting treatment and monthly survey while she is on treatment to make sure that she is practicing safe handling techniques with the drug. It is release into the environment could be harmful. A prescription was written for Revlimid 10 mg today. Will get start the process of getting this filled. I will plan to see her back next week to follow-up on the status of the Revlimid prescription, the need for additional transfusions, further discussion about the risks and benefits of treatment and she will call if any other problems or issues should arise in the interim.
== END ==
PROVIDERS: Family Provider Family Medicine; PCP Family Medicine; Referring Provider Family Medicine; Visit Provider Internal Medicine
DX: D46.Z Other myelodysplastic syndromes; M54.5 Low back pain; G89.29 Other chronic pain
CPT/HCPCS: 36591; 85025; 96372; 99214; Q5106; Q5110

== ENCOUNTER → 2019-10-03 11:18 | Outpatient (CLI) | payer MEDICARE, SELFPAY ==
[2019-07-16 14:36] VITALS: BMI 26.6
[2019-10-03] MEDS: EPOETIN ALFA-EPBX 10,000 UNIT/ML VIAL 20000 UNIT SUBCUT (12:21)
[2019-10-03] MEDS: FILGRASTIM-AAFI 480 MCG/0.8 ML SYRINGE SUBCUT (12:21)
[2019-10-03 12:31] VITALS: BP 121/55; PULSE 76; RESP 18; TEMP 36.9; O2SAT 96
== END ==
PROVIDERS: Family Provider Family Medicine; PCP Family Medicine; Referring Provider Family Medicine; Visit Provider Internal Medicine
DX: D46.Z Other myelodysplastic syndromes (principal)
CPT/HCPCS: 36591; 96372; Q5106; Q5110

== ENCOUNTER → 2019-10-10 12:01 | Outpatient (CLI) | payer MEDICARE, SELFPAY ==
[2019-07-16 14:36] VITALS: BMI 26.6
[2019-10-10] MEDS: FILGRASTIM-AAFI 480 MCG/0.8 ML SYRINGE SUBCUT (14:08)
[2019-10-10] MEDS: EPOETIN ALFA 10,000 UNIT/ML VIAL 20000 UNIT SUBCUT (14:08)
== END ==
PROVIDERS: Family Provider Family Medicine; PCP Family Medicine; Referring Provider Family Medicine; Visit Provider Internal Medicine
DX: D46.Z Other myelodysplastic syndromes (principal)
CPT/HCPCS: 85025; 96372; J0885; Q5110

== ENCOUNTER → 2019-10-13 10:19 | Outpatient (CLI) | payer MEDICARE, SELFPAY ==
[2019-07-16 14:36] VITALS: BMI 26.6
== END ==
PROVIDERS: Family Provider Family Medicine; PCP Family Medicine; Referring Provider Internal Medicine; Visit Provider Internal Medicine
DX: D46.Z Other myelodysplastic syndromes (principal)

== ENCOUNTER → 2019-10-18 10:37 | Outpatient (CLI) | payer MEDICARE, SELFPAY ==
[2019-07-16 14:36] VITALS: BMI 26.6
[2019-10-18 11:07] VITALS: BP 132/62; PULSE 83; RESP 16; TEMP 36.9; O2SAT 93
[2019-10-18] MEDS: FILGRASTIM-AAFI 480 MCG/0.8 ML SYRINGE SUBCUT (11:41)
[2019-10-18] MEDS: EPOETIN ALFA-EPBX 10,000 UNIT/ML VIAL 20000 UNIT SUBCUT (11:41)
[2019-10-18 13:30] VITALS: BP 132/62; PULSE 83; RESP 16; TEMP 36.9
[2019-10-18 13:47] VITALS: BP 119/57; PULSE 72; RESP 16; TEMP 36.9
[2019-10-18 16:18] VITALS: BP 105/57; PULSE 74; RESP 16; TEMP 36.9
[2019-10-20 14:07] LABS: Add Manual Diff / Slide Review NO; Basophils Absolute Auto 0 /uL (0-100); Basophils Percent Auto 0.7 % (0-2); Eosinophils Absolute Auto 0 /uL (0-450); Eosinophils Percent Auto 0.4 % (2-4); Hematocrit 26.1 % (36-46); Hemoglobin 8.8 g/dL (12.0-16.0); Lymphocytes Absolute Auto 100 /uL (1100-4500); Lymphocytes Percent Auto 1.1 % (25-40); Mean Corpuscular HGB Conc 33.6 % (30-36); Mean Corpuscular Hemoglobin 35.2 PG (26-34); Monocytes Absolute Auto 200 /uL (0-900); Monocytes Percent Auto 3.8 % (3-14); Neutrophils Absolute Auto 4300 /uL (1500-7000); Platelet Count 74 X10^3/uL (150-400); Red Blood Cell Count 2.48 X10^6/uL (4.0-5.2); Red Cell Distribution Width 28.3 % (11.6-14.8); White Blood Cell Count 4.5 X10^3/uL (4.5-11.0)
[2019-10-20 14:26] LABS: Anisocytosis 2+; Macrocytosis 1+; Poikilocytosis 1+
== END ==
PROVIDERS: Family Provider Family Medicine; PCP Family Medicine; Referring Provider Family Medicine; Visit Provider Internal Medicine
DX: D46.Z Other myelodysplastic syndromes (principal)
CPT/HCPCS: 36430; 36591; 85025; 86850; 86900; 86901; 96372; P9016; Q5106; Q5110

== ENCOUNTER → 2019-10-25 10:44 | Outpatient (CLI) | payer MEDICARE, SELFPAY ==
[2019-07-16 14:36] VITALS: BMI 26.6
[2019-10-25] MEDS: EPOETIN ALFA-EPBX 10,000 UNIT/ML VIAL 20000 UNIT SUBCUT (11:20)
== END ==
PROVIDERS: Family Provider Family Medicine; PCP Family Medicine; Referring Provider Family Medicine; Visit Provider Internal Medicine
DX: D46.Z Other myelodysplastic syndromes (principal); E83.111 Hemochromatosis due to repeated red blood cell transfusions; E11.9 Type 2 diabetes mellitus without complications; R53.83 Other fatigue; Z79.84 Long term (current) use of oral hypoglycemic drugs
CPT/HCPCS: 36591; 80053; 80061; 82043; 82570; 83036; 85025; 96372; 99214; Q5106; Q5110

== ENCOUNTER → 2019-10-31 16:15 | Outpatient (CLI) | payer MEDICARE, SELFPAY ==
[2019-07-16 14:36] VITALS: BMI 26.6
[2019-10-31] MEDS: FILGRASTIM-AAFI 480 MCG/0.8 ML SYRINGE SUBCUT (16:22)
[2019-10-31] MEDS: EPOETIN ALFA-EPBX 10,000 UNIT/ML VIAL 20000 UNIT SUBCUT (16:23)
== END ==
PROVIDERS: Family Provider Family Medicine; PCP Family Medicine; Referring Provider Internal Medicine; Visit Provider Internal Medicine
DX: D46.Z Other myelodysplastic syndromes (principal); E83.111 Hemochromatosis due to repeated red blood cell transfusions; E11.9 Type 2 diabetes mellitus without complications; R53.83 Other fatigue; Z79.84 Long term (current) use of oral hypoglycemic drugs
CPT/HCPCS: 36430; 36591; 85025; 86850; 86900; 86901; 96372; P9016; Q5106; Q5110

== ENCOUNTER → 2020-01-30 11:27 | Outpatient (CLI) | payer MEDICARE, SELFPAY ==
[2019-07-16 14:36] VITALS: BMI 26.6
--- NOTE | 2020-01-30 11:28 | DI.CT.S_ITS ---
PROCEDURE: CT CHEST ABD PEL W CON INDICATIONS: T-cell infiltrate on bone marrow, looking for lymphoma TECHNIQUE: After the administration of oral and intravenous contrast, 5 mm thick sections acquired from the lung apices to the symphysis. 5 mm coronal and sagittal reformats were performed, with additional 7 mm coronal MIP reformats through the lungs. For radiation dose reduction, the following was used: automated exposure control, adjustment of mA and/or kV according to patient size. COMPARISON: [facility], CT, CT CHEST ABD PEL W CON, 12/17/2017, 11:33. FINDINGS: Image quality: Excellent. CHEST: Lungs and pleura: No acute airspace opacities. No left-sided pleural effusions or pneumothorax bilaterally but there is a small water density right-sided pleural effusion with a small amount of posterior dependent presumed atelectasis at the right lung base where the effusion measures approximately 3.5 cm in maximal thickness.. Central and peripheral airways appear patent and normal in caliber. Mediastinum: Heart size is normal. Subcentimeter pericardial effusion noted. No mediastinal or hilar adenopathy by size criteria. Thoracic aorta and central pulmonary arteries are normal in size. Esophagus is normal in caliber. No hiatal hernia. Port-A-Cath in normal positioning from left-sided approach. The tip of the catheter ends at the distal SVC. Chest wall: No axillary or supraclavicular adenopathy by size criteria. Thyroid gland appears normal . ABDOMEN: Solid organs: Liver is enlarged in size at 22.9 cm craniocaudad, and normal in enhancement. Gallbladder has been previously resected . Biliary system is non dilated. Pancreas enhances normally. Spleen is also enlarged in size at 19.9 cm craniocaudad and generally normal in enhancement but with a centrally positioned 40 Hounsfield unit masslike structure which is sharply demarcated, and measures up to 4.5 cm in diameter.. No adrenal nodules. Kidneys demonstrate normal size and enhancement, without hydronephrosis. Peritoneum and bowel: Bowel loops demonstrate normal wall thickness and caliber. No free air. There is a mild degree of ascites within the peritoneal space on the right and the left superiorly, without evidence of peritoneal masses. Nodes and vessels: No retroperitoneal or mesenteric adenopathy by size criteria. Aorta and inferior vena cava are normal in size. Miscellaneous: No ventral hernias. PELVIS: Genitourinary: Bladder wall thickness is normal. At the right adnexa there is a large cystic mass that measures up to 5.6 cm transverse and 8.1 cm AP. A small cyst is noted at the left ovary. The cyst on the right does not contain internal solid nodularity and measures water in density but benign or malignant cystic neoplasm of the right ovary is suspected. Miscellaneous: No inguinal hernias or adenopathy. Bones: No suspicious bony lesions. No vertebral body compression fractures. IMPRESSION: 1. Hepatosplenomegaly, without focal liver lesion but with a 4.5 cm rounded masslike structure centrally positioned within the spleen which measures up to 40 Hounsfield units, above water in radiodensity. 2. Through the chest abdomen and pelvis no discrete area of adenopathy is found. Note is made of a right-sided water density pleural effusion, mild ascites within the peritoneal space, and no sign of pleural or pericardial mass or abnormal soft tissue thickening. No peritoneal carcinomatosis or lymphoma is found. 3. Note is made of a large cystic structure at the right ovary measuring up to 5.6 x 8.1 cm. Coincidental finding of a cystic neoplasm involving the right ovary may explain this appearance. A significantly smaller cystic structure head pre and present at the right ovary in December of 2017, measuring only 3.7 cm in maximal dimension. Dictated by: Erik Jimenez M.D. on 01/30/2020 at 17:03 Approved by: Erik Jimenez M.D. on 01/30/2020 at 17:16
== END ==
PROVIDERS: Family Provider Family Medicine; PCP Family Medicine; Referring Provider Internal Medicine; Visit Provider Internal Medicine
DX: D46.Z Other myelodysplastic syndromes (principal); J90 Pleural effusion, not elsewhere classified; N83.201 Unspecified ovarian cyst, right side; R16.2 Hepatomegaly with splenomegaly, not elsewhere classified; R18.8 Other ascites; Z90.49 Acquired absence of other specified parts of digestive tract
CPT/HCPCS: 71260; 74177

== ENCOUNTER → 2020-03-08 15:33 | Outpatient (CLI) | payer MEDICARE, SELFPAY ==
[2019-07-16 14:36] VITALS: BMI 26.6
[2020-03-08] MEDS: COVID-19 VACC #1, MRNA(MOD) 100 MCG/0.5 ML VIAL IM (15:40)
== END ==
PROVIDERS: Family Provider Family Medicine; PCP Family Medicine; Visit Provider Internal Medicine
DX: Z23 Encounter for immunization (principal)
CPT/HCPCS: 0011A; 91301

== ENCOUNTER → 2020-03-20 17:08 | Outpatient (CLI) | payer MEDICARE, SELFPAY ==
[2019-07-16 14:36] VITALS: BMI 26.6
--- NOTE | 2020-03-20 | DI.RAD.S_ITS ---
PROCEDURE: XR HIP W PEL IF DONE LT MIN 4V INDICATIONS: SACROLITIS TECHNIQUE: AP pelvis with lateral view(s) of the left hip(s). COMPARISON: [facility], CT, CT CHEST ABD PEL W CON, 01/30/2020, 12:31. [facility], CR, [id number] W PEL IF PERFORMED, 02/15/2015, 13:15. FINDINGS: Bones: Patient is status post bilateral total hip arthroplasty with anatomic alignment not significantly changed from previous study. There is also fusion of bilateral sacroiliac joints with surgical hardware in place unchanged from prior CT study. No gross hardware loosening or failure is seen. No acute pelvic or hip fracture is noted. No suspicious bony lesions. Degenerative disc disease in visualized lower lumbar spine is seen. Soft tissues: The visualized bowel gas pattern is normal. No suspicious soft tissue calcifications. IMPRESSION: No pelvic or hip fracture or dislocation. No evidence of hardware loosening or failure. Dictated by: Ilan Washington M.D. on 03/20/2020 at 18:21 Approved by: Ilan Washington M.D. on 03/20/2020 at 18:23
--- NOTE | 2020-03-20 | DI.MRI.S_ITS ---
PROCEDURE: MR LUMBAR SPINE WO CON INDICATIONS: Low back pain TECHNIQUE: Noncontrast sagittal T1 spin echo and T2 fast echo, sagittal STIR, axial T1 and T2 fast spin echo through the lumbar spine. In cases with scoliosis, additional coronal T2 fast spin echo may be performed. COMPARISON: [facility], CT, CT CHEST ABD PEL W CON, 01/30/2020, 12:31. [facility], MR, L-SPINE WITHOUT CONTRAST, 02/21/2015, 18:40. [facility], MR, MR LUMBAR SPINE WO CON, 12/10/2017, 16:29. FINDINGS: Image quality: Excellent. Alignment and Curvature: There is grade 1 L4-L5 degenerative spondylolisthesis. There is trace L3-L4 retrolisthesis. Bones: Susceptibility artifact noted in the bony pelvis related to orthopedic screws placed for bilateral sacroiliac joint arthrodesis. Reactive endplate changes noted adjacent to the L3-L4, L4-L5 and L5-S1 discs. Large Schmorl's node noted in the superior endplate of the L3 vertebral body. Small Schmorl's node noted in the inferior endplate of the L3 vertebral body. No acute vertebral body compression fractures. Spinal Cord: Conus medullaris terminates at the L1-L2 disc level. Visualized cord demonstrates normal signal and size. Paraspinous Soft Tissues: No paravertebral masses. Small bilateral renal cysts incidentally noted. T12-L1: Normal appearance. L1-L2: Normal appearance. L2-L3: Loss of disc signal. Mild, diffuse disc bulge. Mild bilateral facet hypertrophy. Mild narrowing of the central canal. Mild bilateral neural foraminal narrowing. No neural compression. L3-L4: Loss of disc signal and slight loss of disc height. Mild to moderate diffuse disc bulge. Moderate bilateral facet hypertrophy. Mild to moderate narrowing of the central canal. Moderate bilateral neural foraminal narrowing. No neural compression. L4-L5: Loss of disc signal and height. Mild, diffuse disc bulge. Severe bilateral facet hypertrophy. Moderate narrowing of the central canal. Moderate to severe right and severe left neural foraminal narrowing with slight compression of the exiting right L4 nerve root and marked compression of the exiting left L4 nerve root. L5-S1: Loss of disc signal and height. Mild bilateral facet hypertrophy. No central stenosis. Mild bilateral neural foraminal narrowing. No neural compression. IMPRESSION: 1. Grade 1 L4-L5 degenerative spondylolisthesis. 2. Multilevel degenerative disc disease. 3. Multilevel facet arthropathy. 4. No severe central canal narrowing. 5. Severe left L4-L5 neural foraminal narrowing with marked compression of the exiting left L4 nerve root. Moderate to severe right L4-L5 neural foraminal narrowing with slight compression of the exiting right L4 nerve root. Dictated by: Violeta Mancini MD, PhD on 03/21/2020 at 6:54 Approved by: Violeta Mancini MD, PhD on 03/21/2020 at 13:42
== END ==
PROVIDERS: Family Provider Family Medicine; PCP Family Medicine; Referring Provider Neurological Surgery; Visit Provider Neurological Surgery
DX: M54.5 Low back pain (principal); M46.1 Sacroiliitis, not elsewhere classified; M43.16 Spondylolisthesis, lumbar region; M51.36 Other intervertebral disc degeneration, lumbar region; M47.816 Spondylosis without myelopathy or radiculopathy, lumbar region; M48.061 Spinal stenosis, lumbar region without neurogenic claudication; M25.551 Pain in right hip; M47.817 Spondylosis without myelopathy or radiculopathy, lumbosacral region; Z98.1 Arthrodesis status; Z96.643 Presence of artificial hip joint, bilateral
CPT/HCPCS: 72148; 73522

== ENCOUNTER → 2020-03-28 12:41 | Outpatient (CLI) | payer MEDICARE, SELFPAY ==
[2019-07-16 14:36] VITALS: BMI 26.6
--- NOTE | 2020-03-28 12:44 | DI.CT.S_ITS ---
PROCEDURE: CT THORACIC SPINE WO CON INDICATIONS: Myelodysplastic syndrome,Sacrococcygeal disorders, TECHNIQUE: Noncontrast 3 mm thick sections acquired through the region of interest in the thoracic spine. Sagittal and coronal reformats were then constructed. For radiation dose reduction, the following was used: automated exposure control. COMPARISON: None. FINDINGS: Image quality: Excellent. Bones: There is normal overall bony alignment. No acute vertebral body compression fractures. No suspicious sclerotic or lytic bony lesions. Anterior flowing osteophytes noted from T3-T12 compatible with diffuse idiopathic skeletal hyperostosis (DISH). [id number] degenerative disc disease noted throughout the thoracic spine. Mild facet hypertrophy tree noted throughout the thoracic spine. No central canal narrowing. No neural foraminal narrowing. Soft tissues: No paravertebral masses or hematomas. Visualized posteromedial lungs appear clear. Left chest wall Port-A-Cath noted. IMPRESSION: 1. No vertebral body compression fracture. 2. No osseous erosions, periosteal reaction or other evidence of osteomyelitis. 3. Multilevel degenerative disc disease. 4. Multilevel facet arthropathy 5. No central stenosis. 6. No neural foraminal narrowing. 7. No neural compression. 8. Diffuse idiopathic skeletal hyperostosis (DISH). Dictated by: Violeat Mancini MD, PhD on 03/28/2020 at 16:39 Approved by: Violeta Mancini MD, PhD on 03/28/2020 at 16:53
--- NOTE | 2020-03-28 12:44 | DI.CT.S_ITS ---
PROCEDURE: CT LUMBAR SPINE WO CON INDICATIONS: Myelodysplastic syndrome,Sacrococcygeal disorders, TECHNIQUE: Noncontrast 3 mm thick sections acquired from the T12 level to the sacrum. Sagittal and coronal reformats were constructed. For radiation dose reduction, the following was used: automated exposure control. COMPARISON: [facility], MR, MR LUMBAR SPINE WO CON, 03/20/2020, 17:31. FINDINGS: Image quality: Excellent. Bones: SI fusion is present. Hardware is intact without hardware fracture or periprosthetic loosening. Superior endplate deformity with approximate 40% deformity is present at L3. This is unchanged. No new areas of fracture or dislocation are identified. Prominent bridging anterior osteophytes are present at L1-L2, L2-3. There is severe disc space narrowing with vacuum disc at L4-5, L5-S1. There is a stable appearance of multilevel disc bulges throughout the lumbar spine. Mild spinal stenosis is present at L2-3, mild to moderate L3-4, moderate L4-5, unchanged. Multilevel foraminal narrowing is present most severe at L4-5 demonstrating severe left foraminal narrowing with slight compression of the exiting L4 nerve roots bilaterally. Soft tissues: No retroperitoneal masses or hematomas. Visualized aorta is normal in caliber. IMPRESSION: 1. Stable interval exam demonstrating multilevel degenerative changes as above. Dictated by: Michelle Morgan M.D. on 03/28/2020 at 14:32 Approved by: Michelle Morgan M.D. on 03/28/2020 at 14:44
--- NOTE | 2020-03-28 12:47 | DI.CT.S_ITS ---
PROCEDURE: CT PEL WO CON INDICATIONS: Increasing right sided low back pain TECHNIQUE: Noncontrast 3 mm axial sections acquired through the bony pelvis, with coronal and sagittal reformatting. COMPARISON: [facility], CT, CT CHEST ABD PEL W CON, 12/17/2017, 11:33. [facility], CT, CT ABDOMEN WO/W CON, 06/10/2017, 9:01. [facility], CT, CT CHEST ABD PEL W CON, 01/30/2020, 12:31. FINDINGS: Image quality: Portions of the lower pelvis are suboptimally evaluated secondary to metallic streak artifact from hip arthroplasties and SI joint fixation Bones: Bilateral hip arthroplasties as well as SI joint fixation are present. There are no visualized acute fractures or dislocations. Soft tissues: Prominent colonic diverticula are present. There is an unchanged appearance of cystic foci within the ovaries bilaterally, larger on the right. There are grossly unchanged compared to prior exam. However, the right focus has increased IMPRESSION: 1. Colonic diverticulosis. 2. Persistent bilateral cystic ovarian foci. Since 2018. While they are stable since prior exam, is noted there has been interval increase of the focus on the right since 2018. As previously noted, etiology is indeterminate although slow growing cystic neoplasm cannot be excluded. Continued interval follow-up is recommended. Dictated by: Michelle Morgan M.D. on 03/28/2020 at 14:52 Approved by: Michelle Morgan M.D. on 03/28/2020 at 14:57
== END ==
PROVIDERS: Family Provider Family Medicine; PCP Family Medicine; Referring Provider Internal Medicine; Visit Provider Internal Medicine
DX: D46.9 Myelodysplastic syndrome, unspecified (principal); M47.814 Spondylosis without myelopathy or radiculopathy, thoracic region; M53.3 Sacrococcygeal disorders, not elsewhere classified; M48.061 Spinal stenosis, lumbar region without neurogenic claudication; M48.07 Spinal stenosis, lumbosacral region; M51.26 Other intervertebral disc displacement, lumbar region; M54.9 Dorsalgia, unspecified; K57.90 Diverticulosis of intestine, part unspecified, without perforation or abscess without bleeding; Z98.1 Arthrodesis status; Z96.643 Presence of artificial hip joint, bilateral
CPT/HCPCS: 72128; 72131; 72192

== ENCOUNTER → 2020-04-05 15:41 | Outpatient (CLI) | payer MEDICARE, SELFPAY ==
[2019-07-16 14:36] VITALS: BMI 26.6
[2020-04-05] MEDS: COVID-19 VACC #2, MRNA(MOD) 100 MCG/0.5 ML VIAL IM (15:51)
== END ==
PROVIDERS: Family Provider Family Medicine; PCP Family Medicine; Visit Provider Internal Medicine
DX: Z23 Encounter for immunization (principal)
CPT/HCPCS: 0012A; 91301

== ENCOUNTER 2020-05-09 00:17 | Emergency (ER) | payer MEDICARE, SELFPAY ==
[2019-07-16 14:36] VITALS: BMI 26.6
[2020-05-09] VITALS (34 sets, daily range): BP systolic 138–171; BP diastolic 66–88; PULSE 71–106; RESP 16–20; TEMP 36.4–37.3; O2SAT 94–100
--- NOTE | 2020-05-09 00:19 | DI.RAD.S_ITS ---
PROCEDURE: XR HIP W PEL IF DONE RT 2V INDICATIONS: fall with right hip pain TECHNIQUE: AP pelvis with lateral view(s) of the right hip(s). COMPARISON: [facility], BRANDI, XR HIP W PEL IF DONE [id number], 03/20/2020, 17:58. [facility], , [id number] W PEL IF PERFORMED, 02/15/2015, 13:15. FINDINGS: Bones: No dislocations. Pelvic ring appears intact. No suspicious bony lesions. There is a split fracture vertically oriented along the cement/bone interface of the femoral component of the right total hip arthroplasty. The fracture margins exit adjacent to the tip of the arthroplasty, and are moderately displaced to a greater degree inferiorly than superiorly. No pelvic fracture is found. Soft tissues: The visualized bowel gas pattern is normal. No suspicious soft tissue calcifications. IMPRESSION: Vertically oriented fractures along the femoral component of the right total hip arthroplasty, along the cement/bone interface. No pelvic fracture seen. Sacroiliac joint fixation devices and left total hip arthroplasty do not show disruption. Dictated by: Erik Jimenez M.D. on 05/09/2020 at 8:28 Approved by: Erik Jimenez M.D. on 05/09/2020 at 8:30
[2020-05-09 01:08] LABS: BUN Creatinine Ratio 31.8 (6-22); Blood Urea Nitrogen 21 mg/dL (7-17); Calcium 9.7 mg/dL (8.4-10.2); Carbon Dioxide 29 mmol/L (22-32); Chloride 105 mmol/L (98-107); Estimated Glomerular Filt Rate > 60.0 mL/min (>60); Glucose 174 mg/dL (80-110); HEMOLYSIS < 15 (0-50); Potassium 4.4 mmol/L (3.4-5.1); Sodium 139 mmol/L (137-145)
[2020-05-09 01:15] LABS: Hematocrit 23.8 % (36-46); Hemoglobin 8.1 g/dL (12.0-16.0); Mean Corpuscular Hemoglobin 28.4 PG (26-34); Mean Corpuscular Volume 83.4 fL (80-100); Platelet Count 74 X10^3/uL (150-400); Red Blood Cell Count 2.86 X10^6/uL (4.0-5.2); Red Cell Distribution Width 14.9 % (11.6-14.8)
[2020-05-09 01:15] LABS: COVID19 - ADMIT (NP swab/PCR) Negative (Negative)
[2020-05-09 01:18] LABS: White Blood Cell Count 1.2 X10^3/uL (4.5-11.0)
[2020-05-09 01:19] LABS: Add Manual Diff / Slide Review YES
[2020-05-09] MEDS: HYDROMORPHONE 0.5 MG INJ IV ×5 (02:08→15:06)
--- NOTE | 2020-05-09 02:13 | ED_ITS ---
HPI - Extremity Injury (Lower) <Miller Barnhartan, - Last Filed: 05/10/20 03:50> General Chief Complaint: Extremity Injury, Lower Stated Complaint: Fall w/ Hip Pain Time Seen by Provider: 05/09/20 00:19 Source: EMS Mode of arrival: EMS Limitations: no limitations History of Present Illness HPI Narrative: 79F nonsmoker with history of myelodysplastic syndrome (initial diagnosis 2017 with anemia only and eventual pancytopenia and hepatosplenomegaly) presents by EMS for evaluation of severe right hip pain after ground level fall. Patient has had many orthopedic surgeries over the years. Her R hip was done in 1999, but she can't remember where. The patient had been in her normal state of health over the course of the day and denied any dizziness, weakness or lightheadedness. She was standing up from a seated position and became lightheaded and fell onto her right hip. She denies any head, neck or back pain. She did not lose consciousness and has full recall of the event. She has severe right hip pain and is unable to ambulate. She denies any numbness, tingling or weakness. EMS had given pain control prior to arrival. She has her MDS managed locally at the [facility] and receives injections of Luspatercept every 3 weeks. Chronic Hgb 8.1/HCt 26, patient often gets transfusions at her weekly visits on Tuesdays. Last Luspatercept 05/08/20 Related Data Home Medications Medication Instructions Recorded Confirmed CALCIUM CARBONATE (#CALCIUM) 1,200 mg PO Q DAY #0 07/19/11 10/25/19 Centrum Silver 1 tab PO QDAY #0 07/19/11 10/25/19 prednisone 5 mg PO 0800 #0 07/19/11 11/08/19 vitamin E 400 unit PO DAILY #0 07/19/11 10/25/19 cholecalciferol (vitamin D3) 2,000 iu PO QDAY #0 05/14/12 10/25/19 [Vitamin D3] ketotifen fumarate [Zaditor] 1 drp OPHTH DAILY #5 ml 06/29/12 11/08/19 krill oil 1,000 mg PO DAILY #0 06/29/12 11/08/19 sertraline [Zoloft] 150 mg PO HS #0 06/29/12 11/08/19 PreserVision AREDS-2 2 cap PO DAILY 08/14/17 11/08/19 ascorbic acid (vitamin C) 1 tab PO DAILY 08/14/17 10/25/19 diclofenac sodium 1 applic TOPICAL PRN PRN 08/14/17 10/25/19 fluticasone propionate 1 spray INTRANASAL DAILY 08/14/17 09/27/19 folic acid 0.4 mg PO DAILY 08/14/17 10/25/19 levocetirizine 1 tab PO QPM 08/14/17 11/08/19 losartan 25 mg PO DAILY 08/14/17 11/08/19 metoprolol succinate 25 tab PO QPM 08/14/17 11/08/19 trazodone 1 - 2 tab PO BEDTIME PRN 08/14/17 10/25/19 ondansetron 4 mg PO Q4HR PRN 01/15/19 11/08/19 gabapentin 300 mg PO BEDTIME 08/23/19 09/27/19 d-mannose ea 11/09/19 oxycodone-acetaminophen [Percocet] 1 tab PO Q4-6H PRN 05/01/20 05/01/20 Previous Rx's Medication Instructions Recorded lorazepam [Ativan] 0.5 mg PO QD-BID PRN #20 tab 10/04/18 lorazepam 1 mg PO TID PRN #60 tab 05/31/19 prochlorperazine maleate 10 mg PO Q8H PRN #20 tab 06/28/19 [Compazine] lenalidomide 5 mg PO DAILY #30 cap 09/21/19 loratadine [Claritin] 10 mg PO DAILY PRN #25 tab 11/22/19 lorazepam [Ativan] 0.5 mg PO TID PRN #30 tab 05/08/20 Allergies Allergy/AdvReac Type Severity Reaction Status Date / Time Cephalosporins Allergy Severe GI UPSET Verified 05/09/20 08:26 morphine Allergy Severe ANAPHYLAXIS Verified 05/09/20 08:26 coconut [COCONUT] Allergy Intermediate HIVES Verified 05/09/20 08:26 adhesive Allergy Mild SKIN Verified 05/09/20 08:26 BREAKDOWN, RASH (TAPE) PAPER TAPE OK meperidine Allergy Mild red rash Verified 05/09/20 08:26 lactose [LACTOSE] Allergy Unknown INTOLERANT Verified 05/09/20 08:26 latex [LATEX] Allergy Unknown REACTION Verified 05/09/20 08:26 NOT LISTED BY PT metronidazole AdvReac Severe GI UPSET Verified 05/09/20 08:26 vancomycin [VANCOMYCIN] AdvReac Severe DIARRHEA Verified 05/09/20 08:26 aspirin AdvReac Mild GI UPSET Verified 05/09/20 08:26 ibuprofen AdvReac Mild GI UPSET Verified 05/09/20 08:26 CANTALOUPE Allergy Severe HIVES Uncoded 05/09/20 08:26 honeydew melon Allergy Severe hives Uncoded 05/09/20 08:26 ANTIHISTAMINES Allergy Mild red rash Uncoded 05/09/20 08:26 Review of Systems <Miller Ramirez, - Last Filed: 05/10/20 03:50> Constitutional Constitutional: Denies chills, Denies fatigue, Denies fever(s), Denies frequent falls, Denies lethargy and Denies weakness Eyes Eyes: Denies change in vision, Denies eye discharge, Denies irritation and Denies loss of vision ENT Ears, Nose, Mouth, and Throat: Denies change in voice, Denies dizziness, Denies neck pain, Denies sore throat and Denies throat swelling Cardiovascular Cardiovascular: Denies chest pain, Denies irregular heart rhythm, Denies lightheadedness, Denies palpitations, Denies dyspnea, Denies dyspnea on exertion and Denies orthopnea Respiratory Respiratory: Denies cough, Denies dyspnea, Denies dyspnea on exertion and Denies wheezing Gastrointestinal Gastrointestinal: Denies abdominal pain, Denies change in bowel habits, Denies diarrhea, Denies nausea and Denies vomiting Musculoskeletal Musculoskeletal: Reports arthralgias, Reports joint swelling, Reports limited range of motion, Denies neck pain and Denies numbness Integumentary/Breasts Skin/Breast: Denies pruritus, Denies erythema, Denies rash and Denies wounds Neurologic Neurologic: Denies behavioral changes, Denies confusion, Denies dizziness, Denies frequent falls, Denies loss of vision, Denies numbness and Denies weakness Psychiatric Psychiatric: Denies anxiety, Denies behavioral changes, Denies confusion, Denies depression, Denies homicidal ideation and Denies suicidal ideation Endocrine Endocrine: Denies fatigue, Denies flushing and Denies palpitations Hematologic/Lymphatic Hematologic/Lymphatic: Denies easy bruising Allergic/Immunologic Allergic/Immunologic: Denies urticaria, Denies throat swelling and Denies wheezing Patient History <Miller Ramirez DO - Last Filed: 05/10/20 03:50> Medical History (Updated 05/09/20 @ 03:26 by Miller Ramirez DO) 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 Diabetes Diverticulitis HTN (hypertension) Myelodysplasia (myelodysplastic syndrome) Osteoarthritis of lumbar spine Stress incontinence in female (12/15/13) Surgical History History of hip replacement (04/20/89) History of hip replacement (09/24/99) History of knee replacement (01/07/07) History of knee replacement (09/05/08) Status post arthroscopy (10/06/06) Status post arthroscopy (08/18/07) Status post biopsy Status post cholecystectomy Status post colonoscopy Status post hernia repair Status post hysterectomy (12/02/82) Status post knee surgery Status post knee surgery (07/27/09) Social History household members: spouse Smoking Status: Never smoker Smoking Status: Never smoker alcohol intake frequency: 0-2 drinks per day Substance Use Type: marijuana Exam <Miller Ramirez DO - Last Filed: 05/10/20 03:50> Narrative Exam Narrative: GENERAL: [79] year old patient appears stated age. Well- nourished, well-developed patient, in mild distress, obvious pain, complaining of her right hip. Pale, but normal for her. GCS 15 HEAD: Atraumatic. Normocephalic. EYES: Pale conjunctiva Pupils equal round and reactive. Extraocular motions intact. No scleral icterus. No injection or drainage. ENT: Nose without bleeding, purulent drainage. Throat without erythema, tonsillar hypertrophy or exudate. Airway patent. NECK: Trachea midline. Non tender CARDIOVASCULAR: Regular rate and rhythm without murmurs, gallops, or rubs. RESPIRATORY: Clear to auscultation. Breath sounds equal bilaterally. No wheezes, rales, or rhonchi. GASTROINTESTINAL: Abdomen soft, non-tender, nondistended. EXTREMITIES: Minimal shortening with external rotation, severe pain in the rig ht hip with any passive range of motion, closed, isolated and neurovascularly intact BACK: Nontender without deformity or crepitance. No flank tenderness. NEURO: AOx3. SKIN: No rash or erythema of visible areas Initial Vital Signs Initial Vital Signs: Vital Signs Temperature 97.6 F 05/09/20 00:21 Pulse Rate 74 05/09/20 00:21 Respiratory Rate 20 05/09/20 00:21 Blood Pressure 147/69 H 05/09/20 00:21 Pulse Oximetry 94 05/09/20 00:21 <Myriam Dobbs DO - Last Filed: 05/09/20 19:25> Initial Vital Signs Initial Vital Signs: Vital Signs Temperature 97.6 F 05/09/20 00:21 Pulse Rate 74 05/09/20 00:21 Respiratory Rate 20 05/09/20 00:21 Blood Pressure 147/69 H 05/09/20 00:21 Pulse Oximetry 94 05/09/20 00:21 Course <Miller Ramirez DO - Last Filed: 05/10/20 03:50> Orders Ordered: Discontinued Medications Heparin Sodium (Porcine) (Heparin 500 Unit/5 Ml Port Flush) 500 unit IV PRN PRN PRN Reason: Flush Last Admin: 05/09/20 10:05 Dose: 500 unit Documented by: ARIC Hydromorphone HCl (Hydromorphone 0.5 Mg Inj) 0.5 mg IV NOW ONE Stop: 05/09/20 02:03 Last Admin: 05/09/20 02:08 Dose: 0.5 mg Documented by: SHARA Hydromorphone HCl (Hydromorphone 0.5 Mg Inj) 0.5 mg IV NOW ONE Stop: 05/09/20 03:25 Last Admin: 05/09/20 03:50 Dose: 0.5 mg Documented by: ERIS Hydromorphone HCl (Hydromorphone 0.5 Mg Inj) 0.5 mg IV NOW ONE Stop: 05/09/20 04:58 Last Admin: 05/09/20 05:02 Dose: 0.5 mg Documented by: ERIS Hydromorphone HCl (Hydromorphone 0.5 Mg Inj) 0.5 mg IV NOW ONE Stop: 05/09/20 06:49 Last Admin: 05/09/20 06:50 Dose: Not Given Documented by: DBROYLE Hydromorphone HCl (Hydromorphone 0.5 Mg Inj) 0.5 mg IV NOW ONE Stop: 05/09/20 08:19 Last Admin: 05/09/20 08:25 Dose: 0.5 mg Documented by: ARIC Hydromorphone HCl (Hydromorphone 1 Mg Inj) 1 mg IV Q3H [facility] Last Admin: 05/09/20 13:58 Dose: 1 mg Documented by: Admin: 05/09/20 10:51 Dose: 1 mg Documented by: ARIC Hydromorphone HCl (Hydromorphone 0.5 Mg Inj) 0.5 mg IV NOW ONE Stop: 05/09/20 15:05 Last Admin: 05/09/20 15:06 Dose: 0.5 mg Documented by: ARIC Sodium Chloride (Normal Saline 0.9%) 1,000 mls @ 125 mls/hr IV CONT TRACEY Last Infusion: 05/09/20 08:39 Dose: 0 mls/hr Documented by: Admin: 05/09/20 06:03 Dose: 125 mls/hr Documented by: ERIS Lorazepam (Lorazepam 2 Mg/Ml Inj) 0.5 mg IV NOW ONE Stop: 05/09/20 11:49 Last Admin: 05/09/20 12:17 Dose: 0.5 mg Documented by: ARIC Ondansetron HCl (Ondansetron 4 Mg/2 Ml Inj) 4 mg IV Q4HR PRN PRN Reason: Nausea And Vomiting Last Admin: 05/09/20 12:03 Dose: 4 mg Documented by: Admin: 05/09/20 03:49 Dose: 4 mg Documented by: ERIS Consultations Consultation #1: Discussed with local orthopedic surgery (Samira) who views imaging and remarks that patient will need transfer due to the periprosthetic nature of her fracture. Consultation #2: [phone] -call to [facility]. images pushed. facesheet sent. Ortho paged [phone] - call back for update. [phone] - discussed with [facility] Ortho, unable to accept at this time. Must wait until prosthetic service comes on at 0730. Request call back at 0745 Time: 02:14 Vital Signs Vital signs: Vital Signs - 8 hr 05/09/20 11:30 05/09/20 11:31 05/09/20 12:00 Pulse Rate 100 H 101 H 97 H Respiratory Rate 17 18 Blood Pressure 138/74 148/81 H Pulse Oximetry 95 96 98 05/09/20 12:30 05/09/20 12:31 05/09/20 13:00 Pulse Rate 97 H 99 H 96 H Respiratory Rate 20 16 Blood Pressure 147/66 H Pulse Oximetry 94 94 96 05/09/20 13:01 05/09/20 13:30 05/09/20 13:31 Pulse Rate 95 H 94 H 97 H Respiratory Rate 16 Blood Pressure 171/73 H 161/72 H Pulse Oximetry 97 98 97 05/09/20 14:00 05/09/20 14:01 05/09/20 14:30 Pulse Rate 92 H 99 H 105 H Respiratory Rate Blood Pressure 144/85 H 147/77 H Pulse Oximetry 97 96 97 05/09/20 15:00 05/09/20 15:01 Pulse Rate 97 H Respiratory Rate Blood Pressure 152/83 H Pulse Oximetry 95 <Myriam Dobbs DO - Last Filed: 05/09/20 19:25> Orders Ordered: Discontinued Medications Heparin Sodium (Porcine) (Heparin 500 Unit/5 Ml Port Flush) 500 unit IV PRN PRN PRN Reason: Flush Last Admin: 05/09/20 10:05 Dose: 500 unit Documented by: ARIC Hydromorphone HCl (Hydromorphone 0.5 Mg Inj) 0.5 mg IV NOW ONE Stop: 05/09/20 02:03 Last Admin: 05/09/20 02:08 Dose: 0.5 mg Documented by: SHARA Hydromorphone HCl (Hydromorphone 0.5 Mg Inj) 0.5 mg IV NOW ONE Stop: 05/09/20 03:25 Last Admin: 05/09/20 03:50 Dose: 0.5 mg Documented by: ERIS Hydromorphone HCl (Hydromorphone 0.5 Mg Inj) 0.5 mg IV NOW ONE Stop: 05/09/20 04:58 Last Admin: 05/09/20 05:02 Dose: 0.5 mg Documented by: VALERIROYLE Hydromorphone HCl (Hydromorphone 0.5 Mg Inj) 0.5 mg IV NOW ONE Stop: 05/09/20 06:49 Last Admin: 05/09/20 06:50 Dose: Not Given Documented by: ERIS Hydromorphone HCl (Hydromorphone 0.5 Mg Inj) 0.5 mg IV NOW ONE Stop: 05/09/20 08:19 Last Admin: 05/09/20 08:25 Dose: 0.5 mg Documented by: ARIC Hydromorphone HCl (Hydromorphone 1 Mg Inj) 1 mg IV Q3H [facility] Last Admin: 05/09/20 13:58 Dose: 1 mg Documented by: Admin: 05/09/20 10:51 Dose: 1 mg Documented by: ARIC Hydromorphone HCl (Hydromorphone 0.5 Mg Inj) 0.5 mg IV NOW ONE Stop: 05/09/20 15:05 Last Admin: 05/09/20 15:06 Dose: 0.5 mg Documented by: ARIC Sodium Chloride (Normal Saline 0.9%) 1,000 mls @ 125 mls/hr IV CONT [facility] Last Infusion: 05/09/20 08:39 Dose: 0 mls/hr Documented by: Admin: 05/09/20 06:03 Dose: 125 mls/hr Documented by: ERIS Lorazepam (Lorazepam 2 Mg/Ml Inj) 0.5 mg IV NOW ONE Stop: 05/09/20 11:49 Last Admin: 05/09/20 12:17 Dose: 0.5 mg Documented by: ARIC Ondansetron HCl (Ondansetron 4 Mg/2 Ml Inj) 4 mg IV Q4HR PRN PRN Reason: Nausea And Vomiting Last Admin: 05/09/20 12:03 Dose: 4 mg Documented by: Admin: 05/09/20 03:49 Dose: 4 mg Documented by: ERIS Vital Signs Vital signs: Vital Signs - 8 hr 05/09/20 11:30 05/09/20 11:31 05/09/20 12:00 Pulse Rate 100 H 101 H 97 H Respiratory Rate 17 18 Blood Pressure 138/74 148/81 H Pulse Oximetry 95 96 98 05/09/20 12:30 05/09/20 12:31 05/09/20 13:00 Pulse Rate 97 H 99 H 96 H Respiratory Rate 20 16 Blood Pressure 147/66 H Pulse Oximetry 94 94 96 05/09/20 13:01 05/09/20 13:30 05/09/20 13:31 Pulse Rate 95 H 94 H 97 H Respiratory Rate 16 Blood Pressure 171/73 H 161/72 H Pulse Oximetry 97 98 97 05/09/20 14:00 05/09/20 14:01 05/09/20 14:30 Pulse Rate 92 H 99 H 105 H Respiratory Rate Blood Pressure 144/85 H 147/77 H Pulse Oximetry 97 96 97 05/09/20 15:00 05/09/20 15:01 Pulse Rate 97 H Respiratory Rate Blood Pressure 152/83 H Pulse Oximetry 95 MDM - Extremity Injury (Lower) <Miller Ramirez, DO - Last Filed: 05/10/20 03:50> Lab Data Result diagrams: 05/09/20 01:05 05/09/20 00:50 Labs: Lab Results 05/09/20 05/09/20 05/09/20 Range/Units 00:32 00:50 01:05 WBC 1.2 L* (4.5-11.0) X10^3/uL RBC 2.86 L (4.0-5.2) X10^6/uL Hgb 8.1 L (12.0-16.0) g/dL Hct 23.8 L (36-46) % MCV 83.4 (80-100) fL MCH 28.4 (26-34) PG MCHC 34.0 (30-36) % RDW 14.9 H (11.6-14.8) % Plt Count 74 L (150-400) X10^3/uL Neut % (Auto) Not Reportable Lymph % (Auto) Not Reportable [place] % (Auto) Not Reportable Eos % (Auto) Not Reportable Baso % (Auto) Not Reportable Lymph # (Auto) Not Reportable [place] # (Auto) Not Reportable Baso # (Auto) Not Reportable Total Counted 100 Seg Neutrophils % 78.0 H (38-70) % Band Neutrophils % 12.0 H (3-7) % Monocytes % (Manual) 8.0 (2-11) % Eosinophils % (Manual) 2.0 (2-4) % Neutrophils # (Manual) 1080 L (9346-5144) /uL RBC Morphology See below Anisocytosis 1+ H PT (10.1-12.7) SECONDS INR (0.9-1.3) Sodium 139 (137-145) mmol/L Potassium 4.4 (3.4-5.1) mmol/L Chloride 105 (98-107) mmol/L Carbon Dioxide 29 (22-32) mmol/L BUN 21 H (7-17) mg/dL Creatinine 0.66 (0.52-1.04) mg/dL Estimated GFR > 60.0 (>60) mL/min BUN/Creatinine Ratio 31.8 H (6-22) Glucose 174 H (80-110) mg/dL Calcium 9.7 (8.4-10.2) mg/dL SARS-CoV-2 (PCR) Negative (Negative) 05/09/20 Range/Units 01:05 WBC (4.5-11.0) X10^3/uL RBC (4.0-5.2) X10^6/uL Hgb (12.0-16.0) g/dL Hct (36-46) % MCV (80-100) fL MCH (26-34) PG MCHC (30-36) % RDW (11.6-14.8) % Plt Count (150-400) X10^3/uL Neut % (Auto) Lymph % (Auto) [place] % (Auto) Eos % (Auto) Baso % (Auto) Lymph # (Auto) [place] # (Auto) Baso # (Auto) Total Counted Seg Neutrophils % (38-70) % Band Neutrophils % (3-7) % Monocytes % (Manual) (2-11) % Eosinophils % (Manual) (2-4) % Neutrophils # (Manual) (1018-3443) /uL RBC Morphology Anisocytosis PT 14.4 H (10.1-12.7) SECONDS INR 1.3 (0.9-1.3) Sodium (137-145) mmol/L Potassium (3.4-5.1) mmol/L Chloride (98-107) mmol/L Carbon Dioxide (22-32) mmol/L BUN (7-17) mg/dL Creatinine (0.52-1.04) mg/dL Estimated GFR (>60) mL/min BUN/Creatinine Ratio (6-22) Glucose (80-110) mg/dL Calcium (8.4-10.2) mg/dL SARS-CoV-2 (PCR) (Negative) <Myriam Rinku, DO - Last Filed: 05/09/20 19:25> Lab Data Labs: Lab Results 05/09/20 05/09/20 05/09/20 Range/Units 00:32 00:50 01:05 WBC 1.2 L* (4.5-11.0) X10^3/uL RBC 2.86 L (4.0-5.2) X10^6/uL Hgb 8.1 L (12.0-16.0) g/dL Hct 23.8 L (36-46) % MCV 83.4 (80-100) fL MCH 28.4 (26-34) PG MCHC 34.0 (30-36) % RDW 14.9 H (11.6-14.8) % Plt Count 74 L (150-400) X10^3/uL Neut % (Auto) Not Reportable Lymph % (Auto) Not Reportable [place] % (Auto) Not Reportable Eos % (Auto) Not Reportable Baso % (Auto) Not Reportable Lymph # (Auto) Not Reportable [place] # (Auto) Not Reportable Baso # (Auto) Not Reportable Total Counted 100 Seg Neutrophils % 78.0 H (38-70) % Band Neutrophils % 12.0 H (3-7) % Monocytes % (Manual) 8.0 (2-11) % Eosinophils % (Manual) 2.0 (2-4) % Neutrophils # (Manual) 1080 L (0519-5776) /uL RBC Morphology See below Anisocytosis 1+ H PT (10.1-12.7) SECONDS INR (0.9-1.3) Sodium 139 (137-145) mmol/L Potassium 4.4 (3.4-5.1) mmol/L Chloride 105 (98-107) mmol/L Carbon Dioxide 29 (22-32) mmol/L BUN 21 H (7-17) mg/dL Creatinine 0.66 (0.52-1.04) mg/dL Estimated GFR > 60.0 (>60) mL/min BUN/Creatinine Ratio 31.8 H (6-22) Glucose 174 H (80-110) mg/dL Calcium 9.7 (8.4-10.2) mg/dL SARS-CoV-2 (PCR) Negative (Negative) 05/09/20 Range/Units 01:05 WBC (4.5-11.0) X10^3/uL RBC (4.0-5.2) X10^6/uL Hgb (12.0-16.0) g/dL Hct (36-46) % MCV (80-100) fL MCH (26-34) PG MCHC (30-36) % RDW (11.6-14.8) % Plt Count (150-400) X10^3/uL Neut % (Auto) Lymph % (Auto) [place] % (Auto) Eos % (Auto) Baso % (Auto) Lymph # (Auto) [place] # (Auto) Baso # (Auto) Total Counted Seg Neutrophils % (38-70) % Band Neutrophils % (3-7) % Monocytes % (Manual) (2-11) % Eosinophils % (Manual) (2-4) % Neutrophils # (Manual) (2281-9661) /uL RBC Morphology Anisocytosis PT 14.4 H (10.1-12.7) SECONDS INR 1.3 (0.9-1.3) Sodium (137-145) mmol/L Potassium (3.4-5.1) mmol/L Chloride (98-107) mmol/L Carbon Dioxide (22-32) mmol/L BUN (7-17) mg/dL Creatinine (0.52-1.04) mg/dL Estimated GFR (>60) mL/min BUN/Creatinine Ratio (6-22) Glucose (80-110) mg/dL Calcium (8.4-10.2) mg/dL SARS-CoV-2 (PCR) (Negative) Imaging Data Extremity x-ray #1: Radiologist's Impression: PROCEDURE: XR HIP W PEL IF DONE RT 2V INDICATIONS: fall with right hip pain TECHNIQUE: AP pelvis with lateral view(s) of the right hip(s). COMPARISON: [facility], BRANDI, XR HIP W PEL IF DONE JEFFRY [id number], 03/20/2020, 17:58. [facility], BRANDI, [id number] W PEL IF PERFORMED, 02/15/2015, 13:15. FINDINGS: Bones: No dislocations. Pelvic ring appears intact. No suspicious bony lesions. There is a split fracture vertically oriented along the cement/bone interface of the femoral component of the right total hip arthroplasty. The fracture margins exit adjacent to the tip of the arthroplasty, and are moderately displaced to a greater degree inferiorly than superiorly. No pelvic fracture is found. Soft tissues: The visualized bowel gas pattern is normal. No suspicious soft tissue calcifications. IMPRESSION: Vertically oriented fractures along the femoral component of the right total hip arthroplasty, along the cement/bone interface. No pelvic fracture seen. Sacroiliac joint fixation devices and left total hip arthroplasty do not show disruption. Dictated by: Erik Jimenez M.D. on 05/09/2020 at 8:28 MDM Narrative Medical decision making narrative: Received sign-out from Dr. Ramirez. Have seen and evaluated patient myself. She is in some pain [facility] does not have any beds today. I did speak with Orthopedics , who states that it does need to be fixed. [facility] has been contacted hospitalist Dr. Hernandez accepts patient. We did contact Orthopedics and who has reviewed the x-rays. Discharge Plan Departure Patient Disposition: [facility] Clinical Impression: Saira-prosthetic femoral shaft fracture, Myelodysplasia (myelodysplastic syndrome) Prescriptions: No Action prednisone 5 MG tablet 5 mg PO 0800 Qty: 0 RF: 0 Centrum Silver 0.4-300-250 mg-mcg-mcg Tablet 1 tab PO QDAY Qty: 0 RF: 0 CALCIUM CARBONATE (#CALCIUM) 1,200 mg PO Q DAY Qty: 0 RF: 0 vitamin E 400 unit Capsule 400 unit PO DAILY Qty: 0 RF: 0 cholecalciferol (vitamin D3) [Vitamin D3] 2,000 UNIT capsule 2,000 iu PO QDAY Qty: 0 RF: 0 sertraline [Zoloft] 100 MG tablet 150 mg PO HS Qty: 0 RF: 0 ketotifen fumarate [Zaditor] 0.025 % (0.035 %) Drops 1 drp OPHTH DAILY Qty: 5 RF: 0 krill oil 1,000 mg PO DAILY Qty: 0 RF: 0 ondansetron 4 mg Film 4 mg PO Q4HR PRN (Reason: Nausea) RF: 0 lenalidomide 5 mg Capsule 5 mg PO DAILY Qty: 30 RF: 5 losartan 50 mg tablet 25 mg PO DAILY RF: 0 metoprolol succinate 50 mg tablet extended release 24 hr 25 tab PO QPM RF: 0 trazodone 100 mg tablet 1 - 2 tab PO BEDTIME PRN (Reason: antidepressant) RF: 0 fluticasone propionate 50 mcg/actuation spray,suspension 1 spray Intranasal DAILY RF: 0 levocetirizine 5 mg tablet 1 tab PO QPM RF: 0 ascorbic acid (vitamin C) 1,000 mg Tablet 1 tab PO DAILY RF: 0 folic acid 400 mcg Tablet 0.4 mg PO DAILY RF: 0 diclofenac sodium 1 % gel 1 applic Topical PRN PRN (Reason: arthritis pain) RF: 0 PreserVision AREDS-2 [phone] [id number]-du-mg Capsule 2 cap PO DAILY RF: 0 lorazepam [Ativan] 0.5 mg Tablet 0.5 mg PO QD-BID PRN (Reason: Nausea) Qty: 20 RF: 0 lorazepam 1 mg Tablet 1 mg PO TID PRN (Reason: Nausea) Qty: 60 RF: 0 prochlorperazine maleate [Compazine] 10 mg Tablet 10 mg PO Q8H PRN (Reason: Nausea) Qty: 20 RF: 3 gabapentin 300 mg Capsule 300 mg PO BEDTIME RF: 0 d-mannose Powder RF: 0 loratadine [Claritin] 10 mg Tablet 10 mg PO DAILY PRN (Reason: Itching) Qty: 25 RF: 3 oxycodone-acetaminophen [Percocet] 10-325 mg Tablet 1 tab PO Q4-6H PRN (Reason: Pain (Scale Score 7-10)) RF: 0 lorazepam [Ativan] 0.5 mg Tablet 0.5 mg PO TID PRN (Reason: Nausea) Qty: 30 RF: 1 Referrals: Elena Jeffries MD [Primary Care Provider] -
[2020-05-09 03:15] LABS: Anisocytosis 1+; Neutrophils Absolute Manual 1080 /uL (3000-5900); Total Cells Counted 100
[2020-05-09 03:35] LABS: INR 1.3 (0.9-1.3); Prothrombin Time 14.4 SECONDS (10.1-12.7)
[2020-05-09] MEDS: ONDANSETRON 4 MG/2 ML INJ IV ×2 (03:49→12:03)
--- NOTE | 2020-05-09 04:00 | PC.NURSE ---
Pt desats to 87% after dilaudid and while sleeping, O2 via NC on at 2L at this time
[2020-05-09] MEDS: SODIUM CHLORIDE 0.9% 1,000 ML 125 ML IV (06:03)
[2020-05-09] MEDS: HYDROMORPHONE 0.5 MG INJ (06:49)
--- NOTE | 2020-05-09 08:01 | PC.NURSE ---
silicone phytoplex cream applied to pt. abdominal skin fold. area is raw. pt reports she has been putting cream on it.
--- NOTE | 2020-05-09 08:02 | PC.NURSE ---
pt has a left upper chest wall portacath, not assessed.
--- NOTE | 2020-05-09 09:14 | PC.NURSE ---
left cw infusaport accessed without difficulty. excellent blood return. 20 g 3/4 inch needle. power port.
[2020-05-09] MEDS: HYDROMORPHONE 1 MG INJ IV ×2 (10:51→13:58)
[2020-05-09] MEDS: LORazepam 2 MG/ML INJ 0.5 MG IV (12:17)
== END 2020-05-09 15:15 | disposition short-term general hospital (02) ==
PROVIDERS: Emergency Medicine; Emergency Provider Emergency Medicine; Family Provider Family Medicine; PCP Family Medicine
DX: M97.8XXA Periprosthetic fracture around other internal prosthetic joint, initial encounter (principal); D46.9 Myelodysplastic syndrome, unspecified; Z96.649 Presence of unspecified artificial hip joint; W18.30XA Fall on same level, unspecified, initial encounter
CPT/HCPCS: 36415; 51701; 73502; 80048; 85007; 85025; 85610; 87635; 96361; 96374; 96375; 96376; 99285; J1170; J1642; J2060; J2405

== ENCOUNTER 2020-05-30 11:21 | Emergency (ER) | payer MEDICARE, SELFPAY ==
[2019-07-16 14:36] VITALS: BMI 26.6
[2020-05-30] VITALS (25 sets, daily range): BP systolic 128–189; BP diastolic 61–86; PULSE 79–107; RESP 15–17; TEMP 36.9–37.4; O2SAT 84–99; BMI 25.2
--- NOTE | 2020-05-30 12:06 | PC.NURSE ---
Pt was feeling uncomfortable on her backside from wound area. I placed a pillow under her left side to ease the weight. Pt felt much better.
[2020-05-30 13:06] LABS: PTT Partial Thromboplastin Tim 39 SECONDS (26.4-36.2)
--- NOTE | 2020-05-30 13:07 | ED.RECABL ---
HPI - Recheck/Abnormal Lab/Rx General Chief Complaint: Recheck/Abnormal Lab/Rx Stated Complaint: Needs transfusion per Oncology Time Seen by Provider: 05/30/20 12:36 Source: patient Mode of arrival: Wheelchair Limitations: no limitations History of Present Illness HPI narrative: [facility] for [facility] transfusion. She gets them regularly there each week for the past 9 months. However because of recent injury/orthopedic injury she is not able to ambulate and self-care during infusion and requirements for staff not adequate. I spoke with her oncology dr hess, she has mild dysplastic disorder. When hemoglobin is at 7 requires transfusion. This week hemoglobin was 7. Patient denies any symptoms. No black stools bloody stools. No reactions with transfusions in the past. Denies any weakness. In no distress. No recent illness otherwise. Related Data Home Medications Medication Instructions Recorded Confirmed CALCIUM CARBONATE (#CALCIUM) 1,200 mg PO Q DAY #0 07/19/11 10/25/19 Centrum Silver 1 tab PO QDAY #0 07/19/11 10/25/19 prednisone 5 mg PO 0800 #0 07/19/11 11/08/19 vitamin E 400 unit PO DAILY #0 07/19/11 10/25/19 cholecalciferol (vitamin D3) 2,000 iu PO QDAY #0 05/14/12 10/25/19 [Vitamin D3] ketotifen fumarate [Zaditor] 1 drp OPHTH DAILY #5 ml 06/29/12 11/08/19 krill oil 1,000 mg PO DAILY #0 06/29/12 11/08/19 sertraline [Zoloft] 150 mg PO HS #0 06/29/12 11/08/19 PreserVision AREDS-2 2 cap PO DAILY 08/14/17 11/08/19 ascorbic acid (vitamin C) 1 tab PO DAILY 08/14/17 10/25/19 diclofenac sodium 1 applic TOPICAL PRN PRN 08/14/17 10/25/19 fluticasone propionate 1 spray INTRANASAL DAILY 08/14/17 09/27/19 folic acid 0.4 mg PO DAILY 08/14/17 10/25/19 levocetirizine 1 tab PO QPM 08/14/17 11/08/19 losartan 25 mg PO DAILY 08/14/17 11/08/19 metoprolol succinate 25 tab PO QPM 08/14/17 11/08/19 trazodone 1 - 2 tab PO BEDTIME PRN 08/14/17 10/25/19 ondansetron 4 mg PO Q4HR PRN 01/15/19 11/08/19 gabapentin 300 mg PO BEDTIME 08/23/19 09/27/19 d-mannose ea 11/09/19 oxycodone-acetaminophen [Percocet] 1 tab PO Q4-6H PRN 05/01/20 05/01/20 Previous Rx's Medication Instructions Recorded lorazepam [Ativan] 0.5 mg PO QD-BID PRN #20 tab 10/04/18 lorazepam 1 mg PO TID PRN #60 tab 05/31/19 prochlorperazine maleate 10 mg PO Q8H PRN #20 tab 06/28/19 [Compazine] lenalidomide 5 mg PO DAILY #30 cap 09/21/19 loratadine [Claritin] 10 mg PO DAILY PRN #25 tab 11/22/19 lorazepam [Ativan] 0.5 mg PO TID PRN #30 tab 05/08/20 Allergies Allergy/AdvReac Type Severity Reaction Status Date / Time Cephalosporins Allergy Severe GI UPSET Verified 05/30/20 11:40 morphine Allergy Severe ANAPHYLAXIS Verified 05/30/20 11:40 coconut [COCONUT] Allergy Intermediate HIVES Verified 05/30/20 11:40 adhesive Allergy Mild SKIN Verified 05/30/20 11:40 BREAKDOWN, RASH (TAPE) PAPER TAPE OK meperidine Allergy Mild red rash Verified 05/30/20 11:40 lactose [LACTOSE] Allergy Unknown INTOLERANT Verified 05/30/20 11:40 latex [LATEX] Allergy Unknown REACTION Verified 05/30/20 11:40 NOT LISTED BY PT metronidazole AdvReac Severe GI UPSET Verified 05/30/20 11:40 vancomycin [VANCOMYCIN] AdvReac Severe DIARRHEA Verified 05/30/20 11:40 aspirin AdvReac Mild GI UPSET Verified 05/30/20 11:40 ibuprofen AdvReac Mild GI UPSET Verified 05/30/20 11:40 CANTALOUPE Allergy Severe HIVES Uncoded 05/09/20 08:26 honeydew melon Allergy Severe hives Uncoded 05/09/20 08:26 ANTIHISTAMINES Allergy Mild red rash Uncoded 05/09/20 08:26 Review of Systems Review of Systems Narrative: GENERAL: Denies chills, fatigue, malaise, fever, sweats. 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 Diabetes Diverticulitis HTN (hypertension) Myelodysplasia (myelodysplastic syndrome) Osteoarthritis of lumbar spine Stress incontinence in female (12/15/13) Surgical History History of hip replacement (04/20/89) History of hip replacement (09/24/99) History of knee replacement (01/07/07) History of knee replacement (09/05/08) Status post arthroscopy (10/06/06) Status post arthroscopy (08/18/07) Status post biopsy Status post cholecystectomy Status post colonoscopy Status post hernia repair Status post hysterectomy (12/02/82) Status post knee surgery Status post knee surgery (07/27/09) Social History household members: spouse Smoking Status: Never smoker Smoking Status: Never smoker alcohol intake frequency: 0-2 drinks per day Substance Use Type: marijuana Exam Narrative Exam Narrative: GENERAL: in no distress, not toxic not dyspneic HEAD: Normocephalic. EYES: Pupils equal round No scleral icterus. No injection no discharge ENT: Mucous membranes moist. NECK: Trachea midline. CARDIOVASCULAR: Regular rate and rhythm without murmurs RESPIRATORY: Clear to auscultation. Breath sounds equal bilaterally. No wheezes, rales, or rhonchi. GASTROINTESTINAL: Abdomen soft, non-tender EXTREMITIES: No gross deformities. BACK: No flank tenderness. NEURO: AOx4. SKIN: Warm and dry PSYCH: Not anxious, is cooperative Initial Vital Signs Initial Vital Signs: Vital Signs Temperature 99.2 F 05/30/20 11:30 Pulse Rate 107 H 05/30/20 11:30 Respiratory Rate 15 05/30/20 11:30 Blood Pressure 140/71 05/30/20 11:30 Pulse Oximetry 94 05/30/20 11:30 Course Course Course Narrative: No new issues or events during course of stay for blood transfusion Orders Ordered: Discontinued Medications Oxycodone HCl (Oxycodone Ir 5 Mg Tablet) 10 mg PO NOW ONE Stop: 05/30/20 17:00 Last Admin: 05/30/20 17:07 Dose: 10 mg Documented by: PETE Reevaluation(s) Reevaluation #1: No new issues. Resting comfortably. Awaiting for completion of blood transfusion. No reactions or side effects Time: 18:36 Consultations Consultation #1: I s/w dr Hess, pt's heme/onc, pt to receive 2 units of prbc's. pt usually gets 2 units every week. When hemoglobin levels drop below 7.0. This is only reason why patient is here in the department due to [facility] not able to comment a for her orthopedic needs. No other reason. Vital Signs Vital signs: Vital Signs - 8 hr 05/30/20 11:30 05/30/20 13:01 05/30/20 13:06 Temperature 99.2 F Pulse Rate 107 H 93 H Respiratory Rate 15 Blood Pressure 140/71 139/72 Pulse Oximetry 94 97 05/30/20 13:34 05/30/20 14:00 05/30/20 14:05 Temperature Pulse Rate 79 94 H 95 H Respiratory Rate Blood Pressure 163/69 H Pulse Oximetry 84 L 97 97 05/30/20 14:30 05/30/20 14:38 05/30/20 15:00 Temperature 99.3 F 98.5 F Pulse Rate 95 H 98 H 96 H Respiratory Rate 17 17 Blood Pressure 128/61 128/61 145/78 H Pulse Oximetry 97 95 05/30/20 15:30 05/30/20 15:45 05/30/20 16:00 Temperature 99.0 F Pulse Rate 95 H 94 H 96 H Respiratory Rate 16 Blood Pressure 161/77 H 160/79 H 160/79 H Pulse Oximetry 94 97 05/30/20 16:20 05/30/20 16:30 05/30/20 16:52 Temperature 98.6 F 99.3 F Pulse Rate 92 H 92 H 88 Respiratory Rate 16 17 Blood Pressure 177/81 H 177/81 H 172/79 H Pulse Oximetry 97 05/30/20 16:54 05/30/20 17:00 05/30/20 17:01 Temperature Pulse Rate 89 89 91 H Respiratory Rate Blood Pressure 172/79 H 167/75 H Pulse Oximetry 96 96 95 05/30/20 17:09 05/30/20 17:30 05/30/20 17:52 Temperature 99.3 F 99.2 F Pulse Rate 82 83 82 Respiratory Rate 16 17 Blood Pressure 167/75 H 170/81 H 170/81 H Pulse Oximetry 97 05/30/20 18:00 Temperature Pulse Rate 87 Respiratory Rate Blood Pressure 189/86 H Pulse Oximetry 98 MDM - Recheck/Abnormal Lab/Rx Differential Diagnosis Differential diagnosis: Likely other (Blood transfusion) Medical Records Attestation: I reviewed the patient's medical records. Lab Data Attestation: I reviewed the patient's lab results. Result diagrams: 05/30/20 12:45 05/30/20 12:45 Labs: Lab Results 03/16/18 05/30/20 05/30/20 Range/Units 14:20 12:45 12:45 WBC 1.4 L* (4.5-11.0) X10^3/uL RBC 2.14 L (4.0-5.2) X10^6/uL Hgb 6.4 L* (12.0-16.0) g/dL Hct 18.4 L* (36-46) % MCV 85.9 (80-100) fL MCH 29.7 (26-34) PG MCHC 34.6 (30-36) % RDW 14.0 (11.6-14.8) % Plt Count 104 L (150-400) X10^3/uL Neut % (Auto) Not Reportable Lymph % (Auto) Not Reportable [place] % (Auto) Not Reportable Eos % (Auto) Not Reportable Baso % (Auto) Not Reportable Lymph # (Auto) Not Reportable [place] # (Auto) Not Reportable Baso # (Auto) Not Reportable Total Counted 50 Seg Neutrophils % 84.0 H (38-70) % Lymphocytes % (Manual) 4.0 L (25-45) % Monocytes % (Manual) 12.0 H (2-11) % Neutrophils # (Manual) 1176 L (4084-7013) /uL RBC Morphology See below Anisocytosis 1+ H APTT (26.4-36.2) SECONDS Sodium (137-145) mmol/L Potassium (3.4-5.1) mmol/L Chloride (98-107) mmol/L Carbon Dioxide (22-32) mmol/L BUN (7-17) mg/dL Creatinine (0.52-1.04) mg/dL Estimated GFR (>60) mL/min BUN/Creatinine Ratio (6-22) Glucose (80-110) mg/dL Calcium (8.4-10.2) mg/dL Total Bilirubin (0.2-1.3) mg/dL AST (14-36) IU/L ALT (<35) IU/L Alkaline Phosphatase (38-126) U/L Total Protein (6.3-8.2) g/dL Albumin (3.5-5.0) g/dL Globulin (1.7-4.1) g/dL Albumin/Globulin Ratio (1.0-2.8) Blood Type Cancelled A Negative Antibody Screen Cancelled Negative Crossmatch See Detail See Detail 05/30/20 05/30/20 05/30/20 Range/Units 12:45 12:45 12:45 WBC (4.5-11.0) X10^3/uL RBC (4.0-5.2) X10^6/uL Hgb (12.0-16.0) g/dL Hct (36-46) % MCV (80-100) fL MCH (26-34) PG MCHC (30-36) % RDW (11.6-14.8) % Plt Count (150-400) X10^3/uL Neut % (Auto) Lymph % (Auto) [place] % (Auto) Eos % (Auto) Baso % (Auto) Lymph # (Auto) [place] # (Auto) Baso # (Auto) Total Counted Seg Neutrophils % (38-70) % Lymphocytes % (Manual) (25-45) % Monocytes % (Manual) (2-11) % Neutrophils # (Manual) (6299-4978) /uL RBC Morphology Anisocytosis APTT 39 H (26.4-36.2) SECONDS Sodium 133 L (137-145) mmol/L Potassium 4.4 (3.4-5.1) mmol/L Chloride 99 (98-107) mmol/L Carbon Dioxide 32 (22-32) mmol/L BUN 21 H (7-17) mg/dL Creatinine 0.88 (0.52-1.04) mg/dL Estimated GFR > 60.0 (>60) mL/min BUN/Creatinine Ratio 23.9 H (6-22) Glucose 149 H (80-110) mg/dL Calcium 9.4 (8.4-10.2) mg/dL Total Bilirubin 0.6 (0.2-1.3) mg/dL AST 74 H (14-36) IU/L ALT 161 H (<35) IU/L Alkaline Phosphatase 209 H (38-126) U/L Total Protein 4.8 L (6.3-8.2) g/dL Albumin 2.9 L (3.5-5.0) g/dL Globulin 1.9 (1.7-4.1) g/dL Albumin/Globulin Ratio 1.5 (1.0-2.8) Blood Type Antibody Screen Crossmatch See Detail MDM Narrative Medical decision making narrative: Appropriate for discharge home. Patient is here only for blood transfusion as protocol from [facility]fusion [facility] prohibits her from being there this week. Due to orthopedic limitations. Patient understands. No events during course of stay Discharge Plan Departure Patient Disposition: Home Clinical Impression: Anemia Qualifiers: Anemia type: unspecified type Qualified Code(s): D64.9 - Anemia, unspecified Instructions: DI for Blood Transfusion Activity Restrictions/Additional Instructions: Return if worse or any questions or concerns. See your oncology physician as scheduled and continue home medications as prescribed by your providers. Prescriptions: No Action prednisone 5 MG tablet 5 mg PO 0800 Qty: 0 RF: 0 Centrum Silver 0.4-300-250 mg-mcg-mcg Tablet 1 tab PO QDAY Qty: 0 RF: 0 CALCIUM CARBONATE (#CALCIUM) 1,200 mg PO Q DAY Qty: 0 RF: 0 vitamin E 400 unit Capsule 400 unit PO DAILY Qty: 0 RF: 0 cholecalciferol (vitamin D3) [Vitamin D3] 2,000 UNIT capsule 2,000 iu PO QDAY Qty: 0 RF: 0 sertraline [Zoloft] 100 MG tablet 150 mg PO HS Qty: 0 RF: 0 ketotifen fumarate [Zaditor] 0.025 % (0.035 %) Drops 1 drp OPHTH DAILY Qty: 5 RF: 0 krill oil 1,000 mg PO DAILY Qty: 0 RF: 0 ondansetron 4 mg Film 4 mg PO Q4HR PRN (Reason: Nausea) RF: 0 lenalidomide 5 mg Capsule 5 mg PO DAILY Qty: 30 RF: 5 losartan 50 mg tablet 25 mg PO DAILY RF: 0 metoprolol succinate 50 mg tablet extended release 24 hr 25 tab PO QPM RF: 0 trazodone 100 mg tablet 1 - 2 tab PO BEDTIME PRN (Reason: antidepressant) RF: 0 fluticasone propionate 50 mcg/actuation spray,suspension 1 spray Intranasal DAILY RF: 0 levocetirizine 5 mg tablet 1 tab PO QPM RF: 0 ascorbic acid (vitamin C) 1,000 mg Tablet 1 tab PO DAILY RF: 0 folic acid 400 mcg Tablet 0.4 mg PO DAILY RF: 0 diclofenac sodium 1 % gel 1 applic Topical PRN PRN (Reason: arthritis pain) RF: 0 PreserVision AREDS-2 [id number] Capsule 2 cap PO DAILY RF: 0 lorazepam [Ativan] 0.5 mg Tablet 0.5 mg PO QD-BID PRN (Reason: Nausea) Qty: 20 RF: 0 lorazepam 1 mg Tablet 1 mg PO TID PRN (Reason: Nausea) Qty: 60 RF: 0 prochlorperazine maleate [Compazine] 10 mg Tablet 10 mg PO Q8H PRN (Reason: Nausea) Qty: 20 RF: 3 gabapentin 300 mg Capsule 300 mg PO BEDTIME RF: 0 d-mannose Powder RF: 0 loratadine [Claritin] 10 mg Tablet 10 mg PO DAILY PRN (Reason: Itching) Qty: 25 RF: 3 oxycodone-acetaminophen [Percocet] 10-325 mg Tablet 1 tab PO Q4-6H PRN (Reason: Pain (Scale Score 7-10)) RF: 0 lorazepam [Ativan] 0.5 mg Tablet 0.5 mg PO TID PRN (Reason: Nausea) Qty: 30 RF: 1 Referrals: Elena Jeffries MD [Primary Care Provider] -
[2020-05-30 13:09] LABS: Alanine Aminotransferase 161 IU/L (<35); Albumin 2.9 g/dL (3.5-5.0); Albumin Globulin Ratio 1.5 (1.0-2.8); Alkaline Phosphatase 209 U/L (38-126); Aspartate Aminotransferase 74 IU/L (14-36); BUN Creatinine Ratio 23.9 (6-22); Bilirubin Total 0.6 mg/dL (0.2-1.3); Blood Urea Nitrogen 21 mg/dL (7-17); Calcium 9.4 mg/dL (8.4-10.2); Carbon Dioxide 32 mmol/L (22-32); Chloride 99 mmol/L (98-107); Estimated Glomerular Filt Rate > 60.0 mL/min (>60); Globulin 1.9 g/dL (1.7-4.1); Glucose 149 mg/dL (80-110); HEMOLYSIS < 15 (0-50); Mean Corpuscular HGB Conc 34.6 % (30-36); Mean Corpuscular Hemoglobin 29.7 PG (26-34); Mean Corpuscular Volume 85.9 fL (80-100); Platelet Count 104 X10^3/uL (150-400); Potassium 4.4 mmol/L (3.4-5.1); Red Blood Cell Count 2.14 X10^6/uL (4.0-5.2); Sodium 133 mmol/L (137-145); Total Protein 4.8 g/dL (6.3-8.2)
[2020-05-30 13:11] LABS: Hemoglobin 6.4 g/dL (12.0-16.0); White Blood Cell Count 1.4 X10^3/uL (4.5-11.0)
[2020-05-30 13:12] LABS: Add Manual Diff / Slide Review YES; Hematocrit 18.4 % (36-46)
[2020-05-30 13:43] LABS: Neutrophils Absolute Manual 1176 /uL (3000-5900); Total Cells Counted 50
[2020-05-30 13:44] LABS: Anisocytosis 1+
[2020-05-30] MEDS: OXYCODONE IR 5 MG TABLET 10 MG PO (17:07)
--- NOTE | 2020-05-30 17:31 | PC.NURSE ---
1505 Infusion rate of 1st unit PRBC's increased to 300ml/hr.
== END 2020-05-30 19:07 | disposition home or self-care (01) ==
PROVIDERS: Emergency Provider Emergency Medicine; Family Provider Family Medicine; PCP Family Medicine
DX: D64.9 Anemia, unspecified (principal)
CPT/HCPCS: 36415; 36430; 80053; 85007; 85025; 85730; 86850; 86900; 86901; 99284; P9016

== ENCOUNTER → 2020-07-04 14:44 | Outpatient (CLI) | payer MEDICARE, SELFPAY ==
[2019-07-16 14:36] VITALS: BMI 26.6
--- NOTE | 2020-07-04 14:47 | DI.RAD.S_ITS ---
PROCEDURE: XR CHEST 2V INDICATIONS: Check Port-A-Cath placement TECHNIQUE: 2 views of the chest were acquired. COMPARISON: [facility], , XR CHEST 1V, 01/13/2019, 18:24 FINDINGS: Surgical changes and devices: Left-sided port with the catheter tip projecting in the region of the upper SVC versus azygous vein, similar to before. The tip somewhat projects in a horizontal orientation rather than vertical. Lungs and pleura: Lungs are clear. No pleural effusions or pneumothorax. Mediastinum: Mediastinal contours appear unchanged. Heart size is prominent. Bones and chest wall: No suspicious bony abnormalities. Soft tissues appear unremarkable. IMPRESSION: Left-sided port with the catheter tip projecting in the region of the upper SVC or azygos vein. The catheter tip on CT thoracic spine 03/28/2020 is within the SVC. Dictated by: Dilip Soria M.D. on 07/04/2020 at 17:18 Approved by: Dilip Soria M.D. on 07/04/2020 at 17:22
== END ==
PROVIDERS: Family Provider Family Medicine; PCP Family Medicine; Referring Provider Internal Medicine; Visit Provider Internal Medicine
DX: D46.Z Other myelodysplastic syndromes (principal); Z45.2 Encounter for adjustment and management of vascular access device
CPT/HCPCS: 71046

== ENCOUNTER 2020-08-09 09:35 | Emergency (ER) | payer MEDICARE, SELFPAY ==
[2019-07-16 14:36] VITALS: BMI 26.6
[2020-08-09 10:00] VITALS: BP 149/72; PULSE 100; RESP 16; TEMP 36.9; O2SAT 97; BMI 24.2
[2020-08-09 10:42] LABS: Hematocrit 21.7 % (36-46); Hemoglobin 7.2 g/dL (12.0-16.0); Mean Corpuscular HGB Conc 33.1 % (30-36); Mean Corpuscular Hemoglobin 28.9 PG (26-34); Mean Corpuscular Volume 87.3 fL (80-100); Platelet Count 117 X10^3/uL (150-400); Red Blood Cell Count 2.48 X10^6/uL (4.0-5.2); Red Cell Distribution Width 14.8 % (11.6-14.8)
[2020-08-09 10:44] LABS: Add Manual Diff / Slide Review YES; White Blood Cell Count 1.7 X10^3/uL (4.5-11.0)
[2020-08-09 11:04] LABS: Alanine Aminotransferase 74 IU/L (<35); Albumin 3.6 g/dL (3.5-5.0); Albumin Globulin Ratio 1.7 (1.0-2.8); Alkaline Phosphatase 226 U/L (38-126); Aspartate Aminotransferase 35 IU/L (14-36); BUN Creatinine Ratio 41.4 (6-22); Bilirubin Total 0.6 mg/dL (0.2-1.3); Blood Urea Nitrogen 29 mg/dL (7-17); Calcium 9.4 mg/dL (8.4-10.2); Carbon Dioxide 29 mmol/L (22-32); Chloride 105 mmol/L (98-107); Estimated Glomerular Filt Rate > 60.0 mL/min (>60); Globulin 2.1 g/dL (1.7-4.1); Glucose 274 mg/dL (80-110); HEMOLYSIS < 15 (0-50); Lipase 28 U/L (23-300); Sodium 138 mmol/L (137-145); Total Protein 5.7 g/dL (6.3-8.2)
[2020-08-09 11:12] LABS: Hypochromasia 1+; Neutrophils Absolute Manual 1496 /uL (3000-5900); Total Cells Counted 50
--- NOTE | 2020-08-09 11:23 | ED_ITS ---
HPI - Abdominal Pain General Chief Complaint: Abdominal Pain Stated Complaint: upset stomach,stool all over this morning Time Seen by Provider: 08/09/20 11:23 Source: patient and family Mode of arrival: Wheelchair Limitations: no limitations History of Present Illness HPI narrative: This is a 79-year-old female comes emergency department with complaint of diarrhea for the past 3-4 days. Patient has had nausea but no active vomiting. She has had recurrent explosive diarrhea 3 sometimes 4 times daily. She has not noticed any melena or bright but blood. She has had some epigastric pain started after the diarrhea. She has not had any fevers or chills. She denies any chest pain or pressure. No shortness of breath. She has been able to tolerate oral fluids. Patient has just been feeling generally unwell she skipped her oncology appointment for transfusion on Thursday followed by Thursday. She does have myelodysplastic disease and is seen by oncology for this. She is not on any agents for this currently. She does have a history of diabetes but states she is on diet controlled. She denies any other daily medications besides pain medications. Patient had significant orthopedic injuries to her lower extremity in April or May and continues to take pain medications after surgical repair which sounds like it was quite extensive. Related Data Home Medications Medication Instructions Recorded Confirmed CALCIUM CARBONATE (#CALCIUM) 1,200 mg PO Q DAY #0 07/19/11 10/25/19 yajpynyp-mnc-gpayi acid 0.4 1 tab PO QDAY #0 07/19/11 10/25/19 mg-lycopene 300 mcg-lutein 250 mcg tablet (Centrum Silver) prednisone 5 mg tablet 5 mg PO 0800 #0 07/19/11 11/08/19 vitamin E 400 unit capsule 400 unit PO DAILY #0 07/19/11 10/25/19 cholecalciferol (vitamin D3) 50 2,000 iu PO QDAY #0 05/14/12 10/25/19 mcg (2,000 unit) capsule (Vitamin D3) ketotifen fumarate 0.025 % (0.035 1 drp OPHTH DAILY #5 ml 06/29/12 11/08/19 %) eye drops (Zaditor) krill oil 1,000 mg PO DAILY #0 06/29/12 11/08/19 sertraline 100 mg tablet (Zoloft) 150 mg PO HS #0 06/29/12 11/08/19 ascorbic acid (vitamin C) 1,000 mg 1 tab PO DAILY 08/14/17 10/25/19 tablet diclofenac sodium 1 % topical gel 1 applic TOPICAL PRN PRN 08/14/17 10/25/19 fluticasone propionate 50 1 spray INTRANASAL DAILY 08/14/17 09/27/19 mcg/actuation nasal spray,suspension folic acid 400 mcg tablet 0.4 mg PO DAILY 08/14/17 10/25/19 levocetirizine 5 mg tablet 1 tab PO QPM 08/14/17 11/08/19 losartan 50 mg tablet 25 mg PO DAILY 08/14/17 11/08/19 metoprolol succinate 50 mg 25 tab PO QPM 08/14/17 11/08/19 tablet,extended release 24 hr trazodone 100 mg tablet 1 - 2 tab PO BEDTIME PRN 08/14/17 10/25/19 vit C 250 mg-vit E 90 mg-zinc 40 2 cap PO DAILY 08/14/17 11/08/19 mg-copper 1 zo-nfeevk-wgtlwv capsule (PreserVision AREDS-2) ondansetron 4 mg oral soluble film 4 mg PO Q4HR PRN 01/15/19 11/08/19 gabapentin 300 mg capsule 300 mg PO BEDTIME 08/23/19 09/27/19 d-mannose ea 11/09/19 oxycodone-acetaminophen 10 mg-325 1 tab PO Q4-6H PRN 05/01/20 05/01/20 mg tablet (Percocet) Previous Rx's Medication Instructions Recorded lorazepam 0.5 mg tablet (Ativan) 0.5 mg PO QD-BID PRN #20 tab 10/04/18 lorazepam 1 mg tablet 1 mg PO TID PRN #60 tab 05/31/19 prochlorperazine maleate 10 mg 10 mg PO Q8H PRN #20 tab 06/28/19 tablet (Compazine) lenalidomide 5 mg capsule 5 mg PO DAILY #30 cap 09/21/19 loratadine 10 mg tablet (Claritin) 10 mg PO DAILY PRN #25 tab 11/22/19 lorazepam 0.5 mg tablet (Ativan) 0.5 mg PO TID PRN #30 tab 05/08/20 triamcinolone acetonide 0.05 % 1 applic TOPICAL DAILY #10 g 07/24/20 topical ointment ondansetron 4 mg disintegrating 4 mg PO Q6H PRN #10 tab 08/09/20 tablet Allergies Allergy/AdvReac Type Severity Reaction Status Date / Time Cephalosporins Allergy Severe GI UPSET Verified 08/09/20 10:00 morphine Allergy Severe ANAPHYLAXIS Verified 08/09/20 10:00 coconut [COCONUT] Allergy Intermediate HIVES Verified 08/09/20 10:00 adhesive Allergy Mild SKIN Verified 08/09/20 10:00 BREAKDOWN, RASH (TAPE) PAPER TAPE OK meperidine Allergy Mild red rash Verified 08/09/20 10:00 lactose [LACTOSE] Allergy Unknown INTOLERANT Verified 08/09/20 10:00 latex [LATEX] Allergy Unknown REACTION Verified 08/09/20 10:00 NOT LISTED BY PT metronidazole AdvReac Severe GI UPSET Verified 08/09/20 10:00 vancomycin [VANCOMYCIN] AdvReac Severe DIARRHEA Verified 08/09/20 10:00 aspirin AdvReac Mild GI UPSET Verified 08/09/20 10:00 ibuprofen AdvReac Mild GI UPSET Verified 08/09/20 10:00 CANTALOUPE Allergy Severe HIVES Uncoded 08/03/20 08:42 honeydew melon Allergy Severe hives Uncoded 08/03/20 08:42 ANTIHISTAMINES Allergy Mild red rash Uncoded 08/03/20 08:42 Review of Systems Review of Systems ROS Unobtainable: All systems reviewed & are unremarkable except as noted in HPI and below Patient History Medical History (Updated 08/09/20 @ 11:51 by Tonya Bravo DO) 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 Diabetes Diverticulitis HTN (hypertension) Myelodysplasia (myelodysplastic syndrome) Osteoarthritis of lumbar spine Stress incontinence in female (12/15/13) Surgical History (System 08/03/20 @ 08:42 by Lady Michelle Chong) History of hip replacement (04/20/89) History of hip replacement (09/24/99) History of knee replacement (01/07/07) History of knee replacement (09/05/08) Status post arthroscopy (10/06/06) Status post arthroscopy (08/18/07) Status post biopsy Status post cholecystectomy Status post colonoscopy Status post hernia repair Status post hysterectomy (12/02/82) Status post knee surgery Status post knee surgery (07/27/09) Social History (System 08/03/20 @ 08:42 by Ladruel Michelle Qureshi Arlette) household members: spouse Smoking Status: Never smoker Smoking Status: Never smoker alcohol intake frequency: 0-2 drinks per day Substance Use Type: marijuana Exam Narrative Exam Narrative: GENERAL: Alert and oriented x three, female in mild distress. HEENT: Head normocephalic, atraumatic, EOMI, pupils reactive, face symmetric, moist mucous membranes NECK: Supple, full range of motion CARDIOVASCULAR: Regular rate and rhythm without murmurs, rubs or gallops. RESPIRATORY: Breath sounds equal bilaterally, no wheezes rales or rhonchi. ABDOMEN: Soft, nontender. Normoactive bowel sounds all 4 quadrants. No guarding or rebound, rigidity, no mass, nondistended : No CVA tenderness NEUROLOGICAL: Cranial nerves II through XII grossly intact. Moving all extremities SKIN: Warm, dry, no petechiae, no rashes or lesions. Initial Vital Signs Initial Vital Signs: Vital Signs Temperature 98.5 F 08/09/20 10:00 Pulse Rate 100 H 08/09/20 10:00 Respiratory Rate 16 08/09/20 10:00 Blood Pressure 149/72 H 08/09/20 10:00 Pulse Oximetry 97 08/09/20 10:00 Course Orders Ordered: ED Orders 08/09/20 10:15 Complete Blood Count AUTO DIFF Stat Comprehensive Metabolic Panel Stat Lipase Stat Type and Screen Stat 08/09/20 10:18 EKG-12 Lead Stat 08/09/20 10:37 Blood Culture Stat Vital Signs Vital signs: Vital Signs - 8 hr 08/09/20 10:00 08/09/20 11:38 Temperature 98.5 F Pulse Rate 100 H 89 Respiratory Rate 16 20 Blood Pressure 149/72 H 125/93 H Pulse Oximetry 97 98 MDM - Abdominal Pain Lab Data Result diagrams: 08/09/20 10:15 08/09/20 10:15 Labs: Lab Results 08/09/20 08/09/20 08/09/20 Range/Units 10:15 10:15 10:15 WBC 1.7 L* (4.5-11.0) X10^3/uL RBC 2.48 L (4.0-5.2) X10^6/uL Hgb 7.2 L (12.0-16.0) g/dL Hct 21.7 L (36-46) % MCV 87.3 (80-100) fL MCH 28.9 (26-34) PG MCHC 33.1 (30-36) % RDW 14.8 (11.6-14.8) % Plt Count 117 L (150-400) X10^3/uL Neut % (Auto) Not Reportable Lymph % (Auto) Not Reportable [place] % (Auto) Not Reportable Eos % (Auto) Not Reportable Baso % (Auto) Not Reportable Lymph # (Auto) Not Reportable [place] # (Auto) Not Reportable Baso # (Auto) Not Reportable Total Counted 50 Seg Neutrophils % 78.0 H (38-70) % Band Neutrophils % 10.0 H (3-7) % Lymphocytes % (Manual) 4.0 L (25-45) % Monocytes % (Manual) 8.0 (2-11) % Neutrophils # (Manual) 1496 L (9159-6949) /uL RBC Morphology Not Reportable Hypochromasia 1+ H Sodium 138 (137-145) mmol/L Potassium 4.0 (3.4-5.1) mmol/L Chloride 105 (98-107) mmol/L Carbon Dioxide 29 (22-32) mmol/L BUN 29 H (7-17) mg/dL Creatinine 0.70 (0.52-1.04) mg/dL Estimated GFR > 60.0 (>60) mL/min BUN/Creatinine Ratio 41.4 H (6-22) Glucose 274 H (80-110) mg/dL Calcium 9.4 (8.4-10.2) mg/dL Total Bilirubin 0.6 (0.2-1.3) mg/dL AST 35 (14-36) IU/L ALT 74 H (<35) IU/L Alkaline Phosphatase 226 H (38-126) U/L Total Protein 5.7 L (6.3-8.2) g/dL Albumin 3.6 (3.5-5.0) g/dL Globulin 2.1 (1.7-4.1) g/dL Albumin/Globulin Ratio 1.7 (1.0-2.8) Lipase 28 (23-300) U/L Blood Type A Negative Antibody Screen Negative ECG Data Interpretation: Sinus rhythm with first-degree AV block. Rate of 91 Pr 218 QRS of 92 and QTC 4 x 5. Patient appears to have possible AFib but does have regular rhythm. She does appear to have P waves with majority of her QRS. Frequent PVCs. Rate of 91 P are 218 QRS of 92 and QTC 455. MDM Narrative Medical decision making narrative: Female with myelodysplastic disease who has stable white count, hemoglobin and platelets today. Chronically elevated ALT which is also not new. Patient has benign exam and would like to return home without further additional testing. I did discuss I like to order CT abdomen pelvis but patient would prefer not to at this time. She would like a prescription for Zofran. Labs here have been stable and her heart rate has improved over time. Return precautions are discussed. Patient does have follow-up with her oncology team. Discharge Plan Departure Patient Disposition: Home Clinical Impression: Diarrhea Instructions: Diarrhea Activity Restrictions/Additional Instructions: Follow up with your physician for recheck. Contact your Hematology/Oncology office about having your blood transfusion rescheduled. Her hemoglobin today is stable. You may take Zofran 1 tablet every 6 hours as needed for nausea. You may try Imodium [id number] for diarrhea. [facility] in [place]. Return if your having worsening symptoms, black or bloody stools, lightheadedness or passing out, worsening chest pain, shortness of breath or abdominal pain, difficulty with urination or other new or concerning symptoms. Prescriptions: New ondansetron 4 mg tablet,disintegrating 4 mg PO Q6H PRN (Reason: nausea and vomiting) Qty: 10 RF: 0 No Action prednisone 5 MG tablet 5 mg PO 0800 Qty: 0 RF: 0 Centrum Silver 0.4-300-250 mg-mcg-mcg Tablet 1 tab PO QDAY Qty: 0 RF: 0 CALCIUM CARBONATE (#CALCIUM) 1,200 mg PO Q DAY Qty: 0 RF: 0 vitamin E 400 unit Capsule 400 unit PO DAILY Qty: 0 RF: 0 cholecalciferol (vitamin D3) [Vitamin D3] 2,000 UNIT capsule 2,000 iu PO QDAY Qty: 0 RF: 0 sertraline [Zoloft] 100 MG tablet 150 mg PO HS Qty: 0 RF: 0 ketotifen fumarate [Zaditor] 0.025 % (0.035 %) Drops 1 drp OPHTH DAILY Qty: 5 RF: 0 krill oil 1,000 mg PO DAILY Qty: 0 RF: 0 ondansetron 4 mg Film 4 mg PO Q4HR PRN (Reason: Nausea) RF: 0 lenalidomide 5 mg Capsule 5 mg PO DAILY Qty: 30 RF: 5 losartan 50 mg tablet 25 mg PO DAILY RF: 0 metoprolol succinate 50 mg tablet extended release 24 hr 25 tab PO QPM RF: 0 trazodone 100 mg tablet 1 - 2 tab PO BEDTIME PRN (Reason: antidepressant) RF: 0 fluticasone propionate 50 mcg/actuation spray,suspension 1 spray Intranasal DAILY RF: 0 levocetirizine 5 mg tablet 1 tab PO QPM RF: 0 ascorbic acid (vitamin C) 1,000 mg Tablet 1 tab PO DAILY RF: 0 folic acid 400 mcg Tablet 0.4 mg PO DAILY RF: 0 diclofenac sodium 1 % gel 1 applic Topical PRN PRN (Reason: arthritis pain) RF: 0 PreserVision AREDS-2 [id number]-vr-[id number] Capsule 2 cap PO DAILY RF: 0 lorazepam [Ativan] 0.5 mg Tablet 0.5 mg PO QD-BID PRN (Reason: Nausea) Qty: 20 RF: 0 lorazepam 1 mg Tablet 1 mg PO TID PRN (Reason: Nausea) Qty: 60 RF: 0 prochlorperazine maleate [Compazine] 10 mg Tablet 10 mg PO Q8H PRN (Reason: Nausea) Qty: 20 RF: 3 gabapentin 300 mg Capsule 300 mg PO BEDTIME RF: 0 d-mannose Powder RF: 0 loratadine [Claritin] 10 mg Tablet 10 mg PO DAILY PRN (Reason: Itching) Qty: 25 RF: 3 oxycodone-acetaminophen [Percocet] 10-325 mg Tablet 1 tab PO Q4-6H PRN (Reason: Pain (Scale Score 7-10)) RF: 0 lorazepam [Ativan] 0.5 mg Tablet 0.5 mg PO TID PRN (Reason: Nausea) Qty: 30 RF: 1 triamcinolone acetonide 0.05 % Ointment 1 applic TOPICAL DAILY Qty: 10 RF: 0 Referrals: Elena Jeffries MD [Primary Care Provider] -
[2020-08-09 11:38] VITALS: BP 125/93; PULSE 89; RESP 20; O2SAT 98
[2020-08-09 12:00] VITALS: BP 125/93; PULSE 85; RESP 18; O2SAT 97
== END 2020-08-09 12:00 | disposition home or self-care (01) ==
PROVIDERS: Emergency Provider Emergency Medicine; Family Provider Family Medicine; PCP Family Medicine
DX: R19.7 Diarrhea, unspecified (principal); R10.13 Epigastric pain
CPT/HCPCS: 36415; 80053; 83690; 85007; 85025; 86850; 86900; 86901; 87040; 93005; 99284

== ENCOUNTER → 2020-09-04 10:06 | Outpatient (CLI) | payer MEDICARE, SELFPAY ==
[2020-08-23 09:25] VITALS: BMI 26.6
[2020-09-04 11:10] LABS: COVID19 -Nasal RAPID Negative (Negative)
== END ==
PROVIDERS: Family Provider Family Medicine; PCP Family Medicine; Visit Provider Specialist
DX: Z20.822 Contact with and (suspected) exposure to COVID-19 (principal)
CPT/HCPCS: 87635; C9803

== ENCOUNTER → 2020-09-17 11:51 | Outpatient (ROUT) | payer MEDICARE, SELFPAY ==
[2020-08-23 09:25] VITALS: BMI 26.6
[2020-09-17 12:13] LABS: COVID19 -Nasal RAPID Negative (Negative)
== END ==
PROVIDERS: Family Provider Family Medicine; PCP Family Medicine; Visit Provider Specialist
DX: Z20.822 Contact with and (suspected) exposure to COVID-19 (principal)
CPT/HCPCS: 87635

== ENCOUNTER 2020-09-19 09:15 | Day surgery (SDC) | payer MEDICARE, SELFPAY ==
[2020-08-23 09:25] VITALS: BMI 26.6
[2020-09-10 08:28] VITALS: BMI 25.0
[2020-09-19] VITALS (9 sets, daily range): BP systolic 146–164; BP diastolic 65–92; PULSE 72–100; RESP 10–96; TEMP 36.6–36.8; O2SAT 14–97; BMI 25.0
--- NOTE | 2020-09-19 | DI.RAD.S_ITS ---
PROCEDURE: XR CHEST 1V INDICATIONS: RIGHT PORT REPLACEMENT TECHNIQUE: One view of the chest was acquired. COMPARISON: [facility], CR, XR CHEST 2V, 07/04/2020, 15:18. FINDINGS: Surgical changes and devices: Right chest port with the tip projecting in the lower SVC. Lungs and pleura: Scattered subsegmental atelectasis and/or scarring. No focal consolidation. No pleural effusion or pneumothorax. Mediastinum: Mediastinal contours appear normal. Heart size is normal. Bones and chest wall: No suspicious bony lesions. Overlying soft tissues appear unremarkable. IMPRESSION: Scattered subsegmental atelectasis and/or scarring. No focal consolidation. Right chest port with the tip projecting in the lower SVC. No pneumothorax. Dictated by: Roddy Obrien M.D. on 09/19/2020 at 13:31 Approved by: Roddy Obrien M.D. on 09/19/2020 at 13:33
[2020-09-19] MEDS: LACTATED RINGERS 1,000 ML 42 ML IV (09:58)
--- NOTE | 2020-09-19 10:01 | PM.PREOP ---
Pre-operative Note COVID-19 COVID-19 status: Negative Result date/Date tested (Pos, Neg/Pending): 09/18/20 Interval Note History & Physical reviewed/Exam performed by Physician: Yes Changes to H&P: No
--- NOTE | 2020-09-19 10:22 | SUR.PREOP ---
Dr Lake notified of patient CBG [id number]
[2020-09-19] MEDS: INSULIN REGULAR 100 UNIT/ML 3 ML VIAL IV (10:35)
[2020-09-19] MEDS: CEFAZOLIN 1 GM VIAL 2 GM IV (10:55)
--- NOTE | 2020-09-19 11:00 | SUR.OPER ---
Supine on padded OR bed, head on pillow, arms padded and tucked at sides, legs uncrossed, safety belt at thigh, tape over blanket over lower legs .
[2020-09-19] MEDS: LIDOCAINE 1% 30 ML INJ (11:13)
[2020-09-19] MEDS: HEPARIN 5,000 UNIT, SODIUM CHLORIDE 0.9% 50 ML IV (11:14)
--- NOTE | 2020-09-19 12:34 | P.OP_ITS ---
Operative Date/Time/Diagnoses Date of procedure: 09/19/20 Time of procedure: 12:15 Pre-op diagnosis: Nonfunctioning Port-A-Cath Post-op diagnosis: same Procedure & Clinicians Procedure: Removal of left subclavian Port-A-Cath and placement of right subclavian Port-A-Cath Same procedure as scheduled: Yes Indications: Patient in need of chronic IV access for transfusions. Left infraclavicular Port-A-Cath has stopped functioning. Surgeon: Karri Staley Click Yes if Unassisted: Yes Anesthesia Type: General Operative Notes Findings: No evidence of pneumothorax. Tip in the distal SVC. Closure Type: primary Specimen(s): none sent Prosthetic devices, grafts, tissues, transplants, or devices: Removed left Port-A-Cath and placed right Port-A-Cath Estimated Blood Loss (mL): 7 Blood products transfused: none Procedure in detail: The patient was placed supine on the operating room table and underwent general LMA anesthesia. Due to the patient's kyphosis A roll was not placed between the patient's shoulders. She was prepped and draped in the usual fashion. Local anesthetic was infiltrated beneath the left clavicle in a field block fashion around the existing port. Transverse incision was made thro ugh an old scar and the prior port removed. The insertion into the subQ superior to the incision was suture ligated with a 3-0 Vicryl. The subQ was closed with a 3-0 Vicryl. Skin was closed a running 4-0 Vicryl subcuticular stitch. Attention was turned to the right side. Local anesthetic was infiltrated in a field block fashion beneath the right clavicle. . A transverse incision was made and a pocket created inferior to the incision. A needle was inserted on the 1st attempt into the subclavian vein. A guidewire was passed through it and the needle removed. Initially the guidewire went into the neck but with manipulation using fluoroscopy I was able to get it to go into the superior vena cava. The guidewire appeared to be in good position. The port and catheter were put together and the port inserted into the pocket. The catheter was tapered to appropriate length. A dilator and introducer were passed over the guidewire. This was done with fluoroscopic visualization. The dilator and guidewire were removed leaving the introducer in place. The catheter was passed through the introducer which was then peeled away. The tip of the catheter was noted to be in the distal SVC. There was no evidence of a pneumothorax on fluoroscopy. The port was aspirated and flushed with heparinized saline. The port was secured to the chest wall with interrupted 2 0 silk suture. The subcu was closed with interrupted 3 0 Vicryl. The skin was closed with a running 4 0 Vicryl subcuticular stitch, skin protectant and Steri- Strips to both wounds. Dressing was applied and the patient was taken to the recovery room in good condition. X-ray postprocedure showed no evidence of pneumothorax and the tip of the catheter in the SVC.. Complications: none Post-operative Condition: stable Disposition: PACU
[2020-09-19] MEDS: HYDROCODONE/ACET 5/325 TABLET 1 TAB PO (12:43)
--- NOTE | 2020-09-19 12:58 | SUR.PHASEII ---
Glasses with pt to Phase II.
== END 2020-09-19 13:31 | disposition home or self-care (01) ==
PROVIDERS: Family Provider Family Medicine; PCP Family Medicine; Referring Provider Specialist; Visit Provider Specialist
PROC: (CPT 36561; principal; 2020-09-19 10:15)
DX: D46.9 Myelodysplastic syndrome, unspecified (principal); T85.618A Breakdown (mechanical) of other specified internal prosthetic devices, implants and grafts, initial encounter; T82.848A Pain due to vascular prosthetic devices, implants and grafts, initial encounter; M40.209 Unspecified kyphosis, site unspecified; E11.9 Type 2 diabetes mellitus without complications; I10 Essential (primary) hypertension
CPT/HCPCS: 36561; 36590; 71045; 76000; 82962; C1788; J0690; J1644; J2704; J3010

== ENCOUNTER 2020-09-24 15:15 | Outpatient (RCR) | payer MEDICARE, SELFPAY ==
[2020-08-23 09:25] VITALS: BMI 26.6
--- NOTE | 2020-09-11 18:21 | PT.OIE ---
Current Diagnoses Periprosthetic fracture around internal prosthetic right hip joint, initial encounter (09/11/20) Past Medical History (This Medical Record has been edited. Action required.) Arthritis Bigeminy (06/06/02) Clostridium difficile infection 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 Diabetes Diverticulitis Diverticulitis (07/03/02) Esophageal spasm Heart murmur Hip fracture History of back surgery (08/2016) History of bone marrow biopsy History of chemotherapy History of coronary angiogram (06/1987) History of partial hysterectomy (11/12/82) History of surgery (05/11/20) HTN (hypertension) Hx of cholecystectomy (03/1994) Hx of sarcoidosis IBS (irritable bowel syndrome) Irregular heart beat Kidney stones Macular degeneration (08/2010) Myelodysplasia (myelodysplastic syndrome) Osteoarthritis Osteoarthritis of lumbar spine Pancytopenia Polymyalgia rheumatica Presence of device Stress incontinence in female (12/15/13) Stroke (05/11/71) Past Surgical History (This Medical Record has been edited. Action required.) History of back surgery (08/2016) History of bone marrow biopsy History of hip replacement (04/20/89) History of hip replacement (09/24/99) History of knee replacement (01/07/07) History of knee replacement (09/05/08) History of partial hysterectomy (11/12/82) History of surgery (05/11/20) Hx of cholecystectomy (03/1994) Status post arthroscopy (10/06/06) Status post arthroscopy (08/18/07) Status post biopsy Status post cholecystectomy Status post colonoscopy Status post hernia repair Status post hysterectomy (12/02/82) Status post knee surgery Status post knee surgery (07/27/09) Visit Care Team Role Provider Type Elena Jeffries MD Family Provider Physician Primary Care Provider Specialty: Family Practice Address: [address] [place] [address] [place], [address] Email: [email or web address] Zohra Camargo PA-C Attending Provider Non-Staff Referring Provider Specialty: General Surgery Address: [address] [place] [address], [id number] Email: Physical Therapy Initial Evaluation PT-OP-A Visit Information Start: 09/07/20 18:07 Freq: Status: Active Protocol: Document 09/11/20 10:47 LRN (Rec: 09/11/20 12:26 LRN [id number]) Out-Patient Physical Therapy Visit Information Visit Information Visit Type Initial Evaluation Visit Start Time 10:47 Visit Stop Time 11:27 Total Visit Minutes 40 Visit Number 1 Evaluation Information Evaluation Date 09/11/20 Precautions Precautions Blood disorder - Myleodisplastic Syndrome (MDS) resulting in fatigue and blood transfusions every week, Tape allergy, Multiple surgeries as liste in History of current condition Osteoarthrtis (hands, arms), Diabetes II, HBP controlled by meds, Stroke - 40 yrs ago. PT-OP-B Current Condition Start: 09/07/20 18:07 Freq: Status: Active Protocol: Document 09/11/20 10:47 LRN (Rec: 09/11/20 12:26 LRN [id number]) Current Condition History of Current Condition Onset Date 05/09/20 Current Complaints Pain in R hip, thigh and knee due to weakness. History of Current Condition Fell at end of April and shattered the R femur and hip joint, took 8 hr surgery ( revision of R MANUEL and had new philip placed that extended down the entire R femur to knee) and a lot of blood used to wire her together. Pt reports she is working on the recovery. Spent 6-8 weeks at [facility] for rehab. Has been home for ~6 weeks with home PT/OT ~3-4 wks. Has been 2-3 weeks without PT/OT at home. Prior Treatments and Tests Oxycodone for pain - every 4 hrs. 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 Treatment Goals Patient/Caregiver Goals Pt goal is to be able to walk and stand using 4WW without RLE plain. Prior Functional Status Baseline Function- Gait Used 4WW with gait. Could walk around house and shop Baseline Function- Other Able to bathe on own prior to fall. Current Functional Impairments (Reported) Functional Limitations- ADL's Spouse helps pt bath. Functional Limitations- Mobility/Gait Limited walking distance and standing due to R hip/thigh/ knee pain. 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 PT-OP-C Subjective Start: 09/07/20 18:07 Freq: Status: Active Protocol: Document 09/11/20 10:47 LRN (Rec: 09/11/20 12:26 LRN [id number]) Patient Questionnaires Lower Extremity Functional Scale LEFS Score 9 LEFS Impairment 80 to 99% Impaired (Score 1-16 ) OP-PT Pain Assessment Pain Assessment Grid Paper Pain Assessment Grid Completed Yes Location R hip/thigh/knee Pain Location Details R hip/thigh/knee Intensity 6 Scale Used Numeric (0 - 10) Description Aching,Sharp Description- Other Sometime sharp Frequency Constant Other Pain Aggravating Factors Worse in morning and at night. Pain Alleviating Factors Medication Other Pain Alleviating Factors Oxycodone every 4 hours Patient Stated Pain Goal Get off pain meds PT-OP-G Mobility & Gait Start: 09/07/20 18:07 Freq: Status: Active Protocol: Document 09/11/20 10:47 LRN (Rec: 09/11/20 12:26 LRN [id number]) OP Gait Assessment Gait Gait Assistance Required: Independent Assistive Devices Assistive Device 4 Wheeled Walker Gait Deviations General Gait Pattern Antalgic Factors Limiting Gait Function Factors Limiting Gait Function Decreased Strength,Pain Comments Gait Comments 4WW, short steps with L LE, heavy lean on arms. PT-OP-H Neuro Start: 09/07/20 18:07 Freq: Status: Active Protocol: Document 09/11/20 10:47 LRN (Rec: 09/11/20 12:26 LRN [id number]) Sensation Evaluation Gross Sensation Gross Sensation WNL PT-OP-J Posture/Palpation/Skin Start: 09/07/20 18:07 Freq: Status: Active Protocol: Document 09/11/20 10:47 LRN (Rec: 09/11/20 12:26 LRN [id number]) Posture Evaluation Position Sitting Evaluation View Lateral & Anterior Comments Posture Comments Slumped, leans to left. Palpation Assessment Location L3, L4 Palpation Location Back Palpation Findings Tenderness R knee Palpation Location R anterior knee, around patella Palpation Findings Tenderness R thigh Palpation Location Anterior, posterior, medial, lateral Palpation Findings Tenderness Palpation Details Ms atrophy R hip Palpation Location Lateral, posterior, anterior Palpation Findings Tenderness PT-OP-K Range of Motion Start: 09/07/20 18:07 Freq: Status: Active Protocol: Document 09/11/20 10:47 LRN (Rec: 09/11/20 12:26 LRN [id number]) Hip Goniometric Range of Motion Hip Right Active Hip ROM WFL No Testing Position Supine Flexion w/Knee Flexed 102 Abduction 10 Comments Deferred rotation ROM assessment due to recent surgery. Left Active Hip ROM WFL Yes Testing Position Supine Flexion w/Knee Flexed 115 Abduction 25 Comments Deferred rotation ROM assessment due to previous surgeries. Knee Goniometric Range of Motion Knee Right Knee ROM WFL No Patient Position Supine Flexion Active (degrees) 122 Extension Active (degrees) 17 Left Knee ROM WFL Yes Patient Position Supine Flexion Active (degrees) 125 Extension Active (degrees) 10 PT-OP-M Strength Start: 09/07/20 18:07 Freq: Status: Active Protocol: Document 09/11/20 10:47 LRN (Rec: 09/11/20 12:26 LRN [id number]) Hip Strength Hip Manual Muscle Testing Right Flexion (L2) 3 Fair Extension (S1) 2 Poor Abduction 2 Poor Comments Deferred further assessment due to pain and mobility limitations due to recent surgery. Left Flexion (L2) 3+ Fair+ Extension (S1) 2 Poor Abduction 2 Poor Comments Deferred further assessment due to pain on surgical side. Knee Strength Knee Manual Muscle Testing Right Flexion (S2) 3+ Fair+ Extension (L3) 3+ Fair+ Comments Pain in anterior knee & with flexion in hamtrings. Left Flexion (S2) 5 Normal Extension (L3) 5 Normal Ankle/Foot Strength Ankle and Foot Manual Muscle Testing Right Comments Generally 5/5 Left Comments Generally 5/5 PT-OP-Q Treatments Start: 09/07/20 18:07 Freq: Status: Active Protocol: Document 09/11/20 10:47 LRN (Rec: 09/11/20 12:26 LRN [id number]) Self-Care/Home Management Treatment Education Other Education Discussed results of evaluation, goals, and plan of care (POC). Pt agreeable to goals and POC. Discussed pain management with use of ice to area of pain. Activities Self-Care/Home Management Activities I/S pt to continue with previously issued HEP and to bring in for review. PT-OP-T Assessment and Plan Start: 09/07/20 18:07 Freq: Status: Active Protocol: Document 09/11/20 10:47 LRN (Rec: 09/11/20 12:26 LRN [id number]) Physical Therapy Assessment Rehab Potential Rehabilitation Potential Excellent Evaluation Complexity Number of Personal Factors/Comorbidities 3 or More Number of Body Systems Impaired 4 or More Clinical Presentation at Evaluation Evolving Impairments Impairments Activity Tolerance,Balance, Gait,Pain,ROM,Soft Tissue Mobility,Strength Goals Three Impairment Decreased function due to pain . Impairment LEFS score of 8 (80-99% impaired) R hip AROM: flex 102 deg's, AB 10 deg's (L is flex 115 deg 's, AB 25 deg's) R knee AROM: flex 122 deg's, ext 17 deg's (L is flex 125 deg's, AB 10 deg's) Short Term Goal (STG) Improve R hip/knee painfree AROM. STG Duration 10/26/20 [employer] Goal (LTG) Improve R hip and knee mobility with pt able to walk and stand using 4WW without RLE pain. LTG Duration 12/10/20 Two Impairment Decreased R hip/knee strength Impairment Initial MMT: R knee flex/ext is 3+/5. R hip flex 3/5, Ext and AB 2/5 (other motions not appropriate for testing due too pain and recent surgery movement limitation of no AD) Short Term Goal (STG) Improve R knee & Hip strength 1 grade (knee 4/5, hip 3-4/5). STG Duration 10/26/20 [facility] Goal (LTG) Improve R hip & knee strength to no less than 4+/5 with pt able to walk 100', stand to cook, using 4WW without RLE pain. LTG Duration 12/10/20 One Impairment Lacks current self care HEP Short Term Goal (STG) Pt will be educated in self care pain managment techniques (RICE). STG Duration 09/18/20 [facility] Goal (LTG) Pt will be independent in a self care HEP. LTG Duration 12/10/20 Assessment Summary Assessment Pt presents with R hip/knee decreased mobility and strength due to recent R MANUEL revision and surgical fix of femur fracture after fall. Pt is hindered by comorbidities including most notably her MDS blood disorder (see Current Conditions, Personal Factors), extensive surgical history, history of stroke, type II Diabetes, Osteoarthritis, and tape allergies (not able to use Kinesiotape). With the complications from her comorbidities, her rehabilitation is expected to be prolonged. The pt will benefit from skilled physical therapy to achieve the above stated goals. Physical Therapy Plan Frequency and Duration Frequency of Treatment 2x/Week Plan of Care Start Date 09/11/20 Plan of Care End Date 12/10/20 Therapeutic Interventions Therapeutic Interventions Gait Training,Home Exercise Program,Manual Therapy, Neuromuscular Re-education, Patient/Caregiver Education, Self-Care/Home Management,Soft Tissue Mobilization, Therapeutic Exercises Modalities Cold Pack/Ice Massage,Hot Packs Next Visit Focus/Plan Next Note Type Treatment Note Next Visit Plan Discuss pt's plan for when she wants to schedule more PT visits. Slow progressive ROM & strengthening of R hip/knee following R MANUEL posterior precautions until further direction can be obtained from pt's surgeon. Pt education in pain management techniques for home, HEP as appropriate, gait training, balance training when appropriate, & manual therapy/STM.
--- NOTE | 2020-09-11 18:21 | PT.OPPOC ---
Physical, Occupational & Speech Therapy At [facility] Current Diagnoses Periprosthetic fracture around internal prosthetic right hip joint, initial encounter (09/11/20) Visit Care Team Role Provider Type Elena Jeffries MD Family Provider Physician Primary Care Provider Specialty: Family Practice Address: [address] [place] [address], [facility] [place], [address] Email: [email or web address] Camargo PA-C Attending Provider Non-Staff Referring Provider Specialty: General Surgery Address: [address] [place] [address], [id number] Email: Plan Of Care PT-OP-T Assessment and Plan Start: 09/07/20 18:07 Freq: Status: Active Protocol: Document 09/11/20 10:47 LRN (Rec: 09/11/20 12:26 LRN [id number]) Physical Therapy Assessment Rehab Potential Rehabilitation Potential Excellent Evaluation Complexity Number of Personal Factors/Comorbidities 3 or More Number of Body Systems Impaired 4 or More Clinical Presentation at Evaluation Evolving Impairments Impairments Activity Tolerance,Balance, Gait,Pain,ROM,Soft Tissue Mobility,Strength Goals Three Impairment Decreased function due to pain . Impairment LEFS score of 8 (80-99% impaired) R hip AROM: flex 102 deg's, AB 10 deg's (L is flex 115 deg 's, AB 25 deg's) R knee AROM: flex 122 deg's, ext 17 deg's (L is flex 125 deg's, AB 10 deg's) Short Term Goal (STG) Improve R hip/knee painfree AROM. STG Duration 10/26/20 Button Riveter Goal (LTG) Improve R hip and knee mobility with pt able to walk and stand using 4WW without RLE pain. LTG Duration 12/10/20 Two Impairment Decreased R hip/knee strength Impairment Initial MMT: R knee flex/ext is 3+/5. R hip flex 3/5, Ext and AB 2/5 (other motions not appropriate for testing due too pain and recent surgery movement limitation of no AD) Short Term Goal (STG) Improve R knee & Hip strength 1 grade (knee 4/5, hip 3-4/5). STG Duration 10/26/20 Button Riveter Goal (LTG) Improve R hip & knee strength to no less than 4+/5 with pt able to walk 100', stand to cook, using 4WW without RLE pain. LTG Duration 12/10/20 One Impairment Lacks current self care HEP Short Term Goal (STG) Pt will be educated in self care pain managment techniques (RICE). STG Duration 09/18/20 Intermediate Goal (LTG) Pt will be independent in a self care HEP. LTG Duration 12/10/20 Assessment Summary Assessment Pt presents with R hip/knee decreased mobility and strength due to recent R MANUEL revision and surgical fix of femur fracture after fall. Pt is hindered by comorbidities including most notably her MDS blood disorder (see Current Conditions, Personal Factors), extensive surgical history, history of stroke, type II Diabetes, Osteoarthritis, and tape allergies (not able to use Kinesiotape). With the complications from her comorbidities, her rehabilitation is expected to be prolonged. The pt will benefit from skilled physical therapy to achieve the above stated goals. Physical Therapy Plan Frequency and Duration Frequency of Treatment 2x/Week Plan of Care Start Date 09/11/20 Plan of Care End Date 12/10/20 Therapeutic Interventions Therapeutic Interventions Gait Training,Home Exercise Program,Manual Therapy, Neuromuscular Re-education, Patient/Caregiver Education, Self-Care/Home Management,Soft Tissue Mobilization, Therapeutic Exercises Modalities Cold Pack/Ice Massage,Hot Packs Next Visit Focus/Plan Next Note Type Treatment Note Next Visit Plan Discuss pt's plan for when she wants to schedule more PT visits. Slow progressive ROM & strengthening of R hip/knee following R MANUEL posterior precautions until further direction can be obtained from pt's surgeon. Pt education in pain management techniques for home, HEP as appropriate, gait training, balance training when appropriate, & manual therapy/STM. Plan of Care Dates Plan of Care Start Date 09/11/20 Plan of Care End Date 12/10/20 Electronically Signed by: Chana Rai, PT 09/11/20 [id number] Please Sign and Return: I have reviewed this Plan of Care and certify that the skilled therapy services above are required to meet the patient?s needs. Physician Signature Date Printed Name and Credentials Clinical Instructor Signature Printed Name and Credentials
--- NOTE | 2020-09-13 12:28 | PT.OTN ---
Current Diagnoses Muscle weakness (generalized) (09/13/20) Periprosthetic fracture around internal prosthetic right hip joint, initial encounter (09/13/20) Other abnormalities of gait and mobility (09/13/20) Physical Therapy Treatment Note PT-OP-A Visit Information Start: 09/07/20 18:07 Freq: Status: Active Protocol: Document 09/13/20 09:45 AW (Rec: 09/13/20 09:51 AW [id number]) Out-Patient Physical Therapy Visit Information Visit Information Visit Type Treatment Note Visit Start Time 09:00 Visit Stop Time 09:45 Total Visit Minutes 45 Visit Number 2 Number of BIZTALK SOFTWARE DEVELOPER Visits 0 Evaluation Information Evaluation Date 09/11/20 Precautions Precautions - Unknown hip precautions. Last known was posterior precautions in May. 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 PT-OP-B Current Condition Start: 09/07/20 18:07 Freq: Status: Active Protocol: Document 09/11/20 10:47 LRN (Rec: 09/11/20 12:26 LRN [id number]) Current Condition History of Current Condition Onset Date 05/09/20 Current Complaints Pain in R hip, thigh and knee due to weakness. History of Current Condition Fell at end of April and shattered the R femur and hip joint, took 8 hr surgery ( revision of R MANUEL and had new philip placed that extended down the entire R femur to knee) and a lot of blood used to wire her together. Pt reports she is working on the recovery. Spent 6-8 weeks at [facility] for rehab. Has been home for ~6 weeks with home PT/OT ~3-4 wks. Has been 2-3 weeks without PT/OT at home. Prior Treatments and Tests Oxycodone for pain - every 4 hrs. 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 Treatment Goals Patient/Caregiver Goals Pt goal is to be able to walk and stand using 4WW without RLE plain. Prior Functional Status Baseline Function- Gait Used 4WW with gait. Could walk around house and shop Baseline Function- Other Able to bathe on own prior to fall. Current Functional Impairments (Reported) Functional Limitations- ADL's Spouse helps pt bath. Functional Limitations- Mobility/Gait Limited walking distance and standing due to R hip/thigh/ knee pain. 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 PT-OP-C Subjective Start: 09/07/20 18:07 Freq: Status: Active Protocol: Document 09/13/20 09:45 AW (Rec: 09/13/20 12:25 AW [id number]) OP-PT Subjective Patient Comments Patient Comments Pt is somewhat apprehensive but mostly excited and motivated to start PT PT-OP-G Mobility & Gait Start: 09/07/20 18:07 Freq: Status: Active Protocol: Document 09/11/20 10:47 LRN (Rec: 09/11/20 12:26 LRN [id number]) OP Gait Assessment Gait Gait Assistance Required: Independent Assistive Devices Assistive Device 4 Wheeled Walker Gait Deviations General Gait Pattern Antalgic Factors Limiting Gait Function Factors Limiting Gait Function Decreased Strength,Pain Comments Gait Comments 4WW, short steps with L LE, heavy lean on arms. PT-OP-H Neuro Start: 09/07/20 18:07 Freq: Status: Active Protocol: Document 09/11/20 10:47 LRN (Rec: 09/11/20 12:26 LRN [id number]) Sensation Evaluation Gross Sensation Gross Sensation WNL PT-OP-J Posture/Palpation/Skin Start: 09/07/20 18:07 Freq: Status: Active Protocol: Document 09/11/20 10:47 LRN (Rec: 09/11/20 12:26 LRN [id number]) Posture Evaluation Position Sitting Evaluation View Lateral & Anterior Comments Posture Comments Slumped, leans to left. Palpation Assessment Location L3, L4 Palpation Location Back Palpation Findings Tenderness R knee Palpation Location R anterior knee, around patella Palpation Findings Tenderness R thigh Palpation Location Anterior, posterior, medial, lateral Palpation Findings Tenderness Palpation Details Ms atrophy R hip Palpation Location Lateral, posterior, anterior Palpation Findings Tenderness PT-OP-K Range of Motion Start: 09/07/20 18:07 Freq: Status: Active Protocol: Document 09/11/20 10:47 LRN (Rec: 09/11/20 12:26 LRN [id number]) Hip Goniometric Range of Motion Hip Right Active Hip ROM WFL No Testing Position Supine Flexion w/Knee Flexed 102 Abduction 10 Comments Deferred rotation ROM assessment due to recent surgery. Left Active Hip ROM WFL Yes Testing Position Supine Flexion w/Knee Flexed 115 Abduction 25 Comments Deferred rotation ROM assessment due to previous surgeries. Knee Goniometric Range of Motion Knee Right Knee ROM WFL No Patient Position Supine Flexion Active (degrees) 122 Extension Active (degrees) 17 Left Knee ROM WFL Yes Patient Position Supine Flexion Active (degrees) 125 Extension Active (degrees) 10 PT-OP-M Strength Start: 09/07/20 18:07 Freq: Status: Active Protocol: Document 09/11/20 10:47 LRN (Rec: 09/11/20 12:26 LRN [id number]) Hip Strength Hip Manual Muscle Testing Right Flexion (L2) 3 Fair Extension (S1) 2 Poor Abduction 2 Poor Comments Deferred further assessment due to pain and mobility limitations due to recent surgery. Left Flexion (L2) 3+ Fair+ Extension (S1) 2 Poor Abduction 2 Poor Comments Deferred further assessment due to pain on surgical side. Knee Strength Knee Manual Muscle Testing Right Flexion (S2) 3+ Fair+ Extension (L3) 3+ Fair+ Comments Pain in anterior knee & with flexion in hamtrings. Left Flexion (S2) 5 Normal Extension (L3) 5 Normal Ankle/Foot Strength Ankle and Foot Manual Muscle Testing Right Comments Generally 5/5 Left Comments Generally 5/5 PT-OP-Q Treatments Start: 09/07/20 18:07 Freq: Status: Active Protocol: Document 09/13/20 09:45 AW (Rec: 09/13/20 09:51 AW [id number]) Cardio Equipment Recumbent Elliptical (Rift[employer]) Duration (Minutes) 5 Resistance 3 Seat Position 11 Therapeutic Exercises Supine Exercises bridge Supine Exercise Name bridge Equipment Used ball btwn knees to control adduction Reps/Minutes 10 SH x 8 Comments cued for increased extension clamshell Supine Exercise Name clalahell Side bilateral Resistance level 1 Equipment Used TB Reps/Minutes x15 Sidelying Exercises clamshell Sidelying Exercise Name clamshell Side bilateral Reps/Minutes 8 x 2 Comments guarding vs IR R hip in L sidelying Standing Exercises hip flexion/march Standing Exercise Name hip flexion/april Side bilateral Resistance alternating Equipment Used 4WW Reps/Minutes 10x2 Other Exercises sit to stand Other Exercise Name sit to stand Equipment Used 18 height tx table Reps/Minutes 5 x 2 Comments with UE support 2/2 pt unable to maintain precautions without Self-Care/Home Management Treatment Activities Self-Care/Home Management Activities Reminded pt to bring copy of HEP for review next session. PT-OP-T Assessment and Plan Start: 09/07/20 18:07 Freq: Status: Active Protocol: Document 09/13/20 09:45 AW (Rec: 09/13/20 12:28 AW [id number]) Physical Therapy Assessment Goals Three Impairment Decreased function due to pain . Impairment LEFS score of 8 (80-99% impaired) R hip AROM: flex 102 deg's, AB 10 deg's (L is flex 115 deg 's, AB 25 deg's) R knee AROM: flex 122 deg's, ext 17 deg's (L is flex 125 deg's, AB 10 deg's) Short Term Goal (STG) Improve R hip/knee painfree AROM. STG Duration 10/26/20 Motor Racer Goal (LTG) Improve R hip and knee mobility with pt able to walk and stand using 4WW without RLE pain. LTG Duration 12/10/20 Two Impairment Decreased R hip/knee strength Impairment Initial MMT: R knee flex/ext is 3+/5. R hip flex 3/5, Ext and AB 2/5 (other motions not appropriate for testing due too pain and recent surgery movement limitation of no AD) Short Term Goal (STG) Improve R knee & Hip strength 1 grade (knee 4/5, hip 3-4/5). STG Duration 10/26/20 Motor Racer Goal (LTG) Improve R hip & knee strength to no less than 4+/5 with pt able to walk 100', stand to cook, using 4WW without RLE pain. LTG Duration 12/10/20 One Impairment Lacks current self care HEP Short Term Goal (STG) Pt will be educated in self care pain managment techniques (RICE). STG Duration 09/18/20 Senior Living Goal (LTG) Pt will be independent in a self care HEP. LTG Duration 12/10/20 Assessment Summary Assessment Pt tolerated supine and standing exercise today with little pain complaint. She is highly motivated and has good support from her daughter who attended with her today. Physical Therapy Plan Frequency and Duration Frequency of Treatment 2x/Week Plan of Care Start Date 09/11/20 Plan of Care End Date 12/10/20 Therapeutic Interventions Therapeutic Interventions Gait Training,Home Exercise Program,Manual Therapy, Neuromuscular Re-education, Patient/Caregiver Education, Self-Care/Home Management,Soft Tissue Mobilization, Therapeutic Exercises Modalities Cold Pack/Ice Massage,Hot Packs Next Visit Focus/Plan Next Note Type Treatment Note Next Visit Plan Slow progressive ROM & strengthening of R hip/knee following R MANUEL posterior precautions until further direction can be obtained from pt's surgeon. Pt education in pain management techniques for home, HEP as appropriate, gait training, balance training when appropriate, & manual therapy/STM.
--- NOTE | 2020-09-24 17:57 | PT.OTN ---
Current Diagnoses Muscle weakness (generalized) (09/24/20) Periprosthetic fracture around internal prosthetic right hip joint, initial encounter (09/24/20) Other abnormalities of gait and mobility (09/24/20) Physical Therapy Treatment Note PT-OP-A Visit Information Start: 09/07/20 18:07 Freq: Status: Active Protocol: Document 09/24/20 15:23 MA (Rec: 09/24/20 16:05 MA [id number]) Out-Patient Physical Therapy Visit Information Visit Information Visit Type Treatment Note Visit Start Time 15:15 Visit Stop Time 15:55 Total Visit Minutes 40 Visit Number 3 Number of LEAD DESIGNER Visits 1 Precautions Precautions - Unknown hip precautions. Last known was posterior precautions in May. 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 PT-OP-B Current Condition Start: 09/07/20 18:07 Freq: Status: Active Protocol: Document 09/11/20 10:47 LRN (Rec: 09/11/20 12:26 LRN [id number]) Current Condition History of Current Condition Onset Date 05/09/20 Current Complaints Pain in R hip, thigh and knee due to weakness. History of Current Condition Fell at end of April and shattered the R femur and hip joint, took 8 hr surgery ( revision of R MANUEL and had new philip placed that extended down the entire R femur to knee) and a lot of blood used to wire her together. Pt reports she is working on the recovery. Spent 6-[address] [facility] for rehab. Has been home for ~6 weeks with home PT/OT ~3-4 wks. Has been 2-3 weeks without PT/OT at home. Prior Treatments and Tests Oxycodone for pain - every 4 hrs. 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 Treatment Goals Patient/Caregiver Goals Pt goal is to be able to walk and stand using 4WW without RLE plain. Prior Functional Status Baseline Function- Gait Used 4WW with gait. Could walk around house and shop Baseline Function- Other Able to bathe on own prior to fall. Current Functional Impairments (Reported) Functional Limitations- ADL's Spouse helps pt bath. Functional Limitations- Mobility/Gait Limited walking distance and standing due to R hip/thigh/ knee pain. 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 PT-OP-C Subjective Start: 09/07/20 18:07 Freq: Status: Active Protocol: Document 09/24/20 15:23 MA (Rec: 09/24/20 16:05 MA [id number]) OP-PT Subjective Patient Comments Patient Comments Pt states she has no hip precautions. states that surgeon says no crossing legs as the only precaution. Pt has had nausea since port replacement last week and has been unable to do HEP. PT-OP-G Mobility & Gait Start: 09/07/20 18:07 Freq: Status: Active Protocol: Document 09/11/20 10:47 LRN (Rec: 09/11/20 12:26 LRN [id number]) OP Gait Assessment Gait Gait Assistance Required: Independent Assistive Devices Assistive Device 4 Wheeled Walker Gait Deviations General Gait Pattern Antalgic Factors Limiting Gait Function Factors Limiting Gait Function Decreased Strength,Pain Comments Gait Comments 4WW, short steps with L LE, heavy lean on arms. PT-OP-H Neuro Start: 09/07/20 18:07 Freq: Status: Active Protocol: Document 09/11/20 10:47 LRN (Rec: 09/11/20 12:26 LRN [id number]) Sensation Evaluation Gross Sensation Gross Sensation WNL PT-OP-J Posture/Palpation/Skin Start: 09/07/20 18:07 Freq: Status: Active Protocol: Document 09/11/20 10:47 LRN (Rec: 09/11/20 12:26 LRN [id number]) Posture Evaluation Position Sitting Evaluation View Lateral & Anterior Comments Posture Comments Slumped, leans to left. Palpation Assessment Location L3, L4 Palpation Location Back Palpation Findings Tenderness R knee Palpation Location R anterior knee, around patella Palpation Findings Tenderness R thigh Palpation Location Anterior, posterior, medial, lateral Palpation Findings Tenderness Palpation Details Ms atrophy R hip Palpation Location Lateral, posterior, anterior Palpation Findings Tenderness PT-OP-K Range of Motion Start: 09/07/20 18:07 Freq: Status: Active Protocol: Document 09/11/20 10:47 LRN (Rec: 09/11/20 12:26 LRN [id number]) Hip Goniometric Range of Motion Hip Right Active Hip ROM WFL No Testing Position Supine Flexion w/Knee Flexed 102 Abduction 10 Comments Deferred rotation ROM assessment due to recent surgery. Left Active Hip ROM WFL Yes Testing Position Supine Flexion w/Knee Flexed 115 Abduction 25 Comments Deferred rotation ROM assessment due to previous surgeries. Knee Goniometric Range of Motion Knee Right Knee ROM WFL No Patient Position Supine Flexion Active (degrees) 122 Extension Active (degrees) 17 Left Knee ROM WFL Yes Patient Position Supine Flexion Active (degrees) 125 Extension Active (degrees) 10 PT-OP-M Strength Start: 09/07/20 18:07 Freq: Status: Active Protocol: Document 09/11/20 10:47 LRN (Rec: 09/11/20 12:26 LRN [id number]) Hip Strength Hip Manual Muscle Testing Right Flexion (L2) 3 Fair Extension (S1) 2 Poor Abduction 2 Poor Comments Deferred further assessment due to pain and mobility limitations due to recent surgery. Left Flexion (L2) 3+ Fair+ Extension (S1) 2 Poor Abduction 2 Poor Comments Deferred further assessment due to pain on surgical side. Knee Strength Knee Manual Muscle Testing Right Flexion (S2) 3+ Fair+ Extension (L3) 3+ Fair+ Comments Pain in anterior knee & with flexion in hamtrings. Left Flexion (S2) 5 Normal Extension (L3) 5 Normal Ankle/Foot Strength Ankle and Foot Manual Muscle Testing Right Comments Generally 5/5 Left Comments Generally 5/5 PT-OP-Q Treatments Start: 09/07/20 18:07 Freq: Status: Active Protocol: Document 09/24/20 15:23 MA (Rec: 09/24/20 16:05 MA [id number]) Therapeutic Exercises Supine Exercises Brad Stretch Side right Reps/Minutes 2x1 min SLR Side bilateral Reps/Minutes x7 Comments coul donly tolerate 7 on each side due to pain in quads and ITB bridge Supine Exercise Name bridge Equipment Used ball btwn knees to control adduction Reps/Minutes 10 SH x 8 Comments cued for increased extension tristenl Supine Exercise Name clamshell Side bilateral Resistance level 1 Equipment Used TB Reps/Minutes x15 Standing Exercises Hip Ext Side bilateral Reps/Minutes x5 Comments pain in LB PT-OP-T Assessment and Plan Start: 09/07/20 18:07 Freq: Status: Active Protocol: Document 09/24/20 15:23 MA (Rec: 09/24/20 16:05 MA [id number]) Physical Therapy Assessment Goals Three Impairment Decreased function due to pain . Impairment LEFS score of 8 (80-99% impaired) R hip AROM: flex 102 deg's, AB 10 deg's (L is flex 115 deg 's, AB 25 deg's) R knee AROM: flex 122 deg's, ext 17 deg's (L is flex 125 deg's, AB 10 deg's) Short Term Goal (STG) Improve R hip/knee painfree AROM. STG Duration 10/26/20 Operating Room Scheduler Goal (LTG) Improve R hip and knee mobility with pt able to walk and stand using 4WW without RLE pain. LTG Duration 12/10/20 Two Impairment Decreased R hip/knee strength Impairment Initial MMT: R knee flex/ext is 3+/5. R hip flex 3/5, Ext and AB 2/5 (other motions not appropriate for testing due too pain and recent surgery movement limitation of no AD) Short Term Goal (STG) Improve R knee & Hip strength 1 grade (knee 4/5, hip 3-4/5). STG Duration 10/26/20 Operating Room Scheduler Goal (LTG) Improve R hip & knee strength to no less than 4+/5 with pt able to walk 100', stand to cook, using 4WW without RLE pain. LTG Duration 12/10/20 One Impairment Lacks current self care HEP Short Term Goal (STG) Pt will be educated in self care pain managment techniques (RICE). STG Duration 09/18/20 Operating Room Scheduler Goal (LTG) Pt will be independent in a self care HEP. LTG Duration 12/10/20 Assessment Summary Assessment Pt arrives with HEP exercises from medicare, OT, and PT. Exercises from medicare involve supine AB, quad sets, SLR, standing hip ext, abd, and marches, as well as some balance activities. Instructed pt to continue with all exercises and added R Brad stretch for decreasing pain through quads and hip flexors. Pt cannot tolerate stretch without toes on floor. Instructed to place stool under pt's foot at home during stretch. Pt is tender to palpation at distal quads and hip flexors. Performed STM to these areas with pt only tolerating superfical to moderate pressure. She has not been doing HEP this week and has been in seated or long sitting positon in bed since becoming neasuas after port replacement last week. Educated pt and on how sitting increases hip flexor tightness and is contributing to her pain. Pt shows good understanding and is willing to try using rolling pin at home for quads and performing modified brad stretch. Physical Therapy Plan Frequency and Duration Frequency of Treatment 2x/Week Plan of Care Start Date 09/11/20 Plan of Care End Date 12/10/20 Therapeutic Interventions Therapeutic Interventions Gait Training,Home Exercise Program,Manual Therapy, Neuromuscular Re-education, Patient/Caregiver Education, Self-Care/Home Management,Soft Tissue Mobilization, Therapeutic Exercises Modalities Cold Pack/Ice Massage,Hot Packs Next Visit Focus/Plan Next Note Type Treatment Note Next Visit Plan No Adduction/IR R hip. Ask how Brad stretch for R quads and hip flexors went with stool at home. Slow progressive ROM & strengthening of R hip/knee following R MANUEL. Pt education in pain management techniques for home, HEP as appropriate, gait training, balance training when appropriate, & manual therapy/STM.
--- NOTE | 2020-10-25 09:34 | PT.OPDS ---
Current Diagnoses Muscle weakness (generalized) (09/24/20) Periprosthetic fracture around internal prosthetic right hip joint, initial encounter (09/24/20) Other abnormalities of gait and mobility (09/24/20) Visit Care Team Role Provider Type Elena Jeffries MD Family Provider Physician Primary Care Provider Specialty: Family Practice Address: [address] [place] [address], [place], [address] Email: [email or web address] Zohra Camargo PA-C Attending Provider Non-Staff Referring Provider Specialty: General Surgery Address: [address] [place] [address], [id number] Email: Visit Number Visit Number 3 Discharge Summary PT-OP-B Current Condition Start: 09/07/20 18:07 Freq: Status: Active Protocol: Document 09/11/20 10:47 LRN (Rec: 09/11/20 12:26 LRN [id number]) Current Condition History of Current Condition Onset Date 05/09/20 Current Complaints Pain in R hip, thigh and knee due to weakness. History of Current Condition Fell at end of April and shattered the R femur and hip joint, took 8 hr surgery ( revision of R MANUEL and had new philip placed that extended down the entire R femur to knee) and a lot of blood used to wire her together. Pt reports she is working on the recovery. Spent 6-8 weeks at [facility] for rehab. Has been home for ~6 weeks with home PT/OT ~3-4 wks. Has been 2-3 weeks without PT/OT at home. Prior Treatments and Tests Oxycodone for pain - every 4 hrs. 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 Treatment Goals Patient/Caregiver Goals Pt goal is to be able to walk and stand using 4WW without RLE plain. Prior Functional Status Baseline Function- Gait Used 4WW with gait. Could walk around house and shop Baseline Function- Other Able to bathe on own prior to fall. Current Functional Impairments (Reported) Functional Limitations- ADL's Spouse helps pt bath. Functional Limitations- Mobility/Gait Limited walking distance and standing due to R hip/thigh/ knee pain. 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 PT-OP-C Subjective Start: 09/07/20 18:07 Freq: Status: Active Protocol: Document 09/24/20 15:23 MA (Rec: 09/24/20 16:05 MA [id number]) OP-PT Subjective Patient Comments Patient Comments Pt states she has no hip precautions. states that surgeon says no crossing legs as the only precaution. Pt has had nausea since port replacement last week and has been unable to do HEP. PT-OP-G Mobility & Gait Start: 09/07/20 18:07 Freq: Status: Active Protocol: Document 09/11/20 10:47 LRN (Rec: 09/11/20 12:26 LRN [id number]) OP Gait Assessment Gait Gait Assistance Required: Independent Assistive Devices Assistive Device 4 Wheeled Walker Gait Deviations General Gait Pattern Antalgic Factors Limiting Gait Function Factors Limiting Gait Function Decreased Strength,Pain Comments Gait Comments 4WW, short steps with L LE, heavy lean on arms. PT-OP-H Neuro Start: 09/07/20 18:07 Freq: Status: Active Protocol: Document 09/11/20 10:47 LRN (Rec: 09/11/20 12:26 LRN [id number]) Sensation Evaluation Gross Sensation Gross Sensation WNL PT-OP-J Posture/Palpation/Skin Start: 09/07/20 18:07 Freq: Status: Active Protocol: Document 09/11/20 10:47 LRN (Rec: 09/11/20 12:26 LRN [id number]) Posture Evaluation Position Sitting Evaluation View Lateral & Anterior Comments Posture Comments Slumped, leans to left. Palpation Assessment Location L3, L4 Palpation Location Back Palpation Findings Tenderness R knee Palpation Location R anterior knee, around patella Palpation Findings Tenderness R thigh Palpation Location Anterior, posterior, medial, lateral Palpation Findings Tenderness Palpation Details Ms atrophy R hip Palpation Location Lateral, posterior, anterior Palpation Findings Tenderness PT-OP-K Range of Motion Start: 09/07/20 18:07 Freq: Status: Active Protocol: Document 09/11/20 10:47 LRN (Rec: 09/11/20 12:26 LRN [id number]) Hip Goniometric Range of Motion Hip Right Active Hip ROM WFL No Testing Position Supine Flexion w/Knee Flexed 102 Abduction 10 Comments Deferred rotation ROM assessment due to recent surgery. Left Active Hip ROM WFL Yes Testing Position Supine Flexion w/Knee Flexed 115 Abduction 25 Comments Deferred rotation ROM assessment due to previous surgeries. Knee Goniometric Range of Motion Knee Right Knee ROM WFL No Patient Position Supine Flexion Active (degrees) 122 Extension Active (degrees) 17 Left Knee ROM WFL Yes Patient Position Supine Flexion Active (degrees) 125 Extension Active (degrees) 10 PT-OP-M Strength Start: 09/07/20 18:07 Freq: Status: Active Protocol: Document 09/11/20 10:47 LRN (Rec: 09/11/20 12:26 LRN [id number]) Hip Strength Hip Manual Muscle Testing Right Flexion (L2) 3 Fair Extension (S1) 2 Poor Abduction 2 Poor Comments Deferred further assessment due to pain and mobility limitations due to recent surgery. Left Flexion (L2) 3+ Fair+ Extension (S1) 2 Poor Abduction 2 Poor Comments Deferred further assessment due to pain on surgical side. Knee Strength Knee Manual Muscle Testing Right Flexion (S2) 3+ Fair+ Extension (L3) 3+ Fair+ Comments Pain in anterior knee & with flexion in hamtrings. Left Flexion (S2) 5 Normal Extension (L3) 5 Normal Ankle/Foot Strength Ankle and Foot Manual Muscle Testing Right Comments Generally 5/5 Left Comments Generally 5/5 PT-OP-T Assessment and Plan Start: 09/07/20 18:07 Freq: Status: Active Protocol: Document 10/25/20 09:29 LRN (Rec: 10/25/20 09:34 LRN [id number]) Physical Therapy Assessment Goals Three Impairment Decreased function due to pain . Impairment LEFS score of 8 (80-99% impaired) R hip AROM: flex 102 deg's, AB 10 deg's (L is flex 115 deg 's, AB 25 deg's) R knee AROM: flex 122 deg's, ext 17 deg's (L is flex 125 deg's, AB 10 deg's) Short Term Goal (STG) Improve R hip/knee painfree AROM. STG Duration 10/26/20 (10/25/20: Pt not available for final assessment ) Retirement Goal (LTG) Improve R hip and knee mobility with pt able to walk and stand using 4WW without RLE pain. LTG Duration 12/10/20 (10/25/20: Pt not available for final assessment ) Two Impairment Decreased R hip/knee strength Impairment Initial MMT: R knee flex/ext is 3+/5. R hip flex 3/5, Ext and AB 2/5 (other motions not appropriate for testing due too pain and recent surgery movement limitation of no AD) Short Term Goal (STG) Improve R knee & Hip strength 1 grade (knee 4/5, hip 3-4/5). STG Duration 10/26/20 (10/25/20: Pt not available for final assessment ) Computer Graphic Artist Goal (LTG) Improve R hip & knee strength to no less than 4+/5 with pt able to walk 100', stand to cook, using 4WW without RLE pain. LTG Duration 12/10/20 (10/25/20: Pt not available for final assessment ) One Impairment Lacks current self care HEP Short Term Goal (STG) Pt will be educated in self care pain managment techniques (RICE). STG Duration 09/18/20 (10/25/20: NOT MET GOAL) Retirement Goal (LTG) Pt will be independent in a self care HEP. LTG Duration 12/10/20 (10/25/20: MET GOAL) Assessment Summary Assessment Per corrrespondence from pt's spouse, received 09/27/20, pt is doing well on her HEP and is requesting discharge. Pt was last seen 09/24/20. Physical Therapy Plan Discharge Physical Therapy Discharge Reasons Patient Request Discharge Comments Pt request for discharge , please see assessment above. Thank you for your referral.
== END 2020-10-25 12:59 | disposition home or self-care (01) ==
LOC: PHYS 15:15
PROVIDERS: Family Provider Family Medicine; PCP Family Medicine; Referring Provider Physician Assistant Surgical; Visit Provider Physician Assistant Surgical
DX: M97.01XA Periprosthetic fracture around internal prosthetic right hip joint, initial encounter (principal); M62.81 Muscle weakness (generalized); R26.89 Other abnormalities of gait and mobility
CPT/HCPCS: 97110; 97140; 97162; 97535

== ENCOUNTER → 2020-11-01 09:18 | Outpatient (CLI) | payer MEDICARE, SELFPAY ==
[2020-08-23 09:25] VITALS: BMI 26.6
--- NOTE | 2020-11-01 | DI.US.S_ITS ---
PROCEDURE: US ABDOMEN COMPLETE INDICATIONS: ABNORMAL LIVER FUNCTION TESTS TECHNIQUE: Real-time scanning was performed of the abdominal and retroperitoneal organs, with image documentation. COMPARISON: [facility], US, US ABDOMEN COMPLETE, 08/10/2017, 13:30. [facility], CT, CT CHEST ABD PEL W CON, 01/30/2020, 12:31. FINDINGS: Liver: The liver is enlarged, it demonstrates normal overall echotexture. Within the left liver, there is a complex, septated cyst that measures 2.7 x 2.6 x 2.1 cm. No abnormal vascularity can be seen associated with this cyst. The main portal vein demonstrates normal size and demonstrates normal appearing, hepatopetal flow. Gallbladder: Removed. Biliary ducts: Intrahepatic bile ducts are non-dilated. The common bile duct is mildly dilated for a post cholecystectomy patient at 11 mm. Pancreas: Visualized portions of the pancreas are sonographically normal. Spleen: The spleen is enlarged, measuring 17.7 cm, with a calculated volume of 132 cc. There is a solid, hyperechoic nonvascular mass seen within the spleen measures 4.6 x 5 x 5.3 cm. Kidneys: Kidneys are normal in size and echotexture. Right kidney measures 10.9 cm long; left kidney measures 10.9 cm long. No hydronephrosis or nephrolithiasis. No solid masses. On the left, there is a mid cortical cyst seen that measures 1 cm. Aorta: Visualized aorta is normal in caliber at less than 3 cm. Iliacs: Proximal common iliac arteries are normal in caliber at less than 2.5 cm. IVC: Intrahepatic inferior vena cava is patent. Miscellaneous: No free abdominal fluid. IMPRESSION: Hepatosplenomegaly. A complex, septated cyst is seen within the liver that measures to 2.7 cm. Within the spleen, there is again seen a hyperechoic mass which may be related to a hemangioma. This has increased in size compared to 2018. Status post cholecystectomy. The common bile duct is mildly dilated at 11 mm for a post cholecystectomy patient. Dictated by: Luan Gutierrez M.D. on 11/01/2020 at 9:44 Approved by: Luan Gutierrez M.D. on 11/01/2020 at 9:49
== END ==
PROVIDERS: Family Provider Family Medicine; PCP Family Medicine; Referring Provider Family Medicine; Visit Provider Family Medicine
DX: R94.5 Abnormal results of liver function studies (principal)
CPT/HCPCS: 76700